=== PATIENT | male | born 1965 | race Caucasian/White ===

== ENCOUNTER 2021-09-10 07:07 | Outpatient (CLI) | payer BC, SELFPAY ==
--- NOTE | 2021-09-10 07:13 | US_ITS ---
STUDY: ABDOMINAL ULTRASOUND - ELASTOGRAPHY REASON FOR VISIT: Male, 55 years old. Fatty infiltration of the liver. TECHNIQUE: Liver stiffness measurements were obtained on a [employer] RS 85 ultrasound machine using a CA 1-7 probe following the SRU guidelines. 3 measurements were obtained using a 2-D-SWE method. The IQR/M was 12% suggesting a quality data set. TECHNICAL QUALITY: Adequate. COMPARISON: Comparison is made with prior sonogram done earlier today. FINDINGS: Liver: Fatty infiltration of the liver. Median liver stiffness measured 8.2 kPa. US/Elastography Parenchyma/Organ IMPRESSION: Liver stiffness measures 8.2 kPa compatible with F2-F3 (Mild to moderate liver fibrosis) Metavir score. Electronically Signed: Edwin Chung MD at 8:47 EDT ,
--- NOTE | 2021-09-10 07:13 | US_ITS ---
EXAM: US ABDOMEN LIMITED, RIGHT UPPER QUADRANT : 1965 CLINICAL INDICATION: fatty liver TECHNIQUE: Real-time ultrasound of the right upper quadrant with image documentation. This report was created using [employer] report generation technology. COMPARISON: None. FINDINGS: LIVER: Liver measures 17.9 cm. There is mild increased echogenicity. No intrahepatic biliary ductal dilation. GALLBLADDER: Gallbladder wall measures 2 mm. No shadowing gallstone. No pericholecystic fluid. Negative sonographic Lakhani's sign. COMMON BILE DUCT: Common bile duct measures 4 mm. The proximal common bile duct is within normal limits for the patient's age. PANCREAS: Unremarkable as visualized. No focal abnormality is demonstrated in the pancreas. No pancreatic ductal dilatation. RIGHT KIDNEY: The right kidney measures 13.4 x 7.3 x 5.4 cm. There is no hydronephrosis. No shadowing calculus. No focal lesion or perinephric collection is demonstrated. US/Abdomen Limited IMPRESSION: Mild increased echogenicity of the liver compatible with fatty infiltration. No other abnormalities identified. at 1116 Reported and signed by: Tolu Miller MD Electronically Signed: Tolu Miller MD at 11:14 EDT ,
== END 2021-09-10 23:59 | disposition home or self-care (01) ==
LOC: US 07:11
PROVIDERS: PCP Nurse Practitioner Family; Referring Provider Internal Medicine Gastroenterology; Visit Provider Internal Medicine Gastroenterology
DX: K76.0 Fatty (change of) liver, not elsewhere classified (principal); R19.7 Diarrhea, unspecified
CPT/HCPCS: 76705; 76981

== ENCOUNTER 2021-09-24 06:06 | Outpatient (CLI) | payer BC, SELFPAY ==
[2021-09-24 07:15] LABS: Absolute Lymphocyte Count 1.47 X10^3/uL (0.83-4.51); Absolute Neutrophil Count 3.3 X10^3/uL (2.0-7.7); Basophil# 0.03 X10^3/uL; Basophil% 0.5 % (0-1); Eosinophil# 0.09 X10^3/uL; Eosinophils% 1.6 % (0-5); Hematocrit 44.2 % (40-54); Hemoglobin 14.1 g/dL (13.0-16.5); Lymphocyte # 1.47 X10^3/ul (0.83-4.51); Lymphocyte % 26.7 % (19-41); Mean Corp Hgb Conc 31.9 g/dL (32-36); Mean Corpuscular Hgb 28.3 pg (27.0-32.0); Mean Corpuscular Volume 88.6 fL (80-94); Monocyte% 10.9 % (0-10); NRBC Flagged by Analyzer 0 % (0-5); Neutrophil # 3.29 X10^3/uL (2.7-7.7); Neutrophil % 59.9 % (47-70); Platelet Count 165 K/mm3 (150-450); RBC Distribution Width CV 14.1 % (11.6-14.6); RBC Distribution Width SD 45.4 fl (35.1-43.9); Red Blood Count 4.99 M/mm3 (4.6-6.2); White Blood Count 5.5 K/mm3 (4.4-11.0)
[2021-09-24 07:31] LABS: Erythrocyte Sedimentation Rate 4 mm/hr (0-20)
[2021-09-24 08:04] LABS: ALB/GLOB Ratio 1.2 RATIO (0.9-2.4); AST(SGOT) 27 U/L (15-37); Alanine Aminotransfer ALT/SGPT 45 U/L (16-61); Albumin, Serum 3.8 g/dL (3.2-5.0); Alkaline Phosphatase 101 U/L (45-117); Anion Gap 5 (5-15); BUN 17 mg/dL (7-18); BUN/Creat Ratio 17.5 RATIO (10-20); CRP < 2.90 mg/L (0.0-3.0); Calcium,Total 8.9 mg/dL (8.5-10.1); Chloride 108 mmol/L (98-107); Creatinine, Serum 0.97 mg/dL (0.70-1.30); EST Glomerular Filtration Rate 84 mL/min (>60); Est Glom Filt Rate - Afr Amer 102 mL/min (>60); Globulin 3.2 g/dL (2.2-4.2); Glucose 94 mg/dL (74-106); LDH 249 U/L (87-241); Sodium Level 141 mmol/L (136-145)
[2021-09-24 08:10] LABS: Hemoglobin A1c 5.7 % (3.8-5.6)
[2021-09-24 09:12] LABS: HIV - WCH Non-Reactive (Nonreactive)
[2021-09-25 14:10] LABS: Anti-Centromere B Ab <0.2 AI (0.0-0.9); Anti-Chromatin <0.2 AI (0.0-0.9); Anti-Jo <0.2 AI (0.0-0.9); Anti-Scleroderma-70 AB <0.2 AI (0.0-0.9); RNP Ab 0.6 AI (0.0-0.9); SJOGREN'S Anti-SS-A test < 0.2 AI (0.0-0.9); SJOGREN'S Anti-SS-B test < 0.2 AI (0.0-0.9); Smith Ab <0.2 AI (0.0-0.9)
[2021-09-25 16:54] LABS: Anti-Mitochondrial AB 42.2 Units (0.0-20.0)
[2021-09-25 16:55] LABS: Anti-dsDNA Ab <1 IU/mL (0-9)
[2021-09-30 17:07] LABS: Angiotensin Convert Enzyme 35 U/L (14-82); Ceruloplasmin 17.5 mg/dL (16.0-31.0); Cytoplasmic Ab (C-ANCA) <1:20 titer (Neg:<1:20); HEPATITIS B SURFACE AG Negative (Negative); Hepatitis A IgM Antibody Negative (Negative); Hepatitis B Core AB IgM Negative (Negative); Immunoglobulin A 129 mg/dL (90-386); Immunoglobulin E 13 IU/mL (6-495); Immunoglobulin G 851 mg/dL (603-1613); Immunoglobulin M 45 mg/dL (20-172)
[2021-09-30 20:16] LABS: AFP, Tumor Marker 1.9 ng/mL (0.0-8.4); Anti-Smooth Muscle ABS 6 Units (0-19); Copper, Serum or Plasma 84 ug/dL (69-132); Haptoglobin 133 mg/dL (29-370); Hep C Antibodies 0.1 s/co ratio (0.0-0.9); Perinuclear Ab (P-ANCA) <1:20 titer (Neg:<1:20)
== END 2021-09-24 23:59 | disposition home or self-care (01) ==
LOC: LAB 06:08
PROVIDERS: PCP Nurse Practitioner Family; Visit Provider Internal Medicine Gastroenterology
DX: K76.0 Fatty (change of) liver, not elsewhere classified (principal); R19.7 Diarrhea, unspecified
CPT/HCPCS: 36415; 80053; 80074; 82105; 82164; 82390; 82525; 82784; 82785; 83010; 83036; 83516; 83615; 85025; 85652; 86140; 86225; 86235; 86256; 86703

== ENCOUNTER → 2022-03-22 | Outpatient (CLI) | payer BC, SELFPAY ==
--- NOTE | 2022-03-22 07:16 | US_ITS ---
STUDY: ABDOMINAL ULTRASOUND - ELASTOGRAPHY REASON FOR VISIT: Male, 56 years old. Fatty infiltration of the liver. TECHNIQUE: Liver stiffness measurements were obtained on a [employer] RS 85 ultrasound machine using a CA 1-7 probe following the SRU guidelines. 3 measurements were obtained using a 2-D-SWE method. The IQR/M was 27% suggesting a quality data set. TECHNICAL QUALITY: Adequate. COMPARISON: Comparison is made with prior study from 09/10/2021. FINDINGS: Liver: Hepatomegaly and fatty infiltration of the liver. Median liver stiffness measured 10.5 kPa. US/Elastography Parenchyma/Organ IMPRESSION: Liver stiffness measures 10.5 kPa compatible with F2-F3 (Mild to moderate liver fibrosis) Metavir score. Electronically Signed: Edwin Chung MD at 14:50 EDT ,
--- NOTE | 2022-03-22 07:16 | US_ITS ---
STUDY: ABDOMINAL ULTRASOUND - RIGHT UPPER QUADRANT REASON FOR VISIT: Male, 56 years old . Fatty infiltration of the liver. TECHNIQUE: Ultrasound evaluation of the right upper quadrant was performed with real-time and static juarez-scale imaging. TECHNICAL QUALITY: Limited. Examination limited due to obesity. COMPARISON: Comparison is made with prior study dated 09/10/2021. FINDINGS: Liver: The liver is enlarged and measures 22.1 cm. There is increased echogenicity consistent with fatty infiltration. The bile ducts are within normal limits. There is hepatic color flow. The direction of portal flow is hepatopetal. There is no demonstrated mass lesion. Gallbladder: Normal distended gallbladder. The gallbladder wall measures 1.3 mm. There is a negative sonographic Lakhani''s sign. There is no pericholecystic fluid. There are no gallstones. Common Bile Duct (C.B.D.): The common bile duct measures 4.0 mm. Pancreas: There is nonvisualization of the pancreas due to overlying bowel gas. Right Kidney: Normal size of the right kidney. The right kidney measures 13.7 cm x 6.8 cm x 7.7 cm. Normal renal cortex. The right cortex measures 2.7 cm. There is no demonstrated renal mass or cyst. There is no right hydronephrosis. US/Abdomen Limited IMPRESSION: Hepatomegaly and diffuse fatty infiltration of the liver. Electronically Signed: Edwin Chung MD at 14:49 EDT ,
== END | disposition home or self-care (01) ==
LOC: US 07:14
PROVIDERS: PCP Nurse Practitioner Family; Referring Provider Internal Medicine Gastroenterology; Visit Provider Internal Medicine Gastroenterology
DX: K76.0 Fatty (change of) liver, not elsewhere classified (principal)
CPT/HCPCS: 76705; 76981

== ENCOUNTER 2022-09-27 07:25 | Outpatient (CLI) | payer BC, SELFPAY ==
[2022-09-27] VITALS (9 sets, daily range): BP systolic 140–164; BP diastolic 81–107; PULSE 56–66; RESP 14–19; TEMP 36.5; O2SAT 91–99; BMI 38.0
--- NOTE | 2022-09-27 | LIV_PTH ---
PATIENT: SEE SHERIFF LOC: CT U#:[id number] AGE/SX: 56/M ROOM: RE09/27/[address]: Dr. Agustin Hunt DO : 1965 BED: DIS: 09/27/2022 SPEC #: [id number] RECD: 09/27/22 10:34 STATUS: CANDIE VINICIUS #: [id number] YUKI: 09/27/22 00:[address]: Agustin Hunt DEPT: SURGICAL PATHOLOGY RECD BY: Santino Prasad ENTERED: 09/27/22 10:35 SP TYPE: LIVER RES OTHR DR: Gaurang Ramos, HISTOLOGIC TECHNICIAN-C Tissues: Liver, NOS Procedures: PAS with Diastase (control) Trichrome (control) Special Stain Group II PAS Stain (control) Surgery Specimen Level V Retic (control) Iron Stain (control) HEADER OPERATION: CT-guided liver biopsy PRE-OP DIAGNOSIS: PBC TISSUE SUBMITTED: Liver x3 18-gauge MICROSCOPIC DIAGNOSIS Liver, CT-guided core biopsy: Minimal chronic inflammation, grade 1. No evidence of cirrhosis. See comment. AM:yrn 09/28/2022 COMMENT The modified Knodell scoring system for chronic hepatitis was used in the evaluation of this case. There is minimal portal inflammation without lobular involvement. Iron stain does not reveal accumulation of intraparenchymal iron. Reticulin stain reveals normal hepatic architecture. PAS and PASD stains do not reveal accumulation of abnormal proteins. Trichrome does not reveal cirrhosis. All matched controls are appropriate. MICROSCOPIC DESCRIPTION Slides are reviewed. GROSS DESCRIPTION Received in fixative is one container labeled with the patient's name and designated CT liver biopsy. The specimen consists of three elongated fragments of suarez soft tissue measuring 1 to 1.5 cm in length and 0.1 cm in diameter. The specimen is totally submitted in one cassette. / SJ:yrn 09/27/2022 TC:3 CPT: 96277, 75355 x5
--- NOTE | 2022-09-27 07:27 | CT_ITS ---
PROCEDURE: CT DIRECTED CORE LIVER BIOPSY INDICATION: Male, [address] [facility] PHYSICIAN: Dr. Sheldon Denson CONSENT: Written informed consent was obtained having explained the risks, benefits and alternatives in detail with the patient who accepted the risks and agreed to proceed. Laboratory review and clinical assessment was performed. CONSCIOUS SEDATION PROTOCOL: The Drugs used were: 2 mg Versed, IV., and 50 mcg Fentanyl, IV. The sedation time was: 17 minutes. Conscious sedation was started at 9:08 AM and terminated at 9:25 AM. The conscious sedation protocol was independently monitored. RADIATION DOSAGE (If Supplied By Facility): CTDIvol = ( 26 ) mGy, DLP = ( 1364.34 ) mGycm Individualized dose optimization techniques were used for this CT. TECHNIQUE: Using CT image guidance with image documentation, a suitable location in the left lobe of the liver was identified. Using an anterior approach, puncture of the liver was uneventful with an 18-gauge core needle system. 3, 18-gauge core samples were obtained, and submitted in formalin to the pathologist for further assessment. Followup CT scan revealed no distinct sequelae. CT/Biopsy/Inj or Needle Placement IMPRESSION: 1. CT directed core needle biopsy of the liver, using CT image guidance with image documentation as described. 2. Conscious Sedation protocol utilized with independent monitoring. Electronically Signed: Edwin Chung MD at 9:56 EDT ,
[2022-09-27 08:10] LABS: Prothrombin Time (Protime)PT. 13.1 SECONDS (11.7-14.9)
[2022-09-27 08:11] LABS: Partial Thromboplast Time 38.6 Seconds (24.1-36.2)
[2022-09-27 08:14] LABS: ALB/GLOB Ratio 1.1 RATIO (0.9-2.4); AST(SGOT) 19 U/L (15-37); Alanine Aminotransfer ALT/SGPT 32 U/L (16-61); Albumin, Serum 3.6 g/dL (3.2-5.0); Alkaline Phosphatase 81 U/L (45-117); Anion Gap 2 (5-15); BUN 22 mg/dL (7-18); BUN/Creat Ratio 22.1 RATIO (10-20); Calcium,Total 9.2 mg/dL (8.5-10.1); Chloride 108 mmol/L (98-107); EST Glomerular Filtration Rate 82 mL/min (>60); Est Glom Filt Rate - Afr Amer 99 mL/min (>60); Globulin 3.2 g/dL (2.2-4.2); Glucose 120 mg/dL (74-106); LDH 215 U/L (87-241); Potassium 4.5 mmol/L (3.5-5.1); Protein, Total 6.8 g/dL (6.4-8.2); Sodium Level 141 mmol/L (136-145)
[2022-09-27 08:34] LABS: Hemoglobin A1c 5.3 % (3.8-5.6)
[2022-09-27] MEDS: Midazolam 2 MG/2 ML Syringe IV (09:08)
[2022-09-27] MEDS: fentaNYL 100 MCG/2 ML Ampul IV (09:10)
[2022-09-27] MEDS: Lidocaine 2% (20 ml mdv) 20 ML Vial INFILT (09:27)
[2022-09-28 16:36] LABS: Anti-Mitochondrial AB 59.7 Units (0.0-20.0)
[2022-09-28 16:37] LABS: Anti-Smooth Muscle ABS 4 Units (0-19)
== END 2022-09-27 23:59 | disposition home or self-care (01) ==
PROVIDERS: PCP Nurse Practitioner Family; Referring Provider Internal Medicine Gastroenterology; Visit Provider Internal Medicine Gastroenterology
DX: K73.9 Chronic hepatitis, unspecified (principal); K74.3 Primary biliary cirrhosis; K76.0 Fatty (change of) liver, not elsewhere classified; Z79.899 Other long term (current) drug therapy
CPT/HCPCS: 47000; 36415; 77012; 80053; 83036; 83516; 83615; 85049; 85610; 85730; 88307; 88313; 99156; J7050

== ENCOUNTER → 2023-03-22 | Outpatient (CLI) | payer BC, SELFPAY ==
--- NOTE | 2023-03-22 07:32 | US_ITS ---
STUDY: ABDOMINAL ULTRASOUND - RIGHT UPPER QUADRANT; ELASTOGRAPHY REASON FOR VISIT: Male, 57 years old. Fatty infiltration of the liver. Cirrhosis. TECHNIQUE: Ultrasound evaluation of the right upper quadrant was performed with real-time and static juarez-scale imaging. Point quantification shear wave elastography was performed ([employer] [place] [employer]). TECHNICAL QUALITY: Limited. Examination limited by bowel gas. COMPARISON: Comparison is made with prior study dated March 22, 2022. FINDINGS: Liver: The liver is enlarged and measures 20.2 cm. There is increased echogenicity consistent with fatty infiltration. The bile ducts are within normal limits. There is hepatic color flow. The direction of portal flow is hepatopetal. There is no demonstrated mass lesion. Median liver stiffness measured 8.2 kPa. Gallbladder: Normal distended gallbladder. The gallbladder wall measures 2.5 mm. There is a negative sonographic Lakhani''s sign. There is no pericholecystic fluid. There are no gallstones. Common Bile Duct (C.B.D.): The common bile duct measures 3.4 mm. Pancreas: There is normal echogenicity of the visualized pancreas. There is no demonstrated pancreatic mass or cyst. Right Kidney: Normal size of the right kidney. The right kidney measures 13.1 cm x 5.4 cm x 6.9 cm. Normal renal cortex. The right cortex measures 2.2 cm. There is no demonstrated renal mass or cyst. There is no right hydronephrosis. US/ABD Limited w/ Elastography IMPRESSION: 1. Liver stiffness measures 8.2 kPa compatible with F2-F3 (Mild to moderate liver fibrosis) Metavir score. Electronically Signed: Edwin Chung MD at 12:36 EDT ,
== END | disposition home or self-care (01) ==
LOC: US 07:32
PROVIDERS: PCP Nurse Practitioner Family; Referring Provider Internal Medicine Gastroenterology; Visit Provider Internal Medicine Gastroenterology
DX: K74.3 Primary biliary cirrhosis (principal)
CPT/HCPCS: 76705; 76981

== ENCOUNTER → 2023-08-20 | Outpatient (CLI) | payer BC, SELFPAY ==
--- OUTSIDE RECORDS SUMMARY | 2023-08-20 07:09 | XMS RPT_ITS | CCD ---
Author Name Unknown Address [address] [place] [address] Organization [facility] Care Team Providers Care Parts Consultant Name Role Phone REFERRINGCAITLYN Unavailable Unavailable GAURANG LOVE Unavailable Unavailable GAURANG LOVE Unavailable Unavailable KATE VIDEO PRESENTATION OPERATOR - DENTAL APPLIANCE FIXER, GAURANG Smith Primary Care Phys [facility] KATE VIDEO PRESENTATION OPERATOR - GAURANG NIEVES Attending U navailable KATE VIDEO PRESENTATION OPERATOR - DENTAL APPLIANCE FIXER, GAURANG Smith Primary Care U navailable KATE VIDEO PRESENTATION OPERATOR - DENTAL APPLIANCE FIXER, GAURANG Smith Attending U navailable KATE VIDEO PRESENTATION OPERATOR - DENTAL APPLIANCE FIXER, GAURANG Smith Primary Care U navailable KATE VIDEO PRESENTATION OPERATOR - DENTAL APPLIANCE FIXER, GAURANG Smith Attending U navailable KATE VIDEO PRESENTATION OPERATOR - DENTAL APPLIANCE FIXER, GAURANG Smith Primary Care U navailable KATE VIDEO PRESENTATION OPERATOR - DENTAL APPLIANCE FIXER, GAURANG Smith Attending U navailable KATE VIDEO PRESENTATION OPERATOR - DENTAL APPLIANCE FIXER, GAURANG Smith Primary Care U navailable [facility] [place] CNP, Gaurang Smith Primary Care Provider MARCELLA GONZALEZ Referring Unavailable GAURANG LOVE Primary Care Unavailable GAURANG LOVE Primary Care Unavailable Medications Current Medications Medication Drug Class(es) Dates Sig (Normalized) Sig (Original) Arnuity Ellipta 200 mcg inhalation powder (3 sources) Start: 11-10-2021 take 1 puff(s) by inhalation once daily Arnuity Ellipta 200 mcg inhalation powder 1 puff(s), Inhalation, qDay, # 30 EA, 0 Refill(s) Start Date: 11/10/21 Status: Ordered Calcium (1 source) Phosphate Binder, Calcium Start: 02-23-2019 calcium (as carbonate) 600 mg oral tablet Dose : 600 mg = 1 tab(s), Oral, BIDM, 0 Refill(s) Start Date: 02/23/19 Status: Ordered calcium carbonate 1500 mg oral tablet (5 sources) Start: 02-23-2019 calcium (as carbonate) 600 mg oral tablet Dose : 600 mg = 1 tab(s), Oral, BIDM, 0 Refill(s) Start Date: 02/23/19 Status: Ordered cephalexin 500 mg oral capsule (1 source) Cephalosporin Antibacterial Start: 07-30-2022 End: 08-06-2022 cephalexin 500 mg oral capsule Dose : 500 mg = 1 cap(s), Oral, TID, X 7 day(s), # 21 cap(s), 0 Refill(s), 08/06/22 11:42:00 EST, Pharmacy: [id number], Cellulitis of left leg, 182.5, cm, 07/30/22 11:11:00 EST, Height, 132.2 Start Date: 07/30/22 Stop Date: 08/06/22 Status: Ordered Clobetasol (6 sources) Corticosteroid Start: 11-12-2022 Clobetasol (Eqv-Temovate) 0.05% topical cream See Instructions, APPLY TO AFFECTED AREA TWICE A DAY, # 30 gram(s), 6 Refill(s), Pharmacy: [id number], 182.5, cm, 11/12/22 15:21:00 EDT, Height, kg, 11/12/22 15:21:00 EDT, Dosing Weight Start Date: 11/12/22 Status: Ordered Completed/Discontinued Medications Medication Drug Class(es) Dates Sig (Normalized) Sig (Original) acetaminophen 325 mg / HYDROcodone bitartrate 5 mg oral tablet (1 source) Opioid Agonist Start: 07-18-2015 take 1 tablet by mouth every six hours as needed HYDROcodone-aceta minophen (NORCO) 5-325 mg per tablet Take 1 tablet by mouth every 6 hours as needed. 60 tablet 0 07/18/2015 Active Problems Active Problems Problem Classification Problem Date Documented Da te Episodic/Chronic Anxiety disorders (6 sources) Generalized anxiety disorder 10-02-2020 Chronic Asthma (6 sources) Asthma 10-02-2020 Chronic Disorders of lipid metabolism (14 sources) Hyperlipidemia, unspecified; Translations: [Hyperlipidemia] Onset: 7 02-23-2019 Chronic Esophageal disorders (6 sources) Gastroesophageal reflux disease 02-22-2019 Chronic Essential hypertension (10 sources) Essential (primary) hypertension; Translations: [Hypertensive disorder] Onset: 7 02-22-2019 Chronic Osteoarthritis (6 sources) Arthritis 02-22-2019 Chronic Other gastrointestinal disorders (5 sources) Irritable bowel syndrome 07-17-2021 Chronic Other lower respiratory disease (1 source) Cough; Translations: [Acute cough] 06-02-2023 Episodic Other male genital disorders (6 sources) 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 Other nutritional; endocrine; and metabolic disorders (1 source) Body mass index 40+ - severely obese 05-05-2023 Chronic Residual codes; unclassified (6 sources) Increased body mass index 09-06-2019 Episodic Screening and history of mental health and substance abuse codes (3 sources) Tobacco use and exposure - finding 05-13-2022 Chronic Thyroid disorders (8 sources) Hypothyroidism, unspecified; Translations: [Hypothyroidism] Onset: 7 02-22-2019 Chronic Unclassified (6 sources) Patient encounter status 10-02-2020 Unclassified (1 source) Pressure injury 02-26-2022 Unclassified (3 sources) Non-smoker 05-13-2022 Unclassified (1 source) Acute cough; Translations: [Acute cough] Onset: 3 Viral infection (1 source) Viral disease; Translations: [Viral infection, unspecified] 06-02-2023 Episodic Past or Other Problems Problem Classification Problem Date Documented Da te Episodic/Chronic Abdominal hernia (1 source) Incisional hernia; Translations: [Incisional hernia without obstruction or gangrene] Onset: 01-13-2015 08-11-2015 Episodic Skin and subcutaneous tissue infections (3 sources) Abscess of lower limb; Translations: [Cellulitis of left lower limb] Onset: 07-30-2022 07-30-2022 Episodic Results Test Name Value Interpretation Reference Range Facil ity Vital Signs Date Time Vital Sign Value Performing Clinician Faci lity 06-02-2023 12:40-0500 Body temperature 99.19 [degF] Marcella Gonzalez APRN.DENTAL APPLIANCE FIXER Work Phone: [facility] 06-02-2023 12:40-0500 Body weight 132.18 kg Marcellaconchita Gonzalez VIDEO PRESENTATION OPERATOR.DENTAL APPLIANCE FIXER Work Phone: [facility] 06-02-2023 12:40-0500 Diastolic blood pressure 90 mm[Hg] Marcella Gonzalez VIDEO PRESENTATION OPERATOR.DENTAL APPLIANCE FIXER Work Phone: [facility] 06-02-2023 12:40-0500 Heart rate 80 /min Marcellaconchita Gonzalez VIDEO PRESENTATION OPERATOR.DENTAL APPLIANCE FIXER Work Phone: [facility] 06-02-2023 12:40-0500 Respiratory rate 21 /min Marcellaconchita Gonzalez VIDEO PRESENTATION OPERATOR.DENTAL APPLIANCE FIXER Work Phone: [facility] 06-02-2023 12:40-0500 SaO2% (BldA) [Mass fraction] 94 % Marcella Gonzalez VIDEO PRESENTATION OPERATOR.DENTAL APPLIANCE FIXER Work Phone: [facility] 06-02-2023 12:40-0500 Systolic blood pressure 122 mm[Hg] Marcella Gonzalez VIDEO PRESENTATION OPERATOR.DENTAL APPLIANCE FIXER Work Phone: [facility] Encounters Encounter Date Encounter Type Care Provider Facility Start: 06-02-2023 End: 06-02-2023 ambulatory GAURANG LOVE Facility:[facility] Start: 06-02-2023 End: 06-02-2023 Office outpatient visit 15 minutes Marcella Gonzalez VIDEO PRESENTATION OPERATOR.DENTAL APPLIANCE FIXER Work Phone: [facility] Plan of Treatment Date Care Activity Detail Author Start: 02-25-2023 Covid-19 Vaccine ( season) Covid-19 Vaccine ( season) [facility] Start: 02-25-2023 Influenza vaccination Influenza Vacc ine (#1) [facility] Start: 06-27-2022 Depression Assessment Depression Ass essment [facility] Start: 11-22-2018 Prostate Cancer Scre ening Discussion Prostate Cancer Screening Discussion [facility] Start: 06-09-2018 Diabetes Screening Diabetes Screenin g [facility] Start: 11-22-2013 Shingrix Vaccine (1 of 2) Shingrix V accine (1 of 2) [facility] Start: 11-22-2008 Cologuard (FIT-DNA) Cologuard (FIT-D NA) [facility] Start: 11-22-2008 Colonoscopy Colonoscopy [facility] Start: 11-22-2008 Colorectal Cancer Screening Colorectal Cancer Screening [facility] Start: 11-22-[address] Colonography [facility] Start: 11-22-2008 Fecal Occult Blood Fecal Occult Bloo d [facility] Start: 11-22-[address] [facility] Start: 11-22-1998 Lipid 1996 panel - S vaishali or Plasma Lipid Screening [facility] Start: 11-22-1982 Urine microalbumin profile DTa P,Tdap,Td Vaccine (1 - Tdap) [facility] Start: 11-22-1981 Hepatitis C Screening Hepatitis C Sc reening [facility] Start: 11-22-1981 HIV Screening HIV Screening [facility] Immunizations Immunization Date Immunization Notes Care Provider Fa barbara 10-22-2020 SARS-CoV-2 (COVID-19 ) mRNA-1273 vaccine GAURANG LOVE VIDEO PRESENTATION OPERATOR - DENTAL APPLIANCE FIXER [facility] Payers Date Payer Category Payer Unknown [id number] 1999 Unknown [employer] PPO [id number] 1999-Present [phone] [address] [place] [address] PPO [id number] 1963 Unknown [id number] 1963 Unknown [id number] 1963 Unknown [id number] 1963 Unknown [id number] Social History Date Type Detail Facility Start: 02-16-2011 End: 02-23-2019 Never smoked tobacco (finding) [facility] Procedure Code Equipment Code Equipment Origin al Text Equipment Identifier Dates Patch Ventralex St Sepra Large [place] Surgical Strap 3.2in Umbilical Hernia - [id number] Start: 07-18-2015 Clinical Notes 08-02-2022 to 06-02-2023 Marcella Gonzalez APRN.CNP - 06/02/2023 12:42 PM ESTLaboratoryLaboratoryLaboratoryLaboratoryLaboratoryLaboratory Note Date & Type Note Facility 06-02-2023 Note HNO ID: [id number] Author: Ingrid Perera RT(R) Service: ? Author Type: Flange Machine Operator Type: Progress Notes Filed: 06/02/2023 1:08 PM Note Text: Radiology Service Progress Note PATIENT NAME: See Vidal DATE OF SERVICE: June 02, 2023 TIME: 1:00 PM PATIENT IDENTITY VERIFICATION COMPLETED USING TWO (2) IDENTIFIERS: Name and Date of confirmed by patient verbally. FALL SCREENING: Has the patient had 2 falls in the last year or 1 fall with injury or currently using an Ambulatory Assistive Device (Walker, Cane, Wheelchair, Crutches, etc.)? No PATIENT GENDER DATA: Male PATIENT RELEVANT IMPLANT DATA REVIEWED: Yes RADIOLOGY DEPARTMENT: General X-ray: Exam(s) Completed: Chest X-Ray PERIPHERAL IV DATA: Not applicable SIGNED BY: RT Krystyna(R) June 02, 2023 1:00 PM [facility] 06-02-2023 Note HNO ID: [id number] Author: Marcella Gonzalez APRN.DENTAL APPLIANCE FIXER Service: ? Author Type: Nurse Practitioner Type: Progress Notes Filed: 06/02/2023 1:39 PM Note Text: Subjective HPI Nontoxic-appearing male presents to urgent care chief plaint fatigue. Duration of symptoms 1 week. Associated symptoms fever body aches chills fatigue headache nasal congestion. Does have some cough. Fever has been absent for the last few days. Has noticed persistent fatigue and body aches. No known sick contacts. No OTC medication use today. Presents today for evaluation. Denies any fever chills productive cough chest pain shortness of breath pleuritic pain hemoptysis nausea vomiting abdominal pain change in bowel or bladder habits. Past medical history prescription medication use and allergies reviewed. .Patient presents with: Fever: Body aches, weakness, CORTES x 1 week PAST MEDICAL HISTORY Diagnosis Date Bleeding Has problems at dentist,get cut etc, not tested for any bleeding disorder Hypertension 1995 Hypothyroidism 1995 History reviewed. No pertinent surgical history. ALLERGIES Patient has no allergy information on record. MEDICATIONS FLOVENT DISKUS 250 mcg/actuation inhaler hydroCHLOROthiazide 12.5 mg capsule valsartan (DIOVAN) 320 mg tablet metoprolol succinate ER (TOPROL XL) 25 mg 24 hr tablet ursodiol (ACTIGALL) 300 mg capsule docusate sodium (COLACE) 100 mg capsule Take 1 capsule by mouth twice daily. Omeprazole 40 mg capsule Take 40 mg by mouth once daily. escitalopram oxalate (LEXAPRO) 10 mg tablet Take 10 mg by mouth once daily. diltiazem CD (CARTIA XT) 240 mg 24 hr capsule Take 240 mg by mouth once daily. lisinopril 40 mg ORAL tablet Take 40 mg by mouth once daily. levothyroxine (SYNTHROID) 25 mcg ORAL tablet Take 25 mcg by mouth. VITAMIN B COMPLEX NO.12-NIACIN ORAL Take by mouth once daily. Multivitamin ORAL capsule Take 1 capsule by mouth. Vitamin E 1,000 unit ORAL Tab Take by mouth once daily. CALCIUM CARBONATE/VITAMIN D3 (CALCIUM 600 + D ORAL) Take by mouth once daily. HYDROcodone-acetaminophen (NORCO) 5-325 mg per tablet Take 1 tablet by mouth every 6 hours as needed. (Patient not taking: Reported on 06/02/2023) FAMILY HISTORY Problem Relation Age of Onset Diabetes Father Heart Father Cancer Father pancreatic Social History Tobacco Use Smoking status: Never BP 122/90 Pulse 80 Temp 37.3 ?C (99.2 ?F) Resp 21 Wt 132.2 kg (291 lb 6.4 oz) SpO2 94% BMI 39.52 kg/m? 96% Review of Systems Constitutional: Positive for chills and malaise/fatigue. Negative for fever. HENT: Positive for congestion. Negative for ear discharge, ear pain, sinus pain and sore throat. Eyes: Negative for blurred vision, pain, discharge and redness. Respiratory: Positive for cough. Negative for hemoptysis, sputum production, shortness of breath, wheezing and stridor. Cardiovascular: Negative for chest pain. Gastrointestinal: Negative for abdominal pain, diarrhea, nausea and vomiting. Musculoskeletal: Positive for myalgias. Skin: Negative for itching and rash. Neurological: Positive for headaches. Negative for dizziness. Objective Physical Exam Constitutional: General: He is not in acute distress. Appearance: He is not diaphoretic. HENT: Head: Normocephalic. Jaw: No trismus, tenderness, swelling or pain on movement. Nose: Congestion present. Mouth/Throat: Mouth: Mucous membranes are moist. Pharynx: Oropharynx is clear. Uvula midline. No pharyngeal swelling, oropharyngeal exudate, posterior oropharyngeal erythema or uvula swelling. Eyes: Conjunctiva/sclera: Conjunctivae normal. Pupils: Pupils are equal, round, and reactive to light. Cardiovascular: Rate and Rhythm: Normal rate and regular rhythm. Heart sounds: Normal heart sounds. Pulmonary: Effort: Pulmonary effort is normal. No tachypnea, accessory muscle usage or respiratory distress. Breath sounds: No stridor. Wheezing present. No rhonchi or rales. Abdominal: General: There is no distension. Palpations: Abdomen is soft. Tenderness: There is no abdominal tenderness. There is no guarding or rebound. Musculoskeletal: Cervical back: Normal range of motion and neck supple. No edema, erythema, rigidity or tenderness. No pain with movement. Normal range of motion. Lymphadenopathy: Cervical: No cervical adenopathy. Skin: General: Skin is warm and dry. Neurological: Mental Status: He is alert and oriented to person, place, and time. ASSESSMENT/PLAN: 1. Acute cough - ICD9: 786.2, ICD10: R05.1 (primary diagnosis) - XR CHEST 2V FRONTAL/LAT 2. Viral illness - ICD9: 079.99, ICD10: B34.9 IMPRESSION: No acute radiographic abnormality in the lungs. Widening of the right upper mediastinum, likely related to vasculature or lymph node enlargement. Diagnosis viral illness acute cough. At this time there is no evidence of bacterial infection. Safety net doxycycline sent to (more content not included)... [facility] 06-02-2023 History of Present illness Narrative Subjective HPI Nontoxic-appearing male presents to urgent care chief plaint fatigue. Duration of symptoms 1 week. Associated symptoms fever body aches chills fatigue headache nasal congestion. Does have some cough. Fever has been absent for the last few days. Has noticed persistent fatigue and body aches. No known sick contacts. No OTC medication use today. Presents today for evaluation. Denies any fever chills productive cough chest pain shortness of breath pleuritic pain hemoptysis nausea vomiting abdominal pain change in bowel or bladder habits. Past medical history prescription medication use and allergies reviewed. .Patient presents with: Fever: Body aches, weakness, CORTES x 1 week PAST MEDICAL HISTORY Diagnosis Date Bleeding Has problems at dentist,get cut etc, not tested for any bleeding disorder Hypertension 1995 Hypothyroidism 1995 History reviewed. No pertinent surgical history. ALLERGIES Patient has no allergy information on record. MEDICATIONS FLOVENT DISKUS 250 mcg/actuation inhaler hydroCHLOROthiazide 12.5 mg capsule valsartan (DIOVAN) 320 mg tablet metoprolol succinate ER (TOPROL XL) 25 mg 24 hr tablet ursodiol (ACTIGALL) 300 mg capsule docusate sodium (COLACE) 100 mg capsule Take 1 capsule by mouth twice daily. Omeprazole 40 mg capsule Take 40 mg by mouth once daily. escitalopram oxalate (LEXAPRO) 10 mg tablet Take 10 mg by mouth once daily. diltiazem CD (CARTIA XT) 240 mg 24 hr capsule Take 240 mg by mouth once daily. lisinopril 40 mg ORAL tablet Take 40 mg by mouth once daily. levothyroxine (SYNTHROID) 25 mcg ORAL tablet Take 25 mcg by mouth. VITAMIN B COMPLEX NO.12-NIACIN ORAL Take by mouth once daily. Multivitamin ORAL capsule Take 1 capsule by mouth. Vitamin E 1,000 unit ORAL Tab Take by mouth once daily. CALCIUM CARBONATE/VITAMIN D3 (CALCIUM 600 + D ORAL) Take by mouth once daily. HYDROcodone-acetaminophen (NORCO) 5-325 mg per tablet Take 1 tablet by mouth every 6 hours as needed. (Patient not taking: Reported on 06/02/2023) FAMILY HISTORY Problem Relation Age of Onset Diabetes Father Heart Father Cancer Father pancreatic Social History Tobacco Use Smoking status: Never BP 122/90 Pulse 80 Temp 37.3 C (99.2 F) Resp 21 Wt 132.2 kg (291 lb 6.4 oz) SpO2 94% BMI 39.52 kg/m 96% Review of Systems Constitutional: Positive for chills and malaise/fatigue. Negative for fever. HENT: Positive for congestion. Negative for ear discharge, ear pain, sinus pain and sore throat. Eyes: Negative for blurred vision, pain, discharge and redness. Respiratory: Positive for cough. Negative for hemoptysis, sputum production, shortness of breath, wheezing and stridor. Cardiovascular: Negative for chest pain. Gastrointestinal: Negative for abdominal pain, diarrhea, nausea and vomiting. Musculoskeletal: Positive for myalgias. Skin: Negative for itching and rash. Neurological: Positive for headaches. Negative for dizziness. Objective Physical Exam Constitutional: General: He is not in acute distress. Appearance: He is not diaphoretic. HENT: Head: Normocephalic. Jaw: No trismus, tenderness, swelling or pain on movement. Nose: Congestion present. Mouth/Throat: Mouth: Mucous membranes are moist. Pharynx: Oropharynx is clear. Uvula midline. No pharyngeal swelling, oropharyngeal exudate, posterior oropharyngeal erythema or uvula swelling. Eyes: Conjunctiva/sclera: Conjunctivae normal. Pupils: Pupils are equal, round, and reactive to light. Cardiovascular: Rate and Rhythm: Normal rate and regular rhythm. Heart sounds: Normal heart sounds. Pulmonary: Effort: Pulmonary effort is normal. No tachypnea, accessory muscle usage or respiratory distress. Breath sounds: No stridor. Wheezing present. No rhonchi or rales. Abdominal: General: There is no distension. Palpations: Abdomen is soft. Tenderness: There is no abdominal tenderness. There is no guarding or rebound. Musculoskeletal: Cervical back: Normal range of motion and neck supple. No edema, erythema, rigidity or tenderness. No pain with movement. Normal range of motion. Lymphadenopathy: Cervical: No cervical adenopathy. Skin: General: Skin is warm and dry. Neurological: Mental Status: He is alert and oriented to person, place, and time. ASSESSMENT/PLAN: 1. Acute cough - ICD9: 786.2, ICD10: R05.1 (primary diagnosis) - XR CHEST 2V FRONTAL/LAT 2. Viral illness - ICD9: 079.99, ICD10: B34.9 IMPRESSION: No acute radiographic abnormality in the lungs. Widening of the right upper mediastinum, likely related to vasculature or lymph node enlargement. Diagnosis viral illness acute cough. At this time there is no evidence of bacterial infection. Safety net doxycycline sent to pharmacy. Follow-up with PCP 2 to 3 days symptoms or not improving and to discuss chest x-ray findings. Patient was educated on supportive therapies. Patient was instructed to immediately proceed to emergency room for any new, worsening, or symptoms lasting longer than anticipated. The patient's clinical presentation is otherwise unremarkable at this time. Based on exam and clinical finding, the patient is stable for discharge. Plan of care was discussed with patient. Patient verbalizes understanding and agrees to plan of care. This note was generated using Qzzr software. It may contain errors in wording, punctuation, or spelling. Marcella Gonzalez APRN.DENTAL APPLIANCE FIXER documented in this encounter [facility] 08-02-2022 Note . MICRO - Microbiology PROCEDURE: Culture Wound Aerobic with Gram Stain [*1] SOURCE: Drainage BODY SITE: Leg L COLLECTED DATE/TIME: 07/30/2022 11:43 EST RECEIVED DATE/TIME: 07/31/2022 16:37 EST START DATE/TIME: 07/31/2022 16:37 EST FREE TEXT SOURCE: FINAL REPORTS Final Report [] Verified Date/Time/Personnel: 08/02/2022 08:35 EST Light Group A Beta Hemolytic Strep (Strep pyogenes) Sensitivity testing is not recommended for one of the following reasons: 1. Established susceptibility patterns are available or 2. Interpretative criteria are not available. Rare normal skin jordin present. Sensitivity testing not indicated. PRELIMINARY REPORTS Preliminary Report [] Verified Date/Time/Personnel: 08/01/2022 11:38 EST Light Group A Beta Hemolytic Strep (Strep pyogenes) Sensitivity testing is not recommended for one of the following reasons: 1. Established susceptibility patterns are available or 2. Interpretative criteria are not available. STAINS GS [] Verified Date/Time/Personnel: 08/01/2022 00:46 EST Rare Red Blood Cells Rare Gram Positive Cocci Performing Locations *1: This test was performed at: [facility], [address] [place] [address], [id number] , [facility] ([place]) Evaluation + Plan note Future Appointments Appointment Date:10/01/2021 04:00:00 PM Scheduled Provider:GAURANG LOVE APRN - DENTAL APPLIANCE FIXER [facility] Appointment Type:PC OV Follow Up Diagnostic Tests PendingStool Culture 07/14/21Shiga Toxins 1 and 2 07/14/21 Future Scheduled TestsGiardia Antigen 05/18/21Clostridium difficile PCR 05/18/21Thyroid Stimulating Hormone 10/02/21Free T4 10/02/21Stool Culture 05/18/21Complete Blood Count 10/02/21Lipid Profile 10/02/21Complete Metabolic Panel 10/02/21 [facility] Evaluation + Plan note Future Appointments Appointment Date:11/10/2021 03:40:00 PM Scheduled Provider:GAURANG LOVE VIDEO PRESENTATION OPERATOR - DENTAL APPLIANCE FIXER [facility] Appointment Type:PC OV Follow Up Future Scheduled TestsGiardia Antigen 05/18/21ool Culture 05/18/21Clostridium difficile PCR 05/18/21 [facility] Evaluation + Plan note Future Appointments Appointment Date:05/13/2022 04:00:00 PM Scheduled Provider:GAURANG LOVE VIDEO PRESENTATION OPERATOR - DENTAL APPLIANCE FIXER [facility] Appointment Type:PC OV Follow Up Future Scheduled TestsGiardia Antigen 05/18/21ool Culture 05/18/21Clostridium difficile PCR 05/18/21Microalbumin Level Urine 05/13/22 [facility] Evaluation + Plan note Future Appointments Appointment Date:11/12/2022 04:00:00 PM Scheduled Provider:GAURANG LOVE VIDEO PRESENTATION OPERATOR - DENTAL APPLIANCE FIXER [facility] Appointment Type:PC OV Follow Up Future Scheduled TestsProstate Specific Antigen 11/10/22Thyroid Stimulating Hormone 11/10/22Free T4 11/10/22Lipid Profile 11/10/22Microalbumin Level Urine 05/13/22Microalbumin Level Urine 11/10/22Complete Metabolic Panel 11/10/22 [facility] Evaluation + Plan note Future Appointments Appointment Date:05/05/2023 07:00:00 AM Scheduled Provider:GAURANG LOVE APRN, CNP Location:[facility] Appointment Type:PC OV Follow Up Future Scheduled TestsAlbumin/Creatinine Ratio, Random Urine 05/15/23Microalbumin Level Urine 05/13/22 [facility] Evaluation + Plan note Future Appointments Appointment Date:05/31/2023 07:20:00 AM Scheduled Provider:GAURANG LOVE APRN, CNP Location:[facility] Appointment Type:PC OV Future Scheduled TestsProstate Specific Antigen 11/03/23Thyroid Stimulating Hormone 11/03/23Free T4 11/03/23Lipid Profile 11/03/23Albumin/Creatinine Ratio, Random Urine 11/03/23Complete Metabolic Panel 11/03/23 [facility] documented in this encounter [facility] course Narrative No data available for this section [facility] Hospital Discharge instructions No data available for this section [facility] Progress note No data available for this section [facility] Summary Purpose Family History No Family History Records Found No data available for this section No data available for this section No Family History Records FoundNo Family History Records Found Advance Directives No Advanced Directives Records FoundNo Advanced Directives Records FoundNo Advanced Directives Records Found Additional Source Comments (unrecognized sect ion and content) No Status Records FoundNo Status Records FoundNo Status Records Found INFORMATION SOURCE (unrecogn ized section and content) DATE CREATED AUTHOR AUTHOR'S ORGANIZ ATION 05/10/2023 [facility] ([place]) DATE CREATED AUTHOR AUTHOR'S ORGANIZ ATION 06/05/2023 [facility] Care Team (unrecognized sect ion and content) Care Team (unrecognized sect ion and content) Care Team Personnel Name: GAURANG LOVE APRN, CNP Position: P4 Advanced Practice Nurse Member Role: Primary Care Physician Address: Address: [address] [place] [address]- [place] Care Team Related Persons Name: NOEMI VIDAL Care Team Personnel Name: GAURANG LOVE VIDEO PRESENTATION OPERATOR - DENTAL APPLIANCE FIXER Position: P4 Advanced Practice Nurse Member Role: Primary Care Physician Address: Address: [address] [facility] [place] [address]- Care Team Related Persons Name: NOEMI VIDAL Source Comments (unrecognize d section and content) In the event this informatio n is protected by the Federal Confidentiality of Alcohol and Drug Abuse Patient Records regulations: The Federal rules restrict any use of the information to criminally investigate or prosecute any alcohol or drug abuse patient.[facility] Reason for Visit (unrecogniz ed section and content) FOR RECORDS PERTAINING TO PATIENTS WHO ARE OR HAVE BEEN ENROLLED IN A CHEMICAL DEPENDENCY/SUBSTANCEABUSE PROGRAM, SOME INFORMATION MAY BE OMITTED. This clinical summary was aggregated from multiple sources. Caution should be exercised in using it in the provision of clinical care. This summary normalizes information from multiple sources, and as a consequence, information in this document may materially change the coding, format and clinical context of patient data. In addition, data may be omitted in some cases. CLINICAL DECISIONS SHOULD BE BASED ON THE PRIMARY CLINICAL RECORDS. [facility] [employer] [facility]. provides no warranty or guarantee of the accuracy or completeness of information in this document.
== END | disposition home or self-care (01) ==
LOC: LABSPEC 07:07
PROVIDERS: PCP Nurse Practitioner Family; Referring Provider Internal Medicine Pulmonary Disease; Visit Provider Internal Medicine Pulmonary Disease
DX: R05.9 Cough, unspecified (principal)
CPT/HCPCS: 87070; 87205

== ENCOUNTER → 2024-02-20 | Outpatient (CLI) | payer BC, SELFPAY ==
[2024-02-20 06:36] LABS: Absolute Lymphocyte Count 1.47 X10^3/uL (0.83-4.51); Absolute Neutrophil Count 4.2 X10^3/uL (2.0-7.7); Basophil# 0.06 X10^3/uL; Basophil% 0.9 % (0-1); Eosinophil# 0.11 X10^3/uL; Eosinophils% 1.7 % (0-5); Hematocrit 45.9 % (40-54); Hemoglobin 14.3 g/dL (13.0-16.5); Lymphocyte # 1.47 X10^3/ul (0.83-4.51); Lymphocyte % 22.3 % (19-41); Mean Corp Hgb Conc 31.2 g/dL (32-36); Mean Corpuscular Hgb 28.2 pg (27.0-32.0); Mean Corpuscular Volume 90.5 fL (80-94); Mean Platelet Vol. 10.2 fl (6.2-12.0); Monocyte% 10.6 % (0-10); NRBC Flagged by Analyzer 0 % (0-5); Neutrophil # 4.23 X10^3/uL (2.7-7.7); Platelet Count 187 K/mm3 (150-450); RBC Distribution Width CV 13.8 % (11.6-14.6); RBC Distribution Width SD 45.9 fl (35.1-43.9); Red Blood Count 5.07 M/mm3 (4.6-6.2); White Blood Count 6.6 K/mm3 (4.4-11.0)
[2024-02-20 06:47] LABS: Prothrombin Time (Protime)PT. 12.6 SECONDS (11.7-14.9)
[2024-02-20 07:29] LABS: ALB/GLOB Ratio 1.1 RATIO (0.9-2.4); AST(SGOT) 19 U/L (15-37); Alanine Aminotransfer ALT/SGPT 36 U/L (16-61); Albumin, Serum 3.7 g/dL (3.2-5.0); Alkaline Phosphatase 89 U/L (45-117); Anion Gap 5 (5-15); BUN 18 mg/dL (7-18); BUN/Creat Ratio 17.5 RATIO (10-20); CRP < 2.90 mg/L (0.0-3.0); Chloride 106 mmol/L (98-107); Cholesterol 166 mg/dL (200); Creatinine, Serum 1.03 mg/dL (0.70-1.30); EST Glomerular Filtration Rate 78 mL/min (>60); Est Glom Filt Rate - Afr Amer 95 mL/min (>60); Globulin 3.3 g/dL (2.2-4.2); Glucose 102 mg/dL (74-106); High Density Lipoprotein 56 mg/dL; Potassium 4.4 mmol/L (3.5-5.1); Sodium Level 137 mmol/L (136-145); Triglycerides 170 mg/dL; Very Low Density Lipoprotein 34 mg/dL (5-40)
[2024-02-20 10:26] LABS: Hemoglobin A1c 5.5 % (3.8-5.6)
[2024-02-21 15:09] LABS: AFP, Tumor Marker < 1.8 ng/mL (0.0-8.4); ANTINUCLEAR ANTIBODIES DIRECT Negative (Negative); Anti-Smooth Muscle ABS 2 Units (0-19)
== END | disposition home or self-care (01) ==
PROVIDERS: PCP Nurse Practitioner Family; Referring Provider Internal Medicine; Visit Provider Internal Medicine
DX: K74.3 Primary biliary cirrhosis (principal); K76.0 Fatty (change of) liver, not elsewhere classified; K59.1 Functional diarrhea
CPT/HCPCS: 36415; 80053; 80061; 82105; 83036; 83516; 85025; 85610; 86038; 86140; 86225; 86235

== ENCOUNTER 2024-03-14 07:04 | Outpatient (CLI) | payer BC, SELFPAY ==
--- NOTE | 2024-03-14 07:06 | US_ITS ---
STUDY: ABDOMINAL ULTRASOUND - RIGHT UPPER QUADRANT; ELASTOGRAPHY REASON FOR VISIT: Male, 58 years old. Liver fibrosis. NAFLD. TECHNIQUE: Ultrasound evaluation of the right upper quadrant was performed with real-time and static juarez-scale imaging. Point quantification shear wave elastography was performed ([place]). TECHNICAL QUALITY: Limited. Examination limited due to obesity. COMPARISON: None. FINDINGS: Liver: The liver is enlarged and measures 18.9 cm. There is increased echogenicity consistent with fatty infiltration. The bile ducts are within normal limits. There is hepatic color flow. The direction of portal flow is hepatopetal. There is no demonstrated mass lesion. Median liver stiffness measured 10.5 kPa. Gallbladder: Normal distended gallbladder. The gallbladder wall measures 2.8 mm. There is a negative sonographic Lakhani''s sign. There is no pericholecystic fluid. There are no gallstones. Common Bile Duct (C.B.D.): The common bile duct measures 3.6 mm. Pancreas: There is normal echogenicity of the visualized pancreas. There is no demonstrated pancreatic mass or cyst. Right Kidney: Normal size of the right kidney. The right kidney measures 13.4 cm x 6.8 cm x 6.3 cm. Normal renal cortex. The right cortex measures 2.4 cm. There is no demonstrated renal mass or cyst. There is no right hydronephrosis. Mild splenomegaly. Spleen measures 13.1 signed by 7.1 cm x 6.1 cm. IMPRESSION: 1. Liver stiffness measures 10.5 kPa compatible with F2-F3 (Mild to moderate liver fibrosis) Metavir score. Electronically Signed: Edwin Chung MD at 9:01 EDT , STUDY: ABDOMINAL ULTRASOUND - LEFT UPPER QUADRANT REASON FOR EXAM: Male, 58 years old. NAFLD, Liver fibrosis -- including spleen TECHNIQUE: Transabdominal ultrasound was performed with real-time and static juarez scale imaging. TECHNICAL QUALITY: Adequate. COMPARISON: None. FINDINGS: Spleen: Borderline spinal megaly. The spleen measures 13.1 cm x 7.1 cm x 6.1 cm. US/ABD Limited w/ Elastography IMPRESSION: Borderline splenomegaly. Electronically Signed: Edwin Chung MD at 9:01 EDT ,
== END 2024-03-14 23:59 | disposition home or self-care (01) ==
LOC: US 07:06
PROVIDERS: PCP Nurse Practitioner Family; Referring Provider Internal Medicine; Visit Provider Internal Medicine
DX: K74.3 Primary biliary cirrhosis (principal); K76.0 Fatty (change of) liver, not elsewhere classified; K59.1 Functional diarrhea
CPT/HCPCS: 76705; 76981

== ENCOUNTER → 2024-04-25 | Outpatient (CLI) | payer BC, SELFPAY ==
--- NOTE | 2024-04-25 16:36 | RAD_ITS ---
EXAM: XR CHEST, 2 VIEWS CLINICAL INDICATION: ASTHMA, SOB TECHNIQUE: Frontal and lateral views of the chest. COMPARISON: No relevant prior studies available. FINDINGS: LUNGS AND PLEURAL SPACES: Unremarkable. No consolidation or edema. No pneumothorax. No effusion. HEART: Unremarkable. Cardiac silhouette not enlarged. MEDIASTINUM: Central airways and mediastinal contour are unremarkable. BONES/JOINTS: Old healed left lateral rib fractures with residual deformity at the left mid to lower hemithorax. Degenerative changes of the spine. Degenerative changes of the right acromioclavicular joint with left not imaged. No acute fracture. SOFT TISSUES: Unremarkable. RAD/Chest PA and Lateral IMPRESSION: No acute disease. Electronically Signed: Zac Arvizu MD at 23:18 EDT ,
== END | disposition home or self-care (01) ==
LOC: MTRAD 16:34
PROVIDERS: PCP Nurse Practitioner Family; Referring Provider Internal Medicine Pulmonary Disease; Visit Provider Internal Medicine Pulmonary Disease
DX: R06.02 Shortness of breath (principal); J45.30 Mild persistent asthma, uncomplicated
CPT/HCPCS: 71046

== ENCOUNTER → 2025-03-25 | Outpatient (CLI) | payer BC, SELFPAY ==
--- OUTSIDE RECORDS SUMMARY | 2025-02-23 07:01 | XMS RPT_ITS ---
Author Name Auto Generated Organization OH[facility] Care Team Providers Care Card Checker Name Role Phone MAK FOSTER APRN, CNP Attending U MAK Hernandez APRN, CNP Primary Care U MAK Hernandez APRN, CNP Primary Care U MAK Hernandez APRN, CNP Attending U MARCELLA Burns Attending Unavailable MAK LOVE Primary Care Unavailable MARCELLA GONZALEZ Referring Unavailable MAK LOVE Primary Care Unavailable PROBLEMS DATE TYPE CONDITION / CODE ATTENDING STATUS [facility] 11/17/2024 Active Finger pain, lef t / M79.645(ICD-10) MARCELLA GONZALEZ Active [facility] PROCEDURES No Procedure Records Found RESULTS CBC Collected: 5 7:04 AM Status: F Source: [facility] TYPE CODE TESTS RESULT OUT OF RANGE REFERENCE UNITS LAB WBC(LOINC) WBC 6.1 4.5-10.8 10 3/mcL LAB RBCCT(LOINC) RBC 5.05 4.50-6.00 10 6/mcL LAB HGB(LOINC) Hgb 14.4 13.0-17.5 G/dL LAB HCT(LOINC) Hct 43.2 40.0-52.0 % LAB MCV(LOINC) MCV 85.5 81.0-100.0 fL LAB MCH(LOINC) MCH 28.4 27.0-33.0 pg LAB MCHC(LOINC) MCHC 33.2 32.0-36.0 G/dL LAB RDW(LOINC) RDW 15.7 High 11.5-15.5 % LAB PLT(LOINC) Platelet 176 150-450 10 3/mcL LAB MPV(LOINC) MPV 8.4 6.4-10.5 fL Performed By: #### ALEXY, CB C, CMP, GFR, ANEU, LIPID, TSH, FT4 #### [address] [address] .AUTO DIFF Collected: 02/23/2025 7:04 AM Status: F [facility]: [facility] TYPE CODE TESTS RESULT OUT OF RANGE REFERENCE UNITS LAB MILVIA(LOINC) Neutrophil % 57.8 50.0-75.0 % LAB LYM(LOINC) Lymphocyte % 26.6 20.0-40.0 % LAB MON(LOINC) Monocyte % 12.8 2.0-13.0 % LAB EO(LOINC) Eosinophil % 2.0 0.0-6.0 % LAB BAS(LOINC) Basophil % 0.8 0.0-2.5 % LAB ABLYM(LOINC) Lymphocyte, Absolute 1.6 0.9-4.3 10 3/mcL LAB JULIA(LOINC) Monocyte, Absolute 0.8 0.1-1.4 10 3/mcL LAB AEOS(LOINC) Eosinophil, Absolute 0.1 0.0-0.7 10 3/mcL LAB ABAS(LOINC) Basophil, Absolute 0.0 0.0-0.3 10 3/mcL Performed By: #### ALEXY, CB C, CMP, GFR, ANEU, LIPID, TSH, FT4 #### [address] [address] .NEUABS Collected: 7:04 AM Status: F [facility] TYPE CODE TESTS RESULT OUT OF RANGE REFERENCE UNITS LAB ANEU(LOINC) Neutrophil, Absolute 3.5 2.3-8.1 10 3/mcL Performed By: #### ALEXY, CB C, CMP, GFR, ANEU, LIPID, TSH, FT4 #### [address] [address] TSH Collected: 7:04 AM Status: F [facility]: [facility] TYPE CODE TESTS RESULT OUT OF RANGE REFERENCE UNITS LAB TSH(LOINC) TSH 1.78 0.36-3.74 mcIU/mL Performed By: #### ADIFF, CB C, CMP, GFR, ANEU, LIPID, TSH, FT4 #### [address] [address] FT4 Collected: 7:04 AM Status: F [facility]: [facility] TYPE CODE TESTS RESULT OUT OF RANGE REFERENCE UNITS LAB FT4(LOINC) Free T4 0.80 0.76-1.46 ng/dL Performed By: #### ADIFF, CB C, CMP, GFR, ANEU, LIPID, TSH, FT4 #### [address] [address] CMP Collected: 02/23/2025 7:04 AM Status: F [facility]: [facility] TYPE CODE TESTS RESULT OUT OF RANGE REFERENCE UNITS LAB GLU(LOINC) Glucose Level 94 80-115 mg/dL LAB NA(LOINC) Sodium Level 139 136-145 mmol/L LAB K(LOINC) Potassium Level 4.3 3.5-5.1 mmol/L LAB CL(LOINC) Chloride 102 98-107 mmol/L LAB CO2(LOINC) CO2 32 High 23-31 mmol/L LAB EBAL(LOINC) Electrolyte Balance 5.0 4.0-15.0 mEq/L LAB BUN(LOINC) BUN 26 High 7-18 mg/dL LAB CRE(LOINC) Creatinine Lvl (s) 1.17 0.67-1.17 mg/dL LAB BC(LOINC) BUN/Creatinine Ratio 22 7-27 ratio LAB CA(LOINC) Calcium Lvl 9.2 8.4-10.2 mg/dL LAB PROT(LOINC) Total Protein 7.1 6.4-8.2 G/dL LAB ALB(LOINC) Albumin Level 3.9 3.4-4.8 G/dL LAB GLB(LOINC) Globulin 3.2 2.7-4.4 G/dL LAB AG(LOINC) A/G Ratio 1.2 1.1-2.5 ratio LAB BILT(LOINC) Bili Total 0.4 0.2-1.0 mg/dL Result Comment: Use of this assay is not recommended for patients undergoing treatment with eltrombopag due to the potential for falsely elevated results. LAB AP(LOINC) Alk Phos 83 40-135 U/L LAB AST(LOINC) AST/SGOT 22 10-40 U/L LAB ALT(LOINC) ALT/SGPT 40 16-63 U/L Performed By: #### ALEXY, CB C, CMP, GFR, ANEU, LIPID, TSH, FT4 #### [address] [place], [place] [address] .GFR Collected: 02/23/2025 7:04 AM Status: F [facility]: [facility] TYPE CODE TESTS RESULT OUT OF RANGE REFERENCE UNITS LAB eGFR(LOINC) Estimated Glomerular Filtration Rate 71 ml/min/1. 73sqm Result Comment: Stages of Chronic Kidney Disease (CKD) Stage Description eGFR(ml/min/1.73 sq.m.) CKD 1 Normal kidney function or >=90 normal kindney function with possible kidney damage (ex. Proteinuria) CKD 2 Kidney damage with mild loss 60-89 of kidney function CKD 3a Mild to moderate loss of kidney 45-59 function CKD 3b Moderate to severe loss of 30-44 of kindey function CKD 4 Severe loss of kidney function 15-29 CKD 5 Kidney failure <15 Note: (go live 2024) the eGFR calculation was updated to the 2020 CKD-EPI creatinine equation without a race factor to calculate the eGFR results. Performed By: #### ALEXY, CB C, CMP, GFR, ANEU, LIPID, TSH, FT4 #### [id number] [place], [place] [address] LIPID Collected: 02/23/2025 7:04 AM Status: F [facility] TYPE CODE TESTS RESULT OUT OF RANGE REFERENCE UNITS LAB CHOL(LOINC) Cholesterol 142 0-200 mg/dL Result Comment: Cholesterol Reference Interval: Less than 200 Desirable 200-239 Borderline high risk 240 and above High risk LAB TRIG(LOINC) Triglycerides 135 0-150 mg/dL Result Comment: Triglyceride Reference Interval: Less than 150 Normal 150-199 Borderline high risk 200-499 High risk 500 or higher Very high risk LAB HD(LOINC) HDL Cholesterol 42 40-60 mg/dL LAB LDL(LOINC) LDL Cholesterol 73 0-130 mg/dL Performed By: #### ADIFF, CB C, CMP, GFR, ANEU, LIPID, TSH, FT4 #### [address] [place], [place] [address] XR DIGIT 3V FRONTAL/LAT/OBL LT Observed: 11/17/2024 11:28 AM Status: F Source: [facility] * * *Final Report* * * DATE OF EXAM: Nov 17 2024 11:28AM WOX [id number] - XR DIGIT 3V FRONTAL/LAT/OBL LT / PROCEDURE REASON: Finger pain, left * * * * Physician Interpretation * * * * EXAMINATION: XR DIGIT 3V FRONTAL/LAT/OBL LT CLINICAL HISTORY: Left finger pain and swelling Technique: XR DIGIT 3V FRONTAL/LAT/OBL LT -- LEFT with 3 views on 3 images Comparison: None RESULT: No acute fracture or dislocation. Mild narrowing of the DIP joint with periarticular lucencies. Soft tissue swelling of the left fifth digit. No radiodense foreign body. IMPRESSION: No acute fracture or dislocation. Narrowing of the DIP joint with periarticular lucencies, possibly due to degenerative disease or an inflammatory arthropathy. Purchasing Manager: PSCB Transcribe Date/Time: Nov 17 2024 1:16P Dictated by : OREN GOMEZ MD This examination was interpreted and the report reviewed and electronically signed by: OREN GOMEZ MD on Nov 17 2024 1:19PM EST [id number] Observed: 11/17/2024 11:20 AM Status: COMPLETED Source: [facility] HNO ID: [id number] Author: ANGELO BRANDT RT(R) Service: ? Author Type: Technologist Type: Progress Notes Filed: 11/17/2024 11:29 Note Text: Radiology Service Progress Note PATIENT NAME: See Sheriff DATE OF SERVICE: November 17, 2024 TIME: 11:21 AM PATIENT IDENTITY VERIFICATION COMPLETED USING TWO (2) IDENTIFIERS: Name and Date of confirmed by patient verbally. FALL SCREENING: Has the patient had 2 falls in the last year or 1 fall with injury or currently using an Ambulatory Assistive Device (Walker, Cane, Wheelchair, Crutches, etc.)? No PATIENT GENDER DATA: Assigned male at PATIENT RELEVANT IMPLANT DATA REVIEWED: Not Applicable PATIENT PRESENTS WITH AN IMPLANTABLE OR ATTACHED SOLIDWORKS MECHANICAL DESIGNER: No RADIOLOGY DEPARTMENT: General X-ray: Exam(s) Completed: Upper Extremity X-Ray(s): Fingers/Thumb, left PERIPHERAL IV DATA: Not applicable SIGNED BY: RT Brock(R) November 17, 2024 11:21 AM PROGRESS Observed: 11/17/2024 11:00 AM Status: COMPLETED Source: [facility] HNO ID: [id number] Author: MARCELLA GONZALEZ APRN.CREW MEMBER Service: ? Author Type: Nurse Practitioner Type: Progress Notes Filed: 11/17/2024 13:36 Note Text: Subjective HPI Nontoxic-appearing 58-year-old male presents urgent care chief complaint left fifth digit pain swelling. Duration of symptoms 4 days. Associated symptoms. Swelling over DIP joint fifth digit left hand. States has had this happen to his right fifth digit before. This is episodic and usually goes away in a few days. 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 OTC medications none. No known traumas. No history of gout or osteoarthritis rheumatoid arthritis. No fevers. Past medical history prescription medications allergies reviewed. .Patient presents with: Finger Pain: L hand fifth finger swollen and red at knuckle x4 days PAST MEDICAL HISTORY Diagnosis Date Bleeding Has problems at dentist,get cut etc, not tested for any bleeding disorder Hypertension 1995 Hypothyroidism 1995 History reviewed. No pertinent surgical history. ALLERGIES Patient has no known allergies. MEDICATIONS triamterene-hydroCHLOROthiazide (DYAZIDE) 37.5-25 mg per capsule BREO ELLIPTA 200-25 mcg/dose inhaler fenofibrate nanocrystallized (TRICOR) 48 mg tablet valsartan (DIOVAN) 320 mg tablet metoprolol succinate ER (TOPROL XL) 25 mg 24 hr tablet Omeprazole 40 mg capsule Take 40 mg by mouth once daily. escitalopram oxalate (LEXAPRO) 10 mg tablet Take 10 mg by mouth once daily. diltiazem CD (CARTIA XT) 240 mg 24 hr capsule Take 240 mg by mouth once daily. levothyroxine (SYNTHROID) 25 mcg ORAL tablet Take 25 mcg by mouth. VITAMIN B COMPLEX NO.12-NIACIN ORAL Take by mouth once daily. Multivitamin ORAL capsule Take 1 capsule by mouth. Vitamin E 1,000 unit ORAL Tab Take by mouth once daily. CALCIUM CARBONATE/VITAMIN D3 (CALCIUM 600 + D ORAL) Take by mouth once daily. FLOVENT DISKUS 250 mcg/actuation inhaler (Patient not taking: Reported on 11/17/2024) hydroCHLOROthiazide 12.5 mg capsule (Patient not taking: Reported on 11/17/2024) ursodiol (ACTIGALL) 300 mg capsule (Patient not taking: Reported on 11/17/2024) HYDROcodone-acetaminophen (NORCO) 5-325 mg per tablet Take 1 tablet by mouth every 6 hours as needed. (Patient not taking: Reported on 06/02/2023) docusate sodium (COLACE) 100 mg capsule Take 1 capsule by mouth twice daily. (Patient not taking: Reported on 11/17/2024) lisinopril 40 mg ORAL tablet Take 40 mg by mouth once daily. (Patient not taking: Reported on 11/17/2024) FAMILY HISTORY Problem Relation Age of Onset Diabetes Father Heart Father Cancer Father pancreatic Social History Tobacco Use Smoking status: Never BP 152/92 Pulse 61 Temp 36.4 ?C (97.5 ?F) Resp 20 Wt (!) 143.7 kg (316 lb 12.8 oz) SpO2 98% BMI 42.97 kg/m? Review of Systems Constitutional: Negative for chills, fever and malaise/fatigue. Musculoskeletal: Positive for joint pain. Negative for back pain, falls, myalgias and neck pain. Neurological: Negative for dizziness, loss of consciousness, weakness and headaches. Objective Physical Exam Constitutional: General: He is not in acute distress. Appearance: He is not toxic-appearing. HENT: Head: Normocephalic. Nose: Nose normal. Eyes: Pupils: Pupils are equal, round, and reactive to light. Cardiovascular: Rate and Rhythm: Normal rate. Pulmonary: Effort: Pulmonary effort is normal. No respiratory distress. Musculoskeletal: Hands: Cervical back: Normal range of motion. Comments: Pain with palpation over DIP joint fifth digit. Mild erythema edema noted. No fluctuance. Neurovascular intact. No breaks in the skin. Skin: General: Skin is warm and dry. Neurological: General: No focal deficit present. Mental Status: He is alert. ASSESSMENT/PLAN: 1. Finger pain, left - ICD9: 729.5, ICD10: M79.645 - XR DIGIT GENERAL 3V FRONTAL/LAT/OBL LEFT IMPRESSION: No acute fracture or dislocation. Narrowing of the DIP joint with periarticular lucencies, possibly due to degenerative disease or an inflammatory arthropathy. No acute findings noted on x-ray. Did indicate patient did have some narrowing of the DIP joint. I did indicate there could be possible degenerative changes due to inflammatory process. This time will cover with antibiotics. I did discuss with patient that I am suspicious for arthritis causing discomfort. Was instructed to follow-up with PCP Patient was educated on supportive therapies. Patient will follow up with primary care provider as needed. Patient was instructed to immediately proceed to emergency room for any new, worsening, or symptoms lasting longer than anticipated. The patient's clinical presentation is otherwise unremarkable at this time. Based on exam and clinical finding, the patient is stable for discharge. Plan of care was discussed with patient. Patient verbalizes understanding and agrees to plan of care. This note was generated using Pfenex software. It may contain errors in wording, punctuation, or spelling. Marcella Gonzalez APRN.CNP CNOV Observed: 11/17/2024 11:00 AM Status: COMPLETED Source: [facility] Office Visit (WSTR) SEE SHERIFF ([id number]) 1965 M Date Time Provider Department 11/17/24 11:00 AM MARCELLA GONZALEZ [facility] During your visit today, we recorded the following information about you: Temperature Pulse Respiration Blood pressure 97.5 degrees 61/minute 20/minute 152/92 Weight 143.7 kg Marcella Gonzalez APRN.CNP 11/17/2024 1:36 PM Signed Subjective HPI Nontoxic-appearing 58-year-old male presents urgent care chief complaint left fifth digit pain swelling. Duration of symptoms 4 days. Associated symptoms. Swelling over DIP joint fifth digit left hand. States has had this happen to his right fifth digit before. This is episodic and usually goes away in a few days. 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 OTC medications none. No known traumas. No history of gout or osteoarthritis rheumatoid arthritis. No fevers. Past medical history prescription medications allergies reviewed. .Patient presents with: Finger Pain: L hand fifth finger swollen and red at knuckle x4 days PAST MEDICAL HISTORY Diagnosis Date Bleeding Has problems at dentist,get cut etc, not tested for any bleeding disorder Hypertension 1995 Hypothyroidism 1995 History reviewed. No pertinent surgical history. ALLERGIES Patient has no known allergies. MEDICATIONS triamterene-hydroCHLOROthiazide (DYAZIDE) 37.5-25 mg per capsule BREO ELLIPTA 200-25 mcg/dose inhaler fenofibrate nanocrystallized (TRICOR) 48 mg tablet valsartan (DIOVAN) 320 mg tablet metoprolol succinate ER (TOPROL XL) 25 mg 24 hr tablet Omeprazole 40 mg capsule Take 40 mg by mouth once daily. escitalopram oxalate (LEXAPRO) 10 mg tablet Take 10 mg by mouth once daily. diltiazem CD (CARTIA XT) 240 mg 24 hr capsule Take 240 mg by mouth once daily. levothyroxine (SYNTHROID) 25 mcg ORAL tablet Take 25 mcg by mouth. VITAMIN B COMPLEX NO.12-NIACIN ORAL Take by mouth once daily. Multivitamin ORAL capsule Take 1 capsule by mouth. Vitamin E 1,000 unit ORAL Tab Take by mouth once daily. CALCIUM CARBONATE/VITAMIN D3 (CALCIUM 600 + D ORAL) Take by mouth once daily. FLOVENT DISKUS 250 mcg/actuation inhaler (Patient not taking: Reported on 11/17/2024) hydroCHLOROthiazide 12.5 mg capsule (Patient not taking: Reported on 11/17/2024) ursodiol (ACTIGALL) 300 mg capsule (Patient not taking: Reported on 11/17/2024) HYDROcodone-acetaminophen (NORCO) 5-325 mg per tablet Take 1 tablet by mouth every 6 hours as needed. (Patient not taking: Reported on 06/02/2023) docusate sodium (COLACE) 100 mg capsule Take 1 capsule by mouth twice daily. (Patient not taking: Reported on 11/17/2024) lisinopril 40 mg ORAL tablet Take 40 mg by mouth once daily. (Patient not taking: Reported on 11/17/2024) FAMILY HISTORY Problem Relation Age of Onset Diabetes Father Heart Father Cancer Father pancreatic Social History Tobacco Use Smoking status: Never BP 152/92 Pulse 61 Temp 36.4 ?C (97.5 ?F) Resp 20 Wt (!) 143.7 kg (316 lb 12.8 oz) SpO2 98% BMI 42.97 kg/m? Review of Systems Constitutional: Negative for chills, fever and malaise/fatigue. Musculoskeletal: Positive for joint pain. Negative for back pain, falls, myalgias and neck pain. Neurological: Negative for dizziness, loss of consciousness, weakness and headaches. Objective Physical Exam Constitutional: General: He is not in acute distress. Appearance: He is not toxic-appearing. HENT: Head: Normocephalic. Nose: Nose normal. Eyes: Pupils: Pupils are equal, round, and reactive to light. Cardiovascular: Rate and Rhythm: Normal rate. Pulmonary: Effort: Pulmonary effort is normal. No respiratory distress. Musculoskeletal: Hands: Cervical back: Normal range of motion. Comments: Pain with palpation over DIP joint fifth digit. Mild erythema edema noted. No fluctuance. Neurovascular intact. No breaks in the skin. Skin: General: Skin is warm and dry. Neurological: General: No focal deficit present. Mental Status: He is alert. ASSESSMENT/PLAN: 1. Finger pain, left - ICD9: 729.5, ICD10: M79.645 - XR DIGIT GENERAL 3V FRONTAL/LAT/OBL LEFT IMPRESSION: No acute fracture or dislocation. Narrowing of the DIP joint with periarticular lucencies, possibly due to degenerative disease or an inflammatory arthropathy. No acute findings noted on x-ray. Did indicate patient did have some narrowing of the DIP joint. I did indicate there could be possible degenerative changes due to inflammatory process. This time will cover with antibiotics. I did discuss with patient that I am suspicious for arthritis causing discomfort. Was instructed to follow-up with PCP Patient was educated on supportive therapies. Patient will follow up with primary care provider as needed. Patient was instructed to immediately proceed to emergency room for any new, worsening, or symptoms lasting longer than anticipated. The patient's clinical presentation is otherwise unremarkable at this time. Based on exam and clinical finding, the patient is stable for discharge. Plan of care was discussed with patient. Patient verbalizes understanding and agrees to plan of care. This note was generated using Pfenex software. It may contain errors in wording, punctuation, or spelling. Marcella Gonzalez APRN.CREW MEMBER Allergies As of Date: 11/17/2024 (No Known Allergies) Date Reviewed: 11/17/2024 Reviewed by: Marcella Gonzalez APRN.LIZBETH - Fully Assessed Reason for Visit: Finger Pain [1583] Cmt: L hand fifth finger swollen and red at knuckle x4 days Primary Visit Diagnosis:Finger pain, left [M79.645] Order(s):XR DIGIT GENERAL 3V FRONTAL/LAT/OBL LEFT [[id number]] Order #: [id number] FUTURE cephALEXin (KEFLEX) 500 mg capsuleTake 1 capsule by mouth three times a day for 5 days.Disp: 15 capsuleRfl: 0 Prescriptions as of 11/17/2024 - triamterene-hydroCHLOROthiazide (DYAZIDE) 37.5-25 mg per capsule - BREO ELLIPTA 200-25 mcg/dose inhaler - fenofibrate nanocrystallized (TRICOR) 48 mg tablet - cephALEXin (KEFLEX) 500 mg capsule Take 1 capsule by mouth three times a day for 5 days. - FLOVENT DISKUS 250 mcg/actuation inhaler - hydroCHLOROthiazide 12.5 mg capsule - valsartan (DIOVAN) 320 mg tablet - metoprolol succinate ER (TOPROL XL) 25 mg 24 hr tablet - ursodiol (ACTIGALL) 300 mg capsule - HYDROcodone-acetaminophen (NORCO) 5-325 mg per tablet Take 1 tablet by mouth every 6 hours as needed. - docusate sodium (COLACE) 100 mg capsule Take 1 capsule by mouth twice daily. - Omeprazole 40 mg capsule Take 40 mg by mouth once daily. - escitalopram oxalate (LEXAPRO) 10 mg tablet Take 10 mg by mouth once daily. - diltiazem CD (CARTIA XT) 240 mg 24 hr capsule Take 240 mg by mouth once daily. - lisinopril 40 mg ORAL tablet Take 40 mg by mouth once daily. - levothyroxine (SYNTHROID) 25 mcg ORAL tablet Take 25 mcg by mouth. - VITAMIN B COMPLEX NO.12-NIACIN ORAL Take by mouth once daily. - Multivitamin ORAL capsule Take 1 capsule by mouth. - Vitamin E 1,000 unit ORAL Tab Take by mouth once daily. - CALCIUM CARBONATE/VITAMIN D3 (CALCIUM 600 + D ORAL) Take by mouth once daily. Problem List As Of Date 11/17/2024 Noted Resolved Incisional hernia [K43.2] 01/13/2015 Prescriptions ordered this encounter Disp Refills Start End CEPHALEXIN 500 MG CAPSULE 15 c* 0 11/17/2024 11/22/2024 Route: PO Sig: Take 1 capsule by mouth three times a day for 5 days. Level of Service: OFFICE/OUTPATIENT ESTABLISHED MOD MDM 30 MIN [58822] Encounter Status:Closed by MARCELLA GONZALEZ on 11/17/24 JAMES Observed: 11/17/2024 12:00 AM Status: COMPLETED Source: [facility] Telephone ([address]) SEE SHERIFF ([id number]) 1965 M Date Time Provider Department 11/17/24 MARCELLA GONZALEZ [facility] During your visit today, we recorded the following information about you: Marcella Gonzalez APRN.LIZBETH 11/17/2024 1:37 PM Signed Please inform patient that x-ray did not indicate any acute processes. Did appear that there was arthritis in the joint. Continue plan of care as discussed Marcella Gonazlez APRN.Melissa Rahman MA 11/17/2024 2:32 PM Signed Patient Noemi notified of results, verbalized understanding of instructions given. Melissa Vera MA Allergies As of Date: 11/17/2024 (No Known Allergies) Date Reviewed: 11/17/2024 Reviewed by: Marcella Gonzalez APRN.LIZBETH - Fully Assessed Prescriptions as of 11/17/2024 - triamterene-hydroCHLOROthiazide (DYAZIDE) 37.5-25 mg per capsule - BREO ELLIPTA 200-25 mcg/dose inhaler - fenofibrate nanocrystallized (TRICOR) 48 mg tablet - cephALEXin (KEFLEX) 500 mg capsule Take 1 capsule by mouth three times a day for 5 days. - FLOVENT DISKUS 250 mcg/actuation inhaler - hydroCHLOROthiazide 12.5 mg capsule - valsartan (DIOVAN) 320 mg tablet - metoprolol succinate ER (TOPROL XL) 25 mg 24 hr tablet - ursodiol (ACTIGALL) 300 mg capsule - HYDROcodone-acetaminophen (NORCO) 5-325 mg per tablet Take 1 tablet by mouth every 6 hours as needed. - docusate sodium (COLACE) 100 mg capsule Take 1 capsule by mouth twice daily. - Omeprazole 40 mg capsule Take 40 mg by mouth once daily. - escitalopram oxalate (LEXAPRO) 10 mg tablet Take 10 mg by mouth once daily. - diltiazem CD (CARTIA XT) 240 mg 24 hr capsule Take 240 mg by mouth once daily. - lisinopril 40 mg ORAL tablet Take 40 mg by mouth once daily. - levothyroxine (SYNTHROID) 25 mcg ORAL tablet Take 25 mcg by mouth. - VITAMIN B COMPLEX NO.12-NIACIN ORAL Take by mouth once daily. - Multivitamin ORAL capsule Take 1 capsule by mouth. - Vitamin E 1,000 unit ORAL Tab Take by mouth once daily. - CALCIUM CARBONATE/VITAMIN D3 (CALCIUM 600 + D ORAL) Take by mouth once daily. Problem List As Of Date 11/17/2024 Noted Resolved Incisional hernia [K43.2] 01/13/2015 Encounter Status:Closed by MELISSA VERA on 11/17/24 TSH Collected: 7:06 AM Status: F Source: [facility] TYPE CODE TESTS RESULT OUT OF RANGE REFERENCE UNITS LAB TSH(LOINC) TSH 1.58 0.36-3.74 mcIU/mL Performed By: #### GFR, CMP, PSA, LIPID, TSH #### [facility] [address] [place], [place] [address] #### FT4 #### [address] [address] CMP Collected: 09/01/2024 7:06 AM Status: F Source: [facility] TYPE CODE TESTS RESULT OUT OF RANGE REFERENCE UNITS LAB GLU(LOINC) Glucose Level 90 80-115 mg/dL LAB NA(LOINC) Sodium Level 139 136-145 mmol/L LAB K(LOINC) Potassium Level 5.0 3.5-5.1 mmol/L LAB CL(LOINC) Chloride 103 98-107 mmol/L LAB CO2(LOINC) CO2 31 23-31 mmol/L LAB EBAL(LOINC) Electrolyte Balance 5.0 4.0-15.0 mEq/L LAB BUN(LOINC) BUN 19 High 7-18 mg/dL LAB CRE(LOINC) Creatinine Lvl (s) 1.21 0.70-1.30 mg/dL Result Comment: Testing perf ormed on Siemens Dimension EXL analyzer using a modified kinetic Robe technique. LAB BC(LOINC) BUN/Creatinine Ratio 16 7-27 ratio LAB CA(LOINC) Calcium Lvl 9.5 8.4-10.2 mg/dL LAB PROT(LOINC) Total Protein 6.8 6.4-8.2 G/dL LAB ALB(LOINC) Albumin Level 3.8 3.4-4.8 G/dL LAB GLB(LOINC) Globulin 3.0 1.5-3.8 G/dL LAB AG(LOINC) A/G Ratio 1.3 1.1-2.5 ratio LAB BILT(LOINC) Bili Total 0.5 0.2-1.0 mg/dL Result Comment: Use of this assay is not recommended for patients undergoing treatment with eltrombopag due to the potential for falsely elevated results. LAB AP(LOINC) Alk Phos 82 40-135 U/L LAB AST(LOINC) AST/SGOT 30 10-40 U/L LAB ALT(LOINC) ALT/SGPT 47 16-63 U/L Performed By: #### GFR, CMP, PSA, LIPID, TSH #### [address] [address] #### FT4 #### [address] [address] .GFR Collected: 09/01/2024 7:06 AM Status: F Source: [facility] TYPE CODE TESTS RESULT OUT OF RANGE REFERENCE UNITS LAB eGFR(LOINC) Estimated Glomerular Filtration Rate 69 ml/min/1. 73sqm Result Comment: Stages of Chronic Kidney Disease (CKD) Stage Description eGFR(ml/min/1.73 sq.m.) CKD 1 Normal kidney function or >=90 normal kindney function with possible kidney damage (ex. Proteinuria) CKD 2 Kidney damage with mild loss 60-89 of kidney function CKD 3a Mild to moderate loss of kidney 45-59 function CKD 3b Moderate to severe loss of 30-44 of kindey function CKD 4 Severe loss of kidney function 15-29 CKD 5 Kidney failure <15 Note: (go live 2024) the eGFR calculation was updated to the 2020 CKD-EPI creatinine equation without a race factor to calculate the eGFR results. Performed By: #### GFR, CMP, PSA, LIPID, TSH #### [address] [address] #### FT4 #### [address] [address] LIPID Collected: 09/01/2024 7:06 AM Status: F Source: [facility] TYPE CODE TESTS RESULT OUT OF RANGE REFERENCE UNITS LAB CHOL(LOINC) Cholesterol 134 0-200 mg/dL Result Comment: Cholesterol Reference Interval: Less than 200 Desirable 200-239 Borderline high risk 240 and above High risk LAB TRIG(LOINC) Triglycerides 90 0-150 mg/dL Result Comment: Triglyceride Reference Interval: Less than 150 Normal 150-199 Borderline high risk 200-499 High risk 500 or higher Very high risk LAB HD(LOINC) HDL Cholesterol 47 40-60 mg/dL LAB LDL(LOINC) LDL Cholesterol 69 0-130 mg/dL Performed By: #### GFR, CMP, PSA, LIPID, TSH #### [address] [address] #### FT4 #### [place] [address] PSA Collected: 09/01/2024 7:06 AM Status: F Source: [facility] TYPE CODE TESTS RESULT OUT OF RANGE REFERENCE UNITS LAB PSA(LOINC) Prostate Specific Antigen 0.52 0.00-4.00 ng/mL Performed By: #### GFR, CMP, PSA, LIPID, TSH #### [address] [address] #### FT4 #### [address] [address] FT4 Collected: 7:06 AM Status: F Source: [facility] TYPE CODE TESTS RESULT OUT OF RANGE REFERENCE UNITS LAB FT4(LOINC) Free T4 1.23 0.89-1.76 ng/dL Result Comment: Note - New Reference Range in effect 20 Performed By: #### GFR, CMP, PSA, LIPID, TSH #### [facility] [address] [place], [place] [address] #### FT4 #### [facility] [address] [place] [address] SURGICAL PATHOLOGY REFERENCE LAB CONSULT Collected: 04/18/2024 3:57 PM Status: F Source: [facility] Order Comment: Specimen Type : FORMALIN-FIXED PARAFFIN-EMBEDDED TISSUE SPECIMEN Ordering Facility: [facility] Address: ATTN: LABORATORY, [place] [address] TYPE CODE TESTS RESULT OUT OF RANGE REFERENCE UNITS PATHOLOGY [id number] CASE REPORT Result Comment: Surgical Pat hology Report Case: [id number] Authorizing Provider: Chalino Jones Collected: 04/18/2024 03:57 PM Ordering Location: [facility] Received: 04/18/2024 03:56 PM [facility] Pathologist: Mac Rosenthal MD Specimen: Slide(s), 8 SLIDES [id number] PATHOLOGY [id number] FINAL DIAGNOSIS Result Comment: Liver, CT-gu ided core biopsy (1, PAS/D, iron, trichrome, reticulin, PAS): - Hepatic parenchyma with mild non-specific portal inflammation. OLOGY [id number] DIAGNOSIS COMMENT Result Comment: Thank you fo r allowing us the opportunity to review this case in consultation representing the liver biopsy from this 56 year-old man with a provided history of primary biliary cholangitis. No other labs, imaging, or clinical history was provided to me for my review. I essentially agree with your diagnostic interpretation. There is only mild, non-specific portal inflammation seen here. I do not appreciate and destructive bile duct inflammation, florid duct lesions, or evidence of duct loss. There is no significant steatosis, stainable hepatocellular iron (provided iron stain), or PAS/D-positive cytoplasmic globules (provided PAS/D stain). The provided trichrome stain shows no significant fibrosis. Thank you for sending this case in consultation. Please do not hesitate to contact the GI consultation service at [phone] with questions or if additional follow up information becomes available. This case was reviewed in conjunction with the GI pathology fellow, Radha Fierro MD. PATHOLOGY CDX2 CLINICAL HISTORY CONSULT REQUESTED PATHOLOGY [facility] FINAL PERFORMING LAB Result Comment: Diagnostic i nterpretation performed at: [facility], [address] [place] [address], [place] [address] CLIA# [id number] Hand Polisher: Jose Luis Pacheco MD Performed By: #### [id number] # ### [facility] CLIA [id number] [address] [place] [address] [place] ALLERGIES DATE TYPE / CODE NAME / CODE REACTION SEVERITY SOURCE Drug Class/[id number](SNO MED CT) NO KNOWN ALLERGIES [facility] ENCOUNTERS ADMIT/DISCHARGE ACCOUNT NUMBER ADMITTING ENCOUNTER CLASS LOCATION SOURCE 02/23/2025/ 5 [id number] [facility] MAINBuilding: [facility]/17[facility]2024 [id number] [facility]/17/2024/ 5 [id number] [facility] 09/01/2024/ 5 [id number] [facility] MAINBuilding: [facility] PAYERS ENCOUNTER GUARANTOR PAYER SUBSCRIBER SOURCE 02/23/2025 SEE DAVIS: [id number] [place] [address]Yqa: () (WP) Primary Insurance:[employer] INSCOPolicy Number: [id number] e Date:4723-28-28Jzbl Name:[facility] [id number], [place] [address]KC: SEE DAVIS: [id number] [place] [address]Itt: (HP) (WP) [facility] 11/17/2024 Primary Insurance:BLUE ACCESS PPOPolicy Number: [id number] e Date:0167-42-44Dusl Name:Nga DAVIS: [id number] [place] [address] [facility] 11/17/2024 Primary Insurance:BLUE ACCESS PPOPolicy Number: [id number] e Date:5040-53-22Pzbl Name:Nga DAVIS: [id number] [place] [address] [facility] 09/01/2024 SEE DAVIS: [id number] [place] [address]Tik: (HP) (WP) Primary Insurance:[employer]UE [employer]OSS INSCOPolicy Number: [id number] e Date:5356-56-37Dvzc Name:JAMES MILLER [id number], [place] [address]CY: SEE DAVIS: [id number] [place] [address]Gax: (HP) (WP) [facility]
--- NOTE | 2025-03-25 07:20 | US_ITS ---
PROCEDURE: ABD LIMITED W/ ELASTOGRAPHY 03/25/2025 REASON FOR EXAM: LIVER ENLARGED AND SPLENOMEGALY, FIBROSIS TECHNIQUE: Procedure Code: USABDLELPARO Modality: US Procedure: ABD LIMITED W/ ELASTOGRAPHY COMPARISON: None FINDINGS: Study is limited due to obesity Liver is enlarged measuring 26.5 cm, hyperechoic consistent with diffuse fatty infiltration, no discrete lesion. Portal venous flow is hepatopetal Gallbladder is distended at 10.2 cm with borderline normal wall thickness at 3 mm. No gallstones or pericholecystic fluid, Lakhani's sign is negative Visualized pancreas is sonographically normal Right kidney measures 14.3 x 6.4 x 7.1 cm. No hydronephrosis, calculi or mass, cortex is normal at 2.4 cm Spleen demonstrates normal echotexture and is enlarged at 13 cm Elasticity: Median velocity value KPA 7.6, KPA% 8.9 M/S1.58, M/S% 4.4 Metavir score of F2-F3 US/ABD Limited w/ Elastography IMPRESSION: Hepatomegaly with diffuse fatty infiltration of the liver, no discrete lesion. Metavir score F2-F3 Splenomegaly Reading Location: [id number]
[2025-03-25 07:50] LABS: Hematocrit 43.3 % (40-54); Hemoglobin 14.2 g/dL (13.0-16.5); Immature Granulocytes Count 0.060 X10^3/uL (0.0-0.0); Mean Corp Hgb Conc 32.8 g/dL (32-36); Mean Corpuscular Volume 88.2 fL (80-94); Mean Platelet Vol. 9.9 fl (6.2-12.0); NRBC Flagged by Analyzer 0 % (0-5); Platelet Count 204 K/mm3 (150-450); RBC Distribution Width CV 14.5 % (11.6-14.6); RBC Distribution Width SD 46.5 fl (35.1-43.9); Red Blood Count 4.91 M/mm3 (4.6-6.2); White Blood Count 6.8 K/mm3 (4.4-11.0)
[2025-03-25 08:10] LABS: Prothrombin Time (Protime)PT. 13.9 SECONDS (11.7-14.9)
[2025-03-25 09:07] LABS: AST(SGOT) 25 U/L (<=37); Alanine Aminotransfer ALT/SGPT 36 U/L (<=46); Albumin, Serum 4.5 g/dL (3.4-4.8); Alkaline Phosphatase 71 U/L (40-129); Anion Gap 12 (5-15); BUN 19 mg/dL (4-19); BUN/Creat Ratio 17.8 RATIO (10-20); Calcium,Total 9.7 mg/dL (7.6-11.0); Carbon Dioxide 24.2 mmol/L (21.0-32.0); Chloride 105 mmol/L (98-108); Cholesterol 135 mg/dL (<=200); Globulin 2.6 g/dL (2.2-4.2); Glucose 101 mg/dL (70-99); Low Density Lipoprotein Calc. 65 mg/dL; Potassium 4.4 mmol/L (3.3-5.1); Triglycerides 114 mg/dL; Very Low Density Lipoprotein 23 mg/dL (5-40); Vitamin D,25 Hydroxy 52.9 ng/mL (30-100); cholesterol:hdl ratio screen 2.84
[2025-03-25 09:11] LABS: CRP < 3.00 mg/L (0.0-3.0)
[2025-03-27 15:08] LABS: Albumin 3.9 g/dL (2.9-4.4); GGTP 24 IU/L (0-65); Gamma Globulin 0.9 g/dL (0.4-1.8); Immunoglobulin A 106 mg/dL (61-437); Immunoglobulin G 908 mg/dL (603-1613); Immunoglobulin M 37 mg/dL (20-172); PROEL- TOTAL PROTEIN 6.8 g/dL (6.0-8.5)
== END | disposition home or self-care (01) ==
PROVIDERS: PCP Nurse Practitioner Family; Referring Provider Internal Medicine; Visit Provider Internal Medicine
DX: K74.3 Primary biliary cirrhosis (principal); R76.8 Other specified abnormal immunological findings in serum; K75.81 Nonalcoholic steatohepatitis (NASH); E78.5 Hyperlipidemia, unspecified
CPT/HCPCS: 36415; 76705; 76981; 80053; 80061; 82306; 82784; 82977; 83036; 84165; 85025; 85610; 86140; 86334

== ENCOUNTER → 2025-03-29 | Outpatient (CLI) | payer BC, SELFPAY ==
--- NOTE | 2025-03-29 16:50 | RAD_ITS ---
PROCEDURE: CHEST PA AND LATERAL 03/29/2025 REASON FOR EXAM: HYPOXEMIA TECHNIQUE: Procedure Code: RADCXR Modality: DX Procedure: CHEST PA AND LATERAL COMPARISON: Reviewed FINDINGS: Heart size normal. Lungs clear. No pneumothorax. RAD/Chest PA and Lateral IMPRESSION: As above. Reading Location: [facility]
--- NOTE | 2025-03-29 16:50 | RAD_ITS ---
PROCEDURE: CHEST PA AND LATERAL 03/29/2025 REASON FOR EXAM: HYPOXEMIA TECHNIQUE: Procedure Code: RADCXR Modality: DX Procedure: CHEST PA AND LATERAL COMPARISON: Reviewed FINDINGS: Heart size normal. Lungs clear. No pneumothorax. RAD/Chest PA and Lateral IMPRESSION: As above. Reading Location: [facility]
[2025-03-29 17:22] LABS: Pro- Brain NATRIURETIC PEPTIDE 87 pg/mL (<=900)
--- OUTSIDE RECORDS SUMMARY | 2025-03-29 17:22 | XMS RPT_ITS | CCD ---
Author Organization [facility] Care Team Providers Care Psychologist Military Personnel Name Role Phone REFERRING, CAITLYN BHAGAT Unavailable Unavailable RICHARD, MAK Unavailable Unavailable RICHARD, MAK Unavailable Unavailable RICHARD TIRE MOLDER - MAK NIEVES Primary Care Phys ician Friend, Dr. Velez Attending Provider Richard ORDNANCE TRUCK INSTALLATION SUPERVISOR, ORDNANCE TRUCK INSTALLATION SUPERVISOR-C Mak Foley Referring Provi kristie Richard ORDNANCE TRUCK INSTALLATION SUPERVISOR, ORDNANCE TRUCK INSTALLATION SUPERVISOR-C Mak Foley Primary Care Pr ovider Richard ORDNANCE TRUCK INSTALLATION SUPERVISOR, ORDNANCE TRUCK INSTALLATION SUPERVISOR-C Mak Foley Referring Provi kristie FriendDr. Velez Attending Provider Richard ORDNANCE TRUCK INSTALLATION SUPERVISOR, ORDNANCE TRUCK INSTALLATION SUPERVISOR-C Mak Foley Primary Care Pr ovider Richard ORDNANCE TRUCK INSTALLATION SUPERVISOR, ORDNANCE TRUCK INSTALLATION SUPERVISOR-C Mak Foley Referring Provi kristie FriendDr. Velez Attending Provider [phone] Mak Ramos CNP Primary Care Provider [phone] RICHARD ARNOLDN - MAK NIEVES Attending U navailable RICHARD TIRE MOLDER - REPRESENTATIVE PHLEBOTOMY SERVICES, MAK Neville Primary Care U navailable RICHARD TIRE MOLDER - REPRESENTATIVE PHLEBOTOMY SERVICES, MAK Nev[place] Attending U navailable RICHARD TIRE MOLDER - REPRESENTATIVE PHLEBOTOMY SERVICES, MAK Neville Primary Care U navailable RICHARD TIRE MOLDER - REPRESENTATIVE PHLEBOTOMY SERVICES, MAK [place] Attending U navailable RICHARD TIRE MOLDER - REPRESENTATIVE PHLEBOTOMY SERVICES, MAK Neville Primary Care U navailable RICHARD TIRE MOLDER - REPRESENTATIVE PHLEBOTOMY SERVICES, MAK Neville Attending U navailable RICHARD TIRE MOLDER - REPRESENTATIVE PHLEBOTOMY SERVICES, MAK Nev[place] Primary Care U navailable RICHARD TIRE MOLDER - REPRESENTATIVE PHLEBOTOMY SERVICES, MAK [place] Attending U navailable RICHARD TIRE MOLDER - REPRESENTATIVE PHLEBOTOMY SERVICES, MAK [place] Primary Care U navailable [place] LIZBETH, Mak Neville Primary Care Provider Richard ORDNANCE TRUCK INSTALLATION SUPERVISOR-C, Mak Foley Primary Care Provi kristie Richard ORDNANCE TRUCK INSTALLATION SUPERVISOR-C, Mak Foley Referring Provider Robert VÁZQUEZ, Dr. Allred Attending Provider JEFFERY GONZALEZ Referring Unavailable MAK RAMOS Primary Care Unavailable JEFFERY GONZALEZ Attending Unavailable MAK RAMOS Primary Care Unavailable Christine Sanchez Attending Provider RICHARD TIRE MOLDER - LIZBETH, MAK Neville Attending U navailable RICHARD TIRE MOLDER - REPRESENTATIVE PHLEBOTOMY SERVICES, MAK [place] Primary Care U navailable RICHARD TIRE MOLDER - REPRESENTATIVE PHLEBOTOMY SERVICES, MAK [place] Attending U navailable RICHARD TIRE MOLDER - REPRESENTATIVE PHLEBOTOMY SERVICES, MAK [place] Primary Care U navailable Richard ORDNANCE TRUCK INSTALLATION SUPERVISOR, Mak Foley Referring Unav ailable Chalino Jones Attending Unavailable Richard ORDNANCE TRUCK INSTALLATION SUPERVISOR, Mak Foley Primary Care Unav ailable SibVinicio steinberg V Attending Unavailable SibVinicio steinberg V Referring Unavailable Richard ORDNANCE TRUCK INSTALLATION SUPERVISOR, Mak Foley Primary Care Unav ailable [place] ORDNANCE TRUCK INSTALLATION SUPERVISOR, Mak Foley Primary Care Unav ailable Chalino Jones Attending Unavailable Chalino Jones Referring Unavailable Chalino Jones Attending Unavailable Richard ORDNANCE TRUCK INSTALLATION SUPERVISOR, Mak Foley Primary Care Unav ailable Richard ORDNANCE TRUCK INSTALLATION SUPERVISOR, Mak Foley Referring Unav ailable Christine Longo Attending Unavailable Richard ORDNANCE TRUCK INSTALLATION SUPERVISOR, Mak Foley Primary Care Unav ailable Richard ORDNANCE TRUCK INSTALLATION SUPERVISOR, Mak Foley Referring Unav ailable Medications Current Medications Medication Drug Class(es) Dates Sig (Normalized) Sig (Original) acetaminophen 325 mg / HYDROcodone bitartrate 5 mg oral tablet (3 sources) Opioid Agonist Start: 07-18-2015 take 1 tablet by mouth every six hours as needed HYDROcodone-aceta minophen (NORCO) 5-325 mg per tablet Take 1 tablet by mouth every 6 hours as needed. 60 tablet 0 07/18/2015 Active Comment on above: Take 1 tablet by josiah every 6 hours as needed. Albuterol (Eqv-ProAir HFA) 90 mcg/inh inhalation aerosol (7 sources) Start: 05-31-2023 End: 11-27-2023 take 1 dose by inhalation every four hours as needed Albuterol (Eqv-ProAir HFA) 90 mcg/inh inhalation aerosol Dose = 1 puff(s), Inhalation, q4h, PRN, # 1 EA, 5 Refill(s), Pharmacy: [facility], 181, cm, 05/31/23 7:03:00 EST, Height, kg, 05/31/23 7:03:00 EST, Dosing Weight Start Date: 05/31/23 Stop Date: 11/27/23 Status: Ordered Start: 05-13-2022 End: 12-09-2022 take 1 dose by inhalation every four hours as needed Albuterol (Eqv-ProAir HFA) 90 mcg/inh inhalation aerosol Dose = 1 puff(s), Inhalation, q4h, PRN, # 1 EA, 6 Refill(s), Pharmacy: [facility], 182.5, cm, 05/13/22 16:03:00 EST, Height, kg, 05/13/22 16:03:00 EST, Dosing Weight Start Date: 05/13/22 Stop Date: 12/09/22 Status: Ordered Start: 04-03-2021 End: 10-30-2021 take 1 dose by inhalation every four hours as needed Albuterol (Eqv-ProAir HFA) 90 mcg/inh inhalation aerosol Dose = 1 puff(s), Inhalation, q4h, PRN, # 1 EA, 6 Refill(s), Pharmacy: [facility], 182.5, cm, 04/03/21 16:07:00 EDT, Height, kg, 04/03/21 16:07:00 EDT, Dosing Weight Start Date: 04/03/21 Stop Date: 10/30/21 Status: Ordered Arnuity Ellipta 200 mcg inhalation powder (3 sources) Start: 11-10-2021 take 1 puff(s) by inhalation once daily Arnuity Ellipta 200 mcg inhalation powder 1 puff(s), Inhalation, qDay, # 30 EA, 0 Refill(s) Start Date: 11/10/21 Status: Ordered Breo Ellipta 200 mcg-25 mcg/inh inhalation powder (2 sources) Start: 09-10-2024 take 1 dose by inhalation once daily Breo Ellipta 200 mcg-25 mcg/inh inhalation powder Dose = 1 puff(s), Inhalation, Daily, 0 Refill(s) Start Date: 09/10/24 Status: Ordered Medication Dispense Status: Completed Total Allowed Fills: 1 Fills Dispensed: 0 Start: 02-08-2024 take 1 dose by inhal ation once daily Breo Ellipta 200 mcg-25 mcg/inh inhalation powder Dose = 1 puff(s), Inhalation, Daily, 0 Refill(s) Start Date: 02/08/24 Status: Ordered Calcium (1 source) Phosphate Binder, Calcium Start: 02-23-2019 calcium (as carbonat e) 600 mg oral tablet Dose : 600 mg = 1 tab(s), Oral, BIDM, 0 Refill(s) Start Date: 02/23/19 Status: Ordered calcium carbonate 1500 mg oral tablet (7 sources) Start: 02-23-2019 calcium (as ca rbonate) 600 mg oral tablet Dose : 600 mg = 1 tab(s), Oral, BIDM, 0 Refill(s) Start Date: 02/23/19 Status: Ordered Calcium Carbonate / vitamin D3 (3 sources) CALCIUM CARBONATE/VITAMIN D3 (CALCIUM 600 + D ORAL) Take by mouth once daily. Active CALCIUM CARBONAT E/VITAMIN D3 (CALCIUM 600 + D ORAL) Take by mouth once daily. 0 Active Comment on above: Take by mouth once d aily. cephalexin 500 mg oral capsule (1 source) Cephalosporin Antibacterial Start: 07-30-2022 End: 08-06-2022 cephalexin 500 mg oral capsule Dose : 500 mg = 1 cap(s), Oral, TID, X 7 day(s), # 21 cap(s), 0 Refill(s), 08/06/22 11:42:00 EST, Pharmacy: [facility], Cellulitis of left leg, 182.5, cm, 07/30/22 11:11:00 EST, Height, 132.2 Start Date: 07/30/22 Stop Date: 08/06/22 Status: Ordered Clobetasol (9 sources) Corticosteroid Start: 03-19-2024 Clobetasol (Eqv-Temovate) 0.05% topical cream See Instructions, APPLY TO AFFECTED AREA TWICE A DAY, # 30 gram(s), 5 Refill(s), Pharmacy: [place] [id number], 180, cm, 03/12/24 7:11:00 EDT, Height, kg, 03/12/24 7:11:00 EDT, Dosing Weight Start Date: 03/19/24 Status: Ordered Medication Dispense Status: Completed Quantity: 30.0 Unit: g Total Allowed Fills: 6 Fills Dispensed: 0 Start: 11-18-2023 Clobetasol (Eq v-Temovate) 0.05% topical cream See Instructions, APPLY TO AFFECTED AREA TWICE A DAY, # 30 gram(s), 1 Refill(s), Pharmacy: [place] [id number], 181, cm, 09/26/23 7:02:00 EDT, Height, kg, 09/26/23 7:02:00 EDT, Dosing Weight Start Date: 11/18/23 Status: Ordered Start: 11-12-2022 Clobetasol (Eq v-Temovate) 0.05% topical cream See Instructions, APPLY TO AFFECTED AREA TWICE A DAY, # 30 gram(s), 6 Refill(s), Pharmacy: [place] [id number], 182.5, cm, 11/12/22 15:21:00 EDT, Height, kg, 11/12/22 15:21:00 EDT, Dosing Weight Start Date: 11/12/22 Status: Ordered Start: 05-13-2022 Clobetasol (Eq v-Temovate) 0.05% topical cream See Instructions, APPLY TO AFFECTED AREA TWICE A DAY, # 30 gram(s), 6 Refill(s), Pharmacy: [facility], 182.5, cm, 05/13/22 16:03:00 EST, Height, kg, 05/13/22 16:03:00 EST, Dosing Weight Start Date: 05/13/22 Status: Ordered Start: 06-01-2021 Clobetasol (Eq v-Temovate) 0.05% topical cream See Instructions, APPLY TO AFFECTED AREA TWICE A DAY, # 30 gram(s), 6 Refill(s), Pharmacy: [place] [id number], 182.5, cm, 05/11/21 15:59:00 EST, Height, kg, 05/11/21 15:59:00 EST, Dosing Weight Start Date: 06/01/21 Status: Ordered 24 hr dilTIAZem hydrochloride 240 mg extended release oral capsule (12 sources) Calcium Channel Bob Start: 08-24-2014 End: 12-29-2021 take 1 capsule by mouth once daily, then take 1 capsule by mouth every twenty-four hours Diltiazem Hcl (Cartia Xt) 240 MG capsule,extended release 24hr Active 240 mg PO DAILY August 24, 2014 1:00am Comment on above: Take 240 mg by mouth once daily. DilTIAZem (Eqv-Cardizem CD) 240 mg/24 hours oral capsule, extended release (8 sources) Start: 11-20-2024 DilTIAZem (Eqv-Cardizem CD) 240 mg/24 hours oral capsule, extended release Dose : 240 mg = 1 cap(s), Oral, qDay, # 30 cap(s), 5 Refill(s), Pharmacy: [facility], 180, cm, 09/10/24 6:55:00 EDT, Height, kg, 09/10/24 6:55:00 EDT, Dosing Weight Start Date: 11/20/24 Status: Ordered Medication Dispense Status: Completed Quantity: 30.0 Unit: cap(s) Total Allowed Fills: 6 Fills Dispensed: 0 Start: 09-26-2023 End: 03-24-2024 DilTIAZem (Eqv-Cardizem CD) 240 mg/24 hours oral capsule, extended release Dose : 240 mg = 1 cap(s), Oral, qDay, X 30 day(s), # 30 cap(s), 5 Refill(s), 03/24/24 7:21:00 AM EDT, Pharmacy: [facility], 181, cm, 09/26/23 7:02:00 EDT, Height, kg, 09/26/23 7:02:00 EDT, Dosing Weight Start Date: 09/26/23 Stop Date: 03/24/24 Status: Ordered Start: 05-31-2023 End: 11-27-2023 DilTIAZem (Eqv-Cardizem CD) 240 mg/24 hours oral capsule, extended release Dose : 240 mg = 1 cap(s), Oral, qDay, X 90 day(s), # 90 cap(s), 1 Refill(s), 11/27/23 7:15:00 AM EDT, Pharmacy: [facility], 181, cm, 05/31/23 7:03:00 EST, Height, kg, 05/31/23 7:03:00 EST, Dosing Weight Start Date: 05/31/23 Stop Date: 11/27/23 Status: Ordered Start: 05-05-2023 End: 11-01-2023 DilTIAZem (Eqv-Cardizem CD) 240 mg/24 hours oral capsule, extended release Dose : 240 mg = 1 cap(s), Oral, qDay, X 90 day(s), # 90 cap(s), 1 Refill(s), 11/01/23 7:38:00 AM EDT, Pharmacy: [facility], 181, cm, 05/05/23 6:55:00 EST, Height, kg, 05/05/23 6:55:00 EST, Dosing Weight Start Date: 05/05/23 Stop Date: 11/01/23 Status: Ordered Start: 11-12-2022 End: 05-11-2023 DilTIAZem (Eqv-Cardizem CD) 240 mg/24 hours oral capsule, extended release Dose : 240 mg = 1 cap(s), Oral, qDay, X 90 day(s), # 90 cap(s), 1 Refill(s), 05/11/23 3:44:00 PM EST, Pharmacy: [facility], 182.5, cm, 11/12/22 15:21:00 EDT, Height, kg, 11/12/22 15:21:00 EDT, Dosing Weight Start Date: 11/12/22 Stop Date: 05/11/23 Status: Ordered Start: 07-30-2022 End: 01-26-2023 DilTIAZem (Eqv-Cardizem CD) 240 mg/24 hours oral capsule, extended release Dose : 240 mg = 1 cap(s), Oral, qDay, X 90 day(s), # 90 cap(s), 1 Refill(s), 01/26/23 11:51:00 EDT, Pharmacy: [facility], 182.5, cm, 07/30/22 11:11:00 EST, Height, kg, 07/30/22 11:11:00 EST, Dosing Weight Start Date: 07/30/22 Stop Date: 01/26/23 Status: Ordered Start: 02-15-2022 End: 08-14-2022 DilTIAZem (Eqv-Cardizem CD) 240 mg/24 hours oral capsule, extended release Dose : 240 mg = 1 cap(s), Oral, qDay, X 90 day(s), # 90 cap(s), 1 Refill(s), 08/14/22 15:15:00 EST, Pharmacy: [facility], 182.5, cm, 01/12/22 14:19:00 EDT, Height, kg, 01/12/22 14:19:00 EDT, Dosing Weight Start Date: 02/15/22 Stop Date: 08/14/22 Status: Ordered Start: 10-05-2021 End: 01-03-2022 DilTIAZem (Eqv-Cardizem CD) 240 mg/24 hours oral capsule, extended release Dose : 240 mg = 1 cap(s), Oral, qDay, X 90 day(s), # 90 cap(s), 0 Refill(s), 01/03/22 13:18:00 EDT, Pharmacy: [facility], 182.5, cm, 07/10/21 14:48:00 EST, Height, kg, 07/10/21 14:48:00 EST, Dosing Weight Start Date: 10/05/21 Stop Date: 01/03/22 Status: Ordered Diltiazem 10mg/Lidocaine 50mg Suppository 30 supp suppository (1 source) Start: 01-25-2025 Diltiazem 10mg/Lidocaine 50mg Suppository 30 supp suppository Active 1 NMA RC DAILY as needed for hemorrhoids January 25, 2025 12:00am diltiazem HCl (bulk) powder 300 mg; lidocaine (bulk) powder 1500 mg; Per 30 supp docusate sodium 100 mg oral capsule (3 sources) Start: 07-18-2015 take 1 capsule by mouth twice daily docusate sodium (COLACE) 100 mg capsule Take 1 capsule by mouth twice daily. 60 capsule 0 07/18/2015 Active Comment on above: Take 1 capsule by mo [facility] twice daily. doxycycline hyclate 100 mg oral tablet (9 sources) Tetracycline-c lass Drug Start: 06-02-2023 End: 06-07-2023 take 1 tablet by mouth twice daily doxycycline (VIBRA-TABS) 100 mg tablet Take 1 tablet by mouth two times a day for 5 days. 10 tablet 0 06/02/2023 06/07/2023 Active Start: 08-31-2021 End: 10-26-2021 take 1 capsule by mouth twice daily Doxycycline Hyclate 100 mg capsule Discontinued 100 mg PO TWICE A DAY 60 August 31, 2021 1:00am October 26, 2021 8:47am Comment on above: [facility]. escitalopram 10 mg oral tablet (13 sources) Serotonin Reuptake Inhibitor Start: take 1 tablet by mouth once daily Escitalopram Oxalate 10 mg tablet Active 10 mg PO daily January 25, 2025 12:00am Start: 11-12-2022 End: 03-24-2024 escitalopram 10 mg oral tabl et Dose : 10 mg = 1 tab(s), Oral, qDay, # 30 tab(s), 5 Refill(s), Pharmacy: [facility], 181, cm, 09/26/23 7:02:00 EDT, Height, kg, 09/26/23 7:02:00 EDT, Dosing Weight Start Date: 09/26/23 Stop Date: 03/24/24 Status: Ordered Start: 05-13-2022 End: 11-09-2022 escitalopram 10 mg oral tabl et Dose : 10 mg = 1 tab(s), Oral, qDay, # 90 tab(s), 1 Refill(s), Pharmacy: [facility], 182.5, cm, 05/13/22 16:03:00 EST, Height, kg, 05/13/22 16:03:00 EST, Dosing Weight Start Date: 05/13/22 Stop Date: 11/09/22 Status: Ordered Start: 04-03-2021 End: 05-09-2022 escitalopram 10 mg oral tabl et Dose : 10 mg = 1 tab(s), Oral, qDay, # 90 tab(s), 1 Refill(s), Pharmacy: [facility], 182.5, cm, 11/10/21 15:49:00 EDT, Height, kg, 11/10/21 15:49:00 EDT, Dosing Weight Start Date: 11/10/21 Stop Date: 05/09/22 Status: Ordered Comment on above: Take 10 mg by mouth once daily. fenofibrate 48 mg oral tablet (8 sources) Peroxisome Proliferator Receptor alpha Agonist Start: 024 End: 025 take 1 tablet by mouth at bedtime Fenofibrate Nanocrystallized (Tricor) 48 mg tablet Active 48 mg PO AT BEDTIME 30 30 5 November 21, 2024 8:23am 60 actuat fluticasone propionate 0.25 mg/actuat dry powder inhaler (6 sources) Corticosteroid Start: 023 FLOVENT DISKUS 250 mcg/actuation inhaler 05/27/2023 Active Start: 05-05-2023 take 1 puff(s) by in halation twice daily Flovent Diskus 250 mcg inhalation powder 1 puff(s), Inhalation, BID, 0 Refill(s) Start Date: 05/05/23 Status: Ordered 30 actuat fluticasone furoate 0.2 mg/actuat / vilanterol 0.025 mg/actuat dry powder inhaler (1 source) Corticosteroid, beta2-Adrenergic Agonist Start: 10-29-2024 BREO ELLIPTA 200-25 mcg/dose inhaler 10/29/2024 Active hydroCHLOROthiazide 12.5 mg oral capsule (7 sources) Thiazide Diuretic Start: 04-25-2023 hydroCHLOROthiazide 12.5 mg capsule 04/25/2023 Active Start: 11-12-2022 End: 12-12-2022 hydroCHLOROthiazide 12.5 mg oral capsule Dose : 12.5 mg = 1 cap(s), Oral, qDay, # 90 cap(s), 1 Refill(s), Pharmacy: [facility], HTN, goal below 140/90, 182.5, cm, 11/12/22 15:21:00 EDT, Height, kg, 11/12/22 15:21:00 EDT, Dosing Weight Start Date: 11/12/22 Stop Date: 12/12/22 Status: Ordered Start: 07-30-2022 End: 10-28-2022 hydroCHLOROthiazide 12.5 mg oral capsule Dose : 12.5 mg = 1 cap(s), Oral, qDay, # 30 cap(s), 2 Refill(s), Pharmacy: [facility], HTN, goal below 140/90, 182.5, cm, 07/30/22 11:11:00 EST, Height Start Date: 07/30/22 Stop Date: 10/28/22 Status: Ordered hydroCHLOROthiazide 25 mg / triamterene 37.5 mg oral capsule (4 sources) Potassium-sparing Diuretic, Thiazide Diuretic Start: 11-01-2024 triamterene-hydroCHLOROthiaz arpita (DYAZIDE) 37.5-25 mg per capsule 11/01/2024 Active Start: 09-10-2024 End: 03-09-2025 Triamterene-Hydrochlorothiaz id 37.5-25 mg capsule Active 1 NMA PO daily January 25, 2025 12:00am Start: 12-12-2023 End: 06-09-2024 take 1 capsule by mouth once daily hydrochlorothiazide-triamterene 25 mg-37 .5 mg oral capsule Dose = 1 cap(s), Oral, qDay, # 30 cap(s), 5 Refill(s), Pharmacy: [facility], HTN, goal below 140/90, 181, cm, 09/26/23 7:02:00 EDT, Height, kg, 09/26/23 7:02:00 EDT, Dosing Weight Start Date: 12/12/23 Stop Date: 06/09/24 Status: Ordered Hydrocortisone / Lidocaine (1 source) Antiarrhythmic, Corticosteroid, Amide Local Anesthetic Start: 07-10-2021 End: 07-17-2021 apply 1 dose rectal route twice daily hydrocortisone-lidocaine 0.5%-3% rectal cream Dose = 1 mook, Rectal, BID, X 7 day(s), # 28.3 gram(s), 0 Refill(s), Pharmacy: [facility], Hemorrhoids, 182.5, cm, 07/10/21 14:48:00 EST, Height, kg, 07/10/21 14:48:00 EST, Dosing Weight Start Date: 07/10/21 Stop Date: 07/17/21 Status: Ordered levothyroxine sodium 0.025 mg oral tablet (20 sources) l-Thyroxine Start: 09-10-2024 End: 03-09-2025 levothyroxine 25 mcg (0.025 mg) oral tablet Dose : 25 mcg = 1 tab(s), Oral, qDay, # 30 tab(s), 5 Refill(s), Pharmacy: [facility], 180, cm, 09/10/24 6:55:00 EDT, Height, kg, 09/10/24 6:55:00 EDT, Dosing Weight Start Date: 09/10/24 Stop Date: 03/09/25 Status: Ordered Medication Dispense Status: Completed Quantity: 30.0 Unit: tab(s) Total Allowed Fills: 6 Fills Dispensed: 0 Start: 09-26-2023 End: 03-24-2024 levothyroxine 25 mcg (0.025 mg) oral tablet Dose : 25 mcg = 1 tab(s), Oral, qDay, # 30 tab(s), 5 Refill(s), Pharmacy: [facility], 181, cm, 09/26/23 7:02:00 EDT, Height, kg, 09/26/23 7:02:00 EDT, Dosing Weight Start Date: 09/26/23 Stop Date: 03/24/24 Status: Ordered Start: 05-05-2023 levothyroxine 25 mcg (0.025 mg) oral tablet Dose : 25 mcg = 1 tab(s), Oral, qDay, # 90 tab(s), 1 Refill(s), Pharmacy: [facility], 181, cm, 05/05/23 6:55:00 EST, Height, kg, 05/05/23 6:55:00 EST, Dosing Weight Start Date: 05/05/23 Status: Ordered Start: 11-12-2022 levothyroxine 25 mcg (0.025 mg) oral tablet Dose : 25 mcg = 1 tab(s), Oral, qDay, # 90 tab(s), 1 Refill(s), Pharmacy: [facility], 182.5, cm, 11/12/22 15:21:00 EDT, Height, kg, 11/12/22 15:21:00 EDT, Dosing Weight Start Date: 11/12/22 Status: Ordered Start: 05-13-2022 levothyroxine 25 mcg (0.025 mg) oral tablet Dose : 25 mcg = 1 tab(s), Oral, qDay, # 90 tab(s), 1 Refill(s), Pharmacy: [facility], 182.5, cm, 05/13/22 16:03:00 EST, Height, kg, 05/13/22 16:03:00 EST, Dosing Weight Start Date: 05/13/22 Status: Ordered Start: 05-22-2021 End: 12-18-2021 levothyroxine 25 mcg (0.025 mg) oral tablet Dose : 25 mcg = 1 tab(s), Oral, qDay, # 90 tab(s), 1 Refill(s), Pharmacy: [facility], 182.5, cm, 11/10/21 15:49:00 EDT, Height, kg, 11/10/21 15:49:00 EDT, Dosing Weight Start Date: 11/10/21 Stop Date: 12/10/21 Status: Ordered Start: 08-24-2014 take 1 tablet by josiah once daily Levothyroxine 25 MCG tablet Active 25 ug PO DAILY August 24, 2014 1:00am Comment on above: Take 25 mcg by mouth . meclizine hydrochloride 25 mg oral tablet (1 source) Antiemetic Start: meclizine 25 mg oral tablet Dose : 25 mg = 1 tab(s), Oral, TID, PRN as needed for dizziness, # 30 tab(s), 0 Refill(s) Start Date: 09/10/24 Status: Ordered Medication Dispense Status: Completed Quantity: 30.0 Unit: tab(s) Total Allowed Fills: 1 Fills Dispensed: 0 24 hr metoprolol succinate 25 mg extended release oral tablet (8 sources) beta-Adrenergic Bob Start: take 1 tablet by mouth once daily Metoprolol Succinate 25 mg tablet extended release 24 hr Active 25 mg PO daily January 25, 2025 12:00am Start: 09-26-2023 metoprolol suc cinate 25 mg oral TABLET extended release Dose : 25 mg = 1 tab(s), Oral, qDay, # 30 tab(s), 5 Refill(s), Pharmacy: [facility], HTN, goal below 140/90, 181, cm, 09/26/23 7:02:00 EDT, Height, kg, 09/26/23 7:02:00 EDT, Dosing Weight Start Date: 09/26/23 Status: Ordered Start: 05-31-2023 metoprolol suc cinate ER (TOPROL XL) 25 mg 24 hr tablet 05/31/2023 Active Start: 05-31-2023 metoprolol suc cinate 25 mg oral TABLET extended release Dose : 25 mg = 1 tab(s), Oral, qDay, # 30 tab(s), 5 Refill(s), Pharmacy: [facility], HTN, goal below 140/90, 181, cm, 05/31/23 7:03:00 EST, Height, kg, 05/31/23 7:03:00 EST, Dosing Weight Start Date: 05/31/23 Status: Ordered Start: 05-05-2023 metoprolol suc cinate 25 mg oral TABLET extended release Dose : 25 mg = 1 tab(s), Oral, qDay, # 30 tab(s), 1 Refill(s), Pharmacy: [place] [id number], HTN, goal below 140/90, 181, cm, 05/05/23 6:55:00 EST, Height, kg, 05/05/23 6:55:00 EST, Dosing Weight Start Date: 05/05/23 Status: Ordered Multivitamin ORAL capsule (3 sources) Multivitamin ORA L capsule Take 1 capsule by mouth. Active Multivitamin ORA L capsule Take 1 capsule by mouth. 0 Active Comment on above: Take 1 capsule by [facility]. Multivitamin preparation (9 sources) Start: 02-23-2019 take 1 tablet by mouth once daily Multivitamin Dose = 1 tab(s), Oral, Daily, 0 Refill(s) Start Date: 02/23/19 Status: Ordered Medication Dispense Status: Completed Total Allowed Fills: 1 Fills Dispensed: 0 Start: 02-23-2019 take 1 tablet by [facility] once daily Multivitamin Dose = 1 tab(s), Oral, Daily, 0 Refill(s) Start Date: 02/23/19 Status: Ordered mupirocin 0.02 mg/mg topical ointment (1 source) RNA Synthetase Inhibitor Antibacterial Start: 07-30-2022 End: 08-13-2022 mupirocin 2% topical ointment Apply 1 mook, Topical, BID, X 7 day(s), # 15 gram(s), 1 Refill(s), Pharmacy: [facility], Ointment, 182.5, cm, 07/30/22 11:11:00 EST, Height, 132.2 Start Date: 07/30/22 Stop Date: 08/13/22 Status: Ordered omeprazole 40 mg delayed release oral capsule (12 sources) Proton Pump Inhibitor Start: 09-10-2024 End: 03-09-2025 omeprazole 40 mg oral delayed release capsule Dose : 40 mg = 1 cap(s), Oral, qDay, # 30 cap(s), 5 Refill(s), Pharmacy: [facility], 180, cm, 09/10/24 6:55:00 EDT, Height, kg, 09/10/24 6:55:00 EDT, Dosing Weight Start Date: 09/10/24 Stop Date: 03/09/25 Status: Ordered Medication Dispense Status: Completed Quantity: 30.0 Unit: cap(s) Total Allowed Fills: 6 Fills Dispensed: 0 Start: 11-12-2022 End: 03-24-2024 omeprazole 40 mg oral delaye d release capsule Dose : 40 mg = 1 cap(s), Oral, qDay, # 30 cap(s), 5 Refill(s), Pharmacy: [facility] [facility], 181, cm, 09/26/23 7:02:00 EDT, Height, kg, 09/26/23 7:02:00 EDT, Dosing Weight Start Date: 09/26/23 Stop Date: 03/24/24 Status: Ordered Start: 05-13-2022 End: 11-09-2022 omeprazole 40 mg oral delaye d release capsule Dose : 40 mg = 1 cap(s), Oral, qDay, # 90 cap(s), 1 Refill(s), Pharmacy: [facility], 182.5, cm, 05/13/22 16:03:00 EST, Height, kg, 05/13/22 16:03:00 EST, Dosing Weight Start Date: 05/13/22 Stop Date: 11/09/22 Status: Ordered Start: 04-03-2021 End: 05-09-2022 omeprazole 40 mg oral delaye d release capsule Dose : 40 mg = 1 cap(s), Oral, qDay, # 90 cap(s), 1 Refill(s), Pharmacy: [facility], 182.5, cm, 11/10/21 15:49:00 EDT, Height, kg, 11/10/21 15:49:00 EDT, Dosing Weight Start Date: 11/10/21 Stop Date: 05/09/22 Status: Ordered Comment on above: Take 40 mg by mouth once daily. Omeprazole 40 mg capsule,delayed release(DR/EC) (1 source) Start: 01-26-20 take 1 capsule by mouth once daily Omeprazole 40 mg capsule,delayed release(DR/EC) Active 40 mg PO daily January 25, 2025 12:00am potassium chloride 20 meq oral tablet (8 sources) Start: 02-24-20 potassium chloride 20 mEq oral tablet, extended release Dose : 20 mEq = 1 tab(s), Oral, qDay, Take with food, # 30 tab(s), 0 Refill(s) Start Date: 02/23/19 Status: Ordered sildenafil 50 mg oral tablet (7 sources) Phosphodiesterase 5 Inhibitor Start: 05-05-20 End: 11-01-19 Viagra 50 mg oral tablet Dose : 50 mg = 1 tab(s), Oral, qDay, 1 hour before sexual activity, # 9 tab(s), 5 Refill(s), Pharmacy: [facility], ED (erectile dysfunction), 181, cm, 05/05/23 6:55:00 EST, Height, kg, 05/05/23 6:55:00 EST, Dosing Weight Start Date: 05/05/23 Stop Date: 11/01/23 Status: Ordered Start: 05-13-2022 End: 11-09-2022 Viagra 50 mg oral tablet Dos e : 50 mg = 1 tab(s), Oral, qDay, 1 hour before sexual activity, # 9 tab(s), 5 Refill(s), Pharmacy: [facility], ED (erectile dysfunction), 182.5, cm, 05/13/22 16:03:00 EST, Height, kg, 05/13/22 16:03:00 EST, Dosing Weight Start Date: 05/13/22 Stop Date: 11/09/22 Status: Ordered Start: 11-10-2021 End: 05-09-2022 Viagra 50 mg oral tablet Dos e : 50 mg = 1 tab(s), Oral, qDay, 1 hour before sexual activity, # 9 tab(s), 5 Refill(s), Pharmacy: [facility], ED (erectile dysfunction), 182.5, cm, 11/10/21 15:49:00 EDT, Height, kg, 11/10/21 15:49:00 EDT, Dosing Weight Start Date: 11/10/21 Stop Date: 05/09/22 Status: Ordered Start: 04-03-2021 End: 09-30-2021 Viagra 50 mg oral tablet Dos e : 50 mg = 1 tab(s), Oral, qDay, 1 hour before sexual activity, # 9 tab(s), 5 Refill(s), Pharmacy: [facility], ED (erectile dysfunction), 182.5, cm, 04/03/21 16:07:00 EDT, Height, kg, 04/03/21 16:07:00 EDT, Dosing Weight Start Date: 04/03/21 Stop Date: 09/30/21 Status: Ordered valsartan 320 mg oral tablet (17 sources) Angiotensin 2 Receptor Bob Start: 09-10-2024 End: 03-09-2025 Diovan 320 mg oral tablet Dose : 320 mg = 1 tab(s), Oral, qDay, Discontinue Ramapril, # 30 tab(s), 5 Refill(s), Pharmacy: [facility], HTN, goal below 140/90, 180, cm, 09/10/24 6:55:00 EDT, Height, kg, 09/10/24 6:55:00 EDT, Dosing Weight Start Date: 09/10/24 Stop Date: 03/09/25 Status: Ordered Medication Dispense Status: Completed Quantity: 30.0 Unit: tab(s) Total Allowed Fills: 6 Fills Dispensed: 0 Indications: Essential (primary) hypertension; Start: 05-13-2022 End: 03-24-2024 take 1 tablet by mouth once daily Valsartan 320 mg tablet Active 320 mg PO DAILY September 27, 2022 12:00am On Hold: Duplicate Order Start: 10-05-2021 End: 05-09-2022 Diovan 320 mg oral tablet Do se : 320 mg = 1 tab(s), Oral, qDay, Discontinue Ramapril, # 90 tab(s), 1 Refill(s), Pharmacy: [facility], HTN, goal below 140/90, 182.5, cm, 11/10/21 15:49:00 EDT, Height, kg, 11/10/21 15:49:00 EDT, Dosing Weight Start Date: 11/10/21 Stop Date: 05/09/22 Status: Ordered Start: 04-03-2021 End: 09-30-2021 Diovan 320 mg oral tablet Do se : 320 mg = 1 tab(s), Oral, qDay, Discontinue Ramapril, # 90 tab(s), 1 Refill(s), Pharmacy: [facility], HTN, goal below 140/90, 182.5, cm, 04/03/21 16:07:00 EDT, Height, kg, 04/03/21 16:07:00 EDT, Dosing Weight Start Date: 04/03/21 Stop Date: 09/30/21 Status: Ordered VITAMIN B COMPLEX NO.12-NIAC IN ORAL (3 sources) VITAMIN B COMPLE X NO.12-NIACIN ORAL Take by mouth once daily. Active VITAMIN B COMPLE X NO.12-NIACIN ORAL Take by mouth once daily. 0 Active Comment on above: Take by mouth once d aily. Vitamin D3 (7 sources) Start: 11-10-2021 Vitamin D3 Dose : 1,000 unit(s) = 1 tab(s), Oral, Daily, 0 Refill(s) Start Date: 11/10/21 Status: Ordered Medication Dispense Status: Completed Total Allowed Fills: 1 Fills Dispensed: 0 Start: 11-10-2021 Vitamin D3 Dos e : 1,000 unit(s) = 1 tab(s), Oral, Daily, 0 Refill(s) Start Date: 11/10/21 Status: Ordered vitamin e 180 mg oral tablet (20 sources) Start: 11-21-2024 take 1 tablet by mouth twice daily Vitamin E Succinate 268 mg (400 unit) tablet Active 268 mg PO TWICE A DAY 60 5 November 21, 2024 12:00am Start: 12-09-2023 End: 07-23-2024 Vitamin E Mixed 400 unit cap kirk Discontinued 400 U PO TWICE A DAY 60 30 March 29, 2024 10:31am July 23, 2024 9:10am Start: 10-26-2021 End: 12-09-2023 Vitamin E Mixed 400 unit cap kirk Discontinued 400 U PO daily 30 October 03, 2023 12:53pm December 09, 2023 8:06am Start: 02-23-2019 vitamin E 200 intl units oral capsule Dose : 200 International_Unit = 1 cap(s), Oral, Daily, 0 Refill(s) Start Date: 02/23/19 Status: Ordered Medication Dispense Status: Completed Total Allowed Fills: 1 Fills Dispensed: 0 Vitamin E 1,000 unit ORAL Tab Take by mouth once daily. Active Comment on above: Take by mouth once d aily. vitamin E 200 intl units oral capsule (6 sources) Start: 02-23-2019 vitamin E 200 intl units oral capsule Dose : 200 International_Unit = 1 cap(s), Oral, Daily, 0 Refill(s) Start Date: 02/23/19 Status: Ordered Completed/Discontinued Medications Medication Drug Class(es) Dates Sig (Normalized) Sig (Original) atropine sulfate 0.025 mg / diphenoxylate hydrochloride 2.5 mg oral tablet (1 source) Anticholinergic, Cholinergic Muscarinic Antagonist, Antidiarrheal Start: 07-10-2021 End: 07-15-2021 take 1 tablet by mouth four times daily colestipol hydrochloride 1000 mg oral tablet (20 sources) Bile Acid Sequestrant Start: 04-19-2024 End: 07-23-2024 Colestipol (Colestid) 1 gram tablet Discontinued 1 g PO TWICE A DAY 60 30 April 19, 2024 12:00am July 23, 2024 9:09am Advised to take 2 hours prior or after other medications as advised with other medications. Start: 11-10-2021 colestipol 1 g oral tablet Dose : 1 gram(s) = 1 tab(s), Oral, BID, # 120 tab(s), 0 Refill(s) Start Date: 11/10/21 Status: Ordered Start: 09-23-2021 End: 03-20-2024 Colestipol 1 gram tablet Dis continued 1 g PO TWICE A DAY 60 5 October 03, 2023 12:53pm March 20, 2024 7:53am take one twice tab twice a day lisinopril 40 mg oral tablet (11 sources) Angiotensin Converting Enzyme Inhibitor Start: 08-24-2014 End: 01-25-2025 take 1 tablet by mouth once daily Lisinopril 40 MG tablet Discontinued 40 mg PO DAILY August 24, 2014 1:00am January 25, 2025 7:36am Comment on above: Take 40 mg by mouth once daily. predniSONE 5 mg oral tablet (9 sources) Start: 11-04-2022 End: 12-09-2023 Prednisone 5 mg tablet Discontinued 5 mg PO DAILY 30 0 November 04, 2022 12:00am December 09, 2023 7:53am for thirty days then stop Start: 09-30-2022 End: 11-04-2022 take 1 tablet by mouth once daily Prednisone 10 mg tablet Discontinued 10 mg PO DAILY 30 0 September 30, 2022 12:00am November 04, 2022 11:34am ursodiol 500 mg oral tablet (20 sources) Bile Acid Start: 12-09-2023 End: 07-23-2024 take 1 tablet by mouth twice daily Ursodiol 500 mg tablet Discontinued 500 mg PO TWICE A DAY 60 30 6 April 19, 2024 11:56am July 23, 2024 9:09am Start: 10-26-2021 End: 12-09-2023 take 1 capsule by mouth twice daily Ursodiol 300 mg capsule Discontinued 300 mg PO TWICE A DAY 60 October 03, 2023 12:53pm December 09, 2023 7:48am Problems Active Problems Problem Classification Problem Date Documented Da te Episodic/Chronic Anxiety disorders (9 sources) Generalized anxiety disorder 10-02-2020 Chronic Asthma (9 sources) Asthma 10-02-2020 Chronic Conditions associated with dizziness or vertigo (2 sources) Benign paroxysmal positional vertigo; Translations: [Dizziness of unknown cause] 08-23-2024 Episodic Disorders of lipid metabolism (20 sources) Hyperlipidemia, unspecified; Translations: [Hyperlipidemia] Onset: 7 02-23-2019 Chronic Esophageal disorders (9 sources) Gastroesophageal reflux disease 02-22-2019 Chronic Essential hypertension (13 sources) Essential (primary) hypertension; Translations: [Hypertensive disorder] Onset: 7 02-22-2019 Chronic Fluid and electrolyte disorders (2 sources) Hyperkalemia 02-13-2024 Episodic Hepatitis (4 sources) Nonalcoholic steatohepatitis; Translations: [Nonalcoholic steatohepatitis (VAZQUEZ)] 07-23-2024 Chronic Immunizations and screening for infectious disease (4 sources) Mitochondrial antibodies positive; Translations: [Other specified abnormal immunological findings in serum] 07-23-2024 Episodic Osteoarthritis (9 sources) Arthritis 02-22-2019 Chronic Other connective tissue disease (2 sources) Pain in finger of left hand; Translations: [Pain in left finger(s)] 11-17-2024 Episodic Other connective tissue disease (1 source) Pain in left finger(s); Translations: [Finger pain, left] Onset: Episodic Other gastrointestinal disorders (8 sources) Irritable bowel syndrome 07-17-2021 Chronic Other gastrointestinal disorders (8 sources) Diarrhea; Translations: [Diarrhea, unspecified] 01-20-2022 Episodic Other gastrointestinal disorders (4 sources) Diarrhea, unspecified; Translations: [Diarrhea] Episodic Other gastrointestinal disorders (2 sources) Rectum finding; Translations: [Other specified symptoms and signs involving the digestive system and abdomen] 01-25-2025 Episodic Other gastrointestinal disorders (1 source) Other specified symptoms and signs involving the digestive system and abdomen; Translations: [Other specified symptoms and signs involving the digestive system and abdomen] Onset: Episodic Other liver diseases (6 sources) Steatosis of liver; Translations: [Fatty (change of) liver, not elsewhere classified] 01-20-2022 Chronic Other liver diseases (6 sources) Fatty (change of) liver, not elsewhere classified; Translations: [Other chronic nonalcoholic liver disease] Chronic Other liver diseases (4 sources) Primary biliary cholangitis; Translations: [Primary biliary cirrhosis] 01-20-2022 Chronic Other liver diseases (2 sources) Primary biliary cirrhosis; Translations: [Biliary cirrhosis] Chronic Other lower respiratory disease (2 sources) Cough; Translations: [Acute cough] 06-02-2023 Episodic Other male genital disorders (9 sources) 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 Other nervous system disorders (1 source) Impairment of balance 08-23-2024 Episodic Other nutritional; endocrine; and metabolic disorders (4 sources) Body mass index 40+ - severely obese 05-05-2023 Chronic Other nutritional; endocrine; and metabolic disorders (1 source) Body mass index 30+ - obesity 05-31-2023 Chronic Residual codes; unclassified (9 sources) Increased body mass index 09-06-2019 Episodic Screening and history of mental health and substance abuse codes (6 sources) Tobacco use and exposure - finding 05-13-2022 Chronic Skin and subcutaneous tissue infections (1 source) Abscess of lower limb 07-30-2022 Episodic Thyroid disorders (11 sources) Hypothyroidism, unspecified; Translations: [Hypothyroidism] Onset: 7 02-22-2019 Chronic Unclassified (10 sources) Patient encounter status 10-02-2020 Unclassified (1 source) Pressure injury 02-26-2022 Unclassified (6 sources) Non-smoker 05-13-2022 Viral infection (1 source) Viral disease; Translations: [Viral infection, unspecified] 06-02-2023 Episodic Past or Other Problems Problem Classification Problem Date Documented Da te Episodic/Chronic Abdominal hernia (3 sources) Incisional hernia; Translations: [Incisional hernia without obstruction or gangrene] Onset: 01-13-2015 08-11-2015 Episodic Other lower respiratory disease (1 source) Shortness of breath; Translations: [Shortness of breath] Onset: 05-16-2024 Episodic Results Test Name Value Interpretation Reference Range Facility [id number] 03-28-2025 [facility] Misc. COMMENT Normal . [facility] Comment on above: Order Comment: [id number] 9ELF TEST SERUM RF Result Comment: Test Ordered: [id number] Enhanced Liver Fibrosis (ELF) ELF(TM) Score 10.49 [H ] BN Reference Range: <9.80 ELF(TM) Score Interpretation: Risk cut-offs to assess the likelihood of progression to cirrhosis and liver-related clinical events within 3.9 years following baseline ELF score (IQR: 14.0-22.4 months)*: Lower risk < 9.80 Mid risk 9.80 - 11.29 Higher risk >11.29 Note: The ELF(TM) Score is a unitless numerical value. *Mayito SA, Parth VW, Gianluca T, et al. Selonsertib for patients with bridging fibrosis or compensated cirrhosis due to VAZQUEZ: Results from randomized phase III STELLAR trials. J Hepatol. 2020 Dec;73(1):26-39. Performed at: - [address] [id number] Puffer Tender: David Murphy MD, Phone: [phone] Performed at: [facility] [address] [id number] Puffer Tender: Roshan Waggoner PhD, Phone: [phone] Performed By: #### L 3410.9992, L300.3900, L3100.3425, L100.0100, L501.6710, L506.1001, L500.4100, L501.9985, L501.5101, L500.4050 ####[facility] [address] [place], [place], [id number] MADDIE + Protein Elect, Serumon 03-27-2025 Albumin [Mass/Vol] 3.9 g/dL Normal 2.9-4.4 [facility] Comment on above: Order Comment: Y Performed By: #### L 3410.9992, L300.3900, L3100.3425, L100.0100, L501.6710, L506.1001, L500.4100, L501.9985, L501.5101, L500.4050 ####[facility] [address] [place], [address] Albumin/Globulin [Mass ratio] 1.4 {ratio} Normal 0.7-1.7 [facility] Comment on above: Order Comment: Y Performed By: #### L 3410.9992, L300.3900, L3100.3425, L100.0100, L501.6710, L506.1001, L500.4100, L501.9985, L501.5101, L500.4050 ####[facility] [address] [place], [address](358) FIJJD-0-JSST 0.2 g/dL Normal 0.0-0.4 [facility] Comment on above: Order Comment: Y Performed By: #### L 3410.9992, L300.3900, L3100.3425, L100.0100, L501.6710, L506.1001, L500.4100, L501.9985, L501.5101, L500.4050 ####[facility] [address] [place], [address](977) LJPDC-0-UMRQ 0.8 g/dL Normal 0.4-1.0 [facility] Comment on above: Order Comment: Y Performed By: #### L 3410.9992, L300.3900, L3100.3425, L100.0100, L501.6710, L506.1001, L500.4100, L501.9985, L501.5101, L500.4050 ####[facility] [address] [place], [address](088) BETA GLOBULIN 1.1 g/dL Normal 0.7-1.3 [facility] Comment on above: Order Comment: Y Performed By: #### L 3410.9992, L300.3900, L3100.3425, L100.0100, L501.6710, L506.1001, L500.4100, L501.9985, L501.5101, L500.4050 ####[facility] [address] [place], [address](516) GAMMA GLOBULIN 0.9 g/dL Normal 0.4-1.8 [facility] Comment on above: Order Comment: Y Performed By: #### L 3410.9992, L300.3900, L3100.3425, L100.0100, L501.6710, L506.1001, L500.4100, L501.9985, L501.5101, L500.4050 ####[facility] [address] [place], [address] Globulin (S) [Mass/Vol] 2.9 g/dL Normal 2.2-3.9 [facility] Comment on above: Order Comment: Y Performed By: #### L 3410.9992, L300.3900, L3100.3425, L100.0100, L501.6710, L506.1001, L500.4100, L501.9985, L501.5101, L500.4050 ####[facility] [address] [place], [address] MADDIE RESULT,S Comment Normal . [facility] Comment on above: Order Comment: Y Result Comment: No m onoclonality detected. Performed By: #### L 3410.9992, L300.3900, L3100.3425, L100.0100, L501.6710, L506.1001, L500.4100, L501.9985, L501.5101, L500.4050 ####[facility] [address] [place], [address] IMMUNOGLOB A QN 106 mg/dL Normal 61-437 [facility] Comment on above: Order Comment: Y Performed By: #### L 3410.9992, L300.3900, L3100.3425, L100.0100, L501.6710, L506.1001, L500.4100, L501.9985, L501.5101, L500.4050 ####[facility] [address] [place], [address] IMMUNOGLOB G QN 908 mg/dL Normal 603-1613 [facility] Comment on above: Order Comment: Y Performed By: #### L 3410.9992, L300.3900, L3100.3425, L100.0100, L501.6710, L506.1001, L500.4100, L501.9985, L501.5101, L500.4050 ####[facility] [address] [place], [place], [id number] IMMUNOGLOB M QN 37 mg/dL Normal 20-172 [facility] Comment on above: Order Comment: Y Performed By: #### L 3410.9992, L300.3900, L3100.3425, L100.0100, L501.6710, L506.1001, L500.4100, L501.9985, L501.5101, L500.4050 ####[facility] [address] [place], [address] M-Fili Not Observed Normal Not Observed [facility] Comment on above: Order Comment: Y Performed By: #### L 3410.9992, L300.3900, L3100.3425, L100.0100, L501.6710, L506.1001, L500.4100, L501.9985, L501.5101, L500.4050 ####[facility] [address] [place], [place], [id number] NOTE: Comment Normal . [facility] Comment on above: Order Comment: Y Result Comment: Prot ein electrophoresis scan will follow via computer, mail, or church musician delivery. Performed By: #### L 3410.9992, L300.3900, L3100.3425, L100.0100, L501.6710, L506.1001, L500.4100, L501.9985, L501.5101, L500.4050 ####[facility] [address] [place], [address] Protein [Mass/Vol] 6.8 g/dL Normal 6.0-8.5 [facility] Comment on above: Order Comment: Y Performed By: #### L 3410.9992, L300.3900, L3100.3425, L100.0100, L501.6710, L506.1001, L500.4100, L501.9985, L501.5101, L500.4050 ####[facility] [address] [place], [address] L501.5101on 03-27-2025 GGTP 24 IU/L Normal 0-65 [facility] Comment on above: Result Comment: Perf ormed at: CB - [facility] [address] [id number] Puffer Tender: Roshan Waggoner PhD, Phone: [phone] Performed By: #### L 3410.9992, L300.3900, L3100.3425, L100.0100, L501.6710, L506.1001, L500.4100, L501.9985, L501.5101, L500.4050 ####[facility] [address] 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 Portal venous flow is hepatopetal Gallbladder is distended at 10.2 cm with borderline normal wall thickness at 3 mm. No gallstones or pericholecystic fluid, Lakhani's sign is negative Visualized pancreas is sonographically normal Right kidney measures 14.3 x 6.4 x 7.1 cm. No hydronephrosis, calculi or mass, cortex is normal at 2.4 cm Spleen demonstrates normal echotexture and is enlarged at 13 cm Elasticity: Median velocity value KPA 7.6, KPA% 8.9 M/S1.58, M/S% 4.4 Metavir score of F2-F3 US/ABD Limited w/ Elastography IMPRESSION: Hepatomegaly with diffuse fatty infiltration of the liver, no discrete lesion. Metavir score F2-F3 Splenomegaly Reading Location: [id number] CC: JANE Ramos; Dr. Chalino Jones MD Radial Drill Press Set Up Operator: Signed Normal [facility] CBC W/Diff, Automatedon 02-26 Absolute Lymph 1.53 X10 3/uL Normal 0.83-4.51 [facility] Comment on above: Performed By: #### L 3410.9992, L300.3900, L3100.3425, L100.0100, L501.6710, L506.1001, L500.4100, L501.9985, L501.5101, L500.4050 #### [facility] [address] [place], [address] Absolute Neut 4.3 X10 3/uL Normal 2.0-7.7 [facility] Comment on above: Performed By: #### L 3410.9992, L300.3900, L3100.3425, L100.0100, L501.6710, L506.1001, L500.4100, L501.9985, L501.5101, L500.4050 #### [facility] [address] [place], [address] Basophils/100 WBC (Bld) 0.6 % Normal 0-1 [facility] Comment on above: Performed By: #### L 3410.9992, L300.3900, L3100.3425, L100.0100, L501.6710, L506.1001, L500.4100, L501.9985, L501.5101, L500.4050 #### [facility] [address] [place], [address] Eosinophils/100 WBC (Bld) 1.8 % Normal 0-5 [facility] Comment on above: Performed By: #### L 3410.9992, L300.3900, L3100.3425, L100.0100, L501.6710, L506.1001, L500.4100, L501.9985, L501.5101, L500.4050 #### [facility] [address] [place], [address] Erythrocyte distribution width (RBC) [Ratio] 14.5 % Normal 11.6-14.6 [facility] Comment on above: Performed By: #### L 3410.9992, L300.3900, L3100.3425, L100.0100, L501.6710, L506.1001, L500.4100, L501.9985, L501.5101, L500.4050 #### [facility] [address] [place], [address] Hematocrit (Bld) [Volume fraction] 43.3 % Normal 40-54 [facility] Comment on above: Performed By: #### L 3410.9992, L300.3900, L3100.3425, L100.0100, L501.6710, L506.1001, L500.4100, L501.9985, L501.5101, L500.4050 #### [facility] [address] [place], [address] Hemoglobin (Bld) [Mass/Vol] 14.2 g/dL Normal 13.0-16.5 [facility] Comment on above: Performed By: #### L 3410.9992, L300.3900, L3100.3425, L100.0100, L501.6710, L506.1001, L500.4100, L501.9985, L501.5101, L500.4050 #### [facility] [address] [place], [address] IG% 0.900 Normal 0.0-0.9 [facility] Comment on above: Result Comment: IG% - Immature Granulocytes (promyelocytes, myelocytes and metamyelocytes) > 1% indicates that a LEFT SHIFT is Present. Performed By: #### L 3410.9992, L300.3900, L3100.3425, L100.0100, L501.6710, L506.1001, L500.4100, L501.9985, L501.5101, L500.4050 #### [facility] [address] [place], [address] Lymphocytes/100 WBC (Bld) 22.6 % Normal 19-41 [facility] Comment on above: Performed By: #### L 3410.9992, L300.3900, L3100.3425, L100.0100, L501.6710, L506.1001, L500.4100, L501.9985, L501.5101, L500.4050 #### [facility] [address] [place], [address] MCH (RBC) [Entitic mass] 28.9 pg Normal 27.0-32.0 [facility] Comment on above: Performed By: #### L 3410.9992, L300.3900, L3100.3425, L100.0100, L501.6710, L506.1001, L500.4100, L501.9985, L501.5101, L500.4050 #### [facility] [address] [place], [address] MCHC (RBC) [Mass/Vol] 32.8 g/dL Normal 32-36 [facility] Comment on above: Performed By: #### L 3410.9992, L300.3900, L3100.3425, L100.0100, L501.6710, L506.1001, L500.4100, L501.9985, L501.5101, L500.4050 #### [facility] [address] [place], [address] MCV (RBC) [Entitic vol] 88.2 fL Normal 80-94 [facility] Comment on above: Performed By: #### L 3410.9992, L300.3900, L3100.3425, L100.0100, L501.6710, L506.1001, L500.4100, L501.9985, L501.5101, L500.4050 #### [facility] [address] [place], [address] Monocytes/100 WBC (Bld) 10.8 % High 0-10 [facility] Comment on above: Performed By: #### L 3410.9992, L300.3900, L3100.3425, L100.0100, L501.6710, L506.1001, L500.4100, L501.9985, L501.5101, L500.4050 #### [facility] [address] [place], [address] Neutrophils/100 WBC (Bld) 63.3 % Normal 47-70 [facility] Comment on above: Performed By: #### L 3410.9992, L300.3900, L3100.3425, L100.0100, L501.6710, L506.1001, L500.4100, L501.9985, L501.5101, L500.4050 #### [facility] [address] [place], [address] Nucleated RBC (Bld) [#/Vol] 0 10*3/uL Normal 0-5 [facility] Comment on above: Performed By: #### L 3410.9992, L300.3900, L3100.3425, L100.0100, L501.6710, L506.1001, L500.4100, L501.9985, L501.5101, L500.4050 #### [facility] [address] [place], [address] (804) Platelet mean volume (Bld) [Entitic vol] 9.9 fL Normal 6.2-12.0 [facility] Comment on above: Performed By: #### L 3410.9992, L300.3900, L3100.3425, L100.0100, L501.6710, L506.1001, L500.4100, L501.9985, L501.5101, L500.4050 #### [facility] [address] [place], [address] (652) Platelets (Bld) [#/Vol] 204 10*3/uL Normal 150-450 [facility] Comment on above: Performed By: #### L 3410.9992, L300.3900, L3100.3425, L100.0100, L501.6710, L506.1001, L500.4100, L501.9985, L501.5101, L500.4050 #### [facility] [address] [place], [address] (277) RBC (Bld) [#/Vol] 4.91 10*6/uL Normal 4.6-6.2 [facility] Comment on above: Performed By: #### L 3410.9992, L300.3900, L3100.3425, L100.0100, L501.6710, L506.1001, L500.4100, L501.9985, L501.5101, L500.4050 #### [facility] [address] [place], [address] (520) RDW SD 46.5 fl High 35.1-43.9 [facility] Comment on above: Performed By: #### L 3410.9992, L300.3900, L3100.3425, L100.0100, L501.6710, L506.1001, L500.4100, L501.9985, L501.5101, L500.4050 #### [facility] [address] [place], [place], [id number] WBC (Bld) [#/Vol] 6.8 10*3/uL Normal 4.4-11.0 [facility] Comment on above: Performed By: #### L 3410.9992, L300.3900, L3100.3425, L100.0100, L501.6710, L506.1001, L500.4100, L501.9985, L501.5101, L500.4050 #### [facility] [address] [place], [place], [id number] CRPon 03-25-2025 C-REACTIVE PROT < 3.00 Normal 0.0-3.0 [facility] Comment on above: Performed By: #### L 3410.9992, L300.3900, L3100.3425, L100.0100, L501.6710, L506.1001, L500.4100, L501.9985, L501.5101, L500.4050 #### [facility] [address] [place], [place], [phone] Comprehensive Metabolic Prof ilon 03-25-2025 Albumin [Mass/Vol] 4.5 g/dL Normal 3.4-4.8 [facility] Comment on above: Performed By: #### L 3410.9992, L300.3900, L3100.3425, L100.0100, L501.6710, L506.1001, L500.4100, L501.9985, L501.5101, L500.4050 #### [facility] [address] [place], [place], [id number] Albumin/Globulin [Mass ratio] 1.7 {ratio} Normal 0.9-2.4 [facility] Comment on above: Performed By: #### L 3410.9992, L300.3900, L3100.3425, L100.0100, L501.6710, L506.1001, L500.4100, L501.9985, L501.5101, L500.4050 #### [facility] [address] [facility] [place], [place], [id number] ALK PHOS 71 U/L Normal 40-129 [facility] Comment on above: Performed By: #### L 3410.9992, L300.3900, L3100.3425, L100.0100, L501.6710, L506.1001, L500.4100, L501.9985, L501.5101, L500.4050 #### [facility] [address] [facility] [place], [place], [phone] (604) ALT [Catalytic activity/Vol] 36 U/L Normal <=46 [facility] Comment on above: Performed By: #### L 3410.9992, L300.3900, L3100.3425, L100.0100, L501.6710, L506.1001, L500.4100, L501.9985, L501.5101, L500.4050 #### [facility] [address] [place], [place], [phone] AST [Catalytic activity/Vol] 25 U/L Normal <=37 [facility] Comment on above: Performed By: #### L 3410.9992, L300.3900, L3100.3425, L100.0100, L501.6710, L506.1001, L500.4100, L501.9985, L501.5101, L500.4050 #### [facility] [address] [place], [address] Bilirubin [Mass/Vol] 0.23 mg/dL Normal 0.00-1.30 [facility] Comment on above: Performed By: #### L 3410.9992, L300.3900, L3100.3425, L100.0100, L501.6710, L506.1001, L500.4100, L501.9985, L501.5101, L500.4050 #### [facility] [address] [place], [address] BUN/CRE 17.8 RATIO Normal 10-20 [facility] Comment on above: Performed By: #### L 3410.9992, L300.3900, L3100.3425, L100.0100, L501.6710, L506.1001, L500.4100, L501.9985, L501.5101, L500.4050 #### [facility] [address] [place], [address] Calcium [Mass/Vol] 9.7 mg/dL Normal 7.6-11.0 [facility] Comment on above: Performed By: #### L 3410.9992, L300.3900, L3100.3425, L100.0100, L501.6710, L506.1001, L500.4100, L501.9985, L501.5101, L500.4050 #### [facility] [address] [place], [address] Chloride [Moles/Vol] 105 mmol/L Normal 98-108 [facility] Comment on above: Performed By: #### L 3410.9992, L300.3900, L3100.3425, L100.0100, L501.6710, L506.1001, L500.4100, L501.9985, L501.5101, L500.4050 #### [facility] [address] [place], [address] CO2 [Moles/Vol] 24.2 mmol/L Normal 21.0-32.0 [facility] Comment on above: Performed By: #### L 3410.9992, L300.3900, L3100.3425, L100.0100, L501.6710, L506.1001, L500.4100, L501.9985, L501.5101, L500.4050 #### [facility] [address] [place], [address] Creatinine [Mass/Vol] 1.05 mg/dL Normal 0.70-1.20 [facility] Comment on above: Performed By: #### L 3410.9992, L300.3900, L3100.3425, L100.0100, L501.6710, L506.1001, L500.4100, L501.9985, L501.5101, L500.4050 #### [facility] [address] [place], [address] GAP 12 Normal 5-15 [facility] Comment on above: Performed By: #### L 3410.9992, L300.3900, L3100.3425, L100.0100, L501.6710, L506.1001, L500.4100, L501.9985, L501.5101, L500.4050 #### [facility] [address] [place], [address] GFR/1.73 sq M.predicted among non-blacks MDRD (S/P/Bld) [Vol rate/Area] 81 mL/min/{1.73_m2} Normal >60 [facility] Comment on above: Result Comment: mL/m in/1.73m2 CKD-EPI Creatinine Equation (2020) Performed By: #### L 3410.9992, L300.3900, L3100.3425, L100.0100, L501.6710, L506.1001, L500.4100, L501.9985, L501.5101, L500.4050 #### [facility] [address] [place], [address] Globulin (S) [Mass/Vol] 2.6 g/dL Normal 2.2-4.2 [facility] Comment on above: Performed By: #### L 3410.9992, L300.3900, L3100.3425, L100.0100, L501.6710, L506.1001, L500.4100, L501.9985, L501.5101, L500.4050 #### [facility] [address] [place], [address] Glucose [Mass/Vol] 101 mg/dL High 70-99 [facility] Comment on above: Performed By: #### L 3410.9992, L300.3900, L3100.3425, L100.0100, L501.6710, L506.1001, L500.4100, L501.9985, L501.5101, L500.4050 #### [facility] [address] [facility] [place], [place], [phone] Potassium [Moles/Vol] 4.4 mmol/L Normal 3.3-5.1 [facility] Comment on above: Performed By: #### L 3410.9992, L300.3900, L3100.3425, L100.0100, L501.6710, L506.1001, L500.4100, L501.9985, L501.5101, L500.4050 #### [facility] [address] [place], [address] Sodium [Moles/Vol] 141 mmol/L Normal 133-145 [facility] Comment on above: Performed By: #### L 3410.9992, L300.3900, L3100.3425, L100.0100, L501.6710, L506.1001, L500.4100, L501.9985, L501.5101, L500.4050 #### [facility] [address] [place], [address] T PROT 7.0 g/dL Normal 5.9-8.4 [facility] Comment on above: Performed By: #### L 3410.9992, L300.3900, L3100.3425, L100.0100, L501.6710, L506.1001, L500.4100, L501.9985, L501.5101, L500.4050 #### [facility] [address] [place], [address] Urea nitrogen [Mass/Vol] 19 mg/dL Normal 4-19 [facility] Comment on above: Performed By: #### L 3410.9992, L300.3900, L3100.3425, L100.0100, L501.6710, L506.1001, L500.4100, L501.9985, L501.5101, L500.4050 #### [facility] [address] [place], [address] Hemoglobin A1con 03-25-2025 HbA1c (Bld) [Mass fraction] 5.9 % High <=5.6 [facility] Comment on above: Result Comment: Norm al < 5.7 % Prediabetic 5.7 - 6.4 % Diabetic >or= 6.5 % Please note range changes. Performed By: #### L 3410.9992, L300.3900, L3100.3425, L100.0100, L501.6710, L506.1001, L500.4100, L501.9985, L501.5101, L500.4050 #### [facility] [address] [place], [address] Lipid Profileon 03-25-2025 CHOL:HDL 2.84 Normal [facility] Comment on above: Performed By: #### L 3410.9992, L300.3900, L3100.3425, L100.0100, L501.6710, L506.1001, L500.4100, L501.9985, L501.5101, L500.4050 ####[facility] [address] [place], [address](259) Cholesterol [Mass/Vol] 135 mg/dL Normal <=200 [facility] Comment on above: Result Comment: Chol esterol level, Desirable <200 mg/dL Borderline high cholesterol 200-239 mg/dL High cholesterol >=240 mg/dL Recommendations of the NCEP Adult Treatment Panel for the following risk-cutoff thresholds for the [place] population. Performed By: #### L 3410.9992, L300.3900, L3100.3425, L100.0100, L501.6710, L506.1001, L500.4100, L501.9985, L501.5101, L500.4050 ####[facility] [address] [place], [address](230) Cholesterol in HDL [Mass/Vol] 48 mg/dL Normal [facility] Comment on above: Result Comment: Lynne onal Cholesterol Education Program (NCEP) guidelines: <40 mg/dL: Low HDL-cholesterol (major risk factor for CHD) >= 60 mg/dL: High HDL-cholesterol (negative risk factor for CHD) HDL-cholesterol is affected by a number of factors, e.g. smoking, exercise, hormones, sex and age. Performed By: #### L 3410.9992, L300.3900, L3100.3425, L100.0100, L501.6710, L506.1001, L500.4100, L501.9985, L501.5101, L500.4050 ####[facility] [address] [place], [address](657) Cholesterol in LDL [Mass/Vol] 65 mg/dL Normal [facility] Comment on above: Result Comment: Bord dputdr=342-127 mg/dL Higher Ivmd=118 mg/dL or greater Friedwald Equation for LDL-C Performed By: #### L 3410.9992, L300.3900, L3100.3425, L100.0100, L501.6710, L506.1001, L500.4100, L501.9985, L501.5101, L500.4050 ####[facility] [address] [place], [place], [id number] Cholesterol in VLDL [Mass/Vol] 23 mg/dL Normal 5-40 [facility] Comment on above: Performed By: #### L 3410.9992, L300.3900, L3100.3425, L100.0100, L501.6710, L506.1001, L500.4100, L501.9985, L501.5101, L500.4050 ####[facility] [address] [place], [place], [id number] Triglyceride [Mass/Vol] 114 mg/dL Normal [facility] Comment on above: Result Comment: The drugs N-Acetylcysteine and Metamizole may falsely depress this assay. Normal range: <150 mg/dL Borderline High: 150-199 mg/dL High: 200-499 mg/dL Very High: >500 mg/dL Performed By: #### L 3410.9992, L300.3900, L3100.3425, L100.0100, L501.6710, L506.1001, L500.4100, L501.9985, L501.5101, L500.4050 ####[facility] [address] [place], [place], [id number] Prothrombin Time w/INRon INR Coag (PPP) [Relative time] 1.1 {INR} Normal [facility] Comment on above: Performed By: #### L 3410.9992, L300.3900, L3100.3425, L100.0100, L501.6710, L506.1001, L500.4100, L501.9985, L501.5101, L500.4050 #### [facility] [address] [place], [place], [phone] PT Coag (PPP) [Time] 13.9 s Normal 11.7-14.9 [facility] Comment on above: Performed By: #### L 3410.9992, L300.3900, L3100.3425, L100.0100, L501.6710, L506.1001, L500.4100, L501.9985, L501.5101, L500.4050 #### [facility] [address] [place], [place], [id number] Vitamin D,25 Hydroxyon 03-25 Vitamin D 25-OH 52.9 ng/mL Normal 30-100 [facility] Comment on above: Result Comment: Kelsea min D Status Deficiency: <20 ng/mL (50nmol/L) Insufficiency: 20-30 ng/mL (50-75 nmol/L) Sufficiency: 30-100 ng/mL (75-250 nmol/L) Toxicity: >100 ng/mL (>250 nmol/L) Performed By: #### L 3410.9992, L300.3900, L3100.3425, L100.0100, L501.6710, L506.1001, L500.4100, L501.9985, L501.5101, L500.4050 ####[facility] [address] [place], [place], [phone] .Auto Diffon 02-23-2025 Basophil, Absolute 0.0 10 3/mcL Normal 0.0-0.3 [facility] Comment on above: Performed By: #### A DIFF, CBC, CMP, GFR, ANEU, LIPID, TSH, FT4 #### [address] [address] Basophils/100 WBC (Bld) 0.8 % Normal 0.0-2.5 [facility] Comment on above: Performed By: #### A DIFF, CBC, CMP, GFR, ANEU, LIPID, TSH, FT4 #### [place] [address] [place], [place] [address] Eosinophil, Absolute 0.1 10 3/mcL Normal 0.0-0.7 [facility] Comment on above: Performed By: #### A DIFF, CBC, CMP, GFR, ANEU, LIPID, TSH, FT4 #### [address] [address] Eosinophils/100 WBC (Bld) 2.0 % Normal 0.0-6.0 [facility] Comment on above: Performed By: #### A DIFF, CBC, CMP, GFR, ANEU, LIPID, TSH, FT4 #### [address] [address] Lymphocyte, Absolute 1.6 10 3/mcL Normal 0.9-4.3 [facility] Comment on above: Performed By: #### A DIFF, CBC, CMP, GFR, ANEU, LIPID, TSH, FT4 #### [address] [address] Lymphocytes/100 WBC (Bld) 26.6 % Normal 20.0-40.0 [facility] Comment on above: Performed By: #### A DIFF, CBC, CMP, GFR, ANEU, LIPID, TSH, FT4 #### [address] [address] Monocyte, Absolute 0.8 10 3/mcL Normal 0.1-1.4 [facility] Comment on above: Performed By: #### A DIFF, CBC, CMP, GFR, ANEU, LIPID, TSH, FT4 #### [address] [address] Monocytes/100 WBC (Bld) 12.8 % Normal 2.0-13.0 [facility] Comment on above: Performed By: #### A DIFF, CBC, CMP, GFR, ANEU, LIPID, TSH, FT4 #### [address] [address] Neutrophils/100 WBC (Bld) 57.8 % Normal 50.0-75.0 [facility] Comment on above: Performed By: #### A DIFF, CBC, CMP, GFR, ANEU, LIPID, TSH, FT4 #### [address] [address] .GFRon 02-23-2025 Estimated Glomerular Filtration Rate 71 ml/min/1.73sqm Normal [facility] Comment on above: Result Comment: Stages of Chronic Kidney Disease [...] calculate the eGFR results. Performed By: #### G FR, CMP, PSA, LIPID, TSH #### [address] [address] #### FT4 #### [place] [address] .NEUABSon 02-23-2025 Neutrophil, Absolute 3.5 10 3/mcL Normal 2.3-8.1 [facility] Comment on above: Performed By: #### A DIFF, CBC, CMP, GFR, ANEU, LIPID, TSH, FT4 #### [address] [address] CBCon 02-23-2025 Erythrocyte distribution width (RBC) [Ratio] 15.7 % High 11.5-15.5 [facility] Comment on above: Performed By: #### A DIFF, CBC, CMP, GFR, ANEU, LIPID, TSH, FT4 #### [address] [address] Hematocrit (Bld) [Volume fraction] 43.2 % Normal 40.0-52.0 [facility] Comment on above: Performed By: #### A DIFF, CBC, CMP, GFR, ANEU, LIPID, TSH, FT4 #### [address] [address] Hgb 14.4 G/dL Normal 13.0-17.5 [facility] Comment on above: Performed By: #### A DIFF, CBC, CMP, GFR, ANEU, LIPID, TSH, FT4 #### [address] [address] MCH (RBC) [Entitic mass] 28.4 pg Normal 27.0-33.0 [facility] Comment on above: Performed By: #### A DIFF, CBC, CMP, GFR, ANEU, LIPID, TSH, FT4 #### [address] [address] MCHC 33.2 G/dL Normal 32.0-36.0 [facility] Comment on above: Performed By: #### A DIFF, CBC, CMP, GFR, ANEU, LIPID, TSH, FT4 #### [place] [id number] MCV (RBC) [Entitic vol] 85.5 fL Normal 81.0-100.0 [facility] Comment on above: Performed By: #### A DIFF, CBC, CMP, GFR, ANEU, LIPID, TSH, FT4 #### [address] [address] Platelet 176 10 3/mcL Normal 150-450 [facility] Comment on above: Performed By: #### A DIFF, CBC, CMP, GFR, ANEU, LIPID, TSH, FT4 #### [place] [id number] Platelet mean volume (Bld) [Entitic vol] 8.4 fL Normal 6.4-10.5 [facility] Comment on above: Performed By: #### A DIFF, CBC, CMP, GFR, ANEU, LIPID, TSH, FT4 #### [place] [id number] RBC 5.05 10 6/mcL Normal 4.50-6.00 [facility] Comment on above: Performed By: #### A DIFF, CBC, CMP, GFR, ANEU, LIPID, TSH, FT4 #### [address] [place] [address] WBC 6.1 10 3/mcL Normal 4.5-10.8 [facility] Comment on above: Performed By: #### A DIFF, CBC, CMP, GFR, ANEU, LIPID, TSH, FT4 #### [address] [address] CMPon 02-23-2025 Albumin Level 3.9 G/dL Normal 3.4-4.8 [facility] Comment on above: Performed By: #### G FR, CMP, PSA, LIPID, TSH #### [place] [address] #### FT4 #### [address] [address] Albumin/Globulin [Mass ratio] 1.2 {ratio} Normal 1.1-2.5 [facility] Comment on above: Performed By: #### G FR, CMP, PSA, LIPID, TSH #### [place] [address] #### FT4 #### [address] [address] ALP [Catalytic activity/Vol] 83 U/L Normal 40-135 [facility] Comment on above: Performed By: #### G FR, CMP, PSA, LIPID, TSH #### [place] [address] #### FT4 #### [address] [address] ALT [Catalytic activity/Vol] 40 U/L Normal 16-63 [facility] Comment on above: Performed By: #### G FR, CMP, PSA, LIPID, TSH #### [place] [address] #### FT4 #### [address] [address] AST [Catalytic activity/Vol] 22 U/L Normal 10-40 [facility] Comment on above: Performed By: #### G FR, CMP, PSA, LIPID, TSH #### [place] [address] #### FT4 #### [address] [address] Bili Total 0.4 mg/dL Normal 0.2-1.0 [facility] Comment on above: Result Comment: Use of this assay is not recommended for patients undergoing treatment with eltrombopag due to the potential for falsely elevated results. Performed By: #### G FR, CMP, PSA, LIPID, TSH #### [place] [address] #### FT4 #### [address] [address] BUN/Creatinine Ratio 22 ratio Normal 7-27 [facility] Comment on above: Performed By: #### G FR, CMP, PSA, LIPID, TSH #### [place] [address] #### FT4 #### [address] [address] Calcium [Mass/Vol] 9.2 mg/dL Normal 8.4-10.2 [facility] Comment on above: Performed By: #### G FR, CMP, PSA, LIPID, TSH #### [place] [address] #### FT4 #### [address] [address] Chloride [Moles/Vol] 102 mmol/L Normal 98-107 [facility] Comment on above: Performed By: #### G FR, CMP, PSA, LIPID, TSH #### [place] [address] #### FT4 #### [address] [address] CO2 [Moles/Vol] 32 mmol/L High 23-31 [facility] Comment on above: Performed By: #### G FR, CMP, PSA, LIPID, TSH #### [place] [address] #### FT4 #### [address] [address] Creatinine [Mass/Vol] 1.17 mg/dL Normal 0.67-1.17 [facility] Comment on above: Performed By: #### G FR, CMP, PSA, LIPID, TSH #### [place] [address] #### FT4 #### [place] [address] Electrolyte Balance 5.0 mEq/L Normal 4.0-15.0 [facility] Comment on above: Performed By: #### G FR, CMP, PSA, LIPID, TSH #### [place] [address] #### FT4 #### [place] [address] Globulin 3.2 G/dL Normal 2.7-4.4 [facility] Comment on above: Performed By: #### G FR, CMP, PSA, LIPID, TSH #### [place] [address] #### FT4 #### [place] [address] Glucose [Mass/Vol] 94 mg/dL Normal 80-115 [facility] Comment on above: Performed By: #### G FR, CMP, PSA, LIPID, TSH #### [place] [address] #### FT4 #### [place] [address] Potassium [Moles/Vol] 4.3 mmol/L Normal 3.5-5.1 [facility] Comment on above: Performed By: #### G FR, CMP, PSA, LIPID, TSH #### [place] [address] #### FT4 #### [place] [address] Sodium [Moles/Vol] 139 mmol/L Normal 136-145 [facility] Comment on above: Performed By: #### G FR, CMP, PSA, LIPID, TSH #### [address] [address] #### FT4 #### [place] [address] Total Protein 7.1 G/dL Normal 6.4-8.2 [facility] Comment on above: Performed By: #### G FR, CMP, PSA, LIPID, TSH #### [place] [address] #### FT4 #### [place] [address] Urea nitrogen [Mass/Vol] 26 mg/dL High 7-18 [facility] Comment on above: Performed By: #### G FR, CMP, PSA, LIPID, TSH #### [place] [address] #### FT4 #### [place] [address] FT4on 02-23-2025 Free T4 [Mass/Vol] 0.80 ng/dL Normal 0.76-1.46 [facility] Comment on above: Performed By: #### G FR, CMP, PSA, LIPID, TSH #### [place] [address] #### FT4 #### [place] [address] LABORATORYOrdered By: SYSTEM SYSTEM on 02-23-2025 Albumin BCP dye [Mass/Vol] 3.9 G/dL Normal 3.4 - 4.8 G/dL AO ADM SS Albumin/Globulin [Mass ratio] 1.2 {ratio} Normal 1.1 - 2.5 ratio AO ADM SS ALP [Catalytic activity/Vol] 83 U/L Normal 40 - 135 U/L AO ADM SS ALT With P-5'-P [Catalytic activity/Vol] 40 U/L Normal 16 - 63 U/L AO ADM SS AST With P-5'-P [Catalytic activity/Vol] 22 U/L Normal 10 - 40 U/L AO ADM SS Basophils (Bld) [#/Vol] 0.0 103/mcL Normal 0.0 - 0.3 10^3/mcL AO Workflow SS Basophils/100 WBC (Bld) 0.8 % Normal 0.0 - 2.5 % AO Workflow SS Bilirubin [Mass/Vol] 0.4 mg/dL Normal 0.2 - 1 .0 mg/dL AO ADM SS Comment on above: Interpretive Data: U se of this assay is not recommended for patients undergoing treatment with eltrombopag due to the potential for falsely elevated results. Calcium [Mass/Vol] 9.2 mg/dL Normal 8.4 - 10. 2 mg/dL AO ADM SS Chloride [Moles/Vol] 102 mmol/L Normal 98 - 10 7 mmol/L AO ADM SS CO2 [Moles/Vol] 32 mmol/L High 23 - 31 mmol/L AO ADM SS Creatinine [Mass/Vol] 1.17 mg/dL Normal 0.67 - 1.17 mg/dL AO ADM SS Electrolyte Balance 5.0 mEq/L Normal 4.0 - 15 .0 mEq/L AO ADM SS Eosinophil, Absolute 0.1 103/mcL Normal 0.0 - 0 .7 10^3/mcL AO Workflow SS Eosinophils/100 WBC (Bld) 2.0 % Normal 0.0 - 6.0 % AO Workflow SS Erythrocyte distribution width (RBC) [Ratio] 15.7 % High 11.5 - 15.5 % AO Workflow SS Estimated Glomerular Filtration Rate 71 ml/min/1.73sqm Invalid Interpretation Code AO Chemistry S Comment on above: Interpretive Data: Stages of Chronic Kidney Disease (CKD) Stage [...] race factor to calculate the eGFR results. Free T4 [Mass/Vol] 0.80 ng/dL Normal 0.76 - 1. 46 ng/dL AO ADM SS Globulin 3.2 G/dL Normal 2.7 - 4.4 G/dL AO ADM SS Glucose [Mass/Vol] 94 mg/dL Normal 80 - 115 mg/dL AO ADM SS Hematocrit (Bld) [Volume fraction] 43.2 % Normal 40.0 - 52.0 % AO Workflow SS Hemoglobin (Bld) [Mass/Vol] 14.4 G/dL Normal 13.0 - 17.5 G/dL AO Workflow SS Lymphocytes (Bld) [#/Vol] 1.6 103/mcL Normal 0.9 - 4.3 10^3/mcL AO Workflow SS Lymphocytes/100 WBC (Bld) 26.6 % Normal 20.0 - 40.0 % AO Workflow SS MCH (RBC) [Entitic mass] 28.4 pg Normal 27.0 - 33.0 pg AO Workflow SS MCHC 33.2 G/dL Normal 32.0 - 36.0 G/dL AO Workflow SS MCV (RBC) [Entitic vol] 85.5 fL Normal 81.0 - 100.0 fL AO Workflow SS Monocytes (Bld) [#/Vol] 0.8 103/mcL Normal 0.1 - 1.4 10^3/mcL AO Workflow SS Monocytes/100 WBC (Bld) 12.8 % Normal 2.0 - 13.0 % AO Workflow SS Neutrophils (Bld) [#/Vol] 3.5 103/mcL Normal 2.3 - 8.1 10^3/mcL AO Workflow SS Neutrophils/100 WBC (Bld) 57.8 % Normal 50.0 - 75.0 % AO Workflow SS Platelet mean volume (Bld) [Entitic vol] 8.4 fL Normal 6.4 - 10.5 fL AO Workflow SS Platelets (Bld) [#/Vol] 176 103/mcL Normal 150 - 450 10^3/mcL AO Workflow SS Potassium [Moles/Vol] 4.3 mmol/L Normal 3.5 - 5.1 mmol/L AO ADM SS Protein [Mass/Vol] 7.1 G/dL Normal 6.4 - 8.2 G/dL AO ADM SS RBC (Bld) [#/Vol] 5.05 106/mcL Normal 4.50 - 6.0 0 10^6/mcL AO Workflow SS Sodium [Moles/Vol] 139 mmol/L Normal 136 - 145 mmol/L AO ADM SS TSH Qn 1.78 m[IU]/L Normal 0.36 - 3.74 mcIU/mL AO ADM SS Urea nitrogen [Mass/Vol] 26 mg/dL High 7 - 18 mg/dL AO ADM SS Urea nitrogen/Creatinine [Mass ratio] 22 ratio Normal 7 - 27 ratio AO ADM SS WBC (Bld) [#/Vol] 6.1 103/mcL Normal 4.5 - 10.8 10^3/mcL AO Workflow SS LABORATORYOrdered By: Viraj Lakhani on 02-23-2025 Cholesterol [Mass/Vol] 142 mg/dL Normal 0 - 200 mg/dL AO ADM SS Comment on above: Interpretive Data: C holesterol Reference Interval: Less than 200 Desirable 200-239 Borderline high risk 240 and above High risk Cholesterol in HDL [Mass/Vol] 42 mg/dL Normal 40 - 60 mg/dL AO ADM SS Cholesterol in LDL [Mass/Vol] 73 mg/dL Normal 0 - 130 mg/dL AO ADM SS Triglyceride [Mass/Vol] 135 mg/dL Normal 0 - 150 mg/dL AO ADM SS Comment on above: Interpretive Data: T riglyceride Reference Interval: Less than 150 Normal 150-199 Borderline high risk 200-499 High risk 500 or higher Very high risk LIPIDon 02-23-2025 Cholesterol [Mass/Vol] 142 mg/dL Normal 0-200 [facility] Comment on above: Result Comment: Chol esterol Reference Interval: Less than 200 Desirable 200-239 Borderline high risk 240 and above High risk Performed By: #### G FR, CMP, PSA, LIPID, TSH #### [address] [address] #### FT4 #### [address] [address] Cholesterol in HDL [Mass/Vol] 42 mg/dL Normal 40-60 [facility] Comment on above: Performed By: #### G FR, CMP, PSA, LIPID, TSH #### [address] [address] #### FT4 #### [address] [address] Cholesterol in LDL [Mass/Vol] 73 mg/dL Normal 0-130 [facility] Comment on above: Performed By: #### G FR, CMP, PSA, LIPID, TSH #### [address] [address] #### FT4 #### [address] [address] Triglyceride [Mass/Vol] 135 mg/dL Normal 0-150 [facility] Comment on above: Result Comment: Trig lyceride Reference Interval: Less than 150 Normal 150-199 Borderline high risk 200-499 High risk 500 or higher Very high risk Performed By: #### G FR, CMP, PSA, LIPID, TSH #### [place] [id number] [place], [place] [address] #### FT4 #### [address] [address] TSHon 02-23-2025 TSH Qn 1.78 m[IU]/L Normal 0.36-3.74 [facility] Comment on above: Performed By: #### A DIFF, CBC, CMP, GFR, ANEU, LIPID, TSH, FT4 #### [address] [address] Gastroenterology Visit Repor ton 01-25-2025 Gastroenterology Visit Report [facility] Gastroenterology [address] [place] [address] OFFICE VISIT Date of Service: 01/25/25 MR#: [id number] Acct: [id number] Name: SEE SHERIFF Rep #: [id number] : 1965 Provider: JETHRO Kay Age/Sex: 59/M Location: [facility] Status: Signed Intake Vital Signs 11/21/24 07:45 Height 6 ft Weight: 314 lb 8 oz BMI 42.6 BP 166/81 H Blood Pressure Location Rt brachial Position Sitting Respiration 17 Pulse 55 L Pulse Source Monitor Pulse Oximetry (%) 90 Oxygen Delivery Method room air Intake Visit Reasons: GI ISSUES PRESSURE RECTUM WHEN BENDING OVER/SITTIN Chief Complaint: rectum pressure Allergies No Known Allergies Allergy (Verified 07/23/24 07:30) Medications ???Medication ???Instructions ???Recorded ???Confirmed ???Type diltiazem HCl 240 mg 240 mg PO DAILY 08/24/14 01/25/25 History capsule,extended release 24 hr (Cartia XT) levothyroxine 25 mcg tablet 25 mcg PO DAILY 08/24/14 01/25/25 History valsartan 320 mg tablet 320 mg PO DAILY 09/27/22 01/25/25 History Held on 11/21/24. Instructions: Duplicate Order fenofibrate nanocrystallized 48 mg 48 mg PO QHS 1 month #30 tabs 01/25/25 Rx tablet (Tricor) vitamin E succinate 268 mg (400 268 mg PO BID #60 tabs 11/21/24 Rx unit) tablet Diltiazem 10mg/Lidocaine 50mg 1 supp RI DAILY PRN hemorrhoids 01/25/25 Rx Suppository 30 supp suppository #30 supp escitalopram oxalate 10 mg tablet 10 mg PO QDAY 01/25/25 01/25/25 H istory metoprolol succinate 25 mg 25 mg PO QDAY 01/25/25 01/25/25 Hi story tablet,extended release 24 hr omeprazole 40 mg capsule,delayed 40 mg PO QDAY 01/25/25 01/25/25 Hi story release triamterene 37.5 1 cap PO QDAY 01/25/25 01/25/25 Hi story mg-hydrochlorothiazide 25 mg capsule Nurse's Note: OV 01/25/25 Pt here to f/u in out office with complaints of pressure in his rectum and incontinence of bm. Reports his bms are loose and occasionally sees blood when he wipes. Prior hx of colonoscopy in 2022. No prior hx of EGD. [facility] Medical History Hypothyroidism Hypertension Diarrhea Social History Smoking Status: Never smoker HPI HPI Chief Complaint: rectum pressure Details: SEE SHERIFF, is a 59 M who presents to the office today for follow-up Pt established with clinic in 2021 for liver disease. Patient has been seeing Dr. Aviles regarding this. OV 8.. Pt presenting to office today for issues with rectal pressure over the past few months. Patient has rectal pressure when sitting and bending over. He endorses a history of hemorrhoids in the past. He has occasional smears of blood when wiping. Patient has urgency and will often have to take a break from working to have a bowel movement. He denies any recent changes in his bowel habits. He has 1 formed bowel movement per day. His last colonoscopy was in [address] Biggs. He has had polyps. Recommendation was to repeat in 5 years. He denies history of colon cancer in his family. He denies abdominal pain, fever, and unintentional weight loss. ROS Const Constitutional: No fatigue, fever(s) or weight change ENT ENT: No difficulty swallowing Gastro GI: No abdominal pain, belching, bloating, change in bowel habits, change in stool character, coffee ground emesis, constipation, cramping, diarrhea, heartburn, difficulty swallowing, feeling full early, excessive flatus, incontinent of stools, Vomiting blood/hematemesis, Blood in stool, loose stools, Black,tarry stools, nausea/dyspepsia, pain with swallowing, vomiting or other Musc Musculoskeletal: No joint pain Skin Skin: No yellowing of the eye or itchy eyes Psych Psychiatric: No anxiety and No depression Endo Endocrine: No fatigue or weight change Aller/Imm Allergy/Immunologic: No itchy eyes Anibal/Lymp Hematologic/Lymphatic: No easy bleeding or easy bruising Exam Const General: cooperative, healthy appearing and comfortable Orientation: alert HENLA Head: normal to inspection Eyes General: appearance normal, both eyes and all related structures Neck Neck: normal visual inspection Chest Chest palpation inspection: normal inspection of the chest Resp Effort Inspection: normal respiratory effort Cardio Rate: regular rate Rhythm: regular rhythm GI Inspection: distended and obesity Auscultation: normal bowel sounds Palpation: firm and nontender Assessment and Plan Assessment and Plan (1) Rectal pressure: Status: Acute Plan: See is a 59-year-old male patient who established with the clinic in 2021 for his liver disease and has been seeing Dr. Jones. Patient endorsin (more content not included)... Normal [facility] Gastroenterology Visit Repor ton 11-21-2024 Gastroenterology Visit Report [facility] Gastroenterology [address] [place] [address] OFFICE VISIT Date of Service: 11/21/24 MR#: [id number] Acct: [id number] Name: SEE SHERIFF Rep #: [id number] : 1965 Provider: Dr. Chalino neville MD Age/Sex: 58/M Location: [facility] Status: Signed Intake Vital Signs 07/23/24 07:25 11/21/24 07:45 Height 6 ft 6 ft Weight: 315 lb 314 lb 8 oz BMI 42.7 42.6 BP 154/95 H 166/81 H Blood Pressure Location Rt brachial Rt brachial Position Sitting Sitting Respiration 17 Pulse 64 55 L Pulse Source Monitor Pulse Oximetry (%) 94 90 Oxygen Delivery Method room air room air Intake Visit Reasons: FU Chief Complaint: PBC Allergies No Known Allergies Allergy (Verified 07/23/24 07:30) Medications ???Medication ???Instructions ???Recorded ???Confirmed ???Type diltiazem HCl 240 mg 240 mg PO DAILY 08/24/14 11/21/24 History capsule,extended release 24 hr (Cartia XT) levothyroxine 25 mcg tablet 25 mcg PO DAILY 08/24/14 11/21/24 History lisinopril 40 mg tablet 40 mg PO DAILY 08/24/14 11/21/24 H istory valsartan 320 mg tablet 320 mg PO DAILY 09/27/22 11/21/24 History Held on 11/21/24. Instructions: Duplicate Order fenofibrate nanocrystallized 48 mg 48 mg PO QHS 1 month #30 tabs 11/21/24 Rx tablet (Tricor) vitamin E succinate 268 mg (400 268 mg PO BID #60 tabs 11/21/24 Rx unit) tablet [facility] Medical History Hypothyroidism Hypertension Diarrhea Social History Smoking Status: Never smoker HPI HPI Chief Complaint: PBC Details: SEE SHERIFF, is a 58 M who presents to the office today for PBC Let Dr. Jones know his INS wont cover Rezdiffra because his liver pathology didnt say he had steatosis ? US gallbladder 08.24.14 liver measurement 20cm and fatty infiltration of the liver. Pancreas not well visualized. Recommend CT scan if indicated. ??? *BGI established 3.01.15 with referral from his PCP for diarrhea with fecal incontinence. Stool testing for infection performed by PCP and he reports WNL. See has been seen in [facility] ED previously r/t severe abdominal pain following overeating episode at a buffet. During visit gallbladder US was performed. Fall 2020 he reports having a stomach virus ???a 24-hr bug with diarrhea???. He continues to have urgent and very soft stool or diarrhea without mucous or blood. ?Biochemical ESR, haptoglobin, CRP, ceruloplasmin, SEDRICK, AFP, copper, ANCA, Mary comp, Anti-smooth muscle ab, HIV and hepatitis without pertinent abnormality. A1C H5.7, LDH H249 ?US liver 09.10.21 with liver measurement 17.9cm with increased echogenicity stiffness 8.3kPa. ??? OV 5.08.18 overall feeling well though experienced recent viral GI illness. Start ursodiol, Vit E, colestipol. OV 01.20.22 no weight loss at this time; loose watery stools continue occurring monthly, stools are firming with time. Since LV he has become a grandfather. ?US RUQ and elastography 03.22.22 hepatomegaly measuring 22.1cm with fatty infiltration, stiffness measures 10.5kPa F2/3. Contact See updated with results and need for weight loss to include exercise and dietary changes. OV 04.08.22 he has begun a weight loss regimen in which he is reducing the amount he is eating. Discussed Mediterranean diet and offered nutrition referral. Continue currently prescribed medications. OV .09.16 Doing well overall with reduced incidence of loose stools. PBC, diarrhea. ?Biochemical CMP, A1c, LDH, ASM without pertinent abnormality. Platelet appears normal, no count r/t clumping. ?Liver biopsy .09.16 minimal chronic inflammation, grade 1; no cirrhosis. No iron or protein accumulation. OV 10.11.22 overall feels he is doing well overall. Continues to work toward weight loss. ?US/elastography 03.22.23 hepatic measurement 20.2cm with fatty infiltration, stiffness 8.2kPa. OV 10.23 Pt doing very well since last visit. Denies any abdominal pain, nausea, changes in appetite. BM are normal. No diarrhea. Asking about follow up on his liver. OV 12.08.24- Pt feeling well since last visit. Continues Ursodiol and Colestipol. Is not having any abdominal pain or nausea. BM are normal once a day. No other concerns. ?US abd/ elastography 03.14.24- Liver measures 18.9cm, ???Stiffness 10.5 kPa OV 03.20.24- Increased abdominal bloating that is nearly constant over the last 4-5 months. Appetite good. Denies abdominal pain, NVD, cramping or pain. Normal BM daily. Continues Ursodiol and (more content not included)... [facility] SEE SHERIFF ([id number]) 1965 M Date Time Provider Department 11/17/24 11:00 AM JEFFERY GONZALEZ [facility] During your visit today, we recorded the following information about you: Temperature Pulse Respiration Blood pressure 97.5 degrees 61/minute 20/minute 152/92 Weight 143.7 kg Jeffery Gonzalez APRN.[employer] 11/17/2024 1:36 PM Signed Subjective HPI Nontoxic-appearing 58-year-old male presents urgent care chief complaint left fifth digit pain swelling. Duration of symptoms 4 days. Associated symptoms. Swelling over DIP joint fifth digit left hand. States has had this happen to his right fifth digit before. This is episodic and usually goes away in a few days. 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 OTC medications none. [...] ALLERGIES Patient has no known allergies. MEDICATIONS triamterene-hydroCHLOR Othiazide (DYAZIDE) 37.5-25 mg per capsule BREO ELLIPTA [...] capsule (Patient not taking: Reported on 11/17/2024) HYDROcodone-acetaminop hen (NORCO) 5-325 mg per tablet Take 1 [...] new, worsening, or symptoms lasting longer than an (more content not included)... Normal [facility] Pj 11-17-2024 JAMES Telephone ([facility]) SEE SHERIFF ([id number]) 1965 M Date Time Provider Department 11/17/24 JEFFERY GONZALEZ [facility] During your visit today, we recorded the following information about you: Jeffery Gonzalez APRN.CNP 11/17/2024 1:37 PM Signed Please inform patient that x-ray did not indicate any acute processes. Did appear that there was arthritis in the joint. Continue plan of care as discussed Jeffery Gonzalez APRN.Melissa Rahman MA 11/17/2024 2:32 PM Signed Patient Noemi notified of results, verbalized understanding of instructions given. Melissa Vera MA Allergies As of Date: 11/17/2024 (No Known Allergies) Date Reviewed: 11/17/2024 Reviewed by: Jeffery Gonzalez APRN.CNP - Fully Assessed Prescriptions as of 11/17/2024 - triamterene-hydroCHLOR Othiazide (DYAZIDE) 37.5-25 mg per capsule - BREO [...] - ursodiol (ACTIGALL) 300 mg capsule - HYDROcodone-acetaminop hen (NORCO) 5-325 mg per tablet Take 1 [...] Encounter Status:Closed by MELISSA VERA on 11/17/24 Normal [facility] XR DIGIT 3V FRONTAL/LAT/OBL LTon 11-17-2024 XR DIGIT 3V FRONTAL/LAT/OBL LT * * *Final Report* * * DATE [...] to degenerative disease or an inflammatory arthropathy. Radial Drill Press Set Up Operator: RACHEL Transcribe Date/Time: Nov 17 2024 1:16P Dictated by : OREN GOMEZ MD This examination was interpreted and the report reviewed and electronically signed by: OREN GOMEZ MD on Nov 17 2024 1:19PM EST [id number] Normal [facility] XR Finger - left AP and Late ral and obliqueon 11-17-2024 IMPRESSION: No acute fracture or dislocation. Narrowing of the DIP joint with periarticular lucencies, possibly due to degenerative disease or an inflammatory arthropathy. Radial Drill Press Set Up Operator: RACHEL Transcribe Date/Time: Nov 17 2024 1:16P Dictated by : OREN GOMEZ MD This examination was interpreted and the report reviewed and electronically signed by: OREN GOMEZ MD on Nov 17 2024 1:19PM EST DIVISION OF RADIOLOGY * * *Final Report* * * DATE [...] left fifth digit. No radiodense foreign body. DIVISION OF RADIOLOGY Provider, [facility] - 11/17/2024 * * *Final Report* * * DATE [...] left fifth digit. No radiodense foreign body. IMPRESSION IMPRESSION: No acute fracture or dislocation. Narrowing of the DIP joint with periarticular lucencies, possibly due to degenerative disease or an inflammatory arthropathy. Radial Drill Press Set Up Operator: RACHEL Transcribe Date/Time: Nov 17 2024 1:16P Dictated by : OREN GOMEZ MD This examination was interpreted and the report reviewed and electronically signed by: OREN GOMEZ MD on Nov 17 2024 1:19PM EST [facility] Radiology Study observation (narrative) [facility] XR Finger - left AP and Late ral and obliqueOrdered By: Ccf Provider on 11-17-2024 [facility] FT4on 09-03-2024 Free T4 [Mass/Vol] 1.23 ng/dL Normal 0.89-1.76 [facility] Comment on above: Result Comment: No te - New Reference Range in effect 20 Performed By: #### G FR, CMP, PSA, LIPID, TSH #### [address] [address] #### FT4 #### [address] [address] .GFRon 09-01-2024 Estimated Glomerular Filtration Rate 69 ml/min/1.73sqm Normal [facility] Comment on above: Result Comment: Stages of Chronic Kidney Disease [...] calculate the eGFR results. Performed By: #### G FR, CMP, PSA, LIPID, TSH #### [place] [address] #### FT4 #### [place] [id number] CMPon 09-01-2024 Albumin Level 3.8 G/dL Normal 3.4-4.8 [facility] Comment on above: Performed By: #### G FR, CMP, PSA, LIPID, TSH #### [place] [address] #### FT4 #### [place] [address] Albumin/Globulin [Mass ratio] 1.3 {ratio} Normal 1.1-2.5 [facility] Comment on above: Performed By: #### G FR, CMP, PSA, LIPID, TSH #### [place] [id number] #### FT4 #### [address] [address] ALP [Catalytic activity/Vol] 82 U/L Normal 40-135 [facility] Comment on above: Performed By: #### G FR, CMP, PSA, LIPID, TSH #### [place] [address] #### FT4 #### [address] [address] ALT [Catalytic activity/Vol] 47 U/L Normal 16-63 [facility] Comment on above: Performed By: #### G FR, CMP, PSA, LIPID, TSH #### [place] [address] #### FT4 #### [address] [address] AST [Catalytic activity/Vol] 30 U/L Normal 10-40 [facility] Comment on above: Performed By: #### G FR, CMP, PSA, LIPID, TSH #### [place] [address] #### FT4 #### [place] [address] Bili Total 0.5 mg/dL Normal 0.2-1.0 [facility] Comment on above: Result Comment: Use of this assay is not recommended for patients undergoing treatment with eltrombopag due to the potential for falsely elevated results. Performed By: #### G FR, CMP, PSA, LIPID, TSH #### [place] [address] #### FT4 #### [place] [id number] BUN/Creatinine Ratio 16 ratio Normal 7-27 [facility] Comment on above: Performed By: #### G FR, CMP, PSA, LIPID, TSH #### [place] [address] #### FT4 #### [place] [id number] Calcium [Mass/Vol] 9.5 mg/dL Normal 8.4-10.2 [facility] Comment on above: Performed By: #### G FR, CMP, PSA, LIPID, TSH #### [place] [address] #### FT4 #### [address] [address] Chloride [Moles/Vol] 103 mmol/L Normal 98-107 [facility] Comment on above: Performed By: #### G FR, CMP, PSA, LIPID, TSH #### [place] [address] #### FT4 #### [address] [address] CO2 [Moles/Vol] 31 mmol/L Normal 23-31 [facility] Comment on above: Performed By: #### G FR, CMP, PSA, LIPID, TSH #### [place] [address] #### FT4 #### [place] [address] Creatinine [Mass/Vol] 1.21 mg/dL Normal 0.70-1.30 [facility] Comment on above: Result Comment: Test ing performed on Siemens Dimension EXL analyzer using a modified kinetic Robe technique. Performed By: #### G FR, CMP, PSA, LIPID, TSH #### [place] [address] #### FT4 #### [place] [address] Electrolyte Balance 5.0 mEq/L Normal 4.0-15.0 [facility] Comment on above: Performed By: #### G FR, CMP, PSA, LIPID, TSH #### [place] [address] #### FT4 #### [place] [address] Globulin 3.0 G/dL Normal 1.5-3.8 [facility] Comment on above: Performed By: #### G FR, CMP, PSA, LIPID, TSH #### [place] [address] #### FT4 #### [address] [address] Glucose [Mass/Vol] 90 mg/dL Normal 80-115 [facility] Comment on above: Performed By: #### G FR, CMP, PSA, LIPID, TSH #### [address] [address] #### FT4 #### [address] [address] Potassium [Moles/Vol] 5.0 mmol/L Normal 3.5-5.1 [facility] Comment on above: Performed By: #### G FR, CMP, PSA, LIPID, TSH #### [address] [address] #### FT4 #### [address] [address] Sodium [Moles/Vol] 139 mmol/L Normal 136-145 [facility] Comment on above: Performed By: #### G FR, CMP, PSA, LIPID, TSH #### [address] [address] #### FT4 #### [address] [address] Total Protein 6.8 G/dL Normal 6.4-8.2 [facility] Comment on above: Performed By: #### G FR, CMP, PSA, LIPID, TSH #### [address] [address] #### FT4 #### [address] [address] Urea nitrogen [Mass/Vol] 19 mg/dL High 7-18 [facility] Comment on above: Performed By: #### G FR, CMP, PSA, LIPID, TSH #### [address] [address] #### FT4 #### [address] [address] LIPIDon 09-01-2024 Cholesterol [Mass/Vol] 134 mg/dL Normal 0-200 [facility] Comment on above: Result Comment: Chol esterol Reference Interval: Less than 200 Desirable 200-239 Borderline high risk 240 and above High risk Performed By: #### G FR, CMP, PSA, LIPID, TSH #### [place] [address] #### FT4 #### [address] [address] Cholesterol in HDL [Mass/Vol] 47 mg/dL Normal 40-60 [facility] Comment on above: Performed By: #### G FR, CMP, PSA, LIPID, TSH #### [place] [address] #### FT4 #### [place] [address] Cholesterol in LDL [Mass/Vol] 69 mg/dL Normal 0-130 [facility] Comment on above: Performed By: #### G FR, CMP, PSA, LIPID, TSH #### [place] [address] #### FT4 #### [place] [address] Triglyceride [Mass/Vol] 90 mg/dL Normal 0-150 [facility] Comment on above: Result Comment: Trig lyceride Reference Interval: Less than 150 Normal 150-199 Borderline high risk 200-499 High risk 500 or higher Very high risk Performed By: #### G FR, CMP, PSA, LIPID, TSH #### [place] [address] #### FT4 #### [place] [address] PSAon 09-01-2024 Prostate Specific Antigen 0.52 ng/mL Normal 0.00-4.00 [facility] Comment on above: Performed By: #### G FR, CMP, PSA, LIPID, TSH #### [place] [address] #### FT4 #### [address] [address] TSHon 09-01-2024 TSH Qn 1.58 m[IU]/L Normal 0.36-3.74 [facility] Comment on above: Performed By: #### G FR, CMP, PSA, LIPID, TSH #### [facility] [address] [place], [place] [address] #### FT4 #### [facility] [address] [place] [address] Gastroenterology Visit Repor ton 07-23-2024 Gastroenterology Visit Report [facility] Gastroenterology [address] [place] [address] OFFICE VISIT Date of Service: 07/23/24 MR#: [id number] Acct: [id number] Name: SEE SHERIFF Rep #: [id number] : 1965 Provider: Dr. Chalino neville MD Age/Sex: 58/M [place] [facility] [place]: Signed Intake Vital Signs 03/20/24 07:38 07/23/24 07:25 Height 6 ft 6 ft Weight: 314 lb 315 lb BMI 42.5 42.7 BP 166/96 H 154/95 H Blood Pressure Location Lt brachial Rt brachial Position Sitting Sitting Respiration 18 Pulse 53 L 64 Pulse Source Monitor Temp 98.0 F Temp Source Temporal Pulse Oximetry (%) 97 94 Oxygen Delivery Method room air room air Intake Visit Reasons: 4 M FU Chief Complaint: PBC Allergies No Known Allergies Allergy (Verified 07/23/24 07:30) Medications ???Medication ???Instructions ???Recorded ???Confirmed ???Type diltiazem HCl 240 mg 240 mg PO DAILY 08/24/14 07/23/24 History capsule,extended release 24 hr (Cartia XT) levothyroxine 25 mcg tablet 25 mcg PO DAILY 08/24/14 07/23/24 History lisinopril 40 mg tablet 40 mg PO DAILY 08/24/14 07/23/24 History valsartan 320 mg tablet 320 mg PO DAILY 09/27/22 07/23/24 History fenofibrate nanocrystallized 48 mg 48 mg PO QHS 1 month #30 tabs 07/09/24 07/23/24 Rx tablet (Tricor) PFSH Medical History Hypothyroidism Hypertension Diarrhea Social History Smoking Status: Never smoker HPI HPI Chief Complaint: PBC Details: SEE SHERIFF, is a 58 M who presents to the office today for follow up. US gallbladder 2..15 liver measurement 20cm and fatty infiltration of the liver. Pancreas not well visualized. Recommend CT scan if indicated. *BGI established 3.01.15 with referral from his PCP for diarrhea with fecal incontinence. Stool testing for infection performed by PCP and he reports WNL. See has been seen in [facility] ED previously r/t severe abdominal pain following overeating episode at a buffet. During visit gallbladder US was performed. Fall 2020 he reports having a stomach virus ???a 24-hr bug with diarrhea???. He continues to have urgent and very soft stool or diarrhea without mucous or blood. Biochemical ESR, haptoglobin, CRP, ceruloplasmin, SEDRICK, AFP, copper, ANCA, Mary comp, Anti-smooth muscle ab, HIV and hepatitis without pertinent abnormality. A1C H5.7, LDH H249 US liver 09.10.21 with liver measurement 17.9cm with increased echogenicity stiffness 8.3kPa. OV 5..22 overall feeling well though experienced recent viral GI illness. Start ursodiol, Vit E, colestipol. OV 7. no weight loss at this time; loose watery stools continue occurring monthly, stools are firming with time. Since he has become a grandfather. US RUQ and elastography 03.22.22 hepatomegaly measuring 22.1cm with fatty infiltration, stiffness measures 10.5kPa F2/3. Contact See updated with results and need for weight loss to include exercise and dietary changes. OV 10. he has begun a weight loss regimen in which he is reducing the amount he is eating. Discussed Mediterranean diet and offered nutrition referral. Continue currently prescribed medications. OV 1..23 Doing well overall with reduced incidence of loose stools. PBC, diarrhea. Biochemical CMP, A1c, LDH, ASM without pertinent abnormality. Platelet appears normal, no count r/t clumping. Liver biopsy .09.16 minimal chronic inflammation, grade 1; no cirrhosis. No iron or protein accumulation. OV 4.. overall feels he is doing well overall. Continues to work toward weight loss. US/elastography 03.22.24 hepatic measurement 20.2cm with fatty infiltration, stiffness 8.2kPa. OV 03.20.- Increased abdominal bloating that is nearly constant over the last 4-5 months. Appetite good. Denies abdominal pain, NVD, cramping or pain. Normal BM daily. Continues Ursodiol and Colestipol. OV 07.23.- Patient is well since last visit. Denies abdominal pain, heartburn, nausea, vomiting. Does have increased gas, passing flatus. BM are normal. Continues Ursodiol, Colestipol and Fenofi brate. ROS Const Constitutional: No fatigue, fever(s), frequent falls, headache(s), weakness or weight change ENT ENT: No headache(s) or difficulty swallowing Resp Respiratory: No shortness of breath or wheezing Cardio Cardiology: No leg pain with exertion Gastro GI: No abdominal pain, belching, bloating, change in bowel habits, change in stool character, coffee ground emesis, constipation, cramping, diarrhea, heartburn, difficulty swallowing, feeling full early, excessive flatus, incontinent of stools, Vomiting blood/hematemesis, Blood in stool, loose stools, Black,tarry stools, nausea/dyspepsia, pain with sw (more content not included)... 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 COMPARISON: No relevant prior studies available. FINDINGS: LUNGS AND PLEURAL SPACES: Unremarkable. No consolidation or edema. No pneumothorax. No effusion. HEART: Unremarkable. Cardiac silhouette not enlarged. MEDIASTINUM: Central airways and mediastinal contour are unremarkable. BONES/JOINTS: Old healed left lateral rib fractures with residual deformity at the left mid to lower hemithorax. Degenerative changes of the spine. Degenerative changes of the right acromioclavicular joint with left not imaged. No acute fracture. SOFT TISSUES: Unremarkable. RAD/Chest PA and Lateral IMPRESSION: No acute disease. Electronically Signed: Zac Arvizu MD at 23:18 EDT , CC: JANE Ramos; Dr. Vinicio Haro MD Radial Drill Press Set Up Operator: Signed Normal [facility] SURGICAL PATHOLOGY REFERENCE LAB CONSULTon 04-18-2024 CASE REPORT Normal [facility] Comment on above: Order Comment: Speci men Type: FORMALIN-FIXED PARAFFIN-EMBEDDED TISSUE SPECIMEN Ordering Facility: [facility] Address: ATTN: LABORATORY, [place] [address] Result Comment: Surg ical Pathology Report Case: [id number] Authorizing Provider: Chalino Jones Collected: 04/18/2024 03:57 PM Ordering Location: [facility] Received: 04/18/2024 03:56 PM [facility] Pathologist: Mac Rosenthal MD Specimen: Slide(s), 8 SLIDES [id number] Performed By: #### L [id number] #### [facility] CLIA [id number] [address] [place] [address] [place] CLINICAL HISTORY CONSULT REQUESTED Normal C [facility] Comment on above: Order Comment: Speci men Type: FORMALIN-FIXED PARAFFIN-EMBEDDED TISSUE SPECIMEN Ordering Facility: [facility] Address: ATTN: [place] [address] Performed By: #### L [id number] #### [facility] CLIA [id number] [address] [place] [address] [place] DIAGNOSIS COMMENT Normal [facility] Comment on above: Order Comment: Speci men Type: FORMALIN-FIXED PARAFFIN-EMBEDDED TISSUE SPECIMEN Ordering Facility: [facility] Address: ATTN: LABORATORY, [place] [address] Result Comment: Luis k you for allowing us the opportunity to review this [...] to contact the GI consultation service at [phone] with questions or if additional follow up information becomes available. This case was reviewed in conjunction with the GI pathology fellow, Radha Fierro MD. Performed By: #### L [id number] #### [facility] CLIA [id number] [address] [place] [address] FINAL DIAGNOSIS Normal [facility] Comment on above: Order Comment: Lenny arreola Type: FORMALIN-FIXED PARAFFIN-EMBEDDED TISSUE SPECIMEN Ordering Facility: [facility] Address: ATTN: [place] [address] Result Comment: Live r, CT-guided core biopsy (1, PAS/D, iron, trichrome, reticulin, PAS): - Hepatic parenchyma with mild non-specific portal inflammation. Performed By: #### L [id number] #### [facility] CLIA [id number] [address] [place] [address] FINAL PERFORMING LAB Normal [facility] Comment on above: Order Comment: Lenny arreola Type: FORMALIN-FIXED PARAFFIN-EMBEDDED TISSUE SPECIMEN Ordering Facility: [facility] Address: ATTN: LABORATORY, [place] [address] Result Comment: Diag nostic interpretation performed at: [facility], [facility] [place] [facility] [place] [place] [address] CLIA# [id number] Basketball Referee: Jose Luis Pacheco MD Performed By: #### L [id number] #### [facility] CLIA [id number] [address] [place], [place] [address], [place] [address] [place] .GFRon 02-25-2024 GFR 86 ml/min/1.73sqm Normal [facility] ([place]) Comment on above: Result Comment: GFR Population mean for , Non- Americans Ages 20-29 = 116 mL/min/1.73 sq.m. Ages 30-39 = 107 mL/min/1.73 sq.m. Ages 40-49 = 99 mL/min/1.73 sq.m. Ages 50-59 = 93 mL/min/1.73 sq.m. Ages 60-69 = 85 mL/min/1.73 sq.m. Ages 70+ = 75 mL/min/1.73 sq.m. Chronic Kidney Disease: Less than 60 mL/min/1.73 square meters End Stage Renal Disease: Less than 15 mL/min/1.73 square meters Performed By: #### T SH, FT4, CMP, GFR, LIPID #### [place] [address] [address] GFR Non- 71 ml/min/1.73sqm Normal [facility] ([place]) Comment on above: Result Comment: GFR Population mean for , Non- Americans Ages 20-29 = 116 mL/min/1.73 sq.m. Ages 30-39 = 107 mL/min/1.73 sq.m. Ages 40-49 = 99 mL/min/1.73 sq.m. Ages 50-59 = 93 mL/min/1.73 sq.m. Ages 60-69 = 85 mL/min/1.73 sq.m. Ages 70+ = 75 mL/min/1.73 sq.m. Chronic Kidney Disease: Less than 60 mL/min/1.73 square meters End Stage Renal Disease: Less than 15 mL/min/1.73 square meters Performed By: #### T SH, FT4, CMP, GFR, LIPID #### [address] [address] CMPon 02-25-2024 Albumin Level 3.9 G/dL Normal 3.4-4.8 [facility] ([place]) Comment on above: Performed By: #### T SH, FT4, CMP, GFR, LIPID #### [address] [address] Albumin/Globulin [Mass ratio] 1.3 {ratio} Normal 1.1-2.5 [facility] ([place]) Comment on above: Performed By: #### T SH, FT4, CMP, GFR, LIPID #### [address] [address] ALP [Catalytic activity/Vol] 92 U/L Normal 40-135 [facility] ([place]) Comment on above: Performed By: #### T SH, FT4, CMP, GFR, LIPID #### [address] [address] ALT [Catalytic activity/Vol] 43 U/L Normal 16-63 [facility] ([place]) Comment on above: Performed By: #### T SH, FT4, CMP, GFR, LIPID #### [address] [address] AST [Catalytic activity/Vol] 30 U/L Normal 10-40 [facility] ([place]) Comment on above: Performed By: #### T SH, FT4, CMP, GFR, LIPID #### [address] [address] Bili Total 0.3 mg/dL Normal 0.2-1.0 [facility] ([place]) Comment on above: Result Comment: Use of this assay is not recommended for patients undergoing treatment with eltrombopag due to the potential for falsely elevated results. Performed By: #### T SH, FT4, CMP, GFR, LIPID #### [address] [address] BUN/Creatinine Ratio 24 ratio Normal 7-27 [facility] ([place]) Comment on above: Performed By: #### T SH, FT4, CMP, GFR, LIPID #### [address] [address] Calcium [Mass/Vol] 9.6 mg/dL Normal 8.4-10.2 [facility] ([place]) Comment on above: Performed By: #### T SH, FT4, CMP, GFR, LIPID #### [place] [address] Chloride [Moles/Vol] 104 mmol/L Normal 98-107 [facility] ([place]) Comment on above: Performed By: #### T SH, FT4, CMP, GFR, LIPID #### [place] [address] CO2 [Moles/Vol] 29 mmol/L Normal 23-31 [facility] ([place]) Comment on above: Performed By: #### T SH, FT4, CMP, GFR, LIPID #### [place] [address] Creatinine [Mass/Vol] 1.06 mg/dL Normal 0.70-1.30 [facility] ([place]) Comment on above: Result Comment: Test ing performed on Siemens Dimension EXL analyzer using a modified kinetic Robe technique. Performed By: #### T SH, FT4, CMP, GFR, LIPID #### [address] [address] Electrolyte Balance 8.0 mEq/L Normal 4.0-15.0 [facility] ([place]) Comment on above: Performed By: #### T SH, FT4, CMP, GFR, LIPID #### [place] [address] Globulin 3.1 G/dL Normal [facility] ([place]) Comment on above: Performed By: #### T SH, FT4, CMP, GFR, LIPID #### [place] [address] Glucose [Mass/Vol] 92 mg/dL Normal 80-115 [facility] ([place]) Comment on above: Performed By: #### T SH, FT4, CMP, GFR, LIPID #### [address] [address] Potassium [Moles/Vol] 4.5 mmol/L Normal 3.5-5.1 [facility] ([place]) Comment on above: Performed By: #### T SH, FT4, CMP, GFR, LIPID #### [place] [id number] [place], [place] [address] Sodium [Moles/Vol] 141 mmol/L Normal 136-145 [facility] ([place]) Comment on above: Performed By: #### T SH, FT4, CMP, GFR, LIPID #### [address] [address] Total Protein 7.0 G/dL Normal 6.4-8.2 [facility] ([place]) Comment on above: Performed By: #### T SH, FT4, CMP, GFR, LIPID #### [address] [address] Urea nitrogen [Mass/Vol] 25 mg/dL High 7-18 [facility] ([place]) Comment on above: Performed By: #### T SH, FT4, CMP, GFR, LIPID #### [address] [address] LABORATORYOrdered By: SYSTEM SYSTEM on 02-25-2024 Albumin BCP dye [Mass/Vol] 3.9 G/dL Normal 3.4 - 4.8 G/dL AO ADM SS Albumin/Globulin [Mass ratio] 1.3 {ratio} Normal 1.1 - 2.5 ratio AO ADM SS ALP [Catalytic activity/Vol] 92 U/L Normal 40 - 135 U/L AO ADM SS ALT With P-5'-P [Catalytic activity/Vol] 43 U/L Normal 16 - 63 U/L AO ADM SS AST With P-5'-P [Catalytic activity/Vol] 30 U/L Normal 10 - 40 U/L AO ADM SS Bilirubin [Mass/Vol] 0.3 mg/dL Normal 0.2 - 1 .0 mg/dL AO ADM SS Comment on above: Interpretive Data: U se of this assay is not recommended for patients undergoing treatment with eltrombopag due to the potential for falsely elevated results. Calcium [Mass/Vol] 9.6 mg/dL Normal 8.4 - 10. 2 mg/dL AO ADM SS Chloride [Moles/Vol] 104 mmol/L Normal 98 - 10 7 mmol/L AO ADM SS CO2 [Moles/Vol] 29 mmol/L Normal 23 - 31 mmol/L AO ADM SS Creatinine [Mass/Vol] 1.06 mg/dL Normal 0.70 - 1.30 mg/dL AO ADM SS Comment on above: Interpretive Data: T esting performed on [employer]med Dimension EXL analyzer using a modified kinetic Robe technique. Electrolyte Balance 8.0 mEq/L Normal 4.0 - 15 .0 mEq/L AO ADM SS GFR/1.73 sq M.predicted among blacks MDRD (S/P/Bld) [Vol rate/Area] 86 ml/min/1.73sqm Invalid Interpretation Code AO Chemistry S Comment on above: Interpretive Data: GFR Population mean for , Non- Americans Ages 20-29 = 116 mL/min/1.73 sq.m. Ages 30-39 = 107 mL/min/1.73 sq.m. Ages 40-49 = 99 mL/min/1.73 sq.m. Ages 50-59 = 93 mL/min/1.73 sq.m. Ages 60-69 = 85 mL/min/1.73 sq.m. Ages 70+ = 75 mL/min/1.73 sq.m. Chronic Kidney Disease: Less than 60 mL/min/1.73 square meters End Stage Renal Disease: Less than 15 mL/min/1.73 square meters GFR/1.73 sq M.predicted among non-blacks MDRD (S/P/Bld) [Vol rate/Area] 71 ml/min/1.73sqm Invalid Interpretation Code AO Chemistry S Comment on above: Interpretive Data: GFR Population mean for , Non- Americans Ages 20-29 = 116 mL/min/1.73 sq.m. Ages 30-39 = 107 mL/min/1.73 sq.m. Ages 40-49 = 99 mL/min/1.73 sq.m. Ages 50-59 = 93 mL/min/1.73 sq.m. Ages 60-69 = 85 mL/min/1.73 sq.m. Ages 70+ = 75 mL/min/1.73 sq.m. Chronic Kidney Disease: Less than 60 mL/min/1.73 square meters End Stage Renal Disease: Less than 15 mL/min/1.73 square meters Globulin 3.1 G/dL Invalid Interpretation Code AO ADM SS Glucose [Mass/Vol] 92 mg/dL Normal 80 - 115 mg/dL AO ADM SS Potassium [Moles/Vol] 4.5 mmol/L Normal 3.5 - 5.1 mmol/L AO ADM SS Protein [Mass/Vol] 7.0 G/dL Normal 6.4 - 8.2 G/dL AO ADM SS Sodium [Moles/Vol] 141 mmol/L Normal 136 - 145 mmol/L AO ADM SS Urea nitrogen [Mass/Vol] 25 mg/dL High 7 - 18 mg/dL AO ADM SS Urea nitrogen/Creatinine [Mass ratio] 24 ratio Normal 7 - 27 ratio AO ADM SS LABORATORYOrdered By: Elsa Hardin on 02-25-2024 Cholesterol [Mass/Vol] 179 mg/dL Normal 0 - 200 mg/dL AO ADM SS Comment on above: Interpretive Data: C holesterol Reference Interval: Less than 200 Desirable 200-239 Borderline high risk 240 and above High risk Cholesterol in HDL [Mass/Vol] 54 mg/dL Normal 40 - 60 mg/dL AO ADM SS Cholesterol in LDL [Mass/Vol] 97 mg/dL Normal 0 - 130 mg/dL AO ADM SS Triglyceride [Mass/Vol] 138 mg/dL Normal 0 - 150 mg/dL AO ADM SS Comment on above: Interpretive Data: T riglyceride Reference Interval: Less than 150 Normal 150-199 Borderline high risk 200-499 High risk 500 or higher Very high risk LIPIDon 02-25-2024 Cholesterol [Mass/Vol] 179 mg/dL Normal 0-200 [facility] ([place]) Comment on above: Result Comment: Chol esterol Reference Interval: Less than 200 Desirable 200-239 Borderline high risk 240 and above High risk Performed By: #### T SH, FT4, CMP, GFR, LIPID #### [place] [address] [address] Cholesterol in HDL [Mass/Vol] 54 mg/dL Normal 40-60 [facility] ([place]) Comment on above: Performed By: #### T SH, FT4, CMP, GFR, LIPID #### [place] [address] [place], [place] [address] Cholesterol in LDL [Mass/Vol] 97 mg/dL Normal 0-130 [facility] ([place]) Comment on above: Performed By: #### T SH, FT4, CMP, GFR, LIPID #### [place] [id number] [place], [place] [address] Triglyceride [Mass/Vol] 138 mg/dL Normal 0-150 [facility] ([place]) Comment on above: Result Comment: Trig lyceride Reference Interval: Less than 150 Normal 150-199 Borderline high risk 200-499 High risk 500 or higher Very high risk Performed By: #### T SH, FT4, CMP, GFR, LIPID #### [place] [id number] [place], [place] [address] .GFRon 02-11-2024 GFR 85 ml/min/1.73sqm Normal [facility] ([place]) Comment on above: Result Comment: GFR Population mean for , Non- Americans Ages 20-29 = 116 mL/min/1.73 sq.m. Ages 30-39 = 107 mL/min/1.73 sq.m. Ages 40-49 = 99 mL/min/1.73 sq.m. Ages 50-59 = 93 mL/min/1.73 sq.m. Ages 60-69 = 85 mL/min/1.73 sq.m. Ages 70+ = 75 mL/min/1.73 sq.m. Chronic Kidney Disease: Less than 60 mL/min/1.73 square meters End Stage Renal Disease: Less than 15 mL/min/1.73 square meters Performed By: #### T SH, FT4, CMP, GFR, LIPID #### [place] [id number] [place], [place] [address] GFR Non- 70 ml/min/1.73sqm Normal [facility] ([place]) Comment on above: Result Comment: GFR Population mean for , Non- Americans Ages 20-29 = 116 mL/min/1.73 sq.m. Ages 30-39 = 107 mL/min/1.73 sq.m. Ages 40-49 = 99 mL/min/1.73 sq.m. Ages 50-59 = 93 mL/min/1.73 sq.m. Ages 60-69 = 85 mL/min/1.73 sq.m. Ages 70+ = 75 mL/min/1.73 sq.m. Chronic Kidney Disease: Less than 60 mL/min/1.73 square meters End Stage Renal Disease: Less than 15 mL/min/1.73 square meters Performed By: #### T SH, FT4, CMP, GFR, LIPID #### [address] [address] CMPon 02-11-2024 Albumin Level 4.0 G/dL Normal 3.4-4.8 [facility] ([place]) Comment on above: Performed By: #### T SH, FT4, CMP, GFR, LIPID #### [address] [address] Albumin/Globulin [Mass ratio] 1.2 {ratio} Normal 1.1-2.5 [facility] ([place]) Comment on above: Performed By: #### T SH, FT4, CMP, GFR, LIPID #### [address] [address] ALP [Catalytic activity/Vol] 92 U/L Normal 40-135 [facility] ([place]) Comment on above: Performed By: #### T SH, FT4, CMP, GFR, LIPID #### [address] [address] ALT [Catalytic activity/Vol] 39 U/L Normal 16-63 [facility] ([place]) Comment on above: Performed By: #### T SH, FT4, CMP, GFR, LIPID #### [address] [address] AST [Catalytic activity/Vol] 22 U/L Normal 10-40 [facility] ([place]) Comment on above: Performed By: #### T SH, FT4, CMP, GFR, LIPID #### [address] [address] Bili Total 0.4 mg/dL Normal 0.2-1.0 [facility] ([place]) Comment on above: Result Comment: Use of this assay is not recommended for patients undergoing treatment with eltrombopag due to the potential for falsely elevated results. Performed By: #### T SH, FT4, CMP, GFR, LIPID #### [address] [address] BUN/Creatinine Ratio 22 ratio Normal 7-27 [facility] ([place]) Comment on above: Performed By: #### T SH, FT4, CMP, GFR, LIPID #### [address] [address] Calcium [Mass/Vol] 9.6 mg/dL Normal 8.4-10.2 [facility] ([place]) Comment on above: Performed By: #### T SH, FT4, CMP, GFR, LIPID #### [address] [address] Chloride [Moles/Vol] 103 mmol/L Normal 98-107 [facility] ([place]) Comment on above: Performed By: #### T SH, FT4, CMP, GFR, LIPID #### [address] [address] CO2 [Moles/Vol] 30 mmol/L Normal 23-31 [facility] ([place]) Comment on above: Performed By: #### T SH, FT4, CMP, GFR, LIPID #### [address] [address] Creatinine [Mass/Vol] 1.07 mg/dL Normal 0.70-1.30 [facility] ([place]) Comment on above: Performed By: #### T SH, FT4, CMP, GFR, LIPID #### [address] [address] Electrolyte Balance 6.0 mEq/L Normal 4.0-15.0 [facility] ([place]) Comment on above: Performed By: #### T SH, FT4, CMP, GFR, LIPID #### [address] [address] Globulin 3.4 G/dL Normal [facility] ([place]) Comment on above: Performed By: #### T SH, FT4, CMP, GFR, LIPID #### [address] [address] Glucose [Mass/Vol] 94 mg/dL Normal 80-115 [facility] ([place]) Comment on above: Performed By: #### T SH, FT4, CMP, GFR, LIPID #### [address] [address] Potassium [Moles/Vol] 5.7 mmol/L High 3.5-5.1 [facility] ([place]) Comment on above: Performed By: #### T SH, FT4, CMP, GFR, LIPID #### [address] [address] Sodium [Moles/Vol] 139 mmol/L Normal 136-145 [facility] ([place]) Comment on above: Performed By: #### T SH, FT4, CMP, GFR, LIPID #### [address] [address] Total Protein 7.4 G/dL Normal 6.4-8.2 [facility] ([place]) Comment on above: Performed By: #### T SH, FT4, CMP, GFR, LIPID #### [address] [address] Urea nitrogen [Mass/Vol] 24 mg/dL High 7-18 [facility] ([place]) Comment on above: Performed By: #### T SH, FT4, CMP, GFR, LIPID #### [address] [address] FT4on 02-11-2024 Free T4 [Mass/Vol] 0.80 ng/dL Normal 0.76-1.46 [facility] ([place]) Comment on above: Performed By: #### T SH, FT4, CMP, GFR, LIPID #### [address] [address] LIPIDon 02-11-2024 Cholesterol [Mass/Vol] 178 mg/dL Normal 0-200 [facility] ([place]) Comment on above: Result Comment: Chol esterol Reference Interval: Less than 200 Desirable 200-239 Borderline high risk 240 and above High risk Performed By: #### T SH, FT4, CMP, GFR, LIPID #### [address] [address] Cholesterol in HDL [Mass/Vol] 49 mg/dL Normal 40-60 [facility] ([place]) Comment on above: Performed By: #### T SH, FT4, CMP, GFR, LIPID #### [address] [address] Cholesterol in LDL [Mass/Vol] 100 mg/dL Normal 0-130 [facility] ([place]) Comment on above: Performed By: #### T SH, FT4, CMP, GFR, LIPID #### [address] [address] Triglyceride [Mass/Vol] 144 mg/dL Normal 0-150 [facility] ([place]) Comment on above: Result Comment: Trig lyceride Reference Interval: Less than 150 Normal 150-199 Borderline high risk 200-499 High risk 500 or higher Very high risk Performed By: #### T SH, FT4, CMP, GFR, LIPID #### [address] [address] TSHon 02-11-2024 TSH Qn 1.51 m[IU]/L Normal 0.36-3.74 [facility] ([place]) Comment on above: Performed By: #### T SH, FT4, CMP, GFR, LIPID #### [address] [address] MALBRon 09-11-2023 U Creatinine 62.1 mg/dL Normal 39.0-259.0 [facility] ([place]) Comment on above: Performed By: #### M ALBR #### [address] [address] U Microalb [address] mcg/dL Normal [facility] ([place]) Comment on above: Performed By: #### M ALBR #### [address] [address] U Ratio Alb/Cre 483 mcg/mg High 0-30 [facility] ([place]) Comment on above: Performed By: #### M ALBR #### [address] [address] .GFRon 09-10-2023 GFR 113 ml/min/1.73sqm Normal [facility] ([place]) Comment on above: Result Comment: GFR Population mean for , Non- Americans Ages 20-29 = 116 mL/min/1.73 sq.m. Ages 30-39 = 107 mL/min/1.73 sq.m. Ages 40-49 = 99 mL/min/1.73 sq.m. Ages 50-59 = 93 mL/min/1.73 sq.m. Ages 60-69 = 85 mL/min/1.73 sq.m. Ages 70+ = 75 mL/min/1.73 sq.m. Chronic Kidney Disease: Less than 60 mL/min/1.73 square meters End Stage Renal Disease: Less than 15 mL/min/1.73 square meters Performed By: #### T SH, FT4, CMP, GFR, LIPID #### [address] [address] GFR Non- 94 ml/min/1.73sqm Normal [facility] ([place]) Comment on above: Result Comment: GFR Population mean for , Non- Americans Ages 20-29 = 116 mL/min/1.73 sq.m. Ages 30-39 = 107 mL/min/1.73 sq.m. Ages 40-49 = 99 mL/min/1.73 sq.m. Ages 50-59 = 93 mL/min/1.73 sq.m. Ages 60-69 = 85 mL/min/1.73 sq.m. Ages 70+ = 75 mL/min/1.73 sq.m. Chronic Kidney Disease: Less than 60 mL/min/1.73 square meters End Stage Renal Disease: Less than 15 mL/min/1.73 square meters Performed By: #### T SH, FT4, CMP, GFR, LIPID #### [address] [address] CMPon 09-10-2023 Albumin Level 3.7 G/dL Normal 3.5-5.0 [facility] ([place]) Comment on above: Performed By: #### T SH, FT4, CMP, GFR, LIPID #### [address] [address] Albumin/Globulin [Mass ratio] 1.3 {ratio} Normal 1.1-2.5 [facility] ([place]) Comment on above: Performed By: #### T SH, FT4, CMP, GFR, LIPID #### [address] [address] ALP [Catalytic activity/Vol] 84 U/L Normal 40-135 [facility] ([place]) Comment on above: Performed By: #### T SH, FT4, CMP, GFR, LIPID #### [address] [address] ALT [Catalytic activity/Vol] 41 U/L Normal 16-63 [facility] ([place]) Comment on above: Performed By: #### T SH, FT4, CMP, GFR, LIPID #### [address] [address] AST [Catalytic activity/Vol] 21 U/L Normal 10-40 [facility] ([place]) Comment on above: Performed By: #### T SH, FT4, CMP, GFR, LIPID #### [address] [address] Bili Total 0.3 mg/dL Normal 0.2-1.0 [facility] ([place]) Comment on above: Result Comment: Use of this assay is not recommended for patients undergoing treatment with eltrombopag due to the potential for falsely elevated results. Performed By: #### T SH, FT4, CMP, GFR, LIPID #### [address] [address] BUN/Creatinine Ratio 24 ratio Normal 7-27 [facility] ([place]) Comment on above: Performed By: #### T SH, FT4, CMP, GFR, LIPID #### [address] [address] Calcium [Mass/Vol] 9.3 mg/dL Normal 8.4-10.2 [facility] ([place]) Comment on above: Performed By: #### T SH, FT4, CMP, GFR, LIPID #### [address] [address] Chloride [Moles/Vol] 104 mmol/L Normal 98-107 [facility] ([place]) Comment on above: Performed By: #### T SH, FT4, CMP, GFR, LIPID #### [address] [address] CO2 [Moles/Vol] 30 mmol/L High 22-29 [facility] ([place]) Comment on above: Performed By: #### T SH, FT4, CMP, GFR, LIPID #### [address] [address] Creatinine [Mass/Vol] 0.84 mg/dL Normal 0.70-1.30 [facility] ([place]) Comment on above: Performed By: #### T SH, FT4, CMP, GFR, LIPID #### [address] [address] Electrolyte Balance 7.0 mEq/L Normal 4.0-15.0 [facility] ([place]) Comment on above: Performed By: #### T SH, FT4, CMP, GFR, LIPID #### [address] [address] Globulin 2.9 G/dL Normal [facility] ([place]) Comment on above: Performed By: #### T SH, FT4, CMP, GFR, LIPID #### [address] [address] Glucose [Mass/Vol] 97 mg/dL Normal 70-105 [facility] ([place]) Comment on above: Performed By: #### T SH, FT4, CMP, GFR, LIPID #### [address] [address] Potassium [Moles/Vol] 4.3 mmol/L Normal 3.5-5.1 [facility] ([place]) Comment on above: Performed By: #### T SH, FT4, CMP, GFR, LIPID #### [address] [address] Sodium [Moles/Vol] 141 mmol/L Normal 136-145 [facility] ([place]) Comment on above: Performed By: #### T SH, FT4, CMP, GFR, LIPID #### [address] [address] Total Protein 6.6 G/dL Normal 6.4-8.2 [facility] ([place]) Comment on above: Performed By: #### T SH, FT4, CMP, GFR, LIPID #### [address] [address] Urea nitrogen [Mass/Vol] 20 mg/dL High 7-18 [facility] ([place]) Comment on above: Performed By: #### T SH, FT4, CMP, GFR, LIPID #### [address] [address] FT4on 09-10-2023 Free T4 [Mass/Vol] 0.83 ng/dL Normal 0.76-1.46 [facility] ([place]) Comment on above: Performed By: #### T SH, FT4, CMP, GFR, LIPID, PSA #### [address] [address] LABORATORYOrdered By: SYSTEM SYSTEM on 09-10-2023 Albumin BCP dye [Mass/Vol] 3.7 G/dL Normal 3.5 - 5.0 G/dL AO ADM SS Albumin/Globulin [Mass ratio] 1.3 {ratio} Normal 1.1 - 2.5 ratio AO ADM SS ALP [Catalytic activity/Vol] 84 U/L Normal 40 - 135 U/L AO ADM SS ALT With P-5'-P [Catalytic activity/Vol] 41 U/L Normal 16 - 63 U/L AO ADM SS AST With P-5'-P [Catalytic activity/Vol] 21 U/L Normal 10 - 40 U/L AO ADM SS Bilirubin [Mass/Vol] 0.3 mg/dL Normal 0.2 - 1 .0 mg/dL AO ADM SS Comment on above: Interpretive Data: U se of this assay is not recommended for patients undergoing treatment with eltrombopag due to the potential for falsely elevated results. Calcium [Mass/Vol] 9.3 mg/dL Normal 8.4 - 10. 2 mg/dL AO ADM SS Chloride [Moles/Vol] 104 mmol/L Normal 98 - 10 7 mmol/L AO ADM SS CO2 [Moles/Vol] 30 mmol/L High 22 - 29 mmol/L AO ADM SS Creatinine [Mass/Vol] 0.84 mg/dL Normal 0.70 - 1.30 mg/dL AO ADM SS Electrolyte Balance 7.0 mEq/L Normal 4.0 - 15 .0 mEq/L AO ADM SS Free T4 [Mass/Vol] 0.83 ng/dL Normal 0.76 - 1. 46 ng/dL AO ADM SS GFR/1.73 sq M.predicted among blacks MDRD (S/P/Bld) [Vol rate/Area] 113 ml/min/1.73sqm Invalid Interpretation Code AO Chemistry S Comment on above: Interpretive Data: GFR Population mean for , Non- Americans Ages 20-29 = 116 mL/min/1.73 sq.m. Ages 30-39 = 107 mL/min/1.73 sq.m. Ages 40-49 = 99 mL/min/1.73 sq.m. Ages 50-59 = 93 mL/min/1.73 sq.m. Ages 60-69 = 85 mL/min/1.73 sq.m. Ages 70+ = 75 mL/min/1.73 sq.m. Chronic Kidney Disease: Less than 60 mL/min/1.73 square meters End Stage Renal Disease: Less than 15 mL/min/1.73 square meters GFR/1.73 sq M.predicted among non-blacks MDRD (S/P/Bld) [Vol rate/Area] 94 ml/min/1.73sqm Invalid Interpretation Code AO Chemistry S Comment on above: Interpretive Data: GFR Population mean for , Non- Americans Ages 20-29 = 116 mL/min/1.73 sq.m. Ages 30-39 = 107 mL/min/1.73 sq.m. Ages 40-49 = 99 mL/min/1.73 sq.m. Ages 50-59 = 93 mL/min/1.73 sq.m. Ages 60-69 = 85 mL/min/1.73 sq.m. Ages 70+ = 75 mL/min/1.73 sq.m. Chronic Kidney Disease: Less than 60 mL/min/1.73 square meters End Stage Renal Disease: Less than 15 mL/min/1.73 square meters Globulin 2.9 G/dL Invalid Interpretation Code AO ADM SS Glucose [Mass/Vol] 97 mg/dL Normal 70 - 105 mg/dL AO ADM SS Potassium [Moles/Vol] 4.3 mmol/L Normal 3.5 - 5.1 mmol/L AO ADM SS Prostate specific Ag [Mass/Vol] 0.44 ng/mL Normal 0.00 - 4.00 ng/mL AO ADM SS Protein [Mass/Vol] 6.6 G/dL Normal 6.4 - 8.2 G/dL AO ADM SS Sodium [Moles/Vol] 141 mmol/L Normal 136 - 145 mmol/L AO ADM SS TSH Qn 1.69 m[IU]/L Normal 0.36 - 3.74 mcIU/mL AO ADM SS Urea nitrogen [Mass/Vol] 20 mg/dL High 7 - 18 mg/dL AO ADM SS Urea nitrogen/Creatinine [Mass ratio] 24 ratio Normal 7 - 27 ratio AO ADM SS LABORATORYOrdered By: Tanya Fu on 09-10-2023 Cholesterol [Mass/Vol] 168 mg/dL Normal 0 - 200 mg/dL AO ADM SS Comment on above: Interpretive Data: C holesterol Reference Interval: Less than 200 Desirable 200-239 Borderline high risk 240 and above High risk Cholesterol in HDL [Mass/Vol] 55 mg/dL Normal 40 - 60 mg/dL AO ADM SS Cholesterol in LDL [Mass/Vol] 98 mg/dL Normal 0 - 130 mg/dL AO ADM SS Triglyceride [Mass/Vol] 75 mg/dL Normal 0 - 150 mg/dL AO ADM SS Comment on above: Interpretive Data: T riglyceride Reference Interval: Less than 150 Normal 150-199 Borderline high risk 200-499 High risk 500 or higher Very high risk LIPIDon 09-10-2023 Cholesterol [Mass/Vol] 168 mg/dL Normal 0-200 [facility] ([place]) Comment on above: Result Comment: Chol esterol Reference Interval: Less than 200 Desirable 200-239 Borderline high risk 240 and above High risk Performed By: #### T SH, FT4, CMP, GFR, LIPID #### [facility] [place] [address] [place], [place] [address] Cholesterol in HDL [Mass/Vol] 55 mg/dL Normal 40-60 [facility] ([place]) Comment on above: Performed By: #### T SH, FT4, CMP, GFR, LIPID #### [address] [address] Cholesterol in LDL [Mass/Vol] 98 mg/dL Normal 0-130 [facility] ([place]) Comment on above: Performed By: #### T SH, FT4, CMP, GFR, LIPID #### [address] [address] Triglyceride [Mass/Vol] 75 mg/dL Normal 0-150 [facility] ([place]) Comment on above: Result Comment: Trig lyceride Reference Interval: Less than 150 Normal 150-199 Borderline high risk 200-499 High risk 500 or higher Very high risk Performed By: #### T SH, FT4, CMP, GFR, LIPID #### [address] [address] PSAon 09-10-2023 Prostate Specific Antigen 0.44 ng/mL Normal 0.00-4.00 [facility] ([place]) Comment on above: Performed By: #### T SH, FT4, CMP, GFR, LIPID, PSA #### [address] [address] TSHon 09-10-2023 TSH Qn 1.69 m[IU]/L Normal 0.36-3.74 [facility] ([place]) Comment on above: Performed By: #### T SH, FT4, CMP, GFR, LIPID, PSA #### [address] [address] Gram stain for investigation of transfusion reactionOrdered By: Vinicio Haro on 08-20-2023 Microscopic observation Gram stain Nom (Unsp spec) [facility] Microbial respiratory cultur eOrdered By: Vinicio Haro on 08-20-2023 Bacteria identified Respiratory culture Nom (Unsp spec) [facility] XR CHEST 2V FRONTAL/LATon [facility] XR Chest PA and Lateralon IMPRESSION: No acute radiographic abnormality in the lungs. Widening of the right upper mediastinum, likely related to vasculature or lymph node enlargement. Radial Drill Press Set Up Operator: PSCShanell Transcribe Date/Time: Jun 02 2023 1:09P Dictated by : RADHA DINH MD This examination was interpreted and the report reviewed and electronically signed by: RADHA DINH MD on Jun 02 2023 1:11PM [facility] DIVISION OF RADIOLOGY * * *Final Report* * * DATE OF EXAM: Jun 02 2023 1:09PM WOX 5291 - XR CHEST 2V FRONTAL/LAT / PROCEDURE REASON: Acute cough * * * * Physician Interpretation * * * * EXAMINATION: CHEST RADIOGRAPH (2 VIEW FRONTAL & LATERAL) CLINICAL HISTORY: Acute cough MQ: XC2_6 EXAM DATE/TIME: 06/02/2023 1:09 PM COMPARISON: No relevant prior studies available. RESULT: Lines, tubes, and devices: None. Lungs and pleura: No consolidation. No lung mass. No pleural effusion. No pneumothorax. Cardiomediastinal silhouette: The cardiac silhouette is within normal limits. Widening of the right upper mediastinum noted, likely related to vasculature or lymph node enlargement. Bones and soft tissues: There are degenerative changes in the spine. DIVISION OF RADIOLOGY Provider, [facility] - 06/02/2023 * * *Final Report* * * DATE OF EXAM: Jun 02 2023 1:09PM WOX 5291 - XR CHEST 2V FRONTAL/LAT / PROCEDURE REASON: Acute cough * * * * Physician Interpretation * * * * EXAMINATION: CHEST RADIOGRAPH (2 VIEW FRONTAL & LATERAL) CLINICAL HISTORY: Acute cough MQ: XC2_6 EXAM DATE/TIME: 06/02/2023 1:09 PM COMPARISON: No relevant prior studies available. RESULT: Lines, tubes, and devices: None. Lungs and pleura: No consolidation. No lung mass. No pleural effusion. No pneumothorax. Cardiomediastinal silhouette: The cardiac silhouette is within normal limits. Widening of the right upper mediastinum noted, likely related to vasculature or lymph node enlargement. Bones and soft tissues: There are degenerative changes in the spine. IMPRESSION IMPRESSION: No acute radiographic abnormality in the lungs. Widening of the right upper mediastinum, likely related to vasculature or lymph node enlargement. Radial Drill Press Set Up Operator: PSCB Transcribe Date/Time: Jun 02 2023 1:09P Dictated by : RADHA DINH MD This examination was interpreted and the report reviewed and electronically signed by: RADHA DINH MD on Jun 02 2023 1:11PM EST [facility] Radiology Study observation (narrative) [facility] XR Chest PA and LateralOrder ed By: [facility] Provider on 06-02-2023 [facility] LABORATORYOrdered By: Harshal Wallace on 05-05-2023 Albumin DL <= 20 mg/L (U) [Mass/Vol] [address] mcg/dL Invalid Interpretation Code AO ADM SS Albumin/Creatinine DL <= 20 mg/L (U) [Mass ratio] 269 mcg/mg Invalid Interpretation Code 0 - 30 mcg/mg AO ADM SS Creatinine (U) [Mass/Vol] 56.2 mg/dL Invalid Interpretation Code 39.0 - 259.0 mg/dL AO ADM SS MALBRon 05-05-2023 U Creatinine 56.2 mg/dL Normal 39.0-259.0 [facility] ([place]) Comment on above: Performed By: #### M ALBR #### [address] [address] U Microalb [address] mcg/dL Normal [facility] ([place]) Comment on above: Performed By: #### M ALBR #### [address] [address] U Ratio Alb/Cre 269 mcg/mg High 0-30 [facility] ([place]) Comment on above: Performed By: #### M ALBR #### [address] [address] .GFRon 04-09-2023 GFR Non- 64 ml/min/1.73sqm Normal [facility] ([place]) Comment on above: Result Comment: GFR Population mean for , Non- Americans Ages 20-29 = 116 mL/min/1.73 sq.m. Ages 30-39 = 107 mL/min/1.73 sq.m. Ages 40-49 = 99 mL/min/1.73 sq.m. Ages 50-59 = 93 mL/min/1.73 sq.m. Ages 60-69 = 85 mL/min/1.73 sq.m. Ages 70+ = 75 mL/min/1.73 sq.m. Chronic Kidney Disease: Less than 60 mL/min/1.73 square meters End Stage Renal Disease: Less than 15 mL/min/1.73 square meters Performed By: #### T SH, FT4, CMP, GFR, LIPID #### [address] [address] GFR 78 ml/min/1.73sqm Normal [facility] ([place]) Comment on above: Result Comment: GFR Population mean for , Non- Americans Ages 20-29 = 116 mL/min/1.73 sq.m. Ages 30-39 = 107 mL/min/1.73 sq.m. Ages 40-49 = 99 mL/min/1.73 sq.m. Ages 50-59 = 93 mL/min/1.73 sq.m. Ages 60-69 = 85 mL/min/1.73 sq.m. Ages 70+ = 75 mL/min/1.73 sq.m. Chronic Kidney Disease: Less than 60 mL/min/1.73 square meters End Stage Renal Disease: Less than 15 mL/min/1.73 square meters Performed By: #### T SH, FT4, CMP, GFR, LIPID #### [address] [address] CMPon 04-09-2023 Albumin Level 4.0 G/dL Normal 3.5-5.0 [facility] ([place]) Comment on above: Performed By: #### T SH, FT4, CMP, GFR, LIPID #### [address] [address] Albumin/Globulin [Mass ratio] 1.3 {ratio} Normal 1.1-2.5 [facility] ([place]) Comment on above: Performed By: #### T SH, FT4, CMP, GFR, LIPID #### [address] [address] ALP [Catalytic activity/Vol] 81 U/L Normal 40-135 [facility] ([place]) Comment on above: Performed By: #### T SH, FT4, CMP, GFR, LIPID #### [address] [address] ALT [Catalytic activity/Vol] 37 U/L Normal 16-63 [facility] ([place]) Comment on above: Performed By: #### T SH, FT4, CMP, GFR, LIPID #### [address] [address] AST [Catalytic activity/Vol] 24 U/L Normal 10-40 [facility] ([place]) Comment on above: Performed By: #### T SH, FT4, CMP, GFR, LIPID #### [address] [address] Bili Total 0.3 mg/dL Normal 0.2-1.0 [facility] ([place]) Comment on above: Result Comment: Use of this assay is not recommended for patients undergoing treatment with eltrombopag due to the potential for falsely elevated results. Performed By: #### T SH, FT4, CMP, GFR, LIPID #### [address] [address] BUN/Creatinine Ratio 21 ratio Normal 7-27 [facility]) Comment on above: Performed By: #### T SH, FT4, CMP, GFR, LIPID #### [address] [address] Calcium [Mass/Vol] 9.1 mg/dL Normal 8.4-10.2 [facility] ([place]) Comment on above: Performed By: #### T SH, FT4, CMP, GFR, LIPID #### [address] [address] Chloride [Moles/Vol] 102 mmol/L Normal 98-107 [facility] ([place]) Comment on above: Performed By: #### T SH, FT4, CMP, GFR, LIPID #### [address] [address] CO2 [Moles/Vol] 33 mmol/L High 22-29 [facility] ([place]) Comment on above: Performed By: #### T SH, FT4, CMP, GFR, LIPID #### [address] [address] Creatinine [Mass/Vol] 1.16 mg/dL Normal 0.70-1.30 [facility] ([place]) Comment on above: Performed By: #### T SH, FT4, CMP, GFR, LIPID #### [address] [address] Electrolyte Balance 3.0 mEq/L Low 4.0-15.0 [facility] ([place]) Comment on above: Performed By: #### T SH, FT4, CMP, GFR, LIPID #### [address] [address] Globulin 3.1 G/dL Normal [facility] ([place]) Comment on above: Performed By: #### T SH, FT4, CMP, GFR, LIPID #### [address] [address] Glucose [Mass/Vol] 95 mg/dL Normal 70-105 [facility] ([place]) Comment on above: Performed By: #### T SH, FT4, CMP, GFR, LIPID #### [address] [address] Potassium [Moles/Vol] 4.5 mmol/L Normal 3.5-5.1 [facility] ([place]) Comment on above: Performed By: #### T SH, FT4, CMP, GFR, LIPID #### [address] [address] Sodium [Moles/Vol] 138 mmol/L Normal 136-145 [facility] ([place]) Comment on above: Performed By: #### T SH, FT4, CMP, GFR, LIPID #### [address] [address] Total Protein 7.1 G/dL Normal 6.4-8.2 [facility] ([place]) Comment on above: Performed By: #### T SH, FT4, CMP, GFR, LIPID #### [address] [address] Urea nitrogen [Mass/Vol] 24 mg/dL High 7-18 [facility] ([place]) Comment on above: Performed By: #### T SH, FT4, CMP, GFR, LIPID #### [address] [place], [place] [address] FT4on 04-09-2023 Free T4 [Mass/Vol] 0.81 ng/dL Normal 0.76-1.46 [facility] ([place]) Comment on above: Performed By: #### T SH, FT4, CMP, GFR, LIPID #### [address] [place], [place] [address] LABORATORYOrdered By: SYSTEM SYSTEM on 04-09-2023 Albumin BCP dye [Mass/Vol] 4.0 G/dL Invalid Interpretation Code 3.5 - 5.0 G/dL AO ADM SS Albumin/Globulin [Mass ratio] 1.3 {ratio} Invalid Interpretation Code 1.1 - 2.5 ratio AO ADM SS ALP [Catalytic activity/Vol] 81 U/L Invalid Interpretation Code 40 - 135 U/L AO ADM SS ALT With P-5'-P [Catalytic activity/Vol] 37 U/L Invalid Interpretation Code 16 - 63 U/L AO ADM SS AST With P-5'-P [Catalytic activity/Vol] 24 U/L Invalid Interpretation Code 10 - 40 U/L AO ADM SS Bilirubin [Mass/Vol] 0.3 mg/dL Invalid Interpretation Code 0.2 - 1.0 mg/dL AO ADM SS Comment on above: Interpretive Data: U se of this assay is not recommended for patients undergoing treatment with eltrombopag due to the potential for falsely elevated results. Calcium [Mass/Vol] 9.1 mg/dL Invalid Interpretation Code 8.4 - 10.2 mg/dL AO ADM SS Chloride [Moles/Vol] 102 mmol/L Invalid Interpretation Code 98 - 107 mmol/L AO ADM SS CO2 [Moles/Vol] 33 mmol/L Invalid Interpretation Code 22 - 29 mmol/L AO ADM SS Creatinine [Mass/Vol] 1.16 mg/dL Invalid Interpretation Code 0.70 - 1.30 mg/dL AO ADM SS Electrolyte Balance 3.0 mEq/L Invalid Interpretation Code 4.0 - 15.0 mEq/L AO ADM SS Free T4 [Mass/Vol] 0.81 ng/dL Invalid Interpretation Code 0.76 - 1.46 ng/dL AO ADM SS GFR/1.73 sq M.predicted among blacks MDRD (S/P/Bld) [Vol rate/Area] 78 ml/min/1.73sqm Invalid Interpretation Code AO Chemistry S Comment on above: Interpretive Data: GFR Population mean for , Non- Americans Ages 20-29 = 116 mL/min/1.73 sq.m. Ages 30-39 = 107 mL/min/1.73 sq.m. Ages 40-49 = 99 mL/min/1.73 sq.m. Ages 50-59 = 93 mL/min/1.73 sq.m. Ages 60-69 = 85 mL/min/1.73 sq.m. Ages 70+ = 75 mL/min/1.73 sq.m. Chronic Kidney Disease: Less than 60 mL/min/1.73 square meters End Stage Renal Disease: Less than 15 mL/min/1.73 square meters GFR/1.73 sq M.predicted among non-blacks MDRD (S/P/Bld) [Vol rate/Area] 64 ml/min/1.73sqm Invalid Interpretation Code AO Chemistry S Comment on above: Interpretive Data: GFR Population mean for , Non- Americans Ages 20-29 = 116 mL/min/1.73 sq.m. Ages 30-39 = 107 mL/min/1.73 sq.m. Ages 40-49 = 99 mL/min/1.73 sq.m. Ages 50-59 = 93 mL/min/1.73 sq.m. Ages 60-69 = 85 mL/min/1.73 sq.m. Ages 70+ = 75 mL/min/1.73 sq.m. Chronic Kidney Disease: Less than 60 mL/min/1.73 square meters End Stage Renal Disease: Less than 15 mL/min/1.73 square meters Globulin 3.1 G/dL Invalid Interpretation Code AO ADM SS Glucose [Mass/Vol] 95 mg/dL Invalid Interpretation Code 70 - 105 mg/dL AO ADM SS Potassium [Moles/Vol] 4.5 mmol/L Invalid Interpretation Code 3.5 - 5.1 mmol/L AO ADM SS Protein [Mass/Vol] 7.1 G/dL Invalid Interpretation Code 6.4 - 8.2 G/dL AO ADM SS Sodium [Moles/Vol] 138 mmol/L Invalid Interpretation Code 136 - 145 mmol/L AO ADM SS TSH Qn 2.70 m[IU]/L Invalid Interpretation Code 0.36 - 3.74 mcIU/mL AO ADM SS Urea nitrogen [Mass/Vol] 24 mg/dL Invalid Interpretation Code 7 - 18 mg/dL AO ADM SS Urea nitrogen/Creatinine [Mass ratio] 21 ratio Invalid Interpretation Code 7 - 27 ratio AO ADM SS LABORATORYOrdered By: Elsa Hardin on 04-09-2023 Cholesterol [Mass/Vol] 192 mg/dL Invalid Interpretation Code 0 - 200 mg/dL AO ADM SS Comment on above: Interpretive Data: C holesterol Reference Interval: Less than 200 Desirable 200-239 Borderline high risk 240 and above High risk Cholesterol in HDL [Mass/Vol] 65 mg/dL Invalid Interpretation Code 40 - 60 mg/dL AO ADM SS Cholesterol in LDL [Mass/Vol] 115 mg/dL Invalid Interpretation Code 0 - 130 mg/dL AO ADM SS Triglyceride [Mass/Vol] 58 mg/dL Invalid Interpretation Code 0 - 150 mg/dL AO ADM SS Comment on above: Interpretive Data: T riglyceride Reference Interval: Less than 150 Normal 150-199 Borderline high risk 200-499 High risk 500 or higher Very high risk LIPIDon 04-09-2023 Cholesterol [Mass/Vol] 192 mg/dL Normal 0-200 [facility] ([place]) Comment on above: Result Comment: Chol esterol Reference Interval: Less than 200 Desirable 200-239 Borderline high risk 240 and above High risk Performed By: #### T SH, FT4, CMP, GFR, LIPID #### [address] [address] Cholesterol in HDL [Mass/Vol] 65 mg/dL High 40-60 [facility] ([place]) Comment on above: Performed By: #### T SH, FT4, CMP, GFR, LIPID #### [address] [address] Cholesterol in LDL [Mass/Vol] 115 mg/dL Normal 0-130 [facility] ([place]) Comment on above: Performed By: #### T SH, FT4, CMP, GFR, LIPID #### [address] [place], [place] [address] Triglyceride [Mass/Vol] 58 mg/dL Normal 0-150 [facility] ([place]) Comment on above: Result Comment: Trig lyceride Reference Interval: Less than 150 Normal 150-199 Borderline high risk 200-499 High risk 500 or higher Very high risk Performed By: #### T SH, FT4, CMP, GFR, LIPID #### [address] [place], [place] [address] TSHon 04-09-2023 TSH Qn 2.70 m[IU]/L Normal 0.36-3.74 [facility] ([place]) Comment on above: Performed By: #### T SH, FT4, CMP, GFR, LIPID #### [address] [place], [place] [address] Basophil percentageOrdered B y: Agustin Hunt on 09-27-2022 Bilirubin [Mass/Vol] 0.20 mg/dL 0.20-1.00 [facility] Comment on above: For patients on eltr ombopag therapy, use of Dimension [place] TBIL is not recommended. Chloride [Moles/Vol] 108 mmol/L 98-107 [facility] Glucose [Mass/Vol] 120 mg/dL 74-106 [facility] Comment on above: Fasting Glucose resu lt from 100 to 125 mg/dL suggests IMPAIRED HOMEOSTASIS per A.D.A. criteria. LDH [Catalytic activity/Vol] 215 U/L 87-241 [facility] Potassium [Moles/Vol] 4.5 mmol/L 3.5-5.1 [facility] Protein [Mass/Vol] 6.8 g/dL 6.4-8.2 [facility] Sodium [Moles/Vol] 141 mmol/L 136-145 [facility] INR in Blood by Coagulation assayOrdered By: Agustin Hunt on 09-27-2022 INR Coag (Bld) [Relative time] 1.0 {INR} [facility] Laboratory - Chemistry and C hemistry - challengeOrdered By: Agustin Hunt on 09-27-2022 ALP [Catalytic activity/Vol] 81 U/L 45-117 [facility] ALT [Catalytic activity/Vol] 32 U/L 16-61 [facility] CO2 [Moles/Vol] 31.0 mmol/L 21.0-32.0 [facility] Globulin (S) [Mass/Vol] 3.2 g/dL 2.2-4.2 [facility] Urea nitrogen/Creatinine [Mass ratio] 22.1 mg/mg 10-20 [facility] Laboratory - CoagulationOrde red By: Agustin Hunt on 09-27-2022 aPTT Coag (Bld) [Time] 38.6 s 24.1-36.2 [facility] PT Coag (PPP) [Time] 13.1 s 11.7-14.9 [facility] No Panel InformationOrdered By: Agustin Hunt on 09-27-2022 Estimated GFR (MDRD) Amer 99 mL/min >60 [facility] Comment on above: GFR Calc Estimated GFR (MDRD) Non-Af Amer 82 mL/min >60 [facility] Comment on above: Non- GFR Calc Platelets bldOrdered By: Mekhi Hunt on 09-27-2022 Platelets (Bld) [#/Vol] See comment 150-450 [facility] Comment on above: PLATLETS APPEAR ADEQ UATEPrevious reported result: [id number] by: TPHILLIPS on 09/27/22:0824Please note: For this sample, a platelet estimate is provided rather than a platelet count due to platelet clumping. Other parameters associated with this sample are not affected by platelet clumping. If a more accurate platelet count is required, a redraw of the patient will be necessary. Serum mitochondria antibody detectionOrdered By: Agustin Hunt on 09-27-2022 Mitochondria Ab Ql (S) 59.7 Units 0.0-20.0 [facility] Comment on above: Negative 0.0 - 20.0 Equivocal 20.1 - 24.9 Positive >24.9Mitochondrial (M2) Antibodies are found in 90-96% ofpatients with primary biliary cirrhosis.Performed at: [address] [id number] Director: Roshan Waggoner PhD, Phone: [phone] Serum or plasma actin IgG an tibody assay (units/volume)Ordered By: Agustin Hunt on 09-27-2022 Actin IgG Qn 4 Units 0-19 [facility] Comment on above: Negative 0 - 19 Weak positive 20 - 30 Moderate to strong positive >30 Actin Antibodies are found in 52-85% of patients with autoimmune hepatitis or chronic active hepatitis and in 22% of patients with primary biliary cirrhosis.Performed at: [facility] [id number] Director: Roshan Waggoner PhD, Phone: [phone] Serum or plasma albumin best urement (mass/volume)Ordered By: Agustin Hunt on 09-27-2022 Albumin [Mass/Vol] 3.6 g/dL 3.2-5.0 [facility] Serum or plasma albumin/glob ulin mass ratioOrdered By: Agustin Hunt on 09-27-2022 Albumin/Globulin [Mass ratio] 1.1 {ratio} 0.9-2.4 [facility] Serum or plasma calcium best urement (mass/volume)Ordered By: Agustin Hunt on 09-27-2022 Calcium [Mass/Vol] 9.2 mg/dL 8.5-10.1 [facility] Serum or plasma creatinine m easurement (mass/volume)Ordered By: Agustin Hunt on 09-27-2022 Creatinine [Mass/Vol] 1.00 mg/dL 0.70-1.30 [facility] Comment on above: The validity of the calculated GFR & GFRAA in patients over 70 years has not been determined. Clinical correlation is essential. Serum or plasma urea nitroge n measurement (mass/volume)Ordered By: Agustin Hunt on 09-27-2022 Urea nitrogen [Mass/Vol] 22 mg/dL 7-18 [facility] Thin prep Papanicolaou smear with manual screeningOrdered By: Agustin Hunt on 09-27-2022 Thin prep Papanicolaou smear with manual screening 19 U/L 15-37 [facility] Thin prep Papanicolaou smear with manual screening 2 5-15 [facility] Whole blood hemoglobin A1c/t otal hemoglobin ratio (mass fraction)Ordered By: Agustin Hunt on 09-27-2022 HbA1c (Bld) [Mass fraction] 5.3 % 3.8-5.6 [facility] Comment on above: Normal < 5.7 % Predi abetic 5.7 - 6.4 % Diabetic >or= 6.5 % Please note range changes. No Panel Informationon 07-30 Culture Wound [employer] A Beta Hemolytic Strep (Strep pyogenes) Sensitivity testing is not recommended for one of the following reasons: 1. Established susceptibility patterns are available or 2. Interpretative criteria are not available. Rare normal skin jordin present. Sensitivity testing not indicated. [facility] Work Phone: GS Rare Red Blood Cells Rare Gram Positive Cocci [facility] Work Phone: LABORATORYOrdered By: Sofia Zuniga on 04-27-2022 Albumin BCP dye [Mass/Vol] 4.1 G/dL Invalid Interpretation Code 3.5 - 5.0 G/dL AO ADM SS Albumin/Globulin [Mass ratio] 1.4 {ratio} Invalid Interpretation Code 1.1 - 2.5 ratio AO ADM SS ALP [Catalytic activity/Vol] 87 U/L Invalid Interpretation Code 40 - 135 U/L AO ADM SS ALT With P-5'-P [Catalytic activity/Vol] 39 U/L Invalid Interpretation Code 16 - 63 U/L AO ADM SS AST With P-5'-P [Catalytic activity/Vol] 24 U/L Invalid Interpretation Code 10 - 40 U/L AO ADM SS Bilirubin [Mass/Vol] 0.3 mg/dL Invalid Interpretation Code 0.2 - 1.0 mg/dL AO ADM SS Calcium [Mass/Vol] 10.1 mg/dL Invalid Interpretation Code 8.4 - 10.2 mg/dL AO ADM SS Chloride [Moles/Vol] 102 mmol/L Invalid Interpretation Code 98 - 107 mmol/L AO ADM SS Cholesterol [Mass/Vol] 165 mg/dL Invalid Interpretation Code 0 - 200 mg/dL AO ADM SS Cholesterol in HDL [Mass/Vol] 51 mg/dL Invalid Interpretation Code 40 - 60 mg/dL AO ADM SS Cholesterol in LDL [Mass/Vol] 78 mg/dL Invalid Interpretation Code 0 - 130 mg/dL AO ADM SS CO2 [Moles/Vol] 28 mmol/L Invalid Interpretation Code 22 - 29 mmol/L AO ADM SS Creatinine [Mass/Vol] 0.93 mg/dL Invalid Interpretation Code 0.70 - 1.30 mg/dL AO ADM SS Electrolyte Balance 8.0 mEq/L Invalid Interpretation Code 4.0 - 15.0 mEq/L AO ADM SS Free T4 [Mass/Vol] 0.84 ng/dL Invalid Interpretation Code 0.76 - 1.46 ng/dL AO ADM SS Globulin 2.9 G/dL Invalid Interpretation Code AO ADM SS Glucose [Mass/Vol] 91 mg/dL Invalid Interpretation Code 70 - 105 mg/dL AO ADM SS Potassium [Moles/Vol] 4.9 mmol/L Invalid Interpretation Code 3.5 - 5.1 mmol/L AO ADM SS Protein [Mass/Vol] 7.0 G/dL Invalid Interpretation Code 6.4 - 8.2 G/dL AO ADM SS Sodium [Moles/Vol] 138 mmol/L Invalid Interpretation Code 136 - 145 mmol/L AO ADM SS Triglyceride [Mass/Vol] 180 mg/dL Invalid Interpretation Code 0 - 150 mg/dL AO ADM SS TSH Qn 1.60 m[IU]/L Invalid Interpretation Code 0.36 - 3.74 mcIU/mL AO ADM SS Urea nitrogen [Mass/Vol] 16 mg/dL Invalid Interpretation Code 7 - 18 mg/dL AO ADM SS Urea nitrogen/Creatinine [Mass ratio] 17 ratio Invalid Interpretation Code 7 - 27 ratio AO ADM SS LABORATORYOrdered By: SYSTEM SYSTEM on 04-27-2022 GFR 101 ml/min/1.73sqm Invalid Interpretation Code AO Chemistry S GFR Non- 83 ml/min/1.73sqm Invalid Interpretation Code AO Chemistry S LABORATORYOrdered By: Tanya Fu on 11-02-2021 Albumin BCP dye [Mass/Vol] 3.8 G/dL Invalid Interpretation Code 3.5 - 5.0 G/dL AO ADM SS Albumin/Globulin [Mass ratio] 1.2 {ratio} Invalid Interpretation Code 1.1 - 2.5 ratio AO ADM SS ALP [Catalytic activity/Vol] 98 U/L Invalid Interpretation Code 40 - 135 U/L AO ADM SS ALT With P-5'-P [Catalytic activity/Vol] 42 U/L Invalid Interpretation Code 16 - 63 U/L AO ADM SS AST With P-5'-P [Catalytic activity/Vol] 20 U/L Invalid Interpretation Code 10 - 40 U/L AO ADM SS Bilirubin [Mass/Vol] 0.3 mg/dL Invalid Interpretation Code 0.2 - 1.0 mg/dL AO ADM SS Calcium [Mass/Vol] 9.3 mg/dL Invalid Interpretation Code 8.4 - 10.2 mg/dL AO ADM SS Chloride [Moles/Vol] 103 mmol/L Invalid Interpretation Code 98 - 107 mmol/L AO ADM SS Cholesterol [Mass/Vol] 178 mg/dL Invalid Interpretation Code 0 - 200 mg/dL AO ADM SS Cholesterol in HDL [Mass/Vol] 49 mg/dL Invalid Interpretation Code 40 - 60 mg/dL AO ADM SS Cholesterol in LDL [Mass/Vol] 87 mg/dL Invalid Interpretation Code 0 - 130 mg/dL AO ADM SS CO2 [Moles/Vol] 29 mmol/L Invalid Interpretation Code 22 - 29 mmol/L AO ADM SS Creatinine [Mass/Vol] 0.89 mg/dL Invalid Interpretation Code 0.70 - 1.30 mg/dL AO ADM SS Electrolyte Balance 9.0 mEq/L Invalid Interpretation Code 4.0 - 15.0 mEq/L AO ADM SS Free T4 [Mass/Vol] 0.78 ng/dL Invalid Interpretation Code 0.76 - 1.46 ng/dL AO ADM SS Globulin 3.3 G/dL Invalid Interpretation Code AO ADM SS Glucose [Mass/Vol] 84 mg/dL Invalid Interpretation Code 70 - 105 mg/dL AO ADM SS Potassium [Moles/Vol] 4.7 mmol/L Invalid Interpretation Code 3.5 - 5.1 mmol/L AO ADM SS Protein [Mass/Vol] 7.1 G/dL Invalid Interpretation Code 6.4 - 8.2 G/dL AO ADM SS Sodium [Moles/Vol] 141 mmol/L Invalid Interpretation Code 136 - 145 mmol/L AO ADM SS Triglyceride [Mass/Vol] 212 mg/dL Invalid Interpretation Code 0 - 150 mg/dL AO ADM SS TSH Qn 2.20 m[IU]/L Invalid Interpretation Code 0.36 - 3.74 mcIU/mL AO ADM SS Urea nitrogen [Mass/Vol] 21 mg/dL Invalid Interpretation Code 7 - 18 mg/dL AO ADM SS Urea nitrogen/Creatinine [Mass ratio] 24 ratio Invalid Interpretation Code 7 - 27 ratio AO ADM SS LABORATORYOrdered By: Farrukh Shaffer on 11-02-2021 Basophil, Absolute 0.00 103/mcL Invalid Interpretation Code 0.00 - 0.19 10^3/mcL AO Auto Heme SS Basophils/100 WBC (Bld) 0.6 % Invalid Interpretation Code 0.0 - 2.5 % AO Auto Heme SS Eosinophil, Absolute 0.10 103/mcL Invalid Interpretation Code 0.00 - 0.40 10^3/mcL AO Auto Heme SS Eosinophils/100 WBC (Bld) 1.2 % Invalid Interpretation Code 0.0 - 7.0 % AO Auto Heme SS Erythrocyte distribution width (RBC) [Ratio] 15.2 % Invalid Interpretation Code 11.5 - 14.5 % AO Auto Heme SS Hematocrit (Bld) [Volume fraction] 43.7 % Invalid Interpretation Code 42.0 - 52.0 % AO Auto Heme SS Hemoglobin (Bld) [Mass/Vol] 14.6 G/dL Invalid Interpretation Code 14.0 - 18.0 G/dL AO Auto Heme SS Lymphocyte, Absolute 1.60 103/mcL Invalid Interpretation Code 0.77 - 3.85 10^3/mcL AO Auto Heme SS Lymphocytes/100 WBC (Bld) 23.0 % Invalid Interpretation Code 10.0 - 50.0 % AO Auto Heme SS MCH (RBC) [Entitic mass] 28.4 pg Invalid Interpretation Code 27.0 - 31.2 pg AO Auto Heme SS MCHC (RBC) [Mass/Vol] 33.4 G/dL Invalid Interpretation Code 31.8 - 35.4 G/dL AO Auto Heme SS MCV (RBC) [Entitic vol] 84.9 fL Invalid Interpretation Code 80.0 - 94.0 fL AO Auto Heme SS Monocyte, Absolute 0.70 103/mcL Invalid Interpretation Code 0.15 - 1.00 10^3/mcL AO Auto Heme SS Monocytes/100 WBC (Bld) 10.2 % Invalid Interpretation Code 1.7 - 13.0 % AO Auto Heme SS Neutrophil, Absolute 4.60 103/mcL Invalid Interpretation Code 2.85 - 6.16 10^3/mcL AO Auto Heme SS Neutrophils/100 WBC (Bld) 65.0 % Invalid Interpretation Code 37.0 - 80.0 % AO Auto Heme SS Platelet mean volume (Bld) [Entitic vol] 8.9 fL Invalid Interpretation Code 7.4 - 10.4 fL AO Auto Heme SS Platelets (Bld) [#/Vol] 194 103/mcL Invalid Interpretation Code 130 - 400 10^3/mcL AO Auto Heme SS RBC (Bld) [#/Vol] 5.15 106/mcL Invalid Interpretation Code 4.04 - 6.13 10^6/mcL AO Auto Heme SS WBC (Bld) [#/Vol] 7.00 103/mcL Invalid Interpretation Code 4.60 - 10.80 10^3/mcL AO Auto Heme SS LABORATORYOrdered By: SYSTEM SYSTEM on 11-02-2021 GFR 107 ml/min/1.73sqm Invalid Interpretation Code AO Chemistry S GFR Non- 88 ml/min/1.73sqm Invalid Interpretation Code AO Chemistry S Absolute lymphocyte counton 09-24-2021 Lymphocytes Auto (Unsp spec) [#/Vol] 1.47 10*3/uL 0.83-4.51 [facility] Work Phone: Basophil percentageon 2021 Basophil percentage < 0.2 [facility] Work Phone: Basophils/100 WBC (Bld) 0.5 % 0-1 [facility] Work Phone: Bilirubin [Mass/Vol] 0.40 mg/dL 0.20-1.00 [facility] Work Phone: Comment on above: For patients on eltr ombopag therapy, use of Dimension [place] TBIL is not recommended. Chloride [Moles/Vol] 108 mmol/L 98-107 [facility] Work Phone: Eosinophils/100 WBC (Bld) 1.6 % 0-5 [facility] Work Phone: Glucose [Mass/Vol] 94 mg/dL 74-106 [facility] Work Phone: Neutrophils (Bld) [#/Vol] 3.3 10*3/uL 2.0-7.7 [facility] Work Phone: Neutrophils/100 WBC (Bld) 59.9 % 47-70 [facility] Work Phone: Potassium [Moles/Vol] 4.0 mmol/L 3.5-5.1 [facility] Work Phone: Protein [Mass/Vol] 7.0 g/dL 6.4-8.2 [facility] Work Phone: [phone] Sodium [Moles/Vol] 141 mmol/L 136-145 [facility] Work Phone: [phone] WBC (Bld) [#/Vol] 5.5 10*3/uL 4.4-11.0 [facility] Work Phone: [phone] Blood erythrocytes count (nu mber/volume)on 09-24-2021 RBC (Bld) [#/Vol] 4.99 10*6/uL 4.6-6.2 [facility] Work Phone: [phone] Blood hemoglobin measurement (mass/volume)on 09-24-2021 Hemoglobin (Bld) [Mass/Vol] 14.1 g/dL 13.0-16.5 [facility] Work Phone: [phone] Blood lymphocytes/100 leukoc yteson 09-24-2021 Lymphocytes/100 WBC (Bld) 26.7 % 19-41 [facility] Work Phone: [phone] Blood monocytes/100 leukocyt eson 09-24-2021 Monocytes/100 WBC (Bld) 10.9 % 0-10 [facility] Work Phone: [phone] Blood platelet mean volumeon 09-24-2021 Platelet mean volume (Bld) [Entitic vol] 11.0 fL 6.2-12.0 [facility] Work Phone: [phone] Determination of erythrocyte mean corpuscular volume (MCV)on 09-24-2021 MCV (RBC) [Entitic vol] 88.6 fL 80-94 [facility] Work Phone: Erythrocyte sedimentation ra jose 09-24-2021 ESR (Bld) [Velocity] 4 mm/h 0-20 [facility] Work Phone: [phone] HIV 1 and HIV-2 antibody ass ay with HIV-1 p24 antigen detectionon 09-24-2021 HIV 1+2 Ab+HIV1 p24 Ag IA Ql Non-Reactive Nonreactive [facility] Work Phone: Hematocrit Auto (Bld) [Volum e fraction]on 09-24-2021 Hematocrit (Bld) [Volume fraction] 44.2 % 40-54 [facility] Work Phone: [phone] Laboratory - Chemistry and C hemistry - challengeon 09-24-2021 ALP [Catalytic activity/Vol] 101 U/L 45-117 [facility] Work Phone: [phone] ALT [Catalytic activity/Vol] 45 U/L 16-61 [facility] Work Phone: [phone] CO2 [Moles/Vol] 28.0 mmol/L 21.0-32.0 [facility] Work Phone: [phone] Globulin (S) [Mass/Vol] 3.2 g/dL 2.2-4.2 [facility] Work Phone: [phone] Urea nitrogen/Creatinine [Mass ratio] 17.5 mg/mg 10-20 [facility] Work Phone: [phone] Laboratory - Hematology and Cell countson 09-24-2021 Erythrocyte distribution width (RBC) [Entitic vol] 45.4 fL 35.1-43.9 [facility] Work Phone: [phone] Erythrocyte distribution width (RBC) [Ratio] 14.1 % 11.6-14.6 [facility] Work Phone: [phone] Immature granulocytes/100 WBC (Bld) 0.400 % 0.0-0.9 [facility] Work Phone: [phone] Comment on above: IG% - Immature Granu locytes (promyelocytes, myelocytes and metamyelocytes) > 1% indicates that a LEFT SHIFT is Present. MCH (RBC) [Entitic mass] 28.3 pg 27.0-32.0 [facility] Work Phone: [phone] Nucleated RBC/100 WBC (Bld) [Ratio] 0 % 0-5 [facility] Work Phone: [phone] MCHC Auto (RBC) [Mass/Vol]on 09-24-2021 MCHC (RBC) [Mass/Vol] 31.9 g/dL 32-36 [facility]: [phone] Panel Informationon 09-24 Centromere B Antibody <0.2 [facility] Work Phone: Estimated GFR (MDRD) Amer 102 mL/min >60 [facility] Work Phone: Comment on above: GFR Calc Estimated GFR (MDRD) Non-Af Amer 84 mL/min >60 [facility] Work Phone: [phone] Comment on above: Non- GFR Calc [employer]ERSON[employer]OR Antibody 0.6 [facility] Work Phone: Platelets bldon 09-24-2021 Platelets (Bld) [#/Vol] 165 10*3/uL 150-450 [facility] Work Phone: [phone] Serum DNA double strand anti body assay (units/volume)on 09-24-2021 DNA double strand Ab Qn (S) [IU]/mL [facility] Work Phone: Comment on above: Negative <5 Equivoca l 5 - 9 Positive >9 Serum Paola-1 antibody assay (u nits/volume)on 09-24-2021 Paola-1 extractable nuclear Ab Qn (S) <0.2 [facility] Work Phone: [phone] Serum Scl-70 extractable nuc lear antibody assay (units/volume)on 09-24-2021 SCL-70 extractable nuclear Ab Qn (S) <0.2 [facility] Work Phone: [phone] Serum Heard extractable nucl ear antibody detectionon 09-24-2021 Heard extractable nuclear Ab Ql (S) <0.2 [facility] Work Phone: Serum mitochondria antibody detectionon 09-24-2021 Mitochondria Ab Ql (S) 42.2 Units [facility] Work Phone: Comment on above: Negative 0.0 - 20.0 Equivocal 20.1 - 24.9 Positive >24.9Mitochondrial (M2) Antibodies are found in 90-96% ofpatients with primary biliary cirrhosis.Performed at: [address] [id number] Director: Roshan Waggoner PhD, Phone: [phone] Serum or plasma C reactive p rotein measurement (mass/volume)on 09-24-2021 CRP [Mass/Vol] mg/L 0.0-3.0 [facility] Work Phone: Comment on above: C-Reactive Protein ( CRP) provides useful information for thediagnosis, therapy and monitoring of inflammatory processesand associated diseases. For the evaluation of Relative Riskfor Cardiovascular Disease, a High Sensitivity CRP (HSCRP)should be ordered. Serum or plasma albumin best urement (mass/volume)on 09-24-2021 Albumin [Mass/Vol] 3.8 g/dL 3.2-5.0 [facility] Work Phone: Serum or plasma albumin/glob ulin mass ratioon 09-24-2021 Albumin/Globulin [Mass ratio] 1.2 {ratio} 0.9-2.4 [facility] Work Phone: Serum or plasma calcium best urement (mass/volume)on 09-24-2021 Calcium [Mass/Vol] 8.9 mg/dL 8.5-10.1 [facility] Work Phone: Serum or plasma creatinine m easurement (mass/volume)on 09-24-2021 Creatinine [Mass/Vol] 0.97 mg/dL 0.70-1.30 [facility] Work Phone: Comment on above: The validity of the calculated GFR & GFRAA in patients over 70 years has not been determined. Clinical correlation is essential. Serum or plasma urea nitroge n measurement (mass/volume)on 09-24-2021 Urea nitrogen [Mass/Vol] 17 mg/dL 7-18 [facility] Work Phone: Thin prep Papanicolaou smear with manual screeningon 09-24-2021 Thin prep Papanicolaou smear with manual screening 27 U/L 15-37 [facility] Work Phone: Thin prep Papanicolaou smear with manual screening 5 5-15 [facility] Work Phone: [phone] Thin prep Papanicolaou smear with manual screening 249 U/L 87-241 [facility] Work Phone: Whole blood hemoglobin A1c/t otal hemoglobin ratio (mass fraction)on 09-24-2021 HbA1c (Bld) [Mass fraction] 5.7 % 3.8-5.6 [facility] Work Phone: Comment on above: Normal < 5.7 % Predi abetic 5.7 - 6.4 % Diabetic >or= 6.5 % Please note range changes. LABORATORYOrdered By: Elsa Hardin on 07-14-2021 Albumin BCP dye [Mass/Vol] 4.1 G/dL Invalid Interpretation Code 3.5 - 5.0 G/dL AO ADM SS Albumin/Globulin [Mass ratio] 1.5 {ratio} Invalid Interpretation Code 1.1 - 2.5 ratio AO ADM SS ALP [Catalytic activity/Vol] 74 U/L Invalid Interpretation Code 40 - 135 U/L AO ADM SS ALT With P-5'-P [Catalytic activity/Vol] 45 U/L Invalid Interpretation Code 16 - 63 U/L AO ADM SS AST With P-5'-P [Catalytic activity/Vol] 31 U/L Invalid Interpretation Code 10 - 40 U/L AO ADM SS Basophil, Absolute 0.00 103/mcL Invalid Interpretation Code 0.00 - 0.19 10^3/mcL AO Auto Heme SS Basophils/100 WBC (Bld) 0.3 % Invalid Interpretation Code 0.0 - 2.5 % AO Auto Heme SS Bilirubin [Mass/Vol] 0.5 mg/dL Invalid Interpretation Code 0.2 - 1.0 mg/dL AO ADM SS Calcium [Mass/Vol] 9.4 mg/dL Invalid Interpretation Code 8.4 - 10.2 mg/dL AO ADM SS Chloride [Moles/Vol] 101 mmol/L Invalid Interpretation Code 98 - 107 mmol/L AO ADM SS CO2 [Moles/Vol] 28 mmol/L Invalid Interpretation Code 22 - 29 mmol/L AO ADM SS Creatinine [Mass/Vol] 1.00 mg/dL Invalid Interpretation Code 0.70 - 1.30 mg/dL AO ADM SS Electrolyte Balance 10.0 mEq/L Invalid Interpretation Code 4.0 - 15.0 mEq/L AO ADM SS Eosinophil, Absolute 0.10 103/mcL Invalid Interpretation Code 0.00 - 0.40 10^3/mcL AO Auto Heme SS Eosinophils/100 WBC (Bld) 1.0 % Invalid Interpretation Code 0.0 - 7.0 % AO Auto Heme SS Erythrocyte distribution width (RBC) [Ratio] 14.7 % Invalid Interpretation Code 11.5 - 14.5 % AO Auto Heme SS Globulin 2.8 G/dL Invalid Interpretation Code AO ADM SS Glucose [Mass/Vol] 95 mg/dL Invalid Interpretation Code 70 - 105 mg/dL AO ADM SS Hematocrit (Bld) [Volume fraction] 41.1 % Invalid Interpretation Code 42.0 - 52.0 % AO Auto Heme SS Hemoglobin (Bld) [Mass/Vol] 14.0 G/dL Invalid Interpretation Code 14.0 - 18.0 G/dL AO Auto Heme SS Lymphocyte, Absolute 1.70 103/mcL Invalid Interpretation Code 0.77 - 3.85 10^3/mcL AO Auto Heme SS Lymphocytes/100 WBC (Bld) 28.4 % Invalid Interpretation Code 10.0 - 50.0 % AO Auto Heme SS MCH (RBC) [Entitic mass] 28.6 pg Invalid Interpretation Code 27.0 - 31.2 pg AO Auto Heme SS MCHC (RBC) [Mass/Vol] 33.9 G/dL Invalid Interpretation Code 31.8 - 35.4 G/dL AO Auto Heme SS MCV (RBC) [Entitic vol] 84.2 fL Invalid Interpretation Code 80.0 - 94.0 fL AO Auto Heme SS Monocyte, Absolute 0.70 103/mcL Invalid Interpretation Code 0.15 - 1.00 10^3/mcL AO Auto Heme SS Monocytes/100 WBC (Bld) 12.0 % Invalid Interpretation Code 1.7 - 13.0 % AO Auto Heme SS Neutrophil, Absolute 3.40 103/mcL Invalid Interpretation Code 2.85 - 6.16 10^3/mcL AO Auto Heme SS Neutrophils/100 WBC (Bld) 58.3 % Invalid Interpretation Code 37.0 - 80.0 % AO Auto Heme SS Platelet mean volume (Bld) [Entitic vol] 8.9 fL Invalid Interpretation Code 7.4 - 10.4 fL AO Auto Heme SS Platelets (Bld) [#/Vol] 179 103/mcL Invalid Interpretation Code 130 - 400 10^3/mcL AO Auto Heme SS Potassium [Moles/Vol] 4.1 mmol/L Invalid Interpretation Code 3.5 - 5.1 mmol/L AO ADM SS Protein [Mass/Vol] 6.9 G/dL Invalid Interpretation Code 6.4 - 8.2 G/dL AO ADM SS RBC (Bld) [#/Vol] 4.89 106/mcL Invalid Interpretation Code 4.04 - 6.13 10^6/mcL AO Auto Heme SS Sodium [Moles/Vol] 139 mmol/L Invalid Interpretation Code 136 - 145 mmol/L AO ADM SS TSH Qn 2.45 m[IU]/L Invalid Interpretation Code 0.36 - 3.74 mcIU/mL AO ADM SS Urea nitrogen [Mass/Vol] 17 mg/dL Invalid Interpretation Code 7 - 18 mg/dL AO ADM SS Urea nitrogen/Creatinine [Mass ratio] 17 ratio Invalid Interpretation Code 7 - 27 ratio AO ADM SS WBC (Bld) [#/Vol] 5.90 103/mcL Invalid Interpretation Code 4.60 - 10.80 10^3/mcL AO Auto Heme SS LABORATORYOrdered By: SYSTEM SYSTEM on 07-14-2021 GFR 93 ml/min/1.73sqm Invalid Interpretation Code AO Chemistry S GFR Non- 77 ml/min/1.73sqm Invalid Interpretation Code AO Chemistry S LABORATORYOrdered By: CLEV_C SONA CONTRIBUTOR_SYSTEM on 07-14-2021 Giardia Interp Unable to assay. Specimen improperly collected/handled. Invalid Interpretation Code AO Sendouts Comment on above: Result Comment: Spec imen collected in wrong container type. STOOL SPECIMEN SENT FOR BLOOD TEST Account Credited 07.15.21 CK Giardia lamblia IgA Unable to assay. Specimen improperly collected/handled. Invalid Interpretation Code AO [facility]outs Comment on above: Result Comment: Spec imen collected in wrong container type. STOOL SPECIMEN SENT FOR BLOOD TEST Account Credited 07.15.21 CK Giardia lamblia IgG Unable to assay. Specimen improperly collected/handled. Invalid Interpretation Code AO Sendouts Comment on above: Result Comment: Spec imen collected in wrong container type. STOOL SPECIMEN SENT FOR BLOOD TEST Account Credited 07.15.21 CK Giardia lamblia IgM Unable to assay. Specimen improperly collected/handled. Invalid Interpretation Code AO [facility]outs Comment on above: Result Comment: Spec imen collected in wrong container type. STOOL SPECIMEN SENT FOR BLOOD TEST Account Credited 07.15.21 CK No Panel Informationon 07-14 Fecal Leukocytes Microscopy: Fecal Leukocytes Absent From our data, approximately 50% of enteroinvasive bacterial pathogens will not be associated with stool WBC's. [facility] Work Phone: CBC (AO)on 12-27-2016 Basophils Auto #/vol (Bld) 0.00 10 3/mcL Normal 0.00-0.19 [facility] Comment on above: Performed By: #### C BCO ####[address] [address] Basophils/100 WBC Auto (Bld) 0.7 % Normal 0.0-2.5 [facility] Comment on above: Performed By: #### C BCO ####[address] [address] Eosinophils 0.10 10 3/mcL Normal 0.00-0.40 [facility] Comment on above: Performed By: #### C BCO ####[address] [address] Eosinophils/100 leukocytes 1.9 % Normal 0.0-7.0 [facility] Comment on above: Performed By: #### C BCO ####[address] [address] Erythrocyte distribution width Auto Ratio (RBC) 14.3 % Normal 11.5-14.5 [facility] Comment on above: Performed By: #### C BCO ####[address] [address] Erythrocytes (RBC) 4.95 10 6/mcL Normal 4.04-6.13 [facility] Comment on above: Performed By: #### C BCO ####[address] [address] Hematocrit (HCT) 43.2 % Normal 42.0-52.0 [facility] Comment on above: Performed By: #### C BCO ####[address] [address] Hemoglobin mass conc (Bld) 14.2 G/dL Normal 14.0-18.0 [facility] Comment on above: Performed By: #### C BCO ####[address] [address] Lymphocytes 2.00 10 3/mcL Normal 0.77-3.85 [facility] Comment on above: Performed By: #### C BCO ####[address] [address] Lymphocytes/100 leukocytes 30.8 % Normal 10.0-50.0 [facility] Comment on above: Performed By: #### C BCO ####[address] [address] MCH 28.6 pg Normal 27.0-31.2 [facility] Comment on above: Performed By: #### C BCO ####[address] [address] MCHC mass conc (RBC) 32.8 G/dL Normal 31.8-35.4 [facility] Comment on above: Performed By: #### C BCO ####[address] [address] MCV 87.3 fL Normal 80.0-94.0 [facility] Comment on above: Performed By: #### C BCO ####[address] [address] Monocytes 0.70 10 3/mcL Normal 0.15-1.00 [facility] Comment on above: Performed By: #### C BCO ####[address] [address] Monocytes/100 leukocytes 11.4 % Normal 1.7-13.0 [facility] Comment on above: Performed By: #### C BCO ####[address] [address] Neutrophils 3.60 10 3/mcL Normal 2.85-6.16 [facility] Comment on above: Performed By: #### C BCO ####[address] [address] Neutrophils/100 WBC Auto (Bld) 55.2 % Normal 37.0-80.0 [facility] Comment on above: Performed By: #### C BCO ####[place] [address] [address] Platelet mean volume (PMV) 9.2 fL Normal 7.4-10.4 [facility] Comment on above: Performed By: #### C BCO ####[place] [address] [address] Platelets 155 10 3/mcL Normal 130-400 [facility] Comment on above: Performed By: #### C BCO ####[place] [address] [address] WBC (Leukocytes) 6.60 10 3/mcL Normal 4.60-10.80 [facility] [facility] Comment on above: Performed By: #### C BCO ####[place] [address] [address] Comp. Metabolic Panelon 07-0 Albumin/Globulin Ratio 2.0 {ratio} Normal 1.1-2.5 [facility] Comment on above: Performed By: #### C MP ####[place] [address] [address] Aspartate aminotransferase (AST) 26 U/L Normal 10-40 [facility] Comment on above: Performed By: #### C MP ####[place] [address] [address] Globulin 2.2 G/dL Normal [facility] Comment on above: Performed By: #### C MP ####[place] [address] [address] T. Protein 6.6 G/dL Normal 6.0-8.3 [facility] Comment on above: Performed By: #### C MP ####[address] [address] Alanine aminotransferase (ALT) 38 U/L High 10-35 [facility] Comment on above: Performed By: #### C MP ####[address] [address] Alk. Phosphatase 81 IU/L Normal 40-135 [facility] Comment on above: Performed By: #### C MP ####[address] [address] Glucose mass conc 98 mg/dL Normal 70-105 [facility] Comment on above: Performed By: #### C MP ####[place] [address] [address] Bilirubin (direct) 0.2 mg/dL Normal 0.2-1.0 [facility] Comment on above: Performed By: #### C MP ####[address] [address] BUN/Creatinine Ratio 19 mg/mg Normal 7-27 [facility] Comment on above: Performed By: #### C MP ####[place] [id number] Calcium 9.3 mg/dL Normal 8.4-10.2 [facility] Comment on above: Performed By: #### C MP ####[place] [id number] Creatinine 0.9 mg/dL Normal 0.6-1.2 [facility] Comment on above: Performed By: #### C MP ####[address] [address] Albumin 4.4 G/dL Normal 3.5-5.0 [facility] Comment on above: Performed By: #### C MP ####[place] [id number] CO2 27 mmol/L Normal 22-29 [facility] Comment on above: Performed By: #### C MP ####[address] [address] Electrolyte Balance 9.0 mEq/L Normal [facility] Comment on above: Performed By: #### C MP ####[address] [address] Urea nitrogen 17 mg/dL Normal 7-18 [facility] Comment on above: Performed By: #### C MP ####[address] [address] Chloride 102 mmol/L Normal 98-107 [facility] Comment on above: Performed By: #### C MP ####[address] [address] Potassium molar conc 4.7 mmol/L Normal 3.5-5.1 [facility] Comment on above: Performed By: #### C MP ####[address] [address] Sodium 138 mmol/L Normal 136-146 [facility] Comment on above: Performed By: #### C MP ####[address] [address] Free T4on 12-27-2016 Thyroxine (T4) free 0.8 ng/mL Normal 0.6-1.7 [facility] Comment on above: Performed By: #### F T4 ####[address] [address] Glomerular Filtration Rate E stimateon 12-27-2016 eGFR (non-black) mL/min/{1.73_m2} Normal [facility] Comment on above: Performed By: #### G FR ####[address] [address] Result Comment: Mikymauricio kittymed mean GFR = 93 mL/min/1.73 sq.m. for ages 50-59 years. Chronic Kidney Disease: Less than 60 mL/min/1.73 square metersEnd Stage Renal Disease: Less than 15 mL/min/1.73 square meters HDL Cholesterol Profileon Cholesterol 166 mg/dL Normal 131-200 [facility] Comment on above: Result Comment: Chol esterol Reference Interval: Less than 200 Desirable 200-239 Borderline high risk 240 and above High risk ---- Performed By: #### L IPID ####[place] [address] [address] HDL Cholesterol 50 mg/dL Normal 35-90 [facility] Comment on above: Result Comment: HDL Reference Interval: Less than 40 Low - high risk 60 or above Optimal/lowers risk ---- Performed By: #### L IPID ####[place] [address] [address] LDL Cholesterol 88 mg/dL Normal 0-130 [facility] Comment on above: Result Comment: LDL is a calculated result and requires a 12- hr fast. LDL Reference Interval: Less than 100 Optimal 100-129 Near or above optimal 130-159 Borderline high risk 160-189 High risk 190 and above Very high risk ----- Performed By: #### L IPID ####[place] [address] [address] Triglyceride 138 mg/dL Normal 40-150 [facility] Comment on above: Result Comment: Trig lyceride Reference Interval: Less than 150 Normal 150-199 Borderline high risk 200-499 High risk 500 or higher Very high risk ---- Performed By: #### L IPID ####[place] [address] [address] TSHon 12-27-2016 Thyroid stimulating hormone (TSH) 1.89 mcIU/mL Normal 0.27-4.20 [facility] Comment on above: Performed By: #### T SH ####[place] [address] [address] Vital Signs Date Time Vital Sign Value Performing Clinician Facility 11-21-2024 07:45-0400 Body height 182.88 cm Mak Chesapeake [employer]DNANCE TRUCK INSTALLATION SUPERVISOR-C Work Phone: [facility] 11-21-2024 07:45-0400 Body mass index (BMI) [Ratio] 42.6 kg/m2 Mak Richard [employer]NCE TR[employer] INSTALLATION SUPERVISOR-C Work Phone: [facility] 11-21-2024 07:45-0400 Body weight 142.65 kg Mak Chesapeake [employer]DNANCE TRUCK INSTALLATION SUPERVISOR-C Work Phone: [facility] 11-21-2024 07:45-0400 Diastolic blood pressure 81 mm[Hg] Mak Richard ORDNANCE TRUCK INSTALLATION SUPERVISOR-C Work Phone: [facility] 11-21-2024 07:45-0400 Heart rate 55 /min Mak Crosspkins ORDNANCE TRUCK INSTALLATION SUPERVISOR-C Work Phone: [facility] 11-21-2024 07:45-0400 Respiratory rate 17 /min Mak Chesapeake [employer]DNANCE TRUCK INSTALLATION SUPERVISOR-C Work Phone: [facility] 11-21-2024 07:45-0400 SaO2% (BldA) [Mass fraction] 90 % Mak Richard [employer]DNANCE TRUCK INSTALLATION SUPERVISOR-C Work Phone: [facility] 11-21-2024 07:45-0400 Systolic blood pressure 166 mm[Hg] Mak Chesapeake ORDNANCE TRUCK INSTALLATION SUPERVISOR-C Work Phone: [facility] 06-02-2023 12:40-0500 Body temperature 99.19 [degF] Jeffery Gonzalez APRN.REPRESENTATIVE PHLEBOTOMY SERVICES Work Phone: [facility] 06-02-2023 12:40-0500 Body weight 132.18 kg Jeffery [facility] TIRE MOLDER.REPRESENTATIVE PHLEBOTOMY SERVICES Work Phone: [facility] 06-02-2023 12:40-0500 Diastolic blood pressure 90 mm[Hg] [facility] TIRE MOLDER.REPRESENTATIVE PHLEBOTOMY SERVICES Work Phone: [facility] 06-02-2023 12:40-0500 Heart rate 80 /min Jeffery [place] TIRE MOLDER.REPRESENTATIVE PHLEBOTOMY SERVICES Work Phone: [facility] 06-02-2023 12:40-0500 Respiratory rate 21 /min Jeffery [facility] TIRE MOLDER.REPRESENTATIVE PHLEBOTOMY SERVICES Work Phone: [facility] 06-02-2023 12:40-0500 SaO2% (BldA) [Mass fraction] 94 % [facility] TIRE MOLDER.REPRESENTATIVE PHLEBOTOMY SERVICES Work Phone: [facility] 06-02-2023 12:40-0500 Systolic blood pressure 122 mm[Hg] Jeffery [facility] TIRE MOLDER.REPRESENTATIVE PHLEBOTOMY SERVICES Work Phone: [facility] 09-27-2022 10:34-0400 Diastolic blood pressure 107 mm[Hg] [employer]CE TRUCK INSTALLATION SUPERVISOR-C Mak Ramos ORDNANCE TRUCK INSTALLATION SUPERVISOR Work Phone: [facility] 09-27-2022 10:34-0400 Heart rate 59 /min [employer] INSTALLATION SUPERVISOR-C Mak Ramos ORDNANCE TRUCK INSTALLATION SUPERVISOR Work Phone: [facility] 09-27-2022 10:34-0400 Respiratory rate 16 /min [employer] INSTALLATION SUPERVISOR-C Mak Ramos ORDNANCE TRUCK INSTALLATION SUPERVISOR Work Phone: [facility] 09-27-2022 10:34-0400 SaO2% (BldA) [Mass fraction] 96 % [employer] INSTALLATION SUPERVISOR-C Mak Ramos ORDNANCE TRUCK INSTALLATION SUPERVISOR Work Phone: [facility] 09-27-2022 10:34-0400 Systolic blood pressure 160 mm[Hg] [employer]CE TRUCK INSTALLATION SUPERVISOR-C Mak Ramos ORDNANCE TRUCK INSTALLATION SUPERVISOR Work Phone: [facility] 09-27-2022 09:05-0400 Inhaled oxygen flow rate 2 L/min [employer] INSTALLATION SUPERVISOR-C Mak Ramos ORDNANCE TRUCK INSTALLATION SUPERVISOR Work Phone: [facility] 09-27-2022 08:14-0400 Body height 182.88 cm OR[employer]NCE TRUCK INSTALLATION SUPERVISOR-C Mak Crosspkins ORDNANCE TRUCK INSTALLATION SUPERVISOR Work Phone: [facility] 09-27-2022 08:14-0400 Body mass index (BMI) [Ratio] 38 kg/m2 [employer] INSTALLATION SUPERVISOR-C Mak Richard ORDNANCE TRUCK INSTALLATION SUPERVISOR Work Phone: [facility] 09-27-2022 08:14-0400 Body temperature 97.7 [degF] OR[employer]NCE TRUCK INSTALLATION SUPERVISOR-C Mak Crosspkins ORDNANCE TRUCK INSTALLATION SUPERVISOR Work Phone: [facility] 09-27-2022 08:14-0400 Body weight 127 kg ORDNANCE TRUCK INSTALLATION SUPERVISOR-C Mak Crosspkins ORDNANCE TRUCK INSTALLATION SUPERVISOR Work Phone: [facility] Encounters Encounter Date Encounter Type Care Provider Facility Start: 03-25-2025 ambulatory Mak Ramos ORDNANCE TRUCK INSTALLATION SUPERVISOR Facility:[facility] Start: 02-23-2025 End: 02-23-2025 ambulatory MAK RAMOS TIRE MOLDER - REPRESENTATIVE PHLEBOTOMY SERVICES Facility:[facility] Start: 02-23-2025 End: 02-23-2025 Patient encounter procedure MAK RAMOS TIRE MOLDER - REPRESENTATIVE PHLEBOTOMY SERVICES [facility] Start: 01-25-2025 End: 01-25-2025 Patient encounter procedure Christine MORELOS -[facility] Work Phone: Start: 01-25-2025 End: 01-25-2025 ambulatory Mak Ramos [employer]NCE [employer] INSTALLATION SUPERVISOR-C Work Phone: -[facility] Start: 11-21-2024 End: 11-21-[address] Chalino Jones MD -[facility] Work Phone: Start: 11-21-2024 End: 11-21-2024 ambulatory Mak Ramos [employer]NCE [employer] INSTALLATION SUPERVISOR-C Work Phone: [facility] Work Phone: Start: 11-17-2024 End: 11-17-2024 Subsequent hospital visit by physician [facility] Work Phone: Radiology Comment on above: Finger pain, left [M 79.645] Start: 11-17-2024 End: 11-17-2024 ambulatory JEFFERY GONZALEZ Facility:[facility] Start: 09-01-2024 End: 09-01-2024 ambulatory MAK RAMOS TIRE MOLDER - REPRESENTATIVE PHLEBOTOMY SERVICES Facility:[facility] Start: 07-23-2024 End: 07-23-2024 ambulatory Mak Ramos [employer] TR[employer] INSTALLATION SUPERVISOR Facility:[facility] Start: 04-25-2024 End: 04-25-2024 ambulatory Vinicio Haro Facility:[facility] Start: 02-25-2024 End: 02-25-2024 ambulatory MAK RAMOS TIRE MOLDER - REPRESENTATIVE PHLEBOTOMY SERVICES Facility:[facility] Start: 02-25-2024 End: 02-25-2024 Patient encounter procedure MAK RAMOS TIRE MOLDER - REPRESENTATIVE PHLEBOTOMY SERVICES [facility] Start: 02-11-2024 End: 02-11-2024 ambulatory MAK RAMOS TIRE MOLDER - REPRESENTATIVE PHLEBOTOMY SERVICES Facility:[facility] Start: 09-10-2023 End: 09-10-2023 ambulatory MAK RAMOS TIRE MOLDER - REPRESENTATIVE PHLEBOTOMY SERVICES Facility:[facility] Start: 09-10-2023 End: 09-10-2023 Patient encounter procedure MAK RAMOS TIRE MOLDER - REPRESENTATIVE PHLEBOTOMY SERVICES [facility] Start: 08-20-2023 End: 08-20-2023 ambulatory [facility] Work Phone: Start: 08-20-2023 End: 08-20-2023 Patient encounter procedure [facility] Spec[facility] Work Phone: Start: 06-02-2023 End: 06-02-2023 Subsequent hospital visit by physician [facility] Work Phone: Radiology Comment on above: Acute cough [R05.1] Start: 06-02-2023 End: 06-02-2023 Office outpatient visit 15 minutes Jeffery Gonzalez TIRE MOLDER.REPRESENTATIVE PHLEBOTOMY SERVICES Work Phone: [facility] Comment on above: Acute cough (Primary Dx); Viral illness Start: 05-05-2023 End: 05-09-2023 ambulatory MAK RAMOS TIRE MOLDER - REPRESENTATIVE PHLEBOTOMY SERVICES Facility:[facility] Start: 05-05-2023 End: 05-09-2023 Outreach Lab MAK RAMOS TIRE MOLDER - REPRESENTATIVE PHLEBOTOMY SERVICES [facility] Start: 04-09-2023 End: 04-09-2023 ambulatory MAK RAMOS TIRE MOLDER - REPRESENTATIVE PHLEBOTOMY SERVICES Facility:[facility] Start: 04-09-2023 End: 04-09-2023 Patient encounter procedure MAK RAMOS TIRE MOLDER - REPRESENTATIVE PHLEBOTOMY SERVICES [facility] Start: 03-22-2023 End: 03-22-2023 ambulatory [facility] Work Phone: Start: 03-22-2023 End: 03-22-2023 Patient encounter procedure [facility] Work Phone: Start: 09-27-2022 End: 09-27-2022 ambulatory [employer] INSTALLATION SUPERVISOR-C Mak Ramos ORDNANCE TRUCK INSTALLATION SUPERVISOR Work Phone: [facility] Work Phone: Start: 09-27-2022 End: 09-27-2022 Patient encounter procedure [employer] INSTALLATION SUPERVISOR-C Mak Ramos ORDNANCE TRUCK INSTALLATION SUPERVISOR Work Phone: [facility], [facility] Start: 07-30-2022 End: 08-03-2022 Outreach Lab MAK RAMOS TIRE MOLDER - REPRESENTATIVE PHLEBOTOMY SERVICES [facility] Start: 06-29-2022 End: 06-29-2022 Patient encounter procedure [employer] INSTALLATION SUPERVISOR-C Mak Ramos ORDNANCE TRUCK INSTALLATION SUPERVISOR Work Phone: [facility] Start: 04-27-2022 End: 04-27-2022 Patient encounter procedure MAK RAMOS TIRE MOLDER - REPRESENTATIVE PHLEBOTOMY SERVICES [facility] Start: 03-22-2022 End: 03-22-2022 ambulatory [employer] TR[employer] INSTALLATION SUPERVISOR-C Mak Ramos ORDNANCE TRUCK INSTALLATION SUPERVISOR Work Phone: [facility] Work Phone: Start: 03-22-2022 End: 03-22-2022 Patient encounter procedure [employer]CE [employer] INSTALLATION SUPERVISOR-C Mak Ramos ORDNANCE TRUCK INSTALLATION SUPERVISOR Work Phone: [facility] Start: 01-20-2022 End: 01-20-2022 Patient encounter procedure [employer]NCE TRUCK INSTALLATION SUPERVISOR-C Mak Ramos ORDNANCE TRUCK 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 Agustin Hunt Work Phone: [facility] Start: 09-10-2021 End: 09-10-[address] Agustin Hunt Work Phone: [facility] Start: 08-31-2021 End: 08-31-[address] Agustin Hunt Work Phone: [facility] Start: 07-14-2021 End: 07-14-2021 Patient encounter procedure MAK RAMOS TIRE MOLDER - REPRESENTATIVE PHLEBOTOMY SERVICES [facility] Start: 12-27-2016 End: 12-28-2016 Ambulatory PHY WO ID REFERRING Facility:[facility] Procedures Date Procedure Procedure Detail Performing Clinician Start: 11-17-2024 Radkirk fingr minimum 2 views Jeffery Gonzalez TIRE MOLDER.REPRESENTATIVE PHLEBOTOMY SERVICES Work Phone: Start: 08-20-2023 Investigation of tra nsfusion reaction Start: 08-20-2023 Respiratory microbia l culture Start: 06-02-2023 Radiologic exam ches t 2 views Jeffery Gonzalez APRN.REPRESENTATIVE PHLEBOTOMY SERVICES Work Phone: Start: 03-22-2023 Ultrasound elastogra phy of liver Start: 09-27-2022 Biopsy/Inj or Needle Placement OR[employer]NCE TRUCK INSTALLATION SUPERVISOR-C Mak Crosspkins ORDNANCE TRUCK INSTALLATION SUPERVISOR Work Phone: Start: 03-22-2022 Ultrasonography of abdomen [employer]CE [employer] INSTALLATION SUPERVISOR-C Mak Crosspkins ORDNANCE TRUCK INSTALLATION SUPERVISOR Work Phone: Start: 03-22-2022 Ultrasound elastography [employer] INSTALLATION SUPERVISOR-C Mak Crosspkins ORDNANCE TRUCK INSTALLATION SUPERVISOR Work Phone: Start: 09-10-[address] Agustin Hunt Work Phone: Start: 09-10-[address] Agustin Hunt Work Phone: Plan of Treatment Date Care Activity Detail Author Start: 02-25-2025 Influenza vaccination Influenza Vaccine (Season Ended) [facility] Start: 02-26-2024 Covid-19 Vaccine ( season) Covid-19 Vaccine ( season) [facility] Start: 02-26-2024 Covid-19 Vaccine ( season) Covid-19 Vaccine ( season) [facility] Start: 02-26-2024 Influenza vaccination Influenza Vaccine (#1) [facility] Start: 2023 RSV Vaccine (1 - 1-dose 60+ series) RSV Vaccine (1 - 1-dose 60+ series) [facility] Start: 2023 RSV Vaccine (1 - Risk 60-74 years 1-dose series) RSV Vaccine (1 - Risk 60-74 years 1-dose series) [facility] Start: 02-25-2023 Covid-19 Vaccine ( season) Covid-19 Vaccine ( season) [facility] Start: 02-25-2023 Influenza vaccination Influenza Vaccine (#1) [facility] Start: 09-27-2022 Biopsy liver needle percutaneous NEEDLE BIOPSY OF LIVER [facility] Start: 09-27-2022 Catheterization of vein [facility] Start: 09-27-2022 Oxygen therapy [facility] Start: 09-27-2022 Patient discharge [facility] Start: 09-27-2022 Vital signs measurements [facility] Start: 06-27-2022 Depression Assessment Depression Assessment [facility] Start: 11-22-2018 Prostate Cancer Screening Discussion Prostate Cancer Screening Discussion [facility] Start: 11-22-2018 Prostate specific antigen measurement Prostate Cancer Screening Discussion [facility] Start: 06-09-2018 Diabetes Screening Diabetes Screening [facility] Start: 11-22-2013 Pneumococcal Vaccine: 50+ (1 of 1 - PCV) Pneumococcal Vaccine: 50+ (1 of 1 - PCV) [facility] Start: 11-22-2013 Shingrix Vaccine (1 of 2) Shingrix Vaccine (1 of 2) [facility] Start: 11-22-2008 Cologuard (FIT-DNA) Cologuard (FIT-DNA) [facility] Start: 11-22-2008 Colonoscopy Colonoscopy [facility] Start: 11-22-2008 Colorectal Cancer Screening Colorectal Cancer Screening [facility] Start: 11-22-[address] Colonography [facility] Start: 11-22-2008 Fecal Occult Blood Fecal Occult Blood [facility] Start: 11-22-2008 Prostate specific antigen measurement Prostate Cancer Screening Discussion [facility] Start: 11-22-2008 Screening for malignant neoplasm of colon [facility] Start: 11-22-2008 Sigmoidoscopy Sigmoidoscopy [facility] Start: 11-22-1998 Lipid 1996 panel - Serum or Plasma Lipid Screening [facility] Start: 11-22-1998 Lipid panel Lipid Screening [facility] Start: 11-22-1982 Urine microalbumin profile DTaP,Tdap,Td Vaccine (1 - Tdap) [facility] Start: 11-22-1981 Anxiety Screening Anxiety Screening [facility] Start: 11-22-1981 Depression Screening Depression Screening [facility] Start: 11-22-1981 Hepatitis C Screening Hepatitis C Screening [facility] Start: 11-22-1981 Hepatitis C screening Hepatitis C Screening [facility] Start: 11-22-1981 HIV Screening HIV Screening [facility] Start: 11-22-1981 HIV screening HIV Screening [facility] CBC W Auto Different ial panel - Blood [facility] Comprehensive metabo lic 2000 panel - Serum or Plasma [facility] Gamma glutamyl trans ferase measurement [facility] Hemoglobin A1c/Hemoglobin.total in Blood [facility] Liver stiffness by US.transient elastography [facility] Patient Education RAD RN Biopsy Liver Dc RAD RN Procedural Sedation [facility] Work Phone: Patient referral [facility] Work Phone: Prothrombin time [facility] Serum immunofixation [facility] Immunizations Immunization Date Immunization Notes Care Provider Fa cility 10-22-2020 SARS-CoV-2 (COVID-19 ) mRNA-1273 vaccine MKA CROSSPKINS TIRE MOLDER - REPRESENTATIVE PHLEBOTOMY SERVICES [facility] Comment on above: Result Comment: 2020: [id number] 09-24-2020 SARS-CoV-2 (COVID-19 ) mRNA-1273 vaccine MAK CROSSPKINS TIRE MOLDER - REPRESENTATIVE PHLEBOTOMY SERVICES [facility] Payers Date Payer Category Payer Private Health Insurance [id number] 2024 Self-pay [id number] 1999 [facility] [id number] 1999 Unknown [facility]LY [facility] [id number] 1999-Present [phone] [address] [place] [address] PPO [id number] 1999 Unknown [id number] 1963 Unknown [id number] [id number] 1963 Unknown [id number]. [id number] 1963 Unknown [id number]. 2.62 1963 Unknown [id number]. 2.62 1963 Unknown [id number] [id number]. [id number] 1963 Unknown [id number] [id number]. [id number] 1963 Unknown [id number] [id number]. 2.627 Unknown [id number]. [id number] Unknown [id number]. 2.462 Unknown [id number]. 2.462 Unknown [id number]. [id number] Unknown [id number]. [id number] Social History Date Type Detail Facility Start: 02-23-2019 End: 09-10-2024 Never smoked tobacco (finding) [facility] Comment on above: No smoke exposure Start: 1965 Sex Assigned At Male A [facility] Start: 08-31-2021 End: 04-12-2023 Tobacco smoking status MSIS Unknown if ever smoked [facility] Start: 06-02-2023 End: 11-17-2024 Alcohol intake Not Asked [facility] Start: 06-02-2023 End: 11-17-2024 History of Social function [facility] Start: 06-02-2023 End: 11-17-2024 Tobacco use panel [facility] Start: 1965 Sex Assigned At Not on file [facility] Sexual Orientation [facility] Start: 12-20-2018 Sex Male (finding) [facility] Medical Equipment Procedure Code Equipment Code Equipment Origin al Text Equipment Identifier Dates Patch Ventralex St Sepra Large [employer] Strap 3.2in Umbilical Hernia - [id number] Start: 07-18-2015 Functional Status Date Assessment Result Facility 01-13-2015 Are you deaf, or do you have serious difficulty hearing No 01/13/2015 4:18 PM Jannette Bills LPN No [facility] 01-13-2015 Are you blind, or do you have serious difficulty seeing, even when wearing glasses No 01/13/2015 4:18 PM Jannette Bills LPN No [facility] 01-13-2015 Do you have serious difficulty walking or climbing stairs No 01/13/2015 4:18 PM Jannette Bills LPN No [facility] 01-13-2015 Do you have difficul ty dressing or bathing No 01/13/2015 4:18 PM Jannette Bills LPN No [facility] 01-13-2015 Because of a physica l, mental, or emotional condition, do you have difficulty doing errands alone such as visiting a physician's office or shopping No 01/13/2015 4:18 PM EDJannette Alves LPN No [facility] Mental Status Date Assessment Result Facility 09-27-2022 Cognitive function Awake;Alert;A ppropriat e [facility] Work Phone: 01-13-2015 Because of a physica l, mental, or emotional condition, do you have serious difficulty concentrating, remembering, or making decisions No 01/13/2015 4:18 PM EDT Jannette Dunbar LPN No [facility] Clinical Notes 06-02-2023 to 01-25-2025 Note Date & Type Note Facility 01-25-2025 Progress note [facility] [facility] Evaluation note Diagnosis Onset Date Resolution 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 FALL SCREENING: Has the patient had 2 falls in the last year or 1 fall with injury or currently using an Ambulatory Assistive Device (Walker, Cane, Wheelchair, Crutches, etc.)? No PATIENT GENDER DATA: Assigned male at PATIENT RELEVANT IMPLANT DATA REVIEWED: Not Applicable PATIENT PRESENTS WITH AN IMPLANTABLE OR ATTACHED GROCERY STORE BAGGER: No RADIOLOGY DEPARTMENT: General X-ray: Exam(s) Completed: Upper Extremity X- Ray(s): Fingers/Thumb, left PERIPHERAL IV DATA: Not applicable SIGNED BY: RT Brock(Lynda) November 17, 2024 11:21 AM [facility] NoteHNO ID: [id number] Author: ANGELO ROMERO RT(R) Service: ? Author Type: Technologist Type: [...] PATIENT PRESENTS WITH AN IMPLANTABLE OR ATTACHED GROCERY STORE BAGGER: No RADIOLOGY DEPARTMENT: General X-ray: Exam(s) Completed: Upper Extremity X-Ray(s): Fingers/Thumb, left PERIPHERAL IV DATA: Not applicable SIGNED BY: RT Brock(R) November 17, 2024 11:21 [facility]05-24-2025 NoteHNO ID: [id number] Author: JEFFERY GONZALEZ APRN.REPRESENTATIVE PHLEBOTOMY SERVICES Service: ? Author Type: Nurse Practitioner Type: [...] in a few days. 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 OTC medications none. [...] of care. This note was generated using D (more content not included)...[facility]12-07-2023 History of Present illness Narrative* Jeffery Gonzalez APRN.[facility] - 06/02/2023 12:42 PM EST Subjective HPI Nontoxic-appearing male presents to urgent care chief plaint fatigue. Duration of symptoms 1 week. Associated symptoms fever body aches chills fatigue headache nasal congestion. Does have some cough.Fever has been absent for the last few days. Has noticed persistent fatigue and body aches. No known sick contacts. No OTC medication use today. Presents today for evaluation. Denies any fever chills productive cough chest pain shortness of breath pleuritic pain hemoptysis nausea vomiting abdominalpain change in bowel or bladder habits. Past [...] 3 days symptoms or not improving and todiscuss chest x-ray findings. Patient was educated on supportive therapies. Patient was instructed to immediately proceed to emergency room for any new, worsening, or symptoms lasting longer than anticipated. The patient's clinical presentation is otherwise unremarkable at this time. Based on exam and clinical finding, the patient is stable for discharge. Plan of care was discussed with patient. P atient verbalizes understanding and agrees to plan of care. This note was generated using edjing software. It may contain errors in wording, punctuation, or spelling. Jeffery Gonzalez APRN.REPRESENTATIVE PHLEBOTOMY SERVICES documented in this encounterTr[facility] + Plan note Future Appointments Appointment Date:10/01/2021 04:00:00 PM Scheduled Provider:MAK RAMOS APRN, CNP Location:[facility] Appointment Type:PC OV Follow Up Diagnostic Tests Pending * Stool Culture 07/14/21 * Shiga Toxins 1 and 2 07/14/21 Future Scheduled Tests Laboratory* Giardia Antigen 05/18/21 * Clostridium difficile PCR 05/18/21 * Thyroid Stimulating Hormone 10/02/21 * Free T4 10/02/21 * Stool Culture 05/18/21 * Complete Blood Count 10/02/21 * Lipid Profile 10/02/21 * Complete Metabolic Panel 10/02/21 [facility] Evaluation + Plan note Future Appointments Appointment Date:11/10/2021 03:40:00 PM Scheduled Provider:MAK RAMOS APRN, CNP Location:[facility] Appointment Type:PC OV Follow Up Future Scheduled Tests Laboratory* Giardia Antigen 05/18/21 * Stool Culture 05/18/21 * Clostridium difficile PCR 05/18/21 [facility] Evaluation + Plan note Future Appointments Appointment Date:05/13/2022 04:00:00 PM Scheduled Provider:MAK RAMOS APRN, CNP Location:[facility] Appointment Type:PC OV Follow Up Future Scheduled Tests Laboratory* Giardia Antigen 05/18/21 * Stool Culture 05/18/21 * Clostridium difficile PCR 05/18/21 * Microalbumin Level Urine 05/13/22 [facility] Evaluation + Plan note Future Appointments Appointment Date:11/12/2022 04:00:00 PM Scheduled Provider:MAK RAMOS APRN, CNP Location:[facility] Appointment Type:PC OV Follow Up Future Scheduled Tests Laboratory* Prostate Specific Antigen 11/10/22 * Thyroid Stimulating Hormone 11/10/22 * Free T4 11/10/22 * Lipid Profile 11/10/22 * Microalbumin Level Urine 05/13/22 * Microalbumin Level Urine 11/10/22 * Complete Metabolic Panel 11/10/22 [facility] Evaluation + Plan note Future Appointments Appointment Date:05/05/2023 07:00:00 AM Scheduled Provider:MAK RAMOS APRN, CNP Location:[facility] Appointment Type:PC OV Follow Up Future Scheduled Tests Laboratory* Albumin/Creatinine Ratio, Random Urine 05/15/23 * Microalbumin Level Urine 05/13/22 [facility] Evaluation + Plan note Future Appointments Appointment Date:05/31/2023 07:20:00 AM Scheduled Provider:MAK RAMOS APRN, CNP Location:[facility] Appointment Type:PC OV Future Scheduled Tests Laboratory* Prostate Specific Antigen 11/03/23 * Thyroid Stimulating Hormone 11/03/23 * Free T4 11/03/23 * Lipid Profile 11/03/23 * Albumin/Creatinine Ratio, Random Urine 11/03/23 * Complete Metabolic Panel 11/03/23 [facility] Evaluation + Plan note Future Appointments Appointment Date:09/26/2023 07:00:00 AM Scheduled Provider:MAK RAMOS APRN, CNP Location:[facility] Appointment Type:PC OV Follow Up Diagnostic Tests Pending * Albumin/Creatinine Ratio, Random Urine 09/10/23 Future Scheduled Tests Laboratory* Lipid Profile 11/30/23 * Albumin/Creatinine Ratio, Random Urine 11/30/23 * Complete Metabolic Panel 11/30/23 [facility] Evaluation + Plan note Future Appointments Appointment Date:03/12/2024 07:20:00 AM Scheduled Provider:MAK RAMOS APRN, CNP Location:[facility] Appointment Type:PC OV Future Scheduled Tests Laboratory* Albumin/Creatinine Ratio, Random Urine 11/30/23 * Albumin/Creatinine Ratio, Random Urine 03/27/24 * Complete Metabolic Panel 11/30/23 [facility] Evaluation + Plan note Future Appointments Appointment Date:03/11/2025 07:00:00 AM Scheduled Provider:MAK RAMOS APRN, CNP Location:[facility] Appointment Type:PC OV Future Scheduled Tests Laboratory* Albumin/Creatinine Ratio, Random Urine 09/09/24 * Albumin/Creatinine Ratio, Random Urine 03/27/24 * Albumin/Creatinine Ratio, Random Urine 03/13/25 [facility] Evaluation note* Diagnosis Onset Date Resolution Status Diarrhea acute Fatty liver acute [facility] Work Phone: Evaluation note* Diagnosis Onset Date Resolution Status Diarrhea chronic Fatty liver chronic Primary biliary cholangitis chronic [facility] Work Phone: Evaluation noteNo assessment information available [facility] Work Phone: evaluation note* Diagnosis Acute cough- Primary Viral illness Unspecified viral infection, in conditions classified elsewhere and of unspecified site documented [facility]* Diagnosis Acute cough documented in this encounter [facility]* Diagnosis Finger pain, left Pain in limb documented in this encounter [facility]* Diagnosis Onset Date Resolution Status Admit Date Metabolic dysfunction-associ ated steatohepatitis (MASH) acute November 21, 2024 7:43am 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, 2024 7 :43am NAFLD (nonalcoholic fatty li mike disease) chronic November 21, 2024 7 :43am [facility] Work Phone: Hospital course Narrative No data available for this section [facility] Discharge instructions No data available for this section [facility] Progress note No data available for this section [facility] Progress note Author Christine Longo [facility] Note Date/Time January 25, 2025 8:0 2am [facility] [place] [facility] [address] [place] [address] OFFICE VISIT Date of Service: 01/25/25 MR#: [id number] Acct: [id number] Name: SEE SHERIFF Rep #: [id number] : 1965 Provider: JETHRO Kay Age/Sex: 59/M Location: [facility] Status: Signed Intake Vital Signs 11/21/24 07:45 Height 6 ft Weight: 314 lb 8 oz BMI 42.6 BP 166/81 H Blood Pressure Location Rt brachial Position Sitting Respiration 17 Pulse 55 L Pulse Source Monitor Pulse Oximetry (%) 90 Oxygen Delivery Method room air Intake Visit Reasons: GI ISSUES PRESSURE RECTUM WHEN BENDING OVER/SITTIN Chief Complaint: rectum pressure Allergies No Known Allergies Allergy (Verified 07/23/24 07:30) Medications ?Medication ?Instructions ?Recorded ?Confirmed ?Type diltiazem HCl 240 mg 240 mg PO DAILY 08/24/1407/21 History capsule,extended release 24 hr (Cartia XT) levothyroxine 25 mcg tablet 25 mcg PO DAILY 08/24/14 0 01/25/25 History valsartan 320 mg tablet 320 mg PO DAILY 09/27/2207/21 History Held on 11/21/24. Instructions: Duplicate Order fenofibrate nanocrystallized 48 mg 48 mg PO QHS 1 lia h #30 tabs 11/21/24 01/25/25 Rx tablet (Tricor) vitamin E succinate 268 mg (400 268 mg PO BID #60 tabs 11/21/24 01/25/25 Rx unit) tablet Diltiazem 10mg/Lidocaine 50mg 1 supp RI DAILY PRN hemo rrhoids 01/25/25 01/25/25 Rx Suppository 30 supp suppository #30 supp escitalopram oxalate 10 mg tablet 10 mg PO QDAY 01/25/25 History metoprolol succinate 25 mg 25 mg PO QDAY 01/25/2507/21 History tablet,extended release 24 hr omeprazole 40 mg capsule,delayed 40 mg PO QDAY 5 01/25/25 History release triamterene 37.5 1 cap PO QDAY 01/25/2501/25 History mg-hydrochlorothiazide 25 mg capsule Nurse's Note: OV 01/25/25 Pt here to f/u in out office with complaints of pressure in his rectum and incontinence of bm. Reports his bms are loose and occasionally sees blood when he wipes. Prior hx of colonoscopy in 2022. No prior hx of EGD. [facility] Medical History Hypothyroidism Hypertension Diarrhea Social History Smoking Status: Never smoker HPI HPI Chief Complaint: rectum pressure Details: SEE SHERIFF, is a 59 M who presents to the office today for follow-up Pt established with clinic in 2021 for liver disease. Patient has been seeing Dr. Aviles regarding this. OV 8.1.25 Pt presenting to office today for issues with rectal pressure over thepast few months. Patient has rectal pressure when sitting and bending over. Heendorses a history of hemorrhoids in the past. He has occasional smears of blood when wiping. Patient has urgency and will often have to take a break fromworking to have a bowel movement. He denies any recent changes in his bowel habits. He has 1 formed bowel movement per day. His last colonoscopy was in [address] Biggs. He has had polyps. Recommendation was to repeat in 5 years. He denies history of colon cancer in his family. He denies abdominal pain, fever, and unintentional weight loss. ROS Const Constitutional: No fatigue, fever(s) or weight change ENT ENT: No difficulty swallowing Gastro GI: No abdominal pain, belching, bloating, change in bowel habits, change in stool character, coffee ground emesis, constipation, cramping, diarrhea, heartburn, difficulty swallowing, feeling full early, excessive flatus, incontinent of stools, Vomiting blood/hematemesis, Blood in stool, loose stools,Black,tarry stools, nausea/dyspepsia, pain with swallowing, vomiting or other Musc Musculoskeletal: No joint pain Skin Skin: No yellowing of the eye or itchy eyes Psych Psychiatric: No anxiety and No depression Endo Endocrine: No fatigue or weight change Aller/Imm Allergy/Immunologic: No itchy eyes Anibal/Lymp Hematologic/Lymphatic: No easy bleeding or easy bruising Exam Const General: cooperative, healthy appearing and comfortable Orientation: alert HENMT Head: normal to inspection Eyes General: appearance normal, both eyes and all related structures Neck Neck: normal visual inspection Chest Chest palpation & inspection: normal inspection of the chest Resp Effort & Inspection: normal respiratory effort Cardio Rate: regular rate Rhythm: regular rhythm GI Inspection: distended and obesity Auscultation: normal bowel sounds Palpation: firm and nontender Assessment and Plan Assessment and Plan (1) Rectal pressure: Status: Acute Plan: See is a 59-year-old male patient who established with the clinic in 2021 forhis liver disease and has been seeing Dr. Jones. Patient endorsing rectal fullness and pressure over the past few months while sitting and bending over.. This is not associated with any changes in his bowel habits. He has a history of hemorrhoids. His last colonoscopy was in [address] Biggs and he does have a history of polyps. Differential diagnosis does include hemorrhoids, rectal prolapse, enlarged prostate, and malignancy. I have low suspicion for malignant process as his last colonoscopy was just 2 years ago and there are no alarm features such as unintentional weight loss, fever, or significant blood inhis stool. I did recommend colonoscopy if symptoms continue. More likely, patient has internal hemorrhoids or prolapse. I have prescribed diltiazem and lidocaine suppositories. He will trial these for a few weeks and if symptoms persist or new ones arise he will be scheduled for colonoscopy. -Diltiazem/lidocaine suppository daily - Consider colonoscopy if symptoms persist Medications: New Diltiazem 10mg/Lidocaine 50mg Suppository diltiazem HCl (bulk) powder 300 mg; lidocaine (bulk) powder 1500 mg; Per 30 supp 1 supp RI DAILY PRN 30 supp 2RF hemorrhoids Coding Level of Care Code Off vis,est,level 3 Diagnoses Rectal pressure R19.8 01/25/25 08 <Electronically signed by Christine MORELOS> Date _ Christine MORELOS Cosigner Signature: Date (if applicable) CC: ~ [place] [employer] [facility] Work Phone: Reason for referral (narrative)No reason for referral information availableBloomington Medical Services Work Phone: Reason for visit Narrative* Diagnostic Procedure Only (Urgent) - Closed Specialty Diagnoses / Procedures Referred By Contac t Referred To Contact XR IMAGING Diagnoses Finger pain, left Procedures XR DIGIT GENERAL 3V FRONTAL/LAT/OBL LEFT RADEX FINGR MINIMUM 2 VIEWS Jeffery Gonzalez APRN.REPRESENTATIVE PHLEBOTOMY SERVICES [address] [place] [address] Phone: tel: fax: [place] [phone] Referral ID Status Reason Start Date Expiration Date V isits Requested Visits Authorized [id number] Closed Auto-Generate d Referral 11/17/2024 12/17/2025 1 1 [facility] Summary Purpose Family History No Family History Records Found No data available for this section No data available for this section No data available for this section No data available for this section No Family History Records FoundNo Family History Records Found No data available for this section No Family History Records FoundNo Family History Records Found Advance Directives No Advanced Directives Records Found Advance Directive Response Recorded Date/ Time Living Will No August 24, 015 8:15pm Power of Vp Rheumatology No August 24, 2014 8:15pm Advance Directive Response Recorded Date/ Time Living Will No August 24 015 7:15pm Power of Vp Rheumatology No August 24, 2014 7:15pm Chief Complaint and Reason for Visit Chief Complaint CHRONIC DIARRHEA/IBS FATTY LIVER Reason for Visit Diarrhea Fatty liver Chief Complaint CHRONIC DIARRHEA/IBS FATTY LIVER EORDERS Reason for Visit Diarrhea Fatty liver Chief Complaint 3 MO FU FATTY LIVER Reason for Visit Diarrhea Fatty liver Primary biliary cholangitis Chief Complaint 3 MO FU PBC Reason for Visit Diarrhea Fatty liver Primary biliary cholangitis Chief Complaint CIRRHOSIS Chief Complaint Admit Date November 21, 2024 7:43a m Reason for Visit Admit Date Metabolic dysfunction-associated steatoh epatitis (MASH) November 21, 2024 7:43am Antimitochondrial antibody positive November 21, 2024 7:43am NAFLD (nonalcoholic fatty liver disease) November 21, 2024 7:43am Chief Complaint Admit Date November 21, 2024 7:43a m GI ISSUES PRESSURE RECTUM WHEN BENDING O MIKE/SITTIN [place] 1st, 2025 7:22am Reason for Visit Admit Date Antimitochondrial antibody positive November 21, 2024 7:43am Dyslipidemia November 21, 2024 7:43a m Metabolic dysfunction-associated steatoh epatitis (MASH) November 21, 2024 7:43am Rectal pressure January 25, 2025 7:2 2am Additional Source Comments (unrecognized sect ion and content) No Status Records FoundNo Status Records FoundNo Status Records FoundNo Status Records FoundNo Status Records Found INFORMATION SOURCE (unrecogn ized section and content) DATE CREATED AUTHOR 12/21/2017 [facility] DATE CREATED AUTHOR AUTHOR'S ORGANIZ ATION 02/26/2024 [facility] ([place]) DATE CREATED AUTHOR AUTHOR'S ORGANIZ ATION 2024 [facility] DATE CREATED AUTHOR AUTHOR'S ORGANIZ ATION 02/24/2025 [facility] DATE CREATED AUTHOR AUTHOR'S ORGANIZ ATION 03/28/2025 [facility] Goals (unrecognized section and content) Goals may be documented in a n alternate section Care Team (unrecognized sect ion and content) Team Status: Active Member Role Status Dates Mak Ramos Family Provider Active Mak Ramos ORDNANCE TRUCK INSTALLATION SUPERVISOR, ORDNANCE TRUCK INSTALLATION SUPERVISOR-C Primary Care Provider Active Team Status: Inactive Member Role Status Dates Mak Ramos ORDNANCE TRUCK INSTALLATION SUPERVISOR, ORDNANCE TRUCK INSTALLATION SUPERVISOR-C Primary Care Provider, Referring Provider Active Dr. Agustin Hunt DO Attending Provider Active Team Status: Inactive Member Role Status Dates Mak Ramos ORDNANCE TRUCK INSTALLATION SUPERVISOR, ORDNANCE TRUCK INSTALLATION SUPERVISOR-C Primary Care Provider Active Dr. Agustin Hunt DO Attending Provider, Referring Provider Active Psychologist Military Personnel Relationship Specialty Start Date End Date Mak Ramos CNP [address] [place] [address] [id number] PCP - General Family Medicine 12/11/14 Team Status: Inactive Member Role Status Dates Mak Ramos ORDNANCE TRUCK INSTALLATION SUPERVISOR, ORDNANCE TRUCK INSTALLATION SUPERVISOR-C Primary Care Provider Active Dr. Vinicio Haro MD Attending Provider, Refertrinity health g Provider Active Psychologist Military Personnel Relationship Specialty Start Date End Date Mak Ramos CNP [address] [place] [address] [id number] PCP - General Family Medicine 12/11/14 Psychologist Military Personnel Relationship Specialty Start Date End Date Mak Ramos CNP [address] [place] [id number] PCP - General Family Medicine 12/11/14 Team Status: Inactive Member Role Status Dates Mak Ramos ORDNANCE TRUCK INSTALLATION SUPERVISOR, ORDNANCE TRUCK INSTALLATION SUPERVISOR-C Primary Care Provider Active Start: November 21, 2024 End: November 21, 2024 Mak Ramos ORDNANCE TRUCK INSTALLATION SUPERVISOR, ORDNANCE TRUCK INSTALLATION SUPERVISOR-C Referring Provider Ac tive Start: November 21, 2024 End: November 21, 2024 Dr. Chalino Jones MD Attending Provider Active Start: November 21, 2024 End: November 21, 2024 Team Status: Active Member Role/Relationship Status Dates Mak Ramos Family Provider Active Mak Ramos ORDNANCE TRUCK INSTALLATION SUPERVISOR, ORDNANCE TRUCK INSTALLATION SUPERVISOR-C Primary Care Provider Active Team Status: Inactive Member Role/Relationship Status Dates Mak Ramos ORDNANCE TRUCK INSTALLATION SUPERVISOR, ORDNANCE TRUCK INSTALLATION SUPERVISOR-C Primary Care Provider Active Start: November 21, 2024 End: November 21, 2024 Mak Ramos ORDNANCE TRUCK INSTALLATION SUPERVISOR, ORDNANCE TRUCK INSTALLATION SUPERVISOR-C Referring Provider Ac tive Start: November 21, 2024 End: November 21, 2024 Dr. Chalino Jones MD Attending Provider Active Start: November 21, 2024 End: November 21, 2024 Team Status: Inactive Member Role/Relationship Status Dates Mak Ramos ORDNANCE TRUCK INSTALLATION SUPERVISOR, ORDNANCE TRUCK INSTALLATION SUPERVISOR-C Primary Care Provider Active Start: January 25, 2025 End: January 25, 2025 Mak Ramos ORDNANCE TRUCK INSTALLATION SUPERVISOR, ORDNANCE TRUCK INSTALLATION SUPERVISOR-C Referring Provider Ac tive Start: January 25, 2025 End: January 25, 2025 JETHRO Kay Attending Provider Active Start: January 25, 2025 End: January 25, 2025 Care Team (unrecognized sect ion and content) Care Team Personnel Name: MAK RAMOS APRN, CNP Position: P4 Advanced Practice Nurse Member Role: Primary Care Physician Address: Address: [address] [place] [id number]- Care Team Related Persons Name: NOEMI SHERIFF Care Team Personnel Name: MAK RAMOS APRN REPRESENTATIVE PHLEBOTOMY SERVICES Position: P4 Advanced Practice Nurse Member Role: Primary Care Physician Address: Address: [address] [facility] [place] [address]- [place] Care Team Related Persons Name: NOEMI SHERIFF Source Comments (unrecognize d section and content) In the event this informatio n is protected by the Federal Confidentiality of Alcohol and Drug Abuse Patient Records regulations: The Federal rules restrict any use of the information to criminally investigate or prosecute any alcohol or drug abuse patient.[facility] the event this information is protected by the Federal Confidentiality of Alcohol and Drug Abuse Patient Records regulations: The Federal rules restrict any use of the information to criminally investigate or prosecute any alcohol or drug abuse patient.[facility] the event this information is protected by the Federal Confidentiality of Alcohol and Drug Abuse Patient Records regulations: The Federal rules restrict any use of the information to criminally investigate or prosecute any alcohol or drug abuse patient.[facility] Reason for Visit (unrecogniz ed section and content) Reason Comments Fever Body aches, weakness , CORTES x 1 week FOR RECORDS PERTAINING TO PATIENTS WHO ARE [...] BE BASED ON THE PRIMARY CLINICAL RECORDS. [facility]. provides no warranty or guarantee of the accuracy or completeness of information in this document.
--- OUTSIDE RECORDS SUMMARY | 2025-03-29 17:22 | XMS RPT_ITS | CCD ---
Author Organization [facility] Care Team Providers Care Steel Layer Name Role Phone REFERRING, CAITLYN BHAGAT Unavailable Unavailable RICHARD, MAK Unavailable Unavailable RICHARD, MAK Unavailable Unavailable RICHARD VIRTUAL RECRUITER - MAK NIEVES Primary Care Phys ician Friend, Dr. Velez Attending Provider Richard BYPRODUCTS EXTRACTOR, BYPRODUCTS EXTRACTOR-C Mak Foley Referring Provi kristie Richard BYPRODUCTS EXTRACTOR, BYPRODUCTS EXTRACTOR-C Mak Foley Primary Care Pr ovider Richard BYPRODUCTS EXTRACTOR, BYPRODUCTS EXTRACTOR-C Mak Foley Referring Provi kristie FriendDr. Velez Attending Provider Richard BYPRODUCTS EXTRACTOR, BYPRODUCTS EXTRACTOR-C Mak Foley Primary Care Pr ovider Richard BYPRODUCTS EXTRACTOR, BYPRODUCTS EXTRACTOR-C Mak Foley Referring Provi kristie FriendDr. Velez Attending Provider Mak Ramos CNP Primary Care Provider [phone] RICHARD ARNOLDN - MAK NIEVES Attending U navailable RICHARD VIRTUAL RECRUITER - RAILWAY HEAD TENDER, MAK Neville Primary Care U navailable RICHARD VIRTUAL RECRUITER - RAILWAY HEAD TENDER, MAK Neville Attending U navailable RICHARD VIRTUAL RECRUITER - RAILWAY HEAD TENDER, MAK Neville Primary Care U navailable RICHARD VIRTUAL RECRUITER - RAILWAY HEAD TENDER, AMK Neville Attending U navailable RICHARD VIRTUAL RECRUITER - RAILWAY HEAD TENDER, MAK Neville Primary Care U navailable RICHARD VIRTUAL RECRUITER - RAILWAY HEAD TENDER, MAK Nev[place] Attending U navailable RICHARD VIRTUAL RECRUITER - RAILWAY HEAD TENDER, MAK Neville Primary Care U navailable RICHARD VIRTUAL RECRUITER - RAILWAY HEAD TENDER, MAK Neville Attending U navailable RICHARD VIRTUAL RECRUITER - RAILWAY HEAD TENDER, MAK Neville Primary Care U navailable [place] LIZBETH, Mak Neville Primary Care Provider Richard BYPRODUCTS EXTRACTOR-C, Mak Foley Primary Care Provi kristie Richard BYPRODUCTS EXTRACTOR-C, Mak Foley Referring Provider Robert VÁZQUEZ, Dr. Allred Attending Provider JEFFERY GONZALEZ Referring Unavailable MAK RAMOS Primary Care Unavailable JEFFERY GONZALEZ Attending Unavailable MAK RAMOS Primary Care Unavailable Christine Sanchez Attending Provider RICHARD VIRTUAL RECRUITER - LIZBETH, MAK Neville Attending U navailable RICHARD VIRTUAL RECRUITER - RAILWAY HEAD TENDER, MAK Nev[place] Primary Care U navailable RICHARD VIRTUAL RECRUITER - RAILWAY HEAD TENDER, MAK [place] Attending U navailable RICHARD VIRTUAL RECRUITER - RAILWAY HEAD TENDER, MAK Neville Primary Care U navailable Richard BYPRODUCTS EXTRACTOR, Mak Foley Referring Unav ailable Chalino Jones Attending Unavailable Richard BYPRODUCTS EXTRACTOR, Mak Foley Primary Care Unav ailable SibVinicio steinberg V Attending Unavailable SibVinicio steinberg V Referring Unavailable Richard BYPRODUCTS EXTRACTOR, Mak Foley Primary Care Unav ailable [place] BYPRODUCTS EXTRACTOR, Mak Foley Primary Care Unav ailable Chalino Jones Attending Unavailable Chalino Jones Referring Unavailable Chalino Jones Attending Unavailable Richard BYPRODUCTS EXTRACTOR, Mak Foley Primary Care Unav ailable Richard BYPRODUCTS EXTRACTOR, Mak Foley Referring Unav ailable Christine Longo Attending Unavailable Richard BYPRODUCTS EXTRACTOR, Mak Foley Primary Care Unav ailable Richard BYPRODUCTS EXTRACTOR, Mak Foley Referring Unav ailable Medications Current [...] PRN, # 1 EA, 5 Refill(s), Pharmacy: [facility], 181, cm, 05/31/23 7:03:00 EST, Height, kg, 05/31/23 7:03:00 EST, Dosing Weight Start Date: 05/31/23 Stop Date: 11/27/23 Status: Ordered Start: 05-13-2022 End: 12-09-2022 take 1 dose by inhalation every four hours as needed Albuterol (Eqv-ProAir HFA) 90 mcg/inh inhalation aerosol Dose = 1 puff(s), Inhalation, q4h, PRN, # 1 EA, 6 Refill(s), Pharmacy: [facility], 182.5, cm, 05/13/22 16:03:00 EST, Height, kg, 05/13/22 16:03:00 EST, Dosing Weight Start Date: 05/13/22 Stop Date: 12/09/22 Status: Ordered Start: 04-03-2021 End: 10-30-2021 take 1 dose by inhalation every four hours as needed Albuterol (Eqv-ProAir HFA) 90 mcg/inh inhalation aerosol Dose = 1 puff(s), Inhalation, q4h, PRN, # 1 EA, 6 Refill(s), Pharmacy: [facility], 182.5, cm, 04/03/21 16:07:00 EDT, [...] cap(s), 0 Refill(s), 08/06/22 11:42:00 EST, Pharmacy: [facility], Cellulitis of left leg, 182.5, cm, 07/30/22 11:11:00 EST, Height, 132.2 Start Date: 07/30/22 Stop Date: 08/06/22 Status: Ordered Clobetasol (9 sources) Corticosteroid Start: 03-19-2024 Clobetasol (Eqv-Temovate) 0.05% topical cream See Instructions, APPLY TO AFFECTED AREA TWICE A DAY, # 30 gram(s), 5 Refill(s), Pharmacy: [id number], 180, cm, 03/12/24 7:11:00 EDT, Height, kg, 03/12/24 7:11:00 EDT, Dosing Weight Start Date: 03/19/24 Status: Ordered Medication Dispense Status: Completed Quantity: 30.0 Unit: g Total Allowed Fills: 6 Fills Dispensed: 0 Start: 11-18-2023 Clobetasol (Eq v-Temovate) 0.05% topical cream See Instructions, APPLY TO AFFECTED AREA TWICE A DAY, # 30 gram(s), 1 Refill(s), Pharmacy: [id number], 181, cm, 09/26/23 7:02:00 EDT, Height, kg, 09/26/23 7:02:00 EDT, Dosing Weight Start Date: 11/18/23 Status: Ordered Start: 11-12-2022 Clobetasol (Eq v-Temovate) 0.05% topical cream See Instructions, APPLY TO AFFECTED AREA TWICE A DAY, # 30 gram(s), 6 Refill(s), Pharmacy: [id number], 182.5, cm, 11/12/22 15:21:00 EDT, Height, kg, 11/12/22 15:21:00 EDT, Dosing Weight Start Date: 11/12/22 Status: Ordered Start: 05-13-2022 Clobetasol (Eq v-Temovate) 0.05% topical cream See Instructions, APPLY TO AFFECTED AREA TWICE A DAY, # 30 gram(s), 6 Refill(s), Pharmacy: [facility], 182.5, cm, 05/13/22 16:03:00 EST, Height, kg, 05/13/22 16:03:00 EST, Dosing Weight Start Date: 05/13/22 Status: Ordered Start: 06-01-2021 Clobetasol (Eq v-Temovate) 0.05% topical cream See Instructions, APPLY TO AFFECTED AREA TWICE A DAY, # 30 gram(s), 6 Refill(s), Pharmacy: [facility] [facility] [id number], 182.5, cm, 05/11/21 15:59:00 EST, Height, kg, [...] qDay, # 30 cap(s), 5 Refill(s), Pharmacy: [facility], 180, cm, 09/10/24 6:55:00 EDT, [...] 5 Refill(s), 03/24/24 7:21:00 AM EDT, Pharmacy: [facility], 181, cm, 09/26/23 7:02:00 EDT, Height, kg, 09/26/23 7:02:00 EDT, Dosing Weight Start Date: 09/26/23 Stop Date: 03/24/24 Status: Ordered Start: 05-31-2023 End: 11-27-2023 DilTIAZem (Eqv-Cardizem CD) 240 mg/24 hours oral capsule, extended release Dose : 240 mg = 1 cap(s), Oral, qDay, X 90 day(s), # 90 cap(s), 1 Refill(s), 11/27/23 7:15:00 AM EDT, Pharmacy: [facility], 181, cm, 05/31/23 7:03:00 EST, Height, kg, 05/31/23 7:03:00 EST, Dosing Weight Start Date: 05/31/23 Stop Date: 11/27/23 Status: Ordered Start: 05-05-2023 End: 11-01-2023 DilTIAZem (Eqv-Cardizem CD) 240 mg/24 hours oral capsule, extended release Dose : 240 mg = 1 cap(s), Oral, qDay, X 90 day(s), # 90 cap(s), 1 Refill(s), 11/01/23 7:38:00 AM EDT, Pharmacy: [facility], 181, cm, 05/05/23 6:55:00 EST, Height, kg, 05/05/23 6:55:00 EST, Dosing Weight Start Date: 05/05/23 Stop Date: 11/01/23 Status: Ordered Start: 11-12-2022 End: 05-11-2023 DilTIAZem (Eqv-Cardizem CD) 240 mg/24 hours oral capsule, extended release Dose : 240 mg = 1 cap(s), Oral, qDay, X 90 day(s), # 90 cap(s), 1 Refill(s), 05/11/23 3:44:00 PM EST, Pharmacy: [facility], 182.5, cm, 11/12/22 15:21:00 EDT, Height, kg, 11/12/22 15:21:00 EDT, Dosing Weight Start Date: 11/12/22 Stop Date: 05/11/23 Status: Ordered Start: 07-30-2022 End: 01-26-2023 DilTIAZem (Eqv-Cardizem CD) 240 mg/24 hours oral capsule, extended release Dose : 240 mg = 1 cap(s), Oral, qDay, X 90 day(s), # 90 cap(s), 1 Refill(s), 01/26/23 11:51:00 EDT, Pharmacy: [facility], 182.5, cm, 07/30/22 11:11:00 EST, Height, kg, 07/30/22 11:11:00 EST, Dosing Weight Start Date: 07/30/22 Stop Date: 01/26/23 Status: Ordered Start: 02-15-2022 End: 08-14-2022 DilTIAZem (Eqv-Cardizem CD) 240 mg/24 hours oral capsule, extended release Dose : 240 mg = 1 cap(s), Oral, qDay, X 90 day(s), # 90 cap(s), 1 Refill(s), 08/14/22 15:15:00 EST, Pharmacy: [facility], 182.5, cm, 01/12/22 14:19:00 EDT, Height, kg, 01/12/22 14:19:00 EDT, Dosing Weight Start Date: 02/15/22 Stop Date: 08/14/22 Status: Ordered Start: 10-05-2021 End: 01-03-2022 DilTIAZem (Eqv-Cardizem CD) 240 mg/24 hours oral capsule, extended release Dose : 240 mg = 1 cap(s), Oral, qDay, X 90 day(s), # 90 cap(s), 0 Refill(s), 01/03/22 13:18:00 EDT, Pharmacy: [facility], 182.5, cm, 07/10/21 14:48:00 EST, [...] Comment on above: Take 1 tablet by [facility] two times a day for 5 [...] qDay, # 30 tab(s), 5 Refill(s), Pharmacy: [facility], 181, cm, 09/26/23 7:02:00 EDT, Height, kg, 09/26/23 7:02:00 EDT, Dosing Weight Start Date: 09/26/23 Stop Date: 03/24/24 Status: Ordered Start: 05-13-2022 End: 11-09-2022 escitalopram 10 mg oral tabl et Dose : 10 mg = 1 tab(s), Oral, qDay, # 90 tab(s), 1 Refill(s), Pharmacy: [facility], 182.5, cm, 05/13/22 16:03:00 EST, Height, kg, 05/13/22 16:03:00 EST, Dosing Weight Start Date: 05/13/22 Stop Date: 11/09/22 Status: Ordered Start: 04-03-2021 End: 05-09-2022 escitalopram 10 mg oral tabl et Dose : 10 mg = 1 tab(s), Oral, qDay, # 90 tab(s), 1 Refill(s), Pharmacy: [facility], 182.5, cm, 11/10/21 15:49:00 EDT, [...] qDay, # 90 cap(s), 1 Refill(s), Pharmacy: [facility], HTN, goal below 140/90, 182.5, cm, 11/12/22 15:21:00 EDT, Height, kg, 11/12/22 15:21:00 EDT, Dosing Weight Start Date: 11/12/22 Stop Date: 12/12/22 Status: Ordered Start: 07-30-2022 End: 10-28-2022 hydroCHLOROthiazide 12.5 mg oral capsule Dose : 12.5 mg = 1 cap(s), Oral, qDay, # 30 cap(s), 2 Refill(s), Pharmacy: [facility], HTN, goal below 140/90, 182.5, [...] qDay, # 30 cap(s), 5 Refill(s), Pharmacy: [facility], HTN, goal below 140/90, 181, [...] day(s), # 28.3 gram(s), 0 Refill(s), Pharmacy: [facility], Hemorrhoids, 182.5, cm, 07/10/21 14:48:00 EST, Height, kg, 07/10/21 14:48:00 EST, Dosing Weight Start Date: 07/10/21 Stop Date: 07/17/21 Status: Ordered levothyroxine sodium 0.025 mg oral tablet (20 sources) l-Thyroxine Start: 09-10-2024 End: 03-09-2025 levothyroxine 25 mcg (0.025 mg) oral tablet Dose : 25 mcg = 1 tab(s), Oral, qDay, # 30 tab(s), 5 Refill(s), Pharmacy: [facility], 180, cm, 09/10/24 6:55:00 EDT, Height, kg, 09/10/24 6:55:00 EDT, Dosing Weight Start Date: 09/10/24 Stop Date: 03/09/25 Status: Ordered Medication Dispense Status: Completed Quantity: 30.0 Unit: tab(s) Total Allowed Fills: 6 Fills Dispensed: 0 Start: 09-26-2023 End: 03-24-2024 levothyroxine 25 mcg (0.025 mg) oral tablet Dose : 25 mcg = 1 tab(s), Oral, qDay, # 30 tab(s), 5 Refill(s), Pharmacy: [facility], 181, cm, 09/26/23 7:02:00 EDT, Height, kg, 09/26/23 7:02:00 EDT, Dosing Weight Start Date: 09/26/23 Stop Date: 03/24/24 Status: Ordered Start: 05-05-2023 levothyroxine 25 mcg (0.025 mg) oral tablet Dose : 25 mcg = 1 tab(s), Oral, qDay, # 90 tab(s), 1 Refill(s), Pharmacy: [facility], 181, cm, 05/05/23 6:55:00 EST, Height, kg, 05/05/23 6:55:00 EST, Dosing Weight Start Date: 05/05/23 Status: Ordered Start: 11-12-2022 levothyroxine 25 mcg (0.025 mg) oral tablet Dose : 25 mcg = 1 tab(s), Oral, qDay, # 90 tab(s), 1 Refill(s), Pharmacy: [facility], 182.5, cm, 11/12/22 15:21:00 EDT, Height, kg, 11/12/22 15:21:00 EDT, Dosing Weight Start Date: 11/12/22 Status: Ordered Start: 05-13-2022 levothyroxine 25 mcg (0.025 mg) oral tablet Dose : 25 mcg = 1 tab(s), Oral, qDay, # 90 tab(s), 1 Refill(s), Pharmacy: [facility], 182.5, cm, 05/13/22 16:03:00 EST, Height, kg, 05/13/22 16:03:00 EST, Dosing Weight Start Date: 05/13/22 Status: Ordered Start: 05-22-2021 End: 12-18-2021 levothyroxine 25 mcg (0.025 mg) oral tablet Dose : 25 mcg = 1 tab(s), Oral, qDay, # 90 tab(s), 1 Refill(s), Pharmacy: [facility], 182.5, cm, 11/10/21 15:49:00 EDT, [...] qDay, # 30 tab(s), 5 Refill(s), Pharmacy: [facility], HTN, goal below 140/90, 181, [...] qDay, # 30 tab(s), 5 Refill(s), Pharmacy: [facility], HTN, goal below 140/90, 181, cm, 05/31/23 7:03:00 EST, Height, kg, 05/31/23 7:03:00 EST, Dosing Weight Start Date: 05/31/23 Status: Ordered Start: 05-05-2023 metoprolol suc cinate 25 mg oral TABLET extended release Dose : 25 mg = 1 tab(s), Oral, qDay, # 30 tab(s), 1 Refill(s), Pharmacy: [facility] [address], HTN, goal below 140/90, 181, cm, 05/05/23 6:55:00 EST, Height, kg, 05/05/23 6:55:00 EST, Dosing Weight Start Date: 05/05/23 Status: Ordered Multivitamin ORAL capsule (3 sources) Multivitamin ORA L capsule Take 1 capsule by mouth. Active Multivitamin ORA L capsule Take 1 capsule by mouth. 0 Active Comment on above: Take 1 capsule by [facility]. Multivitamin preparation (9 sources) Start: 02-23-2019 take 1 tablet by mouth once daily Multivitamin Dose = 1 tab(s), Oral, Daily, 0 Refill(s) Start Date: 02/23/19 Status: Ordered Medication Dispense Status: Completed Total Allowed Fills: 1 Fills Dispensed: 0 Start: 02-23-2019 take 1 tablet by [facility] once daily Multivitamin Dose = 1 tab(s), Oral, Daily, 0 Refill(s) Start Date: 02/23/19 Status: Ordered mupirocin 0.02 mg/mg topical ointment (1 source) RNA Synthetase Inhibitor Antibacterial Start: 07-30-2022 End: 08-13-2022 mupirocin 2% topical ointment Apply 1 mook, Topical, BID, X 7 day(s), # 15 gram(s), 1 Refill(s), Pharmacy: [facility], Ointment, 182.5, cm, 07/30/22 11:11:00 EST, Height, 132.2 Start Date: 07/30/22 Stop Date: 08/13/22 Status: Ordered omeprazole 40 mg delayed release oral capsule (12 sources) Proton Pump Inhibitor Start: 09-10-2024 End: 03-09-2025 omeprazole 40 mg oral delayed release capsule Dose : 40 mg = 1 cap(s), Oral, qDay, # 30 cap(s), 5 Refill(s), Pharmacy: [facility], 180, cm, 09/10/24 6:55:00 EDT, [...] qDay, # 30 cap(s), 5 Refill(s), Pharmacy: [facility], 181, cm, 09/26/23 7:02:00 EDT, Height, kg, 09/26/23 7:02:00 EDT, Dosing Weight Start Date: 09/26/23 Stop Date: 03/24/24 Status: Ordered Start: 05-13-2022 End: 11-09-2022 omeprazole 40 mg oral delaye d release capsule Dose : 40 mg = 1 cap(s), Oral, qDay, # 90 cap(s), 1 Refill(s), Pharmacy: [facility], 182.5, cm, 05/13/22 16:03:00 EST, Height, kg, 05/13/22 16:03:00 EST, Dosing Weight Start Date: 05/13/22 Stop Date: 11/09/22 Status: Ordered Start: 04-03-2021 End: 05-09-2022 omeprazole 40 mg oral delaye d release capsule Dose : 40 mg = 1 cap(s), Oral, qDay, # 90 cap(s), 1 Refill(s), Pharmacy: [facility], 182.5, cm, 11/10/21 15:49:00 EDT, [...] activity, # 9 tab(s), 5 Refill(s), Pharmacy: [facility], ED (erectile dysfunction), 181, cm, 05/05/23 6:55:00 EST, Height, kg, 05/05/23 6:55:00 EST, Dosing Weight Start Date: 05/05/23 Stop Date: 11/01/23 Status: Ordered Start: 05-13-2022 End: 11-09-2022 Viagra 50 mg oral tablet Dos e : 50 mg = 1 tab(s), Oral, qDay, 1 hour before sexual activity, # 9 tab(s), 5 Refill(s), Pharmacy: [facility], ED (erectile dysfunction), 182.5, cm, 05/13/22 16:03:00 EST, Height, kg, 05/13/22 16:03:00 EST, Dosing Weight Start Date: 05/13/22 Stop Date: 11/09/22 Status: Ordered Start: 11-10-2021 End: 05-09-2022 Viagra 50 mg oral tablet Dos e : 50 mg = 1 tab(s), Oral, qDay, 1 hour before sexual activity, # 9 tab(s), 5 Refill(s), Pharmacy: [facility], ED (erectile dysfunction), 182.5, cm, 11/10/21 15:49:00 EDT, Height, kg, 11/10/21 15:49:00 EDT, Dosing Weight Start Date: 11/10/21 Stop Date: 05/09/22 Status: Ordered Start: 04-03-2021 End: 09-30-2021 Viagra 50 mg oral tablet Dos e : 50 mg = 1 tab(s), Oral, qDay, 1 hour before sexual activity, # 9 tab(s), 5 Refill(s), Pharmacy: [facility], ED (erectile dysfunction), 182.5, cm, 04/03/21 16:07:00 EDT, Height, kg, 04/03/21 16:07:00 EDT, Dosing Weight Start Date: 04/03/21 Stop Date: 09/30/21 Status: Ordered valsartan 320 mg oral tablet (17 sources) Angiotensin 2 Receptor Bob Start: 09-10-2024 End: 03-09-2025 Diovan 320 mg oral tablet Dose : 320 mg = 1 tab(s), Oral, qDay, Discontinue Ramapril, # 30 tab(s), 5 Refill(s), Pharmacy: [facility], HTN, goal below 140/90, 180, [...] Ramapril, # 90 tab(s), 1 Refill(s), Pharmacy: [facility], HTN, goal below 140/90, 182.5, cm, 11/10/21 15:49:00 EDT, Height, kg, 11/10/21 15:49:00 EDT, Dosing Weight Start Date: 11/10/21 Stop Date: 05/09/22 Status: Ordered Start: 04-03-2021 End: 09-30-2021 Diovan 320 mg oral tablet Do se : 320 mg = 1 tab(s), Oral, qDay, Discontinue Ramapril, # 90 tab(s), 1 Refill(s), Pharmacy: [facility], HTN, goal below 140/90, 182.5, [...] [id number] 03-28-2025 [facility] Misc. COMMENT Normal . [facility] Comment on above: Order Comment: [id number] 9ELF TEST SERUM RF Result Comment: Test Ordered: [id number] Enhanced Liver Fibrosis (ELF) ELF(TM) Score 10.49 [...] J Hepatol. 2020 Dec;73(1):26-39. Performed at: - [address] [id number] Patient Service Technician Pst: David Murphy MD, Phone: [phone] Performed at: [facility] [address] [id number] Patient Service Technician Pst: Roshan Waggoner PhD, Phone: [phone] Performed By: #### L 3410.9992, L300.3900, L3100.3425, L100.0100, L501.6710, L506.1001, L500.4100, L501.9985, L501.5101, L500.4050 ####[facility] [id number] [place], [place], [id number] MADDIE + Protein Elect, Serumon 03-27-2025 Albumin [Mass/Vol] 3.9 g/dL Normal 2.9-4.4 [facility] Comment on above: Order Comment: Y Performed By: #### L 3410.9992, L300.3900, L3100.3425, L100.0100, L501.6710, L506.1001, L500.4100, L501.9985, L501.5101, L500.4050 ####[facility] [address] [place], [address] Albumin/Globulin [Mass ratio] 1.4 {ratio} Normal 0.7-1.7 [facility] Comment on above: Order Comment: Y Performed By: #### L 3410.9992, L300.3900, L3100.3425, L100.0100, L501.6710, L506.1001, L500.4100, L501.9985, L501.5101, L500.4050 ####[facility] [address] [place], [address](631) ULFVE-2-IHAX 0.2 g/dL Normal 0.0-0.4 [facility] Comment on above: Order Comment: Y Performed By: #### L 3410.9992, L300.3900, L3100.3425, L100.0100, L501.6710, L506.1001, L500.4100, L501.9985, L501.5101, L500.4050 ####[facility] [id number] [place], [address](005) MCDRY-9-NBMM 0.8 g/dL Normal 0.4-1.0 [facility] Comment on above: Order Comment: Y Performed By: #### L 3410.9992, L300.3900, L3100.3425, L100.0100, L501.6710, L506.1001, L500.4100, L501.9985, L501.5101, L500.4050 ####[facility] [address] [place], [address](010) BETA GLOBULIN 1.1 g/dL Normal 0.7-1.3 [facility] Comment on above: Order Comment: Y Performed By: #### L 3410.9992, L300.3900, L3100.3425, L100.0100, L501.6710, L506.1001, L500.4100, L501.9985, L501.5101, L500.4050 ####[facility] [address] [place], [address](083) GAMMA GLOBULIN 0.9 g/dL Normal 0.4-1.8 [facility] Comment on above: Order Comment: Y Performed By: #### L 3410.9992, L300.3900, L3100.3425, L100.0100, L501.6710, L506.1001, L500.4100, L501.9985, L501.5101, L500.4050 ####[facility] [address] [place], [address] Globulin (S) [Mass/Vol] 2.9 g/dL Normal 2.2-3.9 [facility] Comment on above: Order Comment: Y Performed By: #### L 3410.9992, L300.3900, L3100.3425, L100.0100, L501.6710, L506.1001, L500.4100, L501.9985, L501.5101, L500.4050 ####[facility] [address] [place], [address] MADDIE RESULT,S Comment Normal . [facility] Comment on above: Order Comment: Y Result Comment: No m onoclonality detected. Performed By: #### L 3410.9992, L300.3900, L3100.3425, L100.0100, L501.6710, L506.1001, L500.4100, L501.9985, L501.5101, L500.4050 ####[facility] [address] [place], [address] IMMUNOGLOB A QN 106 mg/dL Normal 61-437 [facility] Comment on above: Order Comment: Y Performed By: #### L 3410.9992, L300.3900, L3100.3425, L100.0100, L501.6710, L506.1001, L500.4100, L501.9985, L501.5101, L500.4050 ####[facility] [address] [place], [address] IMMUNOGLOB G QN 908 mg/dL Normal 603-1613 [facility] Comment on above: Order Comment: Y Performed By: #### L 3410.9992, L300.3900, L3100.3425, L100.0100, L501.6710, L506.1001, L500.4100, L501.9985, L501.5101, L500.4050 ####[facility] [address] [place], [place], [id number] IMMUNOGLOB M QN 37 mg/dL Normal 20-172 [facility] Comment on above: Order Comment: Y Performed By: #### L 3410.9992, L300.3900, L3100.3425, L100.0100, L501.6710, L506.1001, L500.4100, L501.9985, L501.5101, L500.4050 ####[facility] [id number] [place], [address] M-Fili Not Observed Normal Not Observed [facility] Comment on above: Order Comment: Y Performed By: #### L 3410.9992, L300.3900, L3100.3425, L100.0100, L501.6710, L506.1001, L500.4100, L501.9985, L501.5101, L500.4050 ####[facility] [address] [place], [place], [id number] NOTE: Comment Normal . [facility] Comment on above: Order Comment: Y Result Comment: Prot ein electrophoresis scan will follow via computer, mail, or clinical lab technologist delivery. Performed By: #### L 3410.9992, L300.3900, L3100.3425, L100.0100, L501.6710, L506.1001, L500.4100, L501.9985, L501.5101, L500.4050 ####[facility] [address] [place], [address] Protein [Mass/Vol] 6.8 g/dL Normal 6.0-8.5 [facility] Comment on above: Order Comment: Y Performed By: #### L 3410.9992, L300.3900, L3100.3425, L100.0100, L501.6710, L506.1001, L500.4100, L501.9985, L501.5101, L500.4050 ####[facility] [id number] [place], [address] L501.5101on 03-27-2025 GGTP 24 IU/L Normal 0-65 [facility] Comment on above: Result Comment: Perf ormed at: CB - [facility] [address] [id number] Patient Service Technician Pst: Roshan Waggoner PhD, Phone: [phone] Performed By: #### L 3410.9992, L300.3900, L3100.3425, L100.0100, L501.6710, L506.1001, L500.4100, L501.9985, L501.5101, L500.4050 ####[facility] [id number] [place], [place], [id number] ABD Limited w/ Elastographyo n 03-25-2025 ABD Limited w/ Elastography [facility] Imaging Services [address] [place], [place] [address] ABD Limited w/ Elastography MR#: [id number] Acct: [id number] Name: SEE SHERIFF Rep #: [id number] : 1965 M 59 From: Gustavo Leung MD PCP: Mak Ramos, [employer] EXTRACTOR-C Status: REG CLI Study: ABD Limited w/ Elastography Date of Exam: 02/26 03/21 Exam# [id number] Ordering Dr: Chalino Jones MD PROCEDURE: ABD [...] lesion. Metavir score F2-F3 Splenomegaly Reading Location: [id number] CC: JANE Ramos; Dr. Chalino Jones MD Assistant Golf Professional: Signed Normal [facility] CBC W/Diff, Automatedon 02-26 Absolute Lymph 1.53 X10 3/uL Normal 0.83-4.51 [facility] Comment on above: Performed By: #### L 3410.9992, L300.3900, L3100.3425, L100.0100, L501.6710, L506.1001, L500.4100, L501.9985, L501.5101, L500.4050 #### [facility] [address] [place], [address] Absolute Neut 4.3 X10 3/uL Normal 2.0-7.7 [facility] Comment on above: Performed By: #### L 3410.9992, L300.3900, L3100.3425, L100.0100, L501.6710, L506.1001, L500.4100, L501.9985, L501.5101, L500.4050 #### [facility] [address] [place], [address] Basophils/100 WBC (Bld) 0.6 % Normal 0-1 [facility] Comment on above: Performed By: #### L 3410.9992, L300.3900, L3100.3425, L100.0100, L501.6710, L506.1001, L500.4100, L501.9985, L501.5101, L500.4050 #### [facility] [address] [place], [address] Eosinophils/100 WBC (Bld) 1.8 % Normal 0-5 [facility] Comment on above: Performed By: #### L 3410.9992, L300.3900, L3100.3425, L100.0100, L501.6710, L506.1001, L500.4100, L501.9985, L501.5101, L500.4050 #### [facility] [address] [place], [address] Erythrocyte distribution width (RBC) [Ratio] 14.5 % Normal 11.6-14.6 [facility] Comment on above: Performed By: #### L 3410.9992, L300.3900, L3100.3425, L100.0100, L501.6710, L506.1001, L500.4100, L501.9985, L501.5101, L500.4050 #### [facility] [address] [place], [address] Hematocrit (Bld) [Volume fraction] 43.3 % Normal 40-54 [facility] Comment on above: Performed By: #### L 3410.9992, L300.3900, L3100.3425, L100.0100, L501.6710, L506.1001, L500.4100, L501.9985, L501.5101, L500.4050 #### [facility] [address] [place], [address] Hemoglobin (Bld) [Mass/Vol] 14.2 g/dL Normal 13.0-16.5 [facility] Comment on above: Performed By: #### L 3410.9992, L300.3900, L3100.3425, L100.0100, L501.6710, L506.1001, L500.4100, L501.9985, L501.5101, L500.4050 #### [facility] [address] [place], [address] IG% 0.900 Normal 0.0-0.9 [facility] Comment on above: Result Comment: IG% - Immature Granulocytes (promyelocytes, myelocytes and metamyelocytes) > 1% indicates that a LEFT SHIFT is Present. Performed By: #### L 3410.9992, L300.3900, L3100.3425, L100.0100, L501.6710, L506.1001, L500.4100, L501.9985, L501.5101, L500.4050 #### [facility] [address] [place], [address] Lymphocytes/100 WBC (Bld) 22.6 % Normal 19-41 [facility] Comment on above: Performed By: #### L 3410.9992, L300.3900, L3100.3425, L100.0100, L501.6710, L506.1001, L500.4100, L501.9985, L501.5101, L500.4050 #### [facility] [address] [place], [address] MCH (RBC) [Entitic mass] 28.9 pg Normal 27.0-32.0 [facility] Comment on above: Performed By: #### L 3410.9992, L300.3900, L3100.3425, L100.0100, L501.6710, L506.1001, L500.4100, L501.9985, L501.5101, L500.4050 #### [facility] [address] [place], [address] MCHC (RBC) [Mass/Vol] 32.8 g/dL Normal 32-36 [facility] Comment on above: Performed By: #### L 3410.9992, L300.3900, L3100.3425, L100.0100, L501.6710, L506.1001, L500.4100, L501.9985, L501.5101, L500.4050 #### [facility] [address] [place], [address] MCV (RBC) [Entitic vol] 88.2 fL Normal 80-94 [facility] Comment on above: Performed By: #### L 3410.9992, L300.3900, L3100.3425, L100.0100, L501.6710, L506.1001, L500.4100, L501.9985, L501.5101, L500.4050 #### [facility] [address] [place], [address] Monocytes/100 WBC (Bld) 10.8 % High 0-10 [facility] Comment on above: Performed By: #### L 3410.9992, L300.3900, L3100.3425, L100.0100, L501.6710, L506.1001, L500.4100, L501.9985, L501.5101, L500.4050 #### [facility] [address] [place], [address] Neutrophils/100 WBC (Bld) 63.3 % Normal 47-70 [facility] Comment on above: Performed By: #### L 3410.9992, L300.3900, L3100.3425, L100.0100, L501.6710, L506.1001, L500.4100, L501.9985, L501.5101, L500.4050 #### [facility] [address] [place], [address] Nucleated RBC (Bld) [#/Vol] 0 10*3/uL Normal 0-5 [facility] Comment on above: Performed By: #### L 3410.9992, L300.3900, L3100.3425, L100.0100, L501.6710, L506.1001, L500.4100, L501.9985, L501.5101, L500.4050 #### [facility] [address] [place], [address] (869) Platelet mean volume (Bld) [Entitic vol] 9.9 fL Normal 6.2-12.0 [facility] Comment on above: Performed By: #### L 3410.9992, L300.3900, L3100.3425, L100.0100, L501.6710, L506.1001, L500.4100, L501.9985, L501.5101, L500.4050 #### [facility] [address] [place], [address] (708) Platelets (Bld) [#/Vol] 204 10*3/uL Normal 150-450 [facility] Comment on above: Performed By: #### L 3410.9992, L300.3900, L3100.3425, L100.0100, L501.6710, L506.1001, L500.4100, L501.9985, L501.5101, L500.4050 #### [facility] [address] [place], [address] (368) RBC (Bld) [#/Vol] 4.91 10*6/uL Normal 4.6-6.2 [facility] Comment on above: Performed By: #### L 3410.9992, L300.3900, L3100.3425, L100.0100, L501.6710, L506.1001, L500.4100, L501.9985, L501.5101, L500.4050 #### [facility] [address] [place], [address] (765) RDW SD 46.5 fl High 35.1-43.9 [facility] Comment on above: Performed By: #### L 3410.9992, L300.3900, L3100.3425, L100.0100, L501.6710, L506.1001, L500.4100, L501.9985, L501.5101, L500.4050 #### [facility] [address] [place], [place], [id number] WBC (Bld) [#/Vol] 6.8 10*3/uL Normal 4.4-11.0 [facility] Comment on above: Performed By: #### L 3410.9992, L300.3900, L3100.3425, L100.0100, L501.6710, L506.1001, L500.4100, L501.9985, L501.5101, L500.4050 #### [facility] [address] [place], [place], [id number] CRPon 03-25-2025 C-REACTIVE PROT < 3.00 Normal 0.0-3.0 [facility] Comment on above: Performed By: #### L 3410.9992, L300.3900, L3100.3425, L100.0100, L501.6710, L506.1001, L500.4100, L501.9985, L501.5101, L500.4050 #### [facility] [address] [place], [place], [phone] Comprehensive Metabolic Prof ilon 03-25-2025 Albumin [Mass/Vol] 4.5 g/dL Normal 3.4-4.8 [facility] Comment on above: Performed By: #### L 3410.9992, L300.3900, L3100.3425, L100.0100, L501.6710, L506.1001, L500.4100, L501.9985, L501.5101, L500.4050 #### [facility] [address] [place], [place], [id number] Albumin/Globulin [Mass ratio] 1.7 {ratio} Normal 0.9-2.4 [facility] Comment on above: Performed By: #### L 3410.9992, L300.3900, L3100.3425, L100.0100, L501.6710, L506.1001, L500.4100, L501.9985, L501.5101, L500.4050 #### [facility] [address] [facility] [place], [place], [id number] ALK PHOS 71 U/L Normal 40-129 [facility] Comment on above: Performed By: #### L 3410.9992, L300.3900, L3100.3425, L100.0100, L501.6710, L506.1001, L500.4100, L501.9985, L501.5101, L500.4050 #### [facility] [address] [facility] [place], [place], [phone] ALT [Catalytic activity/Vol] 36 U/L Normal <=46 [facility] Comment on above: Performed By: #### L 3410.9992, L300.3900, L3100.3425, L100.0100, L501.6710, L506.1001, L500.4100, L501.9985, L501.5101, L500.4050 #### [facility] [address] [place], [place], [phone] AST [Catalytic activity/Vol] 25 U/L Normal <=37 [facility] Comment on above: Performed By: #### L 3410.9992, L300.3900, L3100.3425, L100.0100, L501.6710, L506.1001, L500.4100, L501.9985, L501.5101, L500.4050 #### [facility] [address] [place], [address] Bilirubin [Mass/Vol] 0.23 mg/dL Normal 0.00-1.[address] [facility] Comment on above: Performed By: #### L 3410.9992, L300.3900, L3100.3425, L100.0100, L501.6710, L506.1001, L500.4100, L501.9985, L501.5101, L500.4050 #### [facility] [address] [place], [address] BUN/CRE 17.8 RATIO Normal 10-20 [facility] Comment on above: Performed By: #### L 3410.9992, L300.3900, L3100.3425, L100.0100, L501.6710, L506.1001, L500.4100, L501.9985, L501.5101, L500.4050 #### [facility] [address] [place], [address] Calcium [Mass/Vol] 9.7 mg/dL Normal 7.6-11.0 [facility] Comment on above: Performed By: #### L 3410.9992, L300.3900, L3100.3425, L100.0100, L501.6710, L506.1001, L500.4100, L501.9985, L501.5101, L500.4050 #### [facility] [address] [place], [address] Chloride [Moles/Vol] 105 mmol/L Normal 98-[address] [facility] Comment on above: Performed By: #### L 3410.9992, L300.3900, L3100.3425, L100.0100, L501.6710, L506.1001, L500.4100, L501.9985, L501.5101, L500.4050 #### [facility] [address] [place], [address] CO2 [Moles/Vol] 24.2 mmol/L Normal 21.0-32.0 [facility] Comment on above: Performed By: #### L 3410.9992, L300.3900, L3100.3425, L100.0100, L501.6710, L506.1001, L500.4100, L501.9985, L501.5101, L500.4050 #### [facility] [address] [place], [address] Creatinine [Mass/Vol] 1.05 mg/dL Normal 0.70-1.20 [facility] Comment on above: Performed By: #### L 3410.9992, L300.3900, L3100.3425, L100.0100, L501.6710, L506.1001, L500.4100, L501.9985, L501.5101, L500.4050 #### [facility] [address] [place], [address] GAP 12 Normal 5-15 [facility] Comment on above: Performed By: #### L 3410.9992, L300.3900, L3100.3425, L100.0100, L501.6710, L506.1001, L500.4100, L501.9985, L501.5101, L500.4050 #### [facility] [address] [place], [address] GFR/1.73 sq M.predicted among non-blacks MDRD (S/P/Bld) [Vol rate/Area] 81 mL/min/{1.73_m2} Normal >60 [facility] Comment on above: Result Comment: mL/m in/1.73m2 CKD-EPI Creatinine Equation (2020) Performed By: #### L 3410.9992, L300.3900, L3100.3425, L100.0100, L501.6710, L506.1001, L500.4100, L501.9985, L501.5101, L500.4050 #### [facility] [address] [place], [address] Globulin (S) [Mass/Vol] 2.6 g/dL Normal 2.2-4.2 [facility] Comment on above: Performed By: #### L 3410.9992, L300.3900, L3100.3425, L100.0100, L501.6710, L506.1001, L500.4100, L501.9985, L501.5101, L500.4050 #### [facility] [address] [place], [address] Glucose [Mass/Vol] 101 mg/dL High 70-99 [facility] Comment on above: Performed By: #### L 3410.9992, L300.3900, L3100.3425, L100.0100, L501.6710, L506.1001, L500.4100, L501.9985, L501.5101, L500.4050 #### [facility] [address] [facility] [place], [place], [phone] Potassium [Moles/Vol] 4.4 mmol/L Normal 3.3-5.1 [facility] Comment on above: Performed By: #### L 3410.9992, L300.3900, L3100.3425, L100.0100, L501.6710, L506.1001, L500.4100, L501.9985, L501.5101, L500.4050 #### [facility] [address] [place], [address] Sodium [Moles/Vol] 141 mmol/L Normal 133-145 [facility] Comment on above: Performed By: #### L 3410.9992, L300.3900, L3100.3425, L100.0100, L501.6710, L506.1001, L500.4100, L501.9985, L501.5101, L500.4050 #### [facility] [address] [place], [address] T PROT 7.0 g/dL Normal 5.9-8.4 [facility] Comment on above: Performed By: #### L 3410.9992, L300.3900, L3100.3425, L100.0100, L501.6710, L506.1001, L500.4100, L501.9985, L501.5101, L500.4050 #### [facility] [address] [place], [address] Urea nitrogen [Mass/Vol] 19 mg/dL Normal 4-19 [facility] Comment on above: Performed By: #### L 3410.9992, L300.3900, L3100.3425, L100.0100, L501.6710, L506.1001, L500.4100, L501.9985, L501.5101, L500.4050 #### [facility] [address] [place], [address] Hemoglobin A1con 03-25-2025 HbA1c (Bld) [Mass fraction] 5.9 % High <=5.6 [facility] Comment on above: Result Comment: Norm al < 5.7 % Prediabetic 5.7 - 6.4 % Diabetic >or= 6.5 % Please note range changes. Performed By: #### L 3410.9992, L300.3900, L3100.3425, L100.0100, L501.6710, L506.1001, L500.4100, L501.9985, L501.5101, L500.4050 #### [facility] [address] [place], [address] Lipid Profileon 03-25-2025 CHOL:HDL 2.84 Normal [facility] Comment on above: Performed By: #### L 3410.9992, L300.3900, L3100.3425, L100.0100, L501.6710, L506.1001, L500.4100, L501.9985, L501.5101, L500.4050 ####[facility] [address] [place], [address](438) Cholesterol [Mass/Vol] 135 mg/dL Normal <=200 [facility] Comment on above: Result Comment: Chol esterol level, Desirable <200 mg/dL Borderline high cholesterol 200-239 mg/dL High cholesterol >=240 mg/dL Recommendations of the NCEP Adult Treatment Panel for the following risk-cutoff thresholds for the [place] population. Performed By: #### L 3410.9992, L300.3900, L3100.3425, L100.0100, L501.6710, L506.1001, L500.4100, L501.9985, L501.5101, L500.4050 ####[facility] [address] [place], [address](054) Cholesterol in HDL [Mass/Vol] 48 mg/dL Normal [facility] Comment on above: Result Comment: Lynne onal Cholesterol Education Program (NCEP) guidelines: <40 mg/dL: Low HDL-cholesterol (major risk factor for CHD) >= 60 mg/dL: High HDL-cholesterol (negative risk factor for CHD) HDL-cholesterol is affected by a number of factors, e.g. smoking, exercise, hormones, sex and age. Performed By: #### L 3410.9992, L300.3900, L3100.3425, L100.0100, L501.6710, L506.1001, L500.4100, L501.9985, L501.5101, L500.4050 ####[facility] [address] [place], [address](140) Cholesterol in LDL [Mass/Vol] 65 mg/dL Normal [facility] Comment on above: Result Comment: Bord wynazf=983-572 mg/dL Higher Txxl=172 mg/dL or greater Friedwald Equation for LDL-C Performed By: #### L 3410.9992, L300.3900, L3100.3425, L100.0100, L501.6710, L506.1001, L500.4100, L501.9985, L501.5101, L500.4050 ####[facility] [address] [place], [place], [id number] Cholesterol in VLDL [Mass/Vol] 23 mg/dL Normal 5-40 [facility] Comment on above: Performed By: #### L 3410.9992, L300.3900, L3100.3425, L100.0100, L501.6710, L506.1001, L500.4100, L501.9985, L501.5101, L500.4050 ####[facility] [address] [employer] [facility] [place], [place], [id number] Triglyceride [Mass/Vol] 114 mg/dL Normal [facility] Comment on above: Result Comment: The drugs N-Acetylcysteine and Metamizole may falsely depress this assay. Normal range: <150 mg/dL Borderline High: 150-199 mg/dL High: 200-499 mg/dL Very High: >500 mg/dL Performed By: #### L 3410.9992, L300.3900, L3100.3425, L100.0100, L501.6710, L506.1001, L500.4100, L501.9985, L501.5101, L500.4050 ####[facility] [address] [place], [place], [phone] Prothrombin Time w/INRon INR Coag (PPP) [Relative time] 1.1 {INR} Normal [facility] Comment on above: Performed By: #### L 3410.9992, L300.3900, L3100.3425, L100.0100, L501.6710, L506.1001, L500.4100, L501.9985, L501.5101, L500.4050 #### [facility] [address] [place], [place], [phone] PT Coag (PPP) [Time] 13.9 s Normal 11.7-14.[address] [facility] Comment on above: Performed By: #### L 3410.9992, L300.3900, L3100.3425, L100.0100, L501.6710, L506.1001, L500.4100, L501.9985, L501.5101, L500.4050 #### [facility] [address] [place], [place], [id number] Vitamin D,25 Hydroxyon 03-25 Vitamin D 25-OH 52.9 ng/mL Normal 30-100 [facility] Comment on above: Result Comment: Kelsea min D Status Deficiency: <20 ng/mL (50nmol/L) Insufficiency: 20-30 ng/mL (50-75 nmol/L) Sufficiency: 30-100 ng/mL (75-250 nmol/L) Toxicity: >100 ng/mL (>250 nmol/L) Performed By: #### L 3410.9992, L300.3900, L3100.3425, L100.0100, L501.6710, L506.1001, L500.4100, L501.9985, L501.5101, L500.4050 ####[facility] [address] [place], [place], [phone] .Auto Diffon 02-23-2025 Basophil, Absolute 0.0 10 3/mcL Normal 0.0-0.3 [facility] Comment on above: Performed By: #### A DIFF, CBC, CMP, GFR, ANEU, LIPID, TSH, FT4 #### [address] [address] Basophils/100 WBC (Bld) 0.8 % Normal 0.0-2.5 [facility] Comment on above: Performed By: #### A DIFF, CBC, CMP, GFR, ANEU, LIPID, TSH, FT4 #### [place] [address] [place], [place] [address] Eosinophil, Absolute 0.1 10 3/mcL Normal 0.0-0.7 [facility] Comment on above: Performed By: #### A DIFF, CBC, CMP, GFR, ANEU, LIPID, TSH, FT4 #### [address] [address] Eosinophils/100 WBC (Bld) 2.0 % Normal 0.0-6.0 [facility] Comment on above: Performed By: #### A DIFF, CBC, CMP, GFR, ANEU, LIPID, TSH, FT4 #### [address] [address] Lymphocyte, Absolute 1.6 10 3/mcL Normal 0.9-4.3 [facility] Comment on above: Performed By: #### A DIFF, CBC, CMP, GFR, ANEU, LIPID, TSH, FT4 #### [address] [address] Lymphocytes/100 WBC (Bld) 26.6 % Normal 20.0-40.0 [facility] Comment on above: Performed By: #### A DIFF, CBC, CMP, GFR, ANEU, LIPID, TSH, FT4 #### [address] [address] Monocyte, Absolute 0.8 10 3/mcL Normal 0.1-1.4 [facility] Comment on above: Performed By: #### A DIFF, CBC, CMP, GFR, ANEU, LIPID, TSH, FT4 #### [address] [address] Monocytes/100 WBC (Bld) 12.8 % Normal 2.0-13.0 [facility] Comment on above: Performed By: #### A DIFF, CBC, CMP, GFR, ANEU, LIPID, TSH, FT4 #### [address] [address] Neutrophils/100 WBC (Bld) 57.8 % Normal 50.0-75.0 [facility] Comment on above: Performed By: #### A DIFF, CBC, CMP, GFR, ANEU, LIPID, TSH, FT4 #### [address] [address] .GFRon 02-23-2025 Estimated Glomerular Filtration Rate 71 ml/min/1.73sqm Normal [facility] Comment on above: Result Comment: Stages of [...] G FR, CMP, PSA, LIPID, TSH #### [address] [address] #### FT4 #### [place] [address] .NEUABSon 02-23-2025 Neutrophil, Absolute 3.5 10 3/mcL Normal 2.3-8.1 [facility] Comment on above: Performed By: #### A DIFF, CBC, CMP, GFR, ANEU, LIPID, TSH, FT4 #### [address] [address] CBCon 02-23-2025 Erythrocyte distribution width (RBC) [Ratio] 15.7 % High 11.5-15.5 [facility] Comment on above: Performed By: #### A DIFF, CBC, CMP, GFR, ANEU, LIPID, TSH, FT4 #### [address] [address] Hematocrit (Bld) [Volume fraction] 43.2 % Normal 40.0-52.0 [facility] Comment on above: Performed By: #### A DIFF, CBC, CMP, GFR, ANEU, LIPID, TSH, FT4 #### [address] [address] Hgb 14.4 G/dL Normal 13.0-17.5 [facility] Comment on above: Performed By: #### A DIFF, CBC, CMP, GFR, ANEU, LIPID, TSH, FT4 #### [address] [address] MCH (RBC) [Entitic mass] 28.4 pg Normal 27.0-33.0 [facility] Comment on above: Performed By: #### A DIFF, CBC, CMP, GFR, ANEU, LIPID, TSH, FT4 #### [address] [address] MCHC 33.2 G/dL Normal 32.0-36.0 [facility] Comment on above: Performed By: #### A DIFF, CBC, CMP, GFR, ANEU, LIPID, TSH, FT4 #### [place] [id number] MCV (RBC) [Entitic vol] 85.5 fL Normal 81.0-100.0 [facility] Comment on above: Performed By: #### A DIFF, CBC, CMP, GFR, ANEU, LIPID, TSH, FT4 #### [address] [address] Platelet 176 10 3/mcL Normal 150-450 [facility] Comment on above: Performed By: #### A DIFF, CBC, CMP, GFR, ANEU, LIPID, TSH, FT4 #### [place] [id number] Platelet mean volume (Bld) [Entitic vol] 8.4 fL Normal 6.4-10.5 [facility] Comment on above: Performed By: #### A DIFF, CBC, CMP, GFR, ANEU, LIPID, TSH, FT4 #### [place] [id number] RBC 5.05 10 6/mcL Normal 4.50-6.00 [facility] Comment on above: Performed By: #### A DIFF, CBC, CMP, GFR, ANEU, LIPID, TSH, FT4 #### [address] [place] [address] WBC 6.1 10 3/mcL Normal 4.5-10.8 [facility] Comment on above: Performed By: #### A DIFF, CBC, CMP, GFR, ANEU, LIPID, TSH, FT4 #### [address] [address] CMPon 02-23-2025 Albumin Level 3.9 G/dL Normal 3.4-4.8 [facility] Comment on above: Performed By: #### G FR, CMP, PSA, LIPID, TSH #### [place] [address] #### FT4 #### [address] [address] Albumin/Globulin [Mass ratio] 1.2 {ratio} Normal 1.1-2.5 [facility] Comment on above: Performed By: #### G FR, CMP, PSA, LIPID, TSH #### [place] [address] #### FT4 #### [address] [address] ALP [Catalytic activity/Vol] 83 U/L Normal 40-135 [facility] Comment on above: Performed By: #### G FR, CMP, PSA, LIPID, TSH #### [place] [address] #### FT4 #### [address] [address] ALT [Catalytic activity/Vol] 40 U/L Normal 16-63 [facility] Comment on above: Performed By: #### G FR, CMP, PSA, LIPID, TSH #### [place] [address] #### FT4 #### [address] [address] AST [Catalytic activity/Vol] 22 U/L Normal 10-40 [facility] Comment on above: Performed By: #### G FR, CMP, PSA, LIPID, TSH #### [place] [address] #### FT4 #### [address] [address] Bili Total 0.4 mg/dL Normal 0.2-1.0 [facility] Comment on above: Result Comment: Use of this assay is not recommended for patients undergoing treatment with eltrombopag due to the potential for falsely elevated results. Performed By: #### G FR, CMP, PSA, LIPID, TSH #### [place] [address] #### FT4 #### [address] [address] BUN/Creatinine Ratio 22 ratio Normal 7-27 [facility] Comment on above: Performed By: #### G FR, CMP, PSA, LIPID, TSH #### [place] [address] #### FT4 #### [address] [address] Calcium [Mass/Vol] 9.2 mg/dL Normal 8.4-10.2 [facility] Comment on above: Performed By: #### G FR, CMP, PSA, LIPID, TSH #### [place] [address] #### FT4 #### [address] [address] Chloride [Moles/Vol] 102 mmol/L Normal 98-107 [facility] Comment on above: Performed By: #### G FR, CMP, PSA, LIPID, TSH #### [place] [address] #### FT4 #### [address] [address] CO2 [Moles/Vol] 32 mmol/L High 23-31 [facility] Comment on above: Performed By: #### G FR, CMP, PSA, LIPID, TSH #### [place] [address] #### FT4 #### [place] [address] Creatinine [Mass/Vol] 1.17 mg/dL Normal 0.67-1.17 [facility] Comment on above: Performed By: #### G FR, CMP, PSA, LIPID, TSH #### [place] [address] #### FT4 #### [place] [address] Electrolyte Balance 5.0 mEq/L Normal 4.0-15.0 [facility] Comment on above: Performed By: #### G FR, CMP, PSA, LIPID, TSH #### [place] [address] #### FT4 #### [place] [address] Globulin 3.2 G/dL Normal 2.7-4.4 [facility] Comment on above: Performed By: #### G FR, CMP, PSA, LIPID, TSH #### [place] [address] #### FT4 #### [place] [address] Glucose [Mass/Vol] 94 mg/dL Normal 80-115 [facility] Comment on above: Performed By: #### G FR, CMP, PSA, LIPID, TSH #### [place] [address] #### FT4 #### [place] [address] Potassium [Moles/Vol] 4.3 mmol/L Normal 3.5-5.1 [facility] Comment on above: Performed By: #### G FR, CMP, PSA, LIPID, TSH #### [place] [address] #### FT4 #### [place] [address] Sodium [Moles/Vol] 139 mmol/L Normal 136-145 [facility] Comment on above: Performed By: #### G FR, CMP, PSA, LIPID, TSH #### [address] [address] #### FT4 #### [place] [address] Total Protein 7.1 G/dL Normal 6.4-8.2 [facility] Comment on above: Performed By: #### G FR, CMP, PSA, LIPID, TSH #### [place] [address] #### FT4 #### [place] [address] Urea nitrogen [Mass/Vol] 26 mg/dL High 7-18 [facility] Comment on above: Performed By: #### G FR, CMP, PSA, LIPID, TSH #### [place] [address] #### FT4 #### [place] [address] FT4on 02-23-2025 Free T4 [Mass/Vol] 0.80 ng/dL Normal 0.76-1.46 [facility] Comment on above: Performed By: #### G FR, CMP, PSA, LIPID, TSH #### [place] [address] #### FT4 #### [place] [address] LABORATORYOrdered By: SYSTEM SYSTEM on 02-23-2025 Albumin [...] 02-23-2025 Cholesterol [Mass/Vol] 142 mg/dL Normal 0-200 [facility] Comment on above: Result Comment: Chol esterol Reference Interval: Less than 200 Desirable 200-239 Borderline high risk 240 and above High risk Performed By: #### G FR, CMP, PSA, LIPID, TSH #### [address] [address] #### FT4 #### [address] [address] Cholesterol in HDL [Mass/Vol] 42 mg/dL Normal 40-60 [facility] Comment on above: Performed By: #### G FR, CMP, PSA, LIPID, TSH #### [address] [address] #### FT4 #### [address] [address] Cholesterol in LDL [Mass/Vol] 73 mg/dL Normal 0-130 [facility] Comment on above: Performed By: #### G FR, CMP, PSA, LIPID, TSH #### [address] [address] #### FT4 #### [address] [address] Triglyceride [Mass/Vol] 135 mg/dL Normal 0-150 [facility] Comment on above: Result Comment: Trig lyceride Reference Interval: Less than 150 Normal 150-199 Borderline high risk 200-499 High risk 500 or higher Very high risk Performed By: #### G FR, CMP, PSA, LIPID, TSH #### [place] [address] [place], [place] [address] #### FT4 #### [address] [address] TSHon 02-23-2025 TSH Qn 1.78 m[IU]/L Normal 0.36-3.74 [facility] Comment on above: Performed By: #### A DIFF, CBC, CMP, GFR, ANEU, LIPID, TSH, FT4 #### [address] [address] Gastroenterology Visit Repor ton 01-25-2025 Gastroenterology Visit Report [facility] [address] [place] [address] OFFICE VISIT Date of Service: 01/25/25 MR#: [id number] Acct: [id number] Name: SEE SHERIFF Rep #: [id number] : 1965 Provider: JETHRO Kay Age/Sex: 59/M [place] [facility] Status: Signed Intake Vital Signs 11/21/24 07:45 [...] unit) tablet Diltiazem 10mg/Lidocaine 50mg 1 supp [place] DAILY PRN hemorrhoids 01/25/25 Rx Suppository 30 [...] in 2022. No prior hx of EGD. [facility] Medical History Hypothyroidism Hypertension Diarrhea Social History [...] cooperative, healthy appearing and comfortable Orientation: alert HENGA Head: normal to inspection Eyes General: appearance [...] Patient endorsin (more content not included)... Normal [facility] Gastroenterology Visit Repor ton 11-21-2024 Gastroenterology Visit Report [facility] [address] [place] [address] OFFICE VISIT Date of Service: 11/21/24 MR#: [id number] Acct: [id number] Name: SEE SHERIFF Rep #: [id number] : 1965 Provider: Dr. Chalino neville MD Age/Sex: 58/M Location[place] [facility] Status: Signed Intake Vital Signs 07/23/24 07:25 [...] BID #60 tabs 11/21/24 Rx unit) tablet [facility] Medical History Hypothyroidism Hypertension Diarrhea Social History [...] reports WNL. See has been seen in [facility] ED previously r/t severe abdominal pain [...] Ursodiol and (more content not included)... [facility] SEE SHERIFF ([id number]) 1965 M Date Time Provider Department 11/17/24 11:00 AM JEFFERY GONZALEZ [facility] During your visit today, we recorded the following information about you: Temperature Pulse Respiration Blood pressure 97.5 degrees 61/minute 20/minute 152/92 Weight 143.7 kg Jeffery Gonzalez APRN.RAILWAY HEAD TENDER 11/17/2024 1:36 PM Signed Subjective HPI Nontoxic-appearing 58-year-old male presents urgent care chief complaint left fifth digit pain swelling. Duration of symptoms 4 days. Associated symptoms. Swelling over DIP joint fifth digit left hand. States has had this happen to his right fifth digit before. This is episodic and usually goes away in a few days. 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 OTC medications [...] than an (more content not included)... Normal [facility] Pj 11-17-2024 JAMES Telephone ([facility]) SEE SHERIFF ([id number]) 1965 M Date Time Provider Department 11/17/24 JEFFERY GONZALEZ [facility] During your visit today, we recorded the [...] Status:Closed by MELISSA VERA on 11/17/24 Normal [facility] XR DIGIT 3V FRONTAL/LAT/OBL LTon 11-17-2024 XR [...] to degenerative disease or an inflammatory arthropathy. Assistant Golf Professional: RACHEL Transcribe Date/Time: Nov 17 2024 1:16P Dictated by : OREN GOMEZ MD This examination was interpreted and the report reviewed and electronically signed by: OERN GOMEZ MD on Nov 17 2024 1:19PM EST [id number] Normal [facility] XR Finger - left AP and Late ral and obliqueon 11-17-2024 IMPRESSION: No acute fracture or dislocation. Narrowing of the DIP joint with periarticular lucencies, possibly due to degenerative disease or an inflammatory arthropathy. Assistant Golf Professional: RACHEL Transcribe Date/Time: Nov 17 2024 1:16P [...] radiodense foreign body. DIVISION OF RADIOLOGY Provider, [facility] - 11/17/2024 * * *Final Report* * [...] to degenerative disease or an inflammatory arthropathy. Assistant Golf Professional: RACHEL Transcribe Date/Time: Nov 17 2024 1:16P Dictated by : OREN GOMEZ MD This examination was interpreted and the report reviewed and electronically signed by: OREN GOMEZ MD on Nov 17 2024 1:19PM EST [facility] Radiology Study observation (narrative) [facility] XR Finger - left AP and Late ral and obliqueOrdered By: Ccf Provider on 11-17-2024 [facility] FT4on 09-03-2024 Free T4 [Mass/Vol] 1.23 ng/dL Normal 0.89-1.76 [facility] Comment on above: Result Comment: No te - New Reference Range in effect 20 Performed By: #### G FR, CMP, PSA, LIPID, TSH #### [address] [address] #### FT4 #### [address] [address] .GFRon 09-01-2024 Estimated Glomerular Filtration Rate 69 ml/min/1.73sqm Normal [facility] Comment on above: Result Comment: Stages of [...] G FR, CMP, PSA, LIPID, TSH #### [place] [address] #### FT4 #### [place] [id number] CMPon 09-01-2024 Albumin Level 3.8 G/dL Normal 3.4-4.8 [facility] Comment on above: Performed By: #### G FR, CMP, PSA, LIPID, TSH #### [place] [address] #### FT4 #### [place] [address] Albumin/Globulin [Mass ratio] 1.3 {ratio} Normal 1.1-2.5 [facility] Comment on above: Performed By: #### G FR, CMP, PSA, LIPID, TSH #### [place] [id number] #### FT4 #### [address] [address] ALP [Catalytic activity/Vol] 82 U/L Normal 40-135 [facility] Comment on above: Performed By: #### G FR, CMP, PSA, LIPID, TSH #### [place] [address] #### FT4 #### [address] [address] ALT [Catalytic activity/Vol] 47 U/L Normal 16-63 [facility] Comment on above: Performed By: #### G FR, CMP, PSA, LIPID, TSH #### [place] [address] #### FT4 #### [address] [address] AST [Catalytic activity/Vol] 30 U/L Normal 10-40 [facility] Comment on above: Performed By: #### G FR, CMP, PSA, LIPID, TSH #### [place] [address] #### FT4 #### [place] [address] Bili Total 0.5 mg/dL Normal 0.2-1.0 [facility] Comment on above: Result Comment: Use of this assay is not recommended for patients undergoing treatment with eltrombopag due to the potential for falsely elevated results. Performed By: #### G FR, CMP, PSA, LIPID, TSH #### [place] [address] #### FT4 #### [place] [id number] BUN/Creatinine Ratio 16 ratio Normal 7-27 [facility] Comment on above: Performed By: #### G FR, CMP, PSA, LIPID, TSH #### [place] [address] #### FT4 #### [place] [id number] Calcium [Mass/Vol] 9.5 mg/dL Normal 8.4-10.2 [facility] Comment on above: Performed By: #### G FR, CMP, PSA, LIPID, TSH #### [place] [address] #### FT4 #### [address] [address] Chloride [Moles/Vol] 103 mmol/L Normal 98-107 [facility] Comment on above: Performed By: #### G FR, CMP, PSA, LIPID, TSH #### [place] [address] #### FT4 #### [address] [address] CO2 [Moles/Vol] 31 mmol/L Normal 23-31 [facility] Comment on above: Performed By: #### G FR, CMP, PSA, LIPID, TSH #### [place] [address] #### FT4 #### [place] [address] Creatinine [Mass/Vol] 1.21 mg/dL Normal 0.70-1.30 [facility] Comment on above: Result Comment: Test ing performed on Siemens Dimension EXL analyzer using a modified kinetic Robe technique. Performed By: #### G FR, CMP, PSA, LIPID, TSH #### [place] [address] #### FT4 #### [place] [address] Electrolyte Balance 5.0 mEq/L Normal 4.0-15.0 [facility] Comment on above: Performed By: #### G FR, CMP, PSA, LIPID, TSH #### [place] [address] #### FT4 #### [place] [address] Globulin 3.0 G/dL Normal 1.5-3.8 [facility] Comment on above: Performed By: #### G FR, CMP, PSA, LIPID, TSH #### [place] [address] #### FT4 #### [address] [address] Glucose [Mass/Vol] 90 mg/dL Normal 80-115 [facility] Comment on above: Performed By: #### G FR, CMP, PSA, LIPID, TSH #### [address] [address] #### FT4 #### [address] [address] Potassium [Moles/Vol] 5.0 mmol/L Normal 3.5-5.1 [facility] Comment on above: Performed By: #### G FR, CMP, PSA, LIPID, TSH #### [address] [address] #### FT4 #### [address] [address] Sodium [Moles/Vol] 139 mmol/L Normal 136-145 [facility] Comment on above: Performed By: #### G FR, CMP, PSA, LIPID, TSH #### [address] [address] #### FT4 #### [address] [address] Total Protein 6.8 G/dL Normal 6.4-8.2 [facility] Comment on above: Performed By: #### G FR, CMP, PSA, LIPID, TSH #### [address] [address] #### FT4 #### [address] [address] Urea nitrogen [Mass/Vol] 19 mg/dL High 7-18 [facility] Comment on above: Performed By: #### G FR, CMP, PSA, LIPID, TSH #### [address] [address] #### FT4 #### [address] [address] LIPIDon 09-01-2024 Cholesterol [Mass/Vol] 134 mg/dL Normal 0-200 [facility] Comment on above: Result Comment: Chol esterol Reference Interval: Less than 200 Desirable 200-239 Borderline high risk 240 and above High risk Performed By: #### G FR, CMP, PSA, LIPID, TSH #### [place] [address] #### FT4 #### [address] [address] Cholesterol in HDL [Mass/Vol] 47 mg/dL Normal 40-60 [facility] Comment on above: Performed By: #### G FR, CMP, PSA, LIPID, TSH #### [place] [address] #### FT4 #### [place] [address] Cholesterol in LDL [Mass/Vol] 69 mg/dL Normal 0-130 [facility] Comment on above: Performed By: #### G FR, CMP, PSA, LIPID, TSH #### [place] [address] #### FT4 #### [place] [address] Triglyceride [Mass/Vol] 90 mg/dL Normal 0-150 [facility] Comment on above: Result Comment: Trig lyceride Reference Interval: Less than 150 Normal 150-199 Borderline high risk 200-499 High risk 500 or higher Very high risk Performed By: #### G FR, CMP, PSA, LIPID, TSH #### [place] [address] #### FT4 #### [place] [address] PSAon 09-01-2024 Prostate Specific Antigen 0.52 ng/mL Normal 0.00-4.00 [facility] Comment on above: Performed By: #### G FR, CMP, PSA, LIPID, TSH #### [place] [address] #### FT4 #### [address] [address] TSHon 09-01-2024 TSH Qn 1.58 m[IU]/L Normal 0.36-3.74 [facility] Comment on above: Performed By: #### G FR, CMP, PSA, LIPID, TSH #### [facility] [address] [place], [place] [address] #### FT4 #### [facility] [address] [place] [address] Gastroenterology Visit Repor ton 07-23-2024 Gastroenterology Visit Report [facility] [address] [place] [address] OFFICE VISIT Date of Service: 07/23/24 MR#: [id number] Acct: [id number] Name: SEE SHERIFF Rep #: [id number] : 1965 Provider: Dr. Chalino neville MD Age/Sex: 58/M Location: [facility] [place] Status: Signed Intake Vital Signs 03/20/24 07:38 [...] reports WNL. See has been seen in [facility] ED previously r/t severe abdominal pain [...] with sw (more content not included)... 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 Address: ATTN: LABORATORY, [place] [address] Result Comment: Surg ical Pathology Report Case: [id number] Authorizing Provider: Chalino Jones Collected: 04/18/2024 03:57 PM Ordering Location: [facility] Received: 04/18/2024 03:56 PM [facility] Pathologist: Mac Rosenthal MD Specimen: Slide(s), 8 SLIDES [id number] Performed By: #### L [id number] #### [facility] CLIA [id number] [address] [place] [address] [place] CLINICAL HISTORY CONSULT REQUESTED Normal C [facility] Comment on above: Order Comment: Speci men Type: FORMALIN-FIXED PARAFFIN-EMBEDDED TISSUE SPECIMEN Ordering Facility: [facility] Address: ATTN: [place] [address] Performed By: #### L [id number] #### [facility] CLIA [id number] [address] [place] [address] [place] DIAGNOSIS COMMENT Normal [facility] Comment on above: Order Comment: Speci men Type: FORMALIN-FIXED PARAFFIN-EMBEDDED TISSUE SPECIMEN Ordering Facility: [facility] Address: ATTN: LABORATORY, [place] [address] Result Comment: Luis k you for allowing [...] to contact the GI consultation service at [phone] with questions or if additional follow up information becomes available. This case was reviewed in conjunction with the GI pathology fellow, Radha Fierro MD. Performed By: #### L [id number] #### [facility] CLIA [id number] [address] [place] [address] FINAL DIAGNOSIS Normal [facility] Comment on above: Order Comment: Lenny arreola Type: FORMALIN-FIXED PARAFFIN-EMBEDDED TISSUE SPECIMEN Ordering Facility: [facility] Address: ATTN: [place] [address] Result Comment: Live r, CT-guided core biopsy (1, PAS/D, iron, trichrome, reticulin, PAS): - Hepatic parenchyma with mild non-specific portal inflammation. Performed By: #### L [id number] #### [facility] CLIA [id number] [address] [place] [address] FINAL PERFORMING LAB Normal [facility] Comment on above: Order Comment: Lenny arreola Type: FORMALIN-FIXED PARAFFIN-EMBEDDED TISSUE SPECIMEN Ordering Facility: [facility] Address: ATTN: LABORATORY, [place] [address] Result Comment: Diag nostic interpretation performed at: [facility], [facility], [facility] [place] [address] CLIA# [id number] Cable Operator: Jose Luis Pacheco MD Performed By: #### L [id number] #### [facility] CLIA [id number] [address] [place], [place] [address] [address] [place] .GFRon 02-25-2024 GFR 86 ml/min/1.73sqm Normal [facility] ([place]) Comment on above: Result Comment: GFR Population [...] SH, FT4, CMP, GFR, LIPID #### [place] [address] [address] GFR Non- 71 ml/min/1.73sqm Normal [facility] ([place]) Comment on above: Result Comment: GFR Population [...] T SH, FT4, CMP, GFR, LIPID #### [address] [address] CMPon 02-25-2024 Albumin Level 3.9 G/dL Normal 3.4-4.8 [facility] ([place]) Comment on above: Performed By: #### T SH, FT4, CMP, GFR, LIPID #### [address] [address] Albumin/Globulin [Mass ratio] 1.3 {ratio} Normal 1.1-2.5 [facility] ([place]) Comment on above: Performed By: #### T SH, FT4, CMP, GFR, LIPID #### [address] [address] ALP [Catalytic activity/Vol] 92 U/L Normal 40-135 [facility] ([place]) Comment on above: Performed By: #### T SH, FT4, CMP, GFR, LIPID #### [address] [address] ALT [Catalytic activity/Vol] 43 U/L Normal 16-63 [facility] ([place]) Comment on above: Performed By: #### T SH, FT4, CMP, GFR, LIPID #### [address] [address] AST [Catalytic activity/Vol] 30 U/L Normal 10-40 [facility] ([place]) Comment on above: Performed By: #### T SH, FT4, CMP, GFR, LIPID #### [address] [address] Bili Total 0.3 mg/dL Normal 0.2-1.0 [facility] ([place]) Comment on above: Result Comment: Use of this assay is not recommended for patients undergoing treatment with eltrombopag due to the potential for falsely elevated results. Performed By: #### T SH, FT4, CMP, GFR, LIPID #### [address] [address] BUN/Creatinine Ratio 24 ratio Normal 7-27 [facility] ([place]) Comment on above: Performed By: #### T SH, FT4, CMP, GFR, LIPID #### [address] [address] Calcium [Mass/Vol] 9.6 mg/dL Normal 8.4-10.2 [facility] ([place]) Comment on above: Performed By: #### T SH, FT4, CMP, GFR, LIPID #### [place] [address] Chloride [Moles/Vol] 104 mmol/L Normal 98-107 [facility] ([place]) Comment on above: Performed By: #### T SH, FT4, CMP, GFR, LIPID #### [place] [address] CO2 [Moles/Vol] 29 mmol/L Normal 23-31 [facility] ([place]) Comment on above: Performed By: #### T SH, FT4, CMP, GFR, LIPID #### [place] [address] Creatinine [Mass/Vol] 1.06 mg/dL Normal 0.70-1.30 [facility] ([place]) Comment on above: Result Comment: Test ing performed on Siemens Dimension EXL analyzer using a modified kinetic Robe technique. Performed By: #### T SH, FT4, CMP, GFR, LIPID #### [address] [address] Electrolyte Balance 8.0 mEq/L Normal 4.0-15.0 [facility] ([place]) Comment on above: Performed By: #### T SH, FT4, CMP, GFR, LIPID #### [place] [address] Globulin 3.1 G/dL Normal [facility] ([place]) Comment on above: Performed By: #### T SH, FT4, CMP, GFR, LIPID #### [place] [address] Glucose [Mass/Vol] 92 mg/dL Normal 80-115 [facility] ([place]) Comment on above: Performed By: #### T SH, FT4, CMP, GFR, LIPID #### [address] [address] Potassium [Moles/Vol] 4.5 mmol/L Normal 3.5-5.1 [facility] ([place]) Comment on above: Performed By: #### T SH, FT4, CMP, GFR, LIPID #### [place] [address] [place], [place] [address] Sodium [Moles/Vol] 141 mmol/L Normal 136-145 [facility] ([place]) Comment on above: Performed By: #### T SH, FT4, CMP, GFR, LIPID #### [address] [address] Total Protein 7.0 G/dL Normal 6.4-8.2 [facility] ([place]) Comment on above: Performed By: #### T SH, FT4, CMP, GFR, LIPID #### [address] [address] Urea nitrogen [Mass/Vol] 25 mg/dL High 7-18 [facility] ([place]) Comment on above: Performed By: #### T SH, FT4, CMP, GFR, LIPID #### [address] [address] LABORATORYOrdered By: SYSTEM SYSTEM on 02-25-2024 Albumin [...] above: Interpretive Data: T esting performed on [employer] Dimension EXL analyzer using a modified kinetic [...] 02-25-2024 Cholesterol [Mass/Vol] 179 mg/dL Normal 0-200 [facility] ([place]) Comment on above: Result Comment: Chol esterol Reference Interval: Less than 200 Desirable 200-239 Borderline high risk 240 and above High risk Performed By: #### T SH, FT4, CMP, GFR, LIPID #### [place] [address] [address] Cholesterol in HDL [Mass/Vol] 54 mg/dL Normal 40-60 [facility] ([place]) Comment on above: Performed By: #### T SH, FT4, CMP, GFR, LIPID #### [place] [address] [place], [place] [address] Cholesterol in LDL [Mass/Vol] 97 mg/dL Normal 0-130 [facility] ([place]) Comment on above: Performed By: #### T SH, FT4, CMP, GFR, LIPID #### [place] [address] [place], [place] [address] Triglyceride [Mass/Vol] 138 mg/dL Normal 0-150 [facility] ([place]) Comment on above: Result Comment: Trig lyceride Reference Interval: Less than 150 Normal 150-199 Borderline high risk 200-499 High risk 500 or higher Very high risk Performed By: #### T SH, FT4, CMP, GFR, LIPID #### [place] [address] [place], [place] [address] .GFRon 02-11-2024 GFR 85 ml/min/1.73sqm Normal [facility] ([place]) Comment on above: Result Comment: GFR Population [...] T SH, FT4, CMP, GFR, LIPID #### [place] [address] [place], [place] [address] GFR Non- 70 ml/min/1.73sqm Normal [facility] ([place]) Comment on above: Result Comment: GFR Population [...] T SH, FT4, CMP, GFR, LIPID #### [address] [address] CMPon 02-11-2024 Albumin Level 4.0 G/dL Normal 3.4-4.8 [facility] ([place]) Comment on above: Performed By: #### T SH, FT4, CMP, GFR, LIPID #### [address] [address] Albumin/Globulin [Mass ratio] 1.2 {ratio} Normal 1.1-2.5 [facility] ([place]) Comment on above: Performed By: #### T SH, FT4, CMP, GFR, LIPID #### [address] [address] ALP [Catalytic activity/Vol] 92 U/L Normal 40-135 [facility] ([place]) Comment on above: Performed By: #### T SH, FT4, CMP, GFR, LIPID #### [address] [address] ALT [Catalytic activity/Vol] 39 U/L Normal 16-63 [facility] ([place]) Comment on above: Performed By: #### T SH, FT4, CMP, GFR, LIPID #### [address] [address] AST [Catalytic activity/Vol] 22 U/L Normal 10-40 [facility] ([place]) Comment on above: Performed By: #### T SH, FT4, CMP, GFR, LIPID #### [address] [address] Bili Total 0.4 mg/dL Normal 0.2-1.0 [facility] ([place]) Comment on above: Result Comment: Use of this assay is not recommended for patients undergoing treatment with eltrombopag due to the potential for falsely elevated results. Performed By: #### T SH, FT4, CMP, GFR, LIPID #### [address] [address] BUN/Creatinine Ratio 22 ratio Normal 7-27 [facility] ([place]) Comment on above: Performed By: #### T SH, FT4, CMP, GFR, LIPID #### [address] [address] Calcium [Mass/Vol] 9.6 mg/dL Normal 8.4-10.2 [facility] ([place]) Comment on above: Performed By: #### T SH, FT4, CMP, GFR, LIPID #### [address] [address] Chloride [Moles/Vol] 103 mmol/L Normal 98-107 [facility] ([place]) Comment on above: Performed By: #### T SH, FT4, CMP, GFR, LIPID #### [address] [address] CO2 [Moles/Vol] 30 mmol/L Normal 23-31 [facility] ([place]) Comment on above: Performed By: #### T SH, FT4, CMP, GFR, LIPID #### [address] [address] Creatinine [Mass/Vol] 1.07 mg/dL Normal 0.70-1.30 [facility] ([place]) Comment on above: Performed By: #### T SH, FT4, CMP, GFR, LIPID #### [address] [address] Electrolyte Balance 6.0 mEq/L Normal 4.0-15.0 [facility] ([place]) Comment on above: Performed By: #### T SH, FT4, CMP, GFR, LIPID #### [address] [address] Globulin 3.4 G/dL Normal [facility] ([place]) Comment on above: Performed By: #### T SH, FT4, CMP, GFR, LIPID #### [address] [address] Glucose [Mass/Vol] 94 mg/dL Normal 80-115 [facility] ([place]) Comment on above: Performed By: #### T SH, FT4, CMP, GFR, LIPID #### [address] [address] Potassium [Moles/Vol] 5.7 mmol/L High 3.5-5.1 [facility] ([place]) Comment on above: Performed By: #### T SH, FT4, CMP, GFR, LIPID #### [address] [address] Sodium [Moles/Vol] 139 mmol/L Normal 136-145 [facility] ([place]) Comment on above: Performed By: #### T SH, FT4, CMP, GFR, LIPID #### [address] [address] Total Protein 7.4 G/dL Normal 6.4-8.2 [facility] ([place]) Comment on above: Performed By: #### T SH, FT4, CMP, GFR, LIPID #### [address] [address] Urea nitrogen [Mass/Vol] 24 mg/dL High 7-18 [facility] ([place]) Comment on above: Performed By: #### T SH, FT4, CMP, GFR, LIPID #### [address] [address] FT4on 02-11-2024 Free T4 [Mass/Vol] 0.80 ng/dL Normal 0.76-1.46 [facility] [place] ([place]) Comment on above: Performed By: #### T SH, FT4, CMP, GFR, LIPID #### [address] [address] LIPIDon 02-11-2024 Cholesterol [Mass/Vol] 178 mg/dL Normal 0-200 [facility] ([place]) Comment on above: Result Comment: Chol esterol Reference Interval: Less than 200 Desirable 200-239 Borderline high risk 240 and above High risk Performed By: #### T SH, FT4, CMP, GFR, LIPID #### [address] [address] Cholesterol in HDL [Mass/Vol] 49 mg/dL Normal 40-60 [facility] ([place]) Comment on above: Performed By: #### T SH, FT4, CMP, GFR, LIPID #### [address] [address] Cholesterol in LDL [Mass/Vol] 100 mg/dL Normal 0-130 [facility] ([place]) Comment on above: Performed By: #### T SH, FT4, CMP, GFR, LIPID #### [address] [address] Triglyceride [Mass/Vol] 144 mg/dL Normal 0-150 [facility] ([place]) Comment on above: Result Comment: Trig lyceride Reference Interval: Less than 150 Normal 150-199 Borderline high risk 200-499 High risk 500 or higher Very high risk Performed By: #### T SH, FT4, CMP, GFR, LIPID #### [address] [address] TSHon 02-11-2024 TSH Qn 1.51 m[IU]/L Normal 0.36-3.74 [facility] ([place]) Comment on above: Performed By: #### T SH, FT4, CMP, GFR, LIPID #### [address] [address] MALBRon 09-11-2023 U Creatinine 62.1 mg/dL Normal 39.0-259.0 [facility] ([place]) Comment on above: Performed By: #### M ALBR #### [address] [address] U Microalb [address] mcg/dL Normal [facility] ([place]) Comment on above: Performed By: #### M ALBR #### [address] [address] U Ratio Alb/Cre 483 mcg/mg High 0-30 [facility] ([place]) Comment on above: Performed By: #### M ALBR #### [address] [address] .GFRon 09-10-2023 GFR 113 ml/min/1.73sqm Normal [facility] ([place]) Comment on above: Result Comment: GFR Population [...] T SH, FT4, CMP, GFR, LIPID #### [address] [address] GFR Non- 94 ml/min/1.73sqm Normal [facility] ([place]) Comment on above: Result Comment: GFR Population [...] T SH, FT4, CMP, GFR, LIPID #### [address] [address] CMPon 09-10-2023 Albumin Level 3.7 G/dL Normal 3.5-5.0 [facility] ([place]) Comment on above: Performed By: #### T SH, FT4, CMP, GFR, LIPID #### [address] [address] Albumin/Globulin [Mass ratio] 1.3 {ratio} Normal 1.1-2.5 [facility] ([place]) Comment on above: Performed By: #### T SH, FT4, CMP, GFR, LIPID #### [address] [address] ALP [Catalytic activity/Vol] 84 U/L Normal 40-135 [facility] ([place]) Comment on above: Performed By: #### T SH, FT4, CMP, GFR, LIPID #### [address] [address] ALT [Catalytic activity/Vol] 41 U/L Normal 16-63 [facility] ([place]) Comment on above: Performed By: #### T SH, FT4, CMP, GFR, LIPID #### [address] [address] AST [Catalytic activity/Vol] 21 U/L Normal 10-40 [facility] ([place]) Comment on above: Performed By: #### T SH, FT4, CMP, GFR, LIPID #### [address] [address] Bili Total 0.3 mg/dL Normal 0.2-1.0 [facility] ([place]) Comment on above: Result Comment: Use of this assay is not recommended for patients undergoing treatment with eltrombopag due to the potential for falsely elevated results. Performed By: #### T SH, FT4, CMP, GFR, LIPID #### [address] [address] BUN/Creatinine Ratio 24 ratio Normal 7-27 [facility] ([place]) Comment on above: Performed By: #### T SH, FT4, CMP, GFR, LIPID #### [address] [address] Calcium [Mass/Vol] 9.3 mg/dL Normal 8.4-10.2 [facility] [place] ([place]) Comment on above: Performed By: #### T SH, FT4, CMP, GFR, LIPID #### [address] [address] Chloride [Moles/Vol] 104 mmol/L Normal 98-107 [facility] ([place]) Comment on above: Performed By: #### T SH, FT4, CMP, GFR, LIPID #### [address] [address] CO2 [Moles/Vol] 30 mmol/L High 22-29 [facility] ([place]) Comment on above: Performed By: #### T SH, FT4, CMP, GFR, LIPID #### [address] [address] Creatinine [Mass/Vol] 0.84 mg/dL Normal 0.70-1.30 [facility] ([place]) Comment on above: Performed By: #### T SH, FT4, CMP, GFR, LIPID #### [address] [address] Electrolyte Balance 7.0 mEq/L Normal 4.0-15.0 [facility] ([place]) Comment on above: Performed By: #### T SH, FT4, CMP, GFR, LIPID #### [address] [address] Globulin 2.9 G/dL Normal [facility] ([place]) Comment on above: Performed By: #### T SH, FT4, CMP, GFR, LIPID #### [address] [address] Glucose [Mass/Vol] 97 mg/dL Normal 70-105 [facility] [place] ([place]) Comment on above: Performed By: #### T SH, FT4, CMP, GFR, LIPID #### [address] [address] Potassium [Moles/Vol] 4.3 mmol/L Normal 3.5-5.1 [facility] ([place]) Comment on above: Performed By: #### T SH, FT4, CMP, GFR, LIPID #### [address] [address] Sodium [Moles/Vol] 141 mmol/L Normal 136-145 [facility] [place] ([place]) Comment on above: Performed By: #### T SH, FT4, CMP, GFR, LIPID #### [address] [address] Total Protein 6.6 G/dL Normal 6.4-8.2 [facility] ([place]) Comment on above: Performed By: #### T SH, FT4, CMP, GFR, LIPID #### [address] [address] Urea nitrogen [Mass/Vol] 20 mg/dL High 7-18 [facility] ([place]) Comment on above: Performed By: #### T SH, FT4, CMP, GFR, LIPID #### [address] [address] FT4on 09-10-2023 Free T4 [Mass/Vol] 0.83 ng/dL Normal 0.76-1.46 [facility] [place] ([place]) Comment on above: Performed By: #### T SH, FT4, CMP, GFR, LIPID, PSA #### [address] [address] LABORATORYOrdered By: SYSTEM SYSTEM on 09-10-2023 Albumin [...] 09-10-2023 Cholesterol [Mass/Vol] 168 mg/dL Normal 0-200 [facility] ([place]) Comment on above: Result Comment: Chol esterol Reference Interval: Less than 200 Desirable 200-239 Borderline high risk 240 and above High risk Performed By: #### T SH, FT4, CMP, GFR, LIPID #### [place] [address] [place], [place] [address] Cholesterol in HDL [Mass/Vol] 55 mg/dL Normal 40-60 [facility] ([place]) Comment on above: Performed By: #### T SH, FT4, CMP, GFR, LIPID #### [address] [address] Cholesterol in LDL [Mass/Vol] 98 mg/dL Normal 0-130 [facility] ([place]) Comment on above: Performed By: #### T SH, FT4, CMP, GFR, LIPID #### [address] [address] Triglyceride [Mass/Vol] 75 mg/dL Normal 0-150 [facility] ([place]) Comment on above: Result Comment: Trig lyceride Reference Interval: Less than 150 Normal 150-199 Borderline high risk 200-499 High risk 500 or higher Very high risk Performed By: #### T SH, FT4, CMP, GFR, LIPID #### [address] [address] PSAon 09-10-2023 Prostate Specific Antigen 0.44 ng/mL Normal 0.00-4.00 [facility] ([place]) Comment on above: Performed By: #### T SH, FT4, CMP, GFR, LIPID, PSA #### [address] [address] TSHon 09-10-2023 TSH Qn 1.69 m[IU]/L Normal 0.36-3.74 [facility] ([place]) Comment on above: Performed By: #### T SH, FT4, CMP, GFR, LIPID, PSA #### [address] [address] Gram stain for investigation of transfusion reactionOrdered By: Vinicio Haro on 08-20-2023 Microscopic observation Gram stain Nom (Unsp spec) [facility] Microbial respiratory cultur eOrdered By: Vinicio Haro on 08-20-2023 Bacteria identified Respiratory culture Nom (Unsp spec) [facility] XR CHEST 2V FRONTAL/LATon [facility] XR Chest PA and Lateralon IMPRESSION: No acute radiographic abnormality in the lungs. Widening of the right upper mediastinum, likely related to vasculature or lymph node enlargement. Assistant Golf Professional: PSCShanell Transcribe Date/Time: Jun 02 2023 1:09P Dictated by : RADHA DINH MD This examination was interpreted and the report reviewed and electronically signed by: RADHA DINH MD on Jun 02 2023 1:11PM [facility] DIVISION OF RADIOLOGY * [...] in the spine. DIVISION OF RADIOLOGY Provider, [facility] - 06/02/2023 * * *Final Report* * [...] related to vasculature or lymph node enlargement. Assistant Golf Professional: PSCB Transcribe Date/Time: Jun 02 2023 1:09P Dictated by : RADHA DINH MD This examination was interpreted and the report reviewed and electronically signed by: RADHA IDNH MD on Jun 02 2023 1:11PM EST [facility] Radiology Study observation (narrative) [facility] XR Chest PA and LateralOrder ed By: Ccf Provider on 06-02-2023 [facility] LABORATORYOrdered By: Harshal Wallace on 05-05-2023 Albumin DL <= 20 mg/L (U) [Mass/Vol] [address] mcg/dL Invalid Interpretation Code AO ADM SS Albumin/Creatinine DL <= 20 mg/L (U) [Mass ratio] 269 mcg/mg Invalid Interpretation Code 0 - 30 mcg/mg AO ADM SS Creatinine (U) [Mass/Vol] 56.2 mg/dL Invalid Interpretation Code 39.0 - 259.0 mg/dL AO ADM SS MALBRon 05-05-2023 U Creatinine 56.2 mg/dL Normal 39.0-259.0 [facility] ([place]) Comment on above: Performed By: #### M ALBR #### [address] [address] U Microalb [address] mcg/dL Normal [facility] ([place]) Comment on above: Performed By: #### M ALBR #### [address] [address] U Ratio Alb/Cre 269 mcg/mg High 0-30 [facility] ([place]) Comment on above: Performed By: #### M ALBR #### [address] [address] .GFRon 04-09-2023 GFR Non- 64 ml/min/1.73sqm Normal [facility] ([place]) Comment on above: Result Comment: GFR Population [...] T SH, FT4, CMP, GFR, LIPID #### [address] [address] GFR 78 ml/min/1.73sqm Normal [facility] ([place]) Comment on above: Result Comment: GFR Population [...] T SH, FT4, CMP, GFR, LIPID #### [address] [address] CMPon 04-09-2023 Albumin Level 4.0 G/dL Normal 3.5-5.0 [facility] ([place]) Comment on above: Performed By: #### T SH, FT4, CMP, GFR, LIPID #### [address] [address] Albumin/Globulin [Mass ratio] 1.3 {ratio} Normal 1.1-2.5 [facility] ([place]) Comment on above: Performed By: #### T SH, FT4, CMP, GFR, LIPID #### [address] [address] ALP [Catalytic activity/Vol] 81 U/L Normal 40-135 [facility] ([place]) Comment on above: Performed By: #### T SH, FT4, CMP, GFR, LIPID #### [address] [address] ALT [Catalytic activity/Vol] 37 U/L Normal 16-63 [facility] ([place]) Comment on above: Performed By: #### T SH, FT4, CMP, GFR, LIPID #### [address] [address] AST [Catalytic activity/Vol] 24 U/L Normal 10-40 [facility] ([place]) Comment on above: Performed By: #### T SH, FT4, CMP, GFR, LIPID #### [address] [address] Bili Total 0.3 mg/dL Normal 0.2-1.0 [facility] ([place]) Comment on above: Result Comment: Use of this assay is not recommended for patients undergoing treatment with eltrombopag due to the potential for falsely elevated results. Performed By: #### T SH, FT4, CMP, GFR, LIPID #### [address] [address] BUN/Creatinine Ratio 21 ratio Normal 7-27 [facility]) Comment on above: Performed By: #### T SH, FT4, CMP, GFR, LIPID #### [address] [address] Calcium [Mass/Vol] 9.1 mg/dL Normal 8.4-10.2 [facility] [place] ([place]) Comment on above: Performed By: #### T SH, FT4, CMP, GFR, LIPID #### [address] [address] Chloride [Moles/Vol] 102 mmol/L Normal 98-107 [facility] ([place]) Comment on above: Performed By: #### T SH, FT4, CMP, GFR, LIPID #### [address] [address] CO2 [Moles/Vol] 33 mmol/L High 22-29 [facility] ([place]) Comment on above: Performed By: #### T SH, FT4, CMP, GFR, LIPID #### [address] [address] Creatinine [Mass/Vol] 1.16 mg/dL Normal 0.70-1.30 [facility] ([place]) Comment on above: Performed By: #### T SH, FT4, CMP, GFR, LIPID #### [address] [address] Electrolyte Balance 3.0 mEq/L Low 4.0-15.0 [facility] ([place]) Comment on above: Performed By: #### T SH, FT4, CMP, GFR, LIPID #### [address] [address] Globulin 3.1 G/dL Normal [facility] ([place]) Comment on above: Performed By: #### T SH, FT4, CMP, GFR, LIPID #### [address] [address] Glucose [Mass/Vol] 95 mg/dL Normal 70-105 [facility] [place] ([place]) Comment on above: Performed By: #### T SH, FT4, CMP, GFR, LIPID #### [address] [address] Potassium [Moles/Vol] 4.5 mmol/L Normal 3.5-5.1 [facility] ([place]) Comment on above: Performed By: #### T SH, FT4, CMP, GFR, LIPID #### [address] [address] Sodium [Moles/Vol] 138 mmol/L Normal 136-145 [facility] [place] ([place]) Comment on above: Performed By: #### T SH, FT4, CMP, GFR, LIPID #### [address] [address] Total Protein 7.1 G/dL Normal 6.4-8.2 [facility] ([place]) Comment on above: Performed By: #### T SH, FT4, CMP, GFR, LIPID #### [address] [address] Urea nitrogen [Mass/Vol] 24 mg/dL High 7-18 [facility] ([place]) Comment on above: Performed By: #### T SH, FT4, CMP, GFR, LIPID #### [address] [place], [place] [address] FT4on 04-09-2023 Free T4 [Mass/Vol] 0.81 ng/dL Normal 0.76-1.46 [facility] [place] ([place]) Comment on above: Performed By: #### T SH, FT4, CMP, GFR, LIPID #### [address] [place], [place] [address] LABORATORYOrdered By: SYSTEM SYSTEM on 04-09-2023 Albumin [...] 04-09-2023 Cholesterol [Mass/Vol] 192 mg/dL Normal 0-200 [facility] ([place]) Comment on above: Result Comment: Chol esterol Reference Interval: Less than 200 Desirable 200-239 Borderline high risk 240 and above High risk Performed By: #### T SH, FT4, CMP, GFR, LIPID #### [address] [address] Cholesterol in HDL [Mass/Vol] 65 mg/dL High 40-60 [facility] ([place]) Comment on above: Performed By: #### T SH, FT4, CMP, GFR, LIPID #### [address] [address] Cholesterol in LDL [Mass/Vol] 115 mg/dL Normal 0-130 [facility] ([place]) Comment on above: Performed By: #### T SH, FT4, CMP, GFR, LIPID #### [address] [place], [place] [address] Triglyceride [Mass/Vol] 58 mg/dL Normal 0-150 [facility] ([place]) Comment on above: Result Comment: Trig lyceride Reference Interval: Less than 150 Normal 150-199 Borderline high risk 200-499 High risk 500 or higher Very high risk Performed By: #### T SH, FT4, CMP, GFR, LIPID #### [address] [place], [place] [address] TSHon 04-09-2023 TSH Qn 2.70 m[IU]/L Normal 0.36-3.74 [facility] ([place]) Comment on above: Performed By: #### T SH, FT4, CMP, GFR, LIPID #### [address] [place], [place] [address] Basophil percentageOrdered B y: Agustin Hunt on 09-27-2022 Bilirubin [Mass/Vol] 0.20 mg/dL 0.20-1.[address] [facility] Comment on above: For patients on eltr ombopag therapy, use of Dimension [place] TBIL is not recommended. Chloride [Moles/Vol] 108 mmol/L 98-[address] [facility] Glucose [Mass/Vol] 120 mg/dL 74-106 [facility] Comment on above: Fasting Glucose resu lt from 100 to 125 mg/dL suggests IMPAIRED HOMEOSTASIS per A.D.A. criteria. LDH [Catalytic activity/Vol] 215 U/L 87-241 [facility] Potassium [Moles/Vol] 4.5 mmol/L 3.5-5.1 [facility] Protein [Mass/Vol] 6.8 g/dL 6.4-8.2 [facility] Sodium [Moles/Vol] 141 mmol/L 136-145 [facility] INR in Blood by Coagulation assayOrdered By: Agustin Hunt on 09-27-2022 INR Coag (Bld) [Relative time] 1.0 {INR} [facility] Laboratory - Chemistry and C hemistry - challengeOrdered By: Agustin Hunt on 09-27-2022 ALP [Catalytic activity/Vol] 81 U/L 45-117 [facility] ALT [Catalytic activity/Vol] 32 U/L 16-61 [facility] CO2 [Moles/Vol] 31.0 mmol/L 21.0-32.0 [facility] Globulin (S) [Mass/Vol] 3.2 g/dL 2.2-4.2 [facility] Urea nitrogen/Creatinine [Mass ratio] 22.1 mg/mg 10-20 [facility] Laboratory - CoagulationOrde red By: Agustin Hunt on 09-27-2022 aPTT Coag (Bld) [Time] 38.6 s 24.1-36.2 [facility] PT Coag (PPP) [Time] 13.1 s 11.7-14.[address] [facility] No Panel InformationOrdered By: Agustin Hunt on 09-27-2022 Estimated GFR (MDRD) Amer 99 mL/min >60 [facility] Comment on above: GFR Calc Estimated GFR (MDRD) Non-Af Amer 82 mL/min >60 [facility] Comment on above: Non- GFR Calc Platelets bldOrdered By: Mekhi Hunt on 09-27-2022 Platelets (Bld) [#/Vol] See comment 150-450 [facility] Comment on above: PLATLETS APPEAR ADEQ UATEPrevious reported result: 154 [id number] by: TPHILLIPS on 09/27/22:0824Please note: For this [...] Mitochondria Ab Ql (S) 59.7 Units 0.0-20.0 [facility] Comment on above: Negative 0.0 - 20.0 Equivocal 20.1 - 24.9 Positive >24.9Mitochondrial (M2) Antibodies are found in 90-96% ofpatients with primary biliary cirrhosis.Performed at: [address] [id number] Director: Roshan Waggoner PhD, Phone: [phone] Serum or plasma actin IgG an tibody assay (units/volume)Ordered By: Agustin Hunt on 09-27-2022 Actin IgG Qn 4 Units 0-19 [facility] Comment on above: Negative 0 - 19 Weak positive 20 - 30 Moderate to strong positive >30 Actin Antibodies are found in 52-85% of patients with autoimmune hepatitis or chronic active hepatitis and in 22% of patients with primary biliary cirrhosis.Performed at: [employer] [id number] Director: Roshan Waggoner PhD, Phone: [phone] Serum or plasma albumin best urement (mass/volume)Ordered By: Agustin Hunt on 09-27-2022 Albumin [Mass/Vol] 3.6 g/dL 3.2-5.0 [facility] Serum or plasma albumin/glob ulin mass ratioOrdered By: Agustin Hunt on 09-27-2022 Albumin/Globulin [Mass ratio] 1.1 {ratio} 0.9-2.4 [facility] Serum or plasma calcium best urement (mass/volume)Ordered By: Agustin Hunt on 09-27-2022 Calcium [Mass/Vol] 9.2 mg/dL 8.5-10.1 [facility] Serum or plasma creatinine m easurement (mass/volume)Ordered By: Agustin Hunt on 09-27-2022 Creatinine [Mass/Vol] 1.00 mg/dL 0.70-1.30 [facility] Comment on above: The validity of the calculated GFR & GFRAA in patients over 70 years has not been determined. Clinical correlation is essential. Serum or plasma urea nitroge n measurement (mass/volume)Ordered By: Agustin Hunt on 09-27-2022 Urea nitrogen [Mass/Vol] 22 mg/dL 7-18 [facility] Thin prep Papanicolaou smear with manual screeningOrdered By: Agustin Hunt on 09-27-2022 Thin prep Papanicolaou smear with manual screening 19 U/L 15-37 [facility] Thin prep Papanicolaou smear with manual screening 2 5-15 [facility] Whole blood hemoglobin A1c/t otal hemoglobin ratio (mass fraction)Ordered By: Agustin Hunt on 09-27-2022 HbA1c (Bld) [Mass fraction] 5.3 % 3.8-5.6 [facility] Comment on above: Normal < 5.7 % [...] skin jordin present. Sensitivity testing not indicated. [facility] [place] Work Phone: GS Rare Red Blood Cells Rare Gram Positive Cocci [facility] [place] Work Phone: LABORATORYOrdered By: Sofia Zuniga on [...] Interpretation Code AO Chemistry S LABORATORYOrdered By: Tanay Fu on 11-02-2021 Albumin BCP dye [Mass/Vol] [...] Auto (Unsp spec) [#/Vol] 1.47 10*3/uL 0.83-4.51 [facility] Work Phone: Basophil percentageon 2021 Basophil percentage < 0.2 [facility] Work Phone: Basophils/100 WBC (Bld) 0.5 % 0-1 [facility] Work Phone: Bilirubin [Mass/Vol] 0.40 mg/dL 0.20-1.[address] [facility] Work Phone: Comment on above: For patients on eltr ombopag therapy, use of Dimension [place] TBIL is not recommended. Chloride [Moles/Vol] 108 mmol/L 98-[address] [facility] Work Phone: Eosinophils/100 WBC (Bld) 1.6 % 0-5 [facility] Work Phone: Glucose [Mass/Vol] 94 mg/dL 74-106 [facility] Work Phone: Neutrophils (Bld) [#/Vol] 3.3 10*3/uL 2.0-7.7 [facility] Work Phone: Neutrophils/100 WBC (Bld) 59.9 % 47-70 [facility] Work Phone: Potassium [Moles/Vol] 4.0 mmol/L 3.5-5.1 [facility] Work Phone: Protein [Mass/Vol] 7.0 g/dL 6.4-8.2 [facility] Work Phone: [phone] Sodium [Moles/Vol] 141 mmol/L 136-145 [facility] Work Phone: [phone] WBC (Bld) [#/Vol] 5.5 10*3/uL 4.4-11.0 [facility] Work Phone: [phone] Blood erythrocytes count (nu mber/volume)on 09-24-2021 RBC (Bld) [#/Vol] 4.99 10*6/uL 4.6-6.2 [facility] Work Phone: [phone] Blood hemoglobin measurement (mass/volume)on 09-24-2021 Hemoglobin (Bld) [Mass/Vol] 14.1 g/dL 13.0-16.5 [facility] Work Phone: [phone] Blood lymphocytes/100 leukoc yteson 09-24-2021 Lymphocytes/100 WBC (Bld) 26.7 % 19-41 [facility] Work Phone: [phone] Blood monocytes/100 leukocyt eson 09-24-2021 Monocytes/100 WBC (Bld) 10.9 % 0-10 [facility] Work Phone: [phone] Blood platelet mean volumeon 09-24-2021 Platelet mean volume (Bld) [Entitic vol] 11.0 fL 6.2-12.0 [facility] Work Phone: [phone] Determination of erythrocyte mean corpuscular volume (MCV)on 09-24-2021 MCV (RBC) [Entitic vol] 88.6 fL 80-94 [facility] Work Phone: Erythrocyte sedimentation ra jose 09-24-2021 ESR (Bld) [Velocity] 4 mm/h 0-[address] [facility] Work Phone: [phone] HIV 1 and HIV-2 antibody ass ay with HIV-1 p24 antigen detectionon 09-24-2021 HIV 1+2 Ab+HIV1 p24 Ag IA Ql Non-Reactive Nonreactive [facility] Work Phone: Hematocrit Auto (Bld) [Volum e fraction]on 09-24-2021 Hematocrit (Bld) [Volume fraction] 44.2 % 40-54 [facility] Work Phone: [phone] Laboratory - Chemistry and C hemistry - challengeon 09-24-2021 ALP [Catalytic activity/Vol] 101 U/L 45-117 [facility] Work Phone: [phone] ALT [Catalytic activity/Vol] 45 U/L 16-61 [facility] Work Phone: [phone] CO2 [Moles/Vol] 28.0 mmol/L 21.0-32.0 [facility] Work Phone: [phone] Globulin (S) [Mass/Vol] 3.2 g/dL 2.2-4.2 [facility] Work Phone: [phone] Urea nitrogen/Creatinine [Mass ratio] 17.5 mg/mg 10-20 [facility] Work Phone: [phone] Laboratory - Hematology and Cell countson 09-24-2021 Erythrocyte distribution width (RBC) [Entitic vol] 45.4 fL 35.1-43.9 [facility] Work Phone: [phone] Erythrocyte distribution width (RBC) [Ratio] 14.1 % 11.6-14.6 [facility] Work Phone: [phone] Immature granulocytes/100 WBC (Bld) 0.400 % 0.0-0.9 [facility] Work Phone: [phone] Comment on above: IG% - Immature Granu locytes (promyelocytes, myelocytes and metamyelocytes) > 1% indicates that a LEFT SHIFT is Present. MCH (RBC) [Entitic mass] 28.3 pg 27.0-32.0 [facility] Work Phone: [phone] Nucleated RBC/100 WBC (Bld) [Ratio] 0 % 0-5 [facility] Work Phone: [phone] MCHC Auto (RBC) [Mass/Vol]on 09-24-2021 MCHC (RBC) [Mass/Vol] 31.9 g/dL 32-36 [facility] Work Phone: [phone] Panel Informationon 09-24 Centrome[facility] B Antibody <0.2 [facility] Work Phone: Estimated GFR (MDRD) Amer 102 mL/min >60 [facility] Work Phone: Comment on above: GFR Calc Estimated GFR (MDRD) Non-Af Amer 84 mL/min >60 [facility] Work Phone: [phone] Comment on above: Non- GFR Calc INVENTORY CLERK Antibody 0.6 [facility] Work Phone: Platelets bldon 09-24-2021 Platelets (Bld) [#/Vol] 165 10*3/uL 150-450 [facility] Work Phone: [phone] Serum DNA double strand anti body assay (units/volume)on 09-24-2021 DNA double strand Ab Qn (S) [IU]/mL [facility] Work Phone: Comment on above: Negative <5 Equivoca l 5 - 9 Positive >9 Serum Paola-1 antibody assay (u nits/volume)on 09-24-2021 Paola-1 extractable nuclear Ab Qn (S) <0.2 [facility] Work Phone: [phone] Serum Scl-70 extractable nuc lear antibody assay (units/volume)on 09-24-2021 SCL-70 extractable nuclear Ab Qn (S) <0.2 [facility] Work Phone: [phone] Serum Heard extractable nucl ear antibody detectionon 09-24-2021 Heard extractable nuclear Ab Ql (S) <0.2 [facility] Work Phone: Serum mitochondria antibody detectionon 09-24-2021 Mitochondria Ab Ql (S) 42.2 Units [facility] Work Phone: Comment on above: Negative 0.0 - 20.0 Equivocal 20.1 - 24.9 Positive >24.9Mitochondrial (M2) Antibodies are found in 90-96% ofpatients with primary biliary cirrhosis.Performed at: [address] [id number] Director: Roshan Waggoner PhD, Phone: [phone] Serum or plasma C reactive p rotein measurement (mass/volume)on 09-24-2021 CRP [Mass/Vol] mg/L 0.0-3.0 [facility] Work Phone: Comment on above: C-Reactive Protein ( CRP) provides useful information for thediagnosis, therapy and monitoring of inflammatory processesand associated diseases. For the evaluation of Relative Riskfor Cardiovascular Disease, a High Sensitivity CRP (HSCRP)should be ordered. Serum or plasma albumin best urement (mass/volume)on 09-24-2021 Albumin [Mass/Vol] 3.8 g/dL 3.2-5.0 [facility] Work Phone: Serum or plasma albumin/glob ulin mass ratioon 09-24-2021 Albumin/Globulin [Mass ratio] 1.2 {ratio} 0.9-2.4 [facility] Work Phone: Serum or plasma calcium best urement (mass/volume)on 09-24-2021 Calcium [Mass/Vol] 8.9 mg/dL 8.5-10.1 [facility] Work Phone: Serum or plasma creatinine m easurement (mass/volume)on 09-24-2021 Creatinine [Mass/Vol] 0.97 mg/dL 0.70-1.30 [facility] Work Phone: Comment on above: The validity of the calculated GFR & GFRAA in patients over 70 years has not been determined. Clinical correlation is essential. Serum or plasma urea nitroge n measurement (mass/volume)on 09-24-2021 Urea nitrogen [Mass/Vol] 17 mg/dL 7-18 [facility] Work Phone: Thin prep Papanicolaou smear with manual screeningon 09-24-2021 Thin prep Papanicolaou smear with manual screening 27 U/L 15-37 [facility] Work Phone: Thin prep Papanicolaou smear with manual screening 5 5-15 [facility] Work Phone: [phone] Thin prep Papanicolaou smear with manual screening 249 U/L 87-241 [facility] Work Phone: Whole blood hemoglobin A1c/t otal hemoglobin ratio (mass fraction)on 09-24-2021 HbA1c (Bld) [Mass fraction] 5.7 % 3.8-5.6 [facility] Work Phone: Comment on above: Normal < [...] will not be associated with stool WBC's. [facility] Work Phone: CBC (AO)on 12-27-2016 Basophils Auto #/vol (Bld) 0.00 10 3/mcL Normal 0.00-0.19 [facility] Comment on above: Performed By: #### C BCO ####[address] [address] Basophils/100 WBC Auto (Bld) 0.7 % Normal 0.0-2.5 [facility] Comment on above: Performed By: #### C BCO ####[address] [address] Eosinophils 0.10 10 3/mcL Normal 0.00-0.40 [facility] Comment on above: Performed By: #### C BCO ####[address] [address] Eosinophils/100 leukocytes 1.9 % Normal 0.0-7.0 [facility] Comment on above: Performed By: #### C BCO ####[address] [address] Erythrocyte distribution width Auto Ratio (RBC) 14.3 % Normal 11.5-14.5 [facility] Comment on above: Performed By: #### C BCO ####[address] [address] Erythrocytes (RBC) 4.95 10 6/mcL Normal 4.04-6.13 [facility] Comment on above: Performed By: #### C BCO ####[address] [address] Hematocrit (HCT) 43.2 % Normal 42.0-52.0 [facility] Comment on above: Performed By: #### C BCO ####[address] [address] Hemoglobin mass conc (Bld) 14.2 G/dL Normal 14.0-18.0 [facility] Comment on above: Performed By: #### C BCO ####[address] [address] Lymphocytes 2.00 10 3/mcL Normal 0.77-3.85 [facility] Comment on above: Performed By: #### C BCO ####[address] [address] Lymphocytes/100 leukocytes 30.8 % Normal 10.0-50.0 [facility] Comment on above: Performed By: #### C BCO ####[address] [address] MCH 28.6 pg Normal 27.0-31.2 [facility] Comment on above: Performed By: #### C BCO ####[address] [address] MCHC mass conc (RBC) 32.8 G/dL Normal 31.8-35.4 [facility] Comment on above: Performed By: #### C BCO ####[address] [address] MCV 87.3 fL Normal 80.0-94.0 [facility] Comment on above: Performed By: #### C BCO ####[address] [address] Monocytes 0.70 10 3/mcL Normal 0.15-1.00 [facility] Comment on above: Performed By: #### C BCO ####[address] [address] Monocytes/100 leukocytes 11.4 % Normal 1.7-13.0 [facility] Comment on above: Performed By: #### C BCO ####[address] [address] Neutrophils 3.60 10 3/mcL Normal 2.85-6.16 [facility] Comment on above: Performed By: #### C BCO ####[address] [address] Neutrophils/100 WBC Auto (Bld) 55.2 % Normal 37.0-80.0 [facility] Comment on above: Performed By: #### C BCO ####[place] [address] [address] Platelet mean volume (PMV) 9.2 fL Normal 7.4-10.4 [facility] Comment on above: Performed By: #### C BCO ####[place] [address] [address] Platelets 155 10 3/mcL Normal 130-400 [facility] Comment on above: Performed By: #### C BCO ####[place] [address] [address] WBC (Leukocytes) 6.60 10 3/mcL Normal 4.60-10.80 [facility] Comment on above: Performed By: #### C BCO ####[place] [address] [address] Comp. Metabolic Panelon 07-0 Albumin/Globulin Ratio 2.0 {ratio} Normal 1.1-2.5 [facility] Comment on above: Performed By: #### C MP ####[place] [address] [address] Aspartate aminotransferase (AST) 26 U/L Normal 10-40 [facility] Comment on above: Performed By: #### C MP ####[place] [address] [address] Globulin 2.2 G/dL Normal [facility] Comment on above: Performed By: #### C MP ####[place] [address] [address] T. Protein 6.6 G/dL Normal 6.0-8.3 [facility] Comment on above: Performed By: #### C MP ####[address] [address] Alanine aminotransferase (ALT) 38 U/L High 10-35 [facility] Comment on above: Performed By: #### C MP ####[address] [address] Alk. Phosphatase 81 IU/L Normal 40-135 [facility] Comment on above: Performed By: #### C MP ####[address] [address] Glucose mass conc 98 mg/dL Normal 70-105 [facility] Comment on above: Performed By: #### C MP ####[place] [address] [address] Bilirubin (direct) 0.2 mg/dL Normal 0.2-1.0 [facility] Comment on above: Performed By: #### C MP ####[address] [address] BUN/Creatinine Ratio 19 mg/mg Normal 7-27 [facility] Comment on above: Performed By: #### C MP ####[place] [id number] Calcium 9.3 mg/dL Normal 8.4-10.2 [facility] Comment on above: Performed By: #### C MP ####[place] [id number] Creatinine 0.9 mg/dL Normal 0.6-1.2 [facility] Comment on above: Performed By: #### C MP ####[address] [address] Albumin 4.4 G/dL Normal 3.5-5.0 [facility] Comment on above: Performed By: #### C MP ####[place] [id number] CO2 27 mmol/L Normal 22-29 [facility] Comment on above: Performed By: #### C MP ####[address] [address] Electrolyte Balance 9.0 mEq/L Normal [facility] Comment on above: Performed By: #### C MP ####[address] [address] Urea nitrogen 17 mg/dL Normal 7-18 [facility] Comment on above: Performed By: #### C MP ####[address] [address] Chloride 102 mmol/L Normal 98-107 [facility] Comment on above: Performed By: #### C MP ####[address] [address] Potassium molar conc 4.7 mmol/L Normal 3.5-5.1 [facility] Comment on above: Performed By: #### C MP ####[address] [address] Sodium 138 mmol/L Normal 136-146 [facility] Comment on above: Performed By: #### C MP ####[address] [address] Free T4on 12-27-2016 Thyroxine (T4) free 0.8 ng/mL Normal 0.6-1.7 [facility] Comment on above: Performed By: #### F T4 ####[address] [address] Glomerular Filtration Rate E stimateon 12-27-2016 eGFR (non-black) mL/min/{1.73_m2} Normal [facility] Comment on above: Performed By: #### G FR ####[address] [address] Result Comment: Mikymauricio kittymed mean GFR = 93 mL/min/1.73 sq.m. for ages 50-59 years. Chronic Kidney Disease: Less than 60 mL/min/1.73 square metersEnd Stage Renal Disease: Less than 15 mL/min/1.73 square meters HDL Cholesterol Profileon Cholesterol 166 mg/dL Normal 131-200 [facility] Comment on above: Result Comment: Chol esterol Reference Interval: Less than 200 Desirable 200-239 Borderline high risk 240 and above High risk ---- Performed By: #### L IPID ####[place] [address] [address] HDL Cholesterol 50 mg/dL Normal 35-90 [facility] Comment on above: Result Comment: HDL Reference Interval: Less than 40 Low - high risk 60 or above Optimal/lowers risk ---- Performed By: #### L IPID ####[place] [address] [address] LDL Cholesterol 88 mg/dL Normal 0-130 [facility] Comment on above: Result Comment: LDL is a calculated result and requires a 12- hr fast. LDL Reference Interval: Less than 100 Optimal 100-129 Near or above optimal 130-159 Borderline high risk 160-189 High risk 190 and above Very high risk ----- Performed By: #### L IPID ####[place] [address] [address] Triglyceride 138 mg/dL Normal 40-150 [facility] Comment on above: Result Comment: Trig lyceride Reference Interval: Less than 150 Normal 150-199 Borderline high risk 200-499 High risk 500 or higher Very high risk ---- Performed By: #### L IPID ####[place] [address] [address] TSHon 12-27-2016 Thyroid stimulating hormone (TSH) 1.89 mcIU/mL Normal 0.27-4.20 [facility] Comment on above: Performed By: #### T SH ####[place] [address] [address] Vital Signs Date Time Vital Sign Value Performing Clinician Facility 11-21-2024 07:45-0400 Body height 182.88 cm Mak Walworth [employer] EXTR[employer]OR[employer] Work Phone: [facility] 11-21-2024 07:45-0400 Body mass index (BMI) [Ratio] 42.6 kg/m2 Mak Richard [employer] Work Phone: [facility] 11-21-2024 07:45-0400 Body weight 142.65 kg Mak Walworth [employer] EXTR[employer]OR[employer]C Work Phone: [facility] 11-21-2024 07:45-0400 Diastolic blood pressure 81 mm[Hg] Mak Richard [employer] EXTR[employer] Work Phone: [facility] 11-21-2024 07:45-0400 Heart rate 55 /min Mak Crosspkins [employer] EXTRACTOR[employer]C Work Phone: [facility] 11-21-2024 07:45-0400 Respiratory rate 17 /min Mak Walworth [employer] EXTRACTOR[employer]C Work Phone: [facility] 11-21-2024 07:45-0400 SaO2% (BldA) [Mass fraction] 90 % Mak Richard [employer] EX[employer] Work Phone: [facility] 11-21-2024 07:45-0400 Systolic blood pressure 166 mm[Hg] Mak Walworth [employer] EXTRACTOR[employer]C Work Phone: [facility] 06-02-2023 12:40-0500 Body temperature 99.19 [degF] Jeffery Gonzalez APRN.RAILWAY HEAD TENDER Work Phone: [facility] 06-02-2023 12:40-0500 Body weight 132.18 kg [facility] VIRTUAL RECRUITER.[employer]ILWAY HEAD TENDER Work Phone: [facility] 06-02-2023 12:40-0500 Diastolic blood pressure 90 mm[Hg] [facility] VIRTUAL RECRUITER.RAILWAY HEAD TENDER Work Phone: [facility] 06-02-2023 12:40-0500 Heart rate 80 /min Jeffery Pendlebury VIRTUAL RECRUITER.RAILWAY HEAD TENDER Work Phone: [facility] 06-02-2023 12:40-0500 Respiratory rate 21 /min [facility] VIRTUAL RECRUITER.RAILWAY HEAD TENDER Work Phone: [facility] 06-02-2023 12:40-0500 SaO2% (BldA) [Mass fraction] 94 % [facility] VIRTUAL RECRUITER.RAILWAY HEAD TENDER Work Phone: [facility] 06-02-2023 12:40-0500 Systolic blood pressure 122 mm[Hg] [facility] VIRTUAL RECRUITER.RAILWAY HEAD TENDER Work Phone: [facility] 09-27-2022 10:34-0400 Diastolic blood pressure 107 mm[Hg] [employer] Mak Ramos [employer] EXTRACTOR Work Phone: [facility] 09-27-2022 10:34-0400 Heart rate 59 /min [employer] Mak Ramos [employer] EXTRACTOR Work Phone: [facility] 09-27-2022 10:34-0400 Respiratory rate 16 /min [employer] Mak Ramos [employer] EXTRACTOR Work Phone: [facility] 09-27-2022 10:34-0400 SaO2% (BldA) [Mass fraction] 96 % [employer] Mak Ramos [employer] EXTRACTOR Work Phone: [facility] 09-27-2022 10:34-0400 Systolic blood pressure 160 mm[Hg] [employer] EXTR[employer]C Mak Ramos [employer] EXTRACTOR Work Phone: [facility] 09-27-2022 09:05-0400 Inhaled oxygen flow rate 2 L/min [employer] Mak Ramos [employer] EXTRACTOR Work Phone: [facility] 09-27-2022 08:14-0400 Body height 182.88 cm [employer] Mak Crosspkins [employer] EXTRACTOR Work Phone: [facility] 09-27-2022 08:14-0400 Body mass index (BMI) [Ratio] 38 kg/m2 [employer] Mak Richard [employer] EXTRACTOR Work Phone: [facility] 09-27-2022 08:14-0400 Body temperature 97.7 [degF] [employer] EXTR[employer]OR[employer]C Mak Crosspkins [employer] EXTRACTOR Work Phone: [facility] 09-27-2022 08:14-0400 Body weight 127 kg [employer] EXTRACTOR[employer]C Mak Crosspkins [employer] EXTRACTOR Work Phone: [facility] Encounters Encounter Date Encounter Type Care Provider Facility Start: 03-25-2025 ambulatory Mak Ramos [employer] EXTRACTOR Facility:[facility] Start: 02-23-2025 End: 02-23-2025 ambulatory MAK RAMOS VIRTUAL RECRUITER - [employer] HEAD TENDER Facility:[facility] Start: 02-23-2025 End: 02-23-2025 Patient encounter procedure MAK RAMOS VIRTUAL RECRUITER - RAILWAY HEAD TENDER [facility] Start: 01-25-2025 End: 01-25-2025 Patient encounter procedure Christine MORELOS -[facility] Work Phone: Start: 01-25-2025 End: 01-25-2025 ambulatory Mak Ramos [employer] Work Phone: -[facility] Start: 11-21-2024 End: 11-21-[address] Chalino Jones MD -[facility] Work Phone: Start: 11-21-2024 End: 11-21-2024 ambulatory Mak Ramos [employer] EX[employer]C Work Phone: [facility] Work Phone: Start: 11-17-2024 End: 11-17-2024 Subsequent hospital visit by physician Xr [facility] [place] [facility] Work Phone: Radiology Comment on above: Finger pain, left [M 79.645] Start: 11-17-2024 End: 11-17-2024 ambulatory JEFFERY GONZALEZ Facility:[facility] Start: 09-01-2024 End: 09-01-2024 ambulatory MAK RAMOS VIRTUAL RECRUITER - [employer] HEAD TENDER Facility:[facility] Start: 07-23-2024 End: 07-23-2024 ambulatory Mak Ramos [employer] EXTRACTOR Facility:[facility] Start: 04-25-2024 End: 04-25-2024 ambulatory Vinicio Haro Facility:[facility] Start: 02-25-2024 End: 02-25-2024 ambulatory MAK RAMOS VIRTUAL RECRUITER - [employer] HEAD TENDER Facility:[facility] Start: 02-25-2024 End: 02-25-2024 Patient encounter procedure MAK RAMOS VIRTUAL RECRUITER - RA[employer]WAY HEAD TENDER [facility] Start: 02-11-2024 End: 02-11-2024 ambulatory MAK RAMOS VIRTUAL RECRUITER - [employer] HEAD TENDER Facility:[facility] Start: 09-10-2023 End: 09-10-2023 ambulatory MAK RAMOS VIRTUAL RECRUITER - [employer] HEAD TENDER Facility:[facility] Start: 09-10-2023 End: 09-10-2023 Patient encounter procedure MAK RAMOS VIRTUAL RECRUITER - RAILWAY HEAD TENDER [facility] Start: 08-20-2023 End: 08-20-2023 ambulatory [facility] Work Phone: Start: 08-20-2023 End: 08-20-2023 Patient encounter procedure [facility] Work Phone: Start: 06-02-2023 End: 06-02-2023 Subsequent hospital visit by physician Xr [facility] Work Phone: Radiology Comment on above: Acute cough [R05.1] Start: 06-02-2023 End: 06-02-2023 Office outpatient visit 15 minutes Jeffery Gonzalez VIRTUAL RECRUITER.RA[employer]WAY HEAD TENDER Work Phone: [facility] Comment on above: Acute cough (Primary Dx); Viral illness Start: 05-05-2023 End: 05-09-2023 ambulatory MAK RAMOS VIRTUAL RECRUITER - RA[employer] HEAD TENDER Facility:[facility] Start: 05-05-2023 End: 05-09-2023 Outreach Lab MAK RAMOS VIRTUAL RECRUITER - RAILWAY HEAD TENDER [facility] Start: 04-09-2023 End: 04-09-2023 ambulatory MAK RAMOS VIRTUAL RECRUITER - RA[employer] HEAD TENDER Facility:[facility] Start: 04-09-2023 End: 04-09-2023 Patient encounter procedure MAK RAMOS VIRTUAL RECRUITER - RAILWAY HEAD TENDER [facility] Start: 03-22-2023 End: 03-22-2023 ambulatory [facility] Work Phone: Start: 03-22-2023 End: 03-22-2023 Patient encounter procedure [facility] Work Phone: Start: 09-27-2022 End: 09-27-2022 ambulatory [employer] EXTR[employer]OR-C Mak Ramos [employer] EXTRACTOR Work Phone: [facility] Work Phone: Start: 09-27-2022 End: 09-27-2022 Patient encounter procedure [employer] EXTR[employer]OR-C Mak Ramos [employer] EXTRACTOR Work Phone: [facility], [facility] Start: 07-30-2022 End: 08-03-2022 Outreach Lab MAK RAMOS VIRTUAL RECRUITER - RAILWAY HEAD TENDER [facility] Start: 06-29-2022 End: 06-29-2022 Patient encounter procedure [employer] EXTRACTOR-C Mak Ramos [employer] EXTRACTOR Work Phone: [facility] Start: 04-27-2022 End: 04-27-2022 Patient encounter procedure MAK RAMOS VIRTUAL RECRUITER - RAILWAY HEAD TENDER [facility] Start: 03-22-2022 End: 03-22-2022 ambulatory [employer] EXTR[employer]OR-C Mak Ramos [employer] EXTRACTOR Work Phone: [facility] Work Phone: Start: 03-22-2022 End: 03-22-2022 Patient encounter procedure [employer] EXTRACTOR-C Mak Ramos [employer] EXTRACTOR Work Phone: [facility] Start: 01-20-2022 End: 01-20-2022 Patient encounter procedure [employer] EXTRACTOR-C Mak Ramos [employer] EXTRACTOR Work Phone: [facility] Start: 11-02-2021 End: 11-02-2021 Patient encounter procedure MAK RAMOS VIRTUAL RECRUITER - RAILWAY HEAD TENDER [facility] Start: 09-24-2021 End: 09-24-[address] Agustin Hunt Work Phone: [facility] Start: 09-10-2021 End: 09-10-[address] Agustin Hunt Work Phone: [facility] Start: 08-31-2021 End: 08-31-[address] Agustin Hunt Work Phone: [facility] Start: 07-14-2021 End: 07-14-2021 Patient encounter procedure MAK RAMOS VIRTUAL RECRUITER - RAILWAY HEAD TENDER [facility] Start: 12-27-2016 End: 12-28-2016 Ambulatory PHY WO ID REFERRING Facility:[facility] Procedures Date Procedure Procedure Detail Performing Clinician Start: 11-17-2024 Radkirk fingr minimum 2 views Jeffery Gonzalez VIRTUAL RECRUITER.[employer]WAY HEAD TENDER Work Phone: Start: 08-20-2023 Investigation of tra nsfusion reaction Start: 08-20-2023 Respiratory microbia l culture Start: 06-02-2023 Radiologic exam ches t 2 views Jeffery Gonzalez APRN.RAILWAY HEAD TENDER Work Phone: Start: 03-22-2023 Ultrasound elastogra phy of liver Start: 09-27-2022 Biopsy/Inj or Needle Placement [employer] EX[employer]OR-C Mak Crosspkins [employer] EXTRACTOR Work Phone: Start: 03-22-2022 Ultrasonography of abdomen [employer] EXTR[employer]OR[employer]C Mak Crosspkins [employer] EXTRACTOR Work Phone: Start: 03-22-2022 Ultrasound elastography [employer] EXTRACTOR-C Mak Crosspkins [employer] EXTRACTOR Work Phone: Start: 09-10-[address] Agustin Hunt Work Phone: Start: 09-10-[address] Agustin Hunt Work Phone: Plan of Treatment Date Care Activity Detail Author Start: 02-25-2025 Influenza vaccination Influenza Vaccine (Season Ended) [facility] Start: 02-26-2024 Covid-19 Vaccine ( season) Covid-19 Vaccine ( season) [facility] Start: 02-26-2024 Covid-19 Vaccine ( season) Covid-19 Vaccine ( season) [facility] Start: 02-26-2024 Influenza vaccination Influenza Vaccine (#1) [facility] Start: 2023 RSV Vaccine (1 - 1-dose 60+ series) RSV Vaccine (1 - 1-dose 60+ series) [facility] Start: 2023 RSV Vaccine (1 - Risk 60-74 years 1-dose series) RSV Vaccine (1 - Risk 60-74 years 1-dose series) [facility] Start: 02-25-2023 Covid-19 Vaccine ( season) Covid-19 Vaccine ( season) [facility] Start: 02-25-2023 Influenza vaccination Influenza Vaccine (#1) [facility] Start: 09-27-2022 Biopsy liver needle percutaneous NEEDLE BIOPSY OF LIVER [facility] Start: 09-27-2022 Catheterization of vein [facility] Start: 09-27-2022 Oxygen therapy [facility] Start: 09-27-2022 Patient discharge [facility] Start: 09-27-2022 Vital signs measurements [facility] Start: 06-27-2022 Depression Assessment Depression Assessment [facility] Start: 11-22-2018 Prostate Cancer Screening Discussion Prostate Cancer Screening Discussion [facility] Start: 11-22-2018 Prostate specific antigen measurement Prostate Cancer Screening Discussion [facility] Start: 06-09-2018 Diabetes Screening Diabetes Screening [facility] Start: 11-22-2013 Pneumococcal Vaccine: 50+ (1 of 1 - PCV) Pneumococcal Vaccine: 50+ (1 of 1 - PCV) [facility] Start: 11-22-2013 Shingrix Vaccine (1 of 2) Shingrix Vaccine (1 of 2) [facility] Start: 11-22-2008 Cologuard (FIT-DNA) Cologuard (FIT-DNA) [facility] Start: 11-22-2008 Colonoscopy Colonoscopy [facility] Start: 11-22-2008 Colorectal Cancer Screening Colorectal Cancer Screening [facility] Start: 11-22-[address] Colonography [facility] Start: 11-22-2008 Fecal Occult Blood Fecal Occult Blood [facility] Start: 11-22-2008 Prostate specific antigen measurement Prostate Cancer Screening Discussion [facility] Start: 11-22-2008 Screening for malignant neoplasm of colon [facility] Start: 11-22-2008 Sigmoidoscopy Sigmoidoscopy [facility] Start: 11-22-1998 Lipid 1996 panel - Serum or Plasma Lipid Screening [facility] Start: 11-22-1998 Lipid panel Lipid Screening [facility] Start: 11-22-1982 Urine microalbumin profile DTaP,Tdap,Td Vaccine (1 - Tdap) [facility] Start: 11-22-1981 Anxiety Screening Anxiety Screening [facility] Start: 11-22-1981 Depression Screening Depression Screening [facility] Start: 11-22-1981 Hepatitis C Screening Hepatitis C Screening [facility] Start: 11-22-1981 Hepatitis C screening Hepatitis C Screening [facility] Start: 11-22-1981 HIV Screening HIV Screening [facility] Start: 11-22-1981 HIV screening HIV Screening [facility] CBC W Auto Different ial panel - Blood [facility] Comprehensive metabo lic 2000 panel - Serum or Plasma [facility] Gamma glutamyl trans ferase measurement [facility] Hemoglobin A1c/Hemoglobin.total in Blood [facility] Liver stiffness by US.transient elastography [facility] Patient Education RAD RN Biopsy Liver Dc RAD RN Procedural Sedation [facility] Work Phone: Patient referral [facility] Work Phone: Prothrombin time [facility] Serum immunofixation [facility] Immunizations Immunization Date Immunization Notes Care Provider Fa cility 10-22-2020 SARS-CoV-2 (COVID-19 ) mRNA-1273 vaccine MAK CROSSPKINS VIRTUAL RECRUITER - [employer] HEAD TENDER [facility] Comment on above: Result Comment: 2020: [id number] 09-24-2020 SARS-CoV-2 (COVID-19 ) mRNA-1273 vaccine MAK CROSSPKINS VIRTUAL RECRUITER - RAILWAY HEAD TENDER [facility] Payers Date Payer Category Payer Private Health Insurance [id number] 2024 Self-pay [id number] [address] [facility] [id number] 1999 Unknown [facility] [facility] [id number] 1999-Present [phone] [address] [place] [address] PPO [id number] 1999 Unknown [id number] 1965 Unknown [id number] 2.16.840.1.848704.3.579. 2.627 1965 Unknown [id number] 2.16.840.1.317768.3.579. 2.627 1965 Unknown [id number] 2.16.840.1.205470.3.579. 2.62 1965 Unknown [id number] 2.16.840.1.384056.3.579. 2.62 1963 Unknown [id number] 2.16.840.1.122118.3.579. 2.627 1963 Unknown [id number] 2.16.840.1.288751.3.579. 2.627 1965 Unknown [id number] 2.16.840.1.786617.3.579. 2.627 Unknown [id number] 2.16.840.1.879248.3.579. 2.462 Unknown [id number] 2.16.840.1.426309.3.579. 2.462 Unknown [id number] 2.16.840.1.766297.3.579. 2.462 Unknown [id number] 2.16.840.1.170729.3.579. 2.462 Unknown [id number] 2.16.840.1.347766.3.579. 2.462 Social History Date Type Detail Facility Start: 02-23-2019 End: 09-10-2024 Never smoked tobacco (finding) [facility] Comment on above: No smoke exposure Start: 1965 Sex Assigned At Male A [facility] Start: 08-31-2021 End: 04-12-2023 Tobacco smoking status ILIS Unknown if ever smoked [facility] Start: 06-02-2023 End: 11-17-2024 Alcohol intake Not Asked [facility] Start: 06-02-2023 End: 11-17-2024 History of Social function [facility] Start: 06-02-2023 End: 11-17-2024 Tobacco use panel [facility] Start: 1965 Sex Assigned At Not on file [facility] Sexual Orientation [facility] Start: 12-20-2018 Sex Male (finding) [facility] Medical Equipment Procedure Code Equipment Code Equipment Origin al Text Equipment Identifier Dates Patch Ventralex St Sepra Large Advance Surgical Strap 3.2in Umbilical Hernia - [id number] Start: 07-18-2015 Functional Status Date Assessment Result Facility 01-13-2015 Are you deaf, or do you have serious difficulty hearing No 01/13/2015 4:18 PM Jannette Bills LPN No [facility] 01-13-2015 Are you blind, or do you have serious difficulty seeing, even when wearing glasses No 01/13/2015 4:18 PM Jannette Bills LPN No [facility] 01-13-2015 Do you have serious difficulty walking or climbing stairs No 01/13/2015 4:18 PM Jannette Bills LPN No [facility] 01-13-2015 Do you have difficul ty dressing or bathing No 01/13/2015 4:18 PM Jannette Bills LPN No [facility] 01-13-2015 Because of a physica l, mental, or emotional condition, do you have difficulty doing errands alone such as visiting a physician's office or shopping No 01/13/2015 4:18 PM EDJannette Alves LPN No [facility] Mental Status Date Assessment Result Facility 09-27-2022 Cognitive function Awake;Alert;A ppropriat e [facility] Work Phone: 01-13-2015 Because of a physica l, mental, or emotional condition, do you have serious difficulty concentrating, remembering, or making decisions No 01/13/2015 4:18 PM EDT Jannette Dunbar LPN No [facility] Clinical Notes 06-02-2023 to 01-25-2025 Note Date & Type Note Facility 01-25-2025 Progress note 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 Work Phone: [phone] History of Present illness Narrative* Angelo Romero [...] PATIENT PRESENTS WITH AN IMPLANTABLE OR ATTACHED APERTURE MASK ETCHER: No RADIOLOGY DEPARTMENT: General X-ray: Exam(s) Completed: Upper Extremity X- Ray(s): Fingers/Thumb, left PERIPHERAL IV DATA: Not applicable SIGNED BY: RT Brock(Lynda) November 17, 2024 11:21 AM [facility]25 NoteHNO ID: [id number] Author: ANGELO ROMERO RT(R) Service: ? Author [...] PATIENT PRESENTS WITH AN IMPLANTABLE OR ATTACHED APERTURE MASK ETCHER: No RADIOLOGY DEPARTMENT: General X-ray: Exam(s) Completed: Upper Extremity X-Ray(s): Fingers/Thumb, left PERIPHERAL IV DATA: Not applicable SIGNED BY: RT Brock(R) November 17, 2024 11:21 [facility]05-24-2025 NoteHNO ID: [id number] Author: JEFFERY GONZALEZ APRN.[employer]WAY HEAD TENDER Service: ? Author Type: Nurse Practitioner Type: [...] in a few days. 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 OTC medications [...] was generated using D (more content not included)...[facility]12-07-2023 History of Present illness Narrative* Jeffery Gonzalez APRN.[facility] - 06/02/2023 12:42 PM EST Subjective [...] of care. This note was generated using [employer] software. It may contain errors in wording, punctuation, or spelling. Jeffery Gonzalez APRN.[employer]ILWAY HEAD TENDER documented in this encounterFairfield [facility] CenterEvaluation + Plan note Future Appointments Appointment Date:10/01/2021 04:00:00 PM Scheduled Provider:MAK RAMOS APRN, CNP Location:[facility] Appointment Type:PC OV Follow Up Diagnostic Tests Pending * Stool Culture 07/14/21 * Shiga Toxins 1 and 2 07/14/21 Future Scheduled Tests Laboratory* Giardia Antigen 05/18/21 * Clostridium difficile PCR 05/18/21 * Thyroid Stimulating Hormone 10/02/21 * Free T4 10/02/21 * Stool Culture 05/18/21 * Complete Blood Count 10/02/21 * Lipid Profile 10/02/21 * Complete Metabolic Panel 10/02/21 [facility] Evaluation + Plan note Future Appointments Appointment Date:11/10/2021 03:40:00 PM Scheduled Provider:MAK RAMOS APRN, CNP Location:[facility] Appointment Type:PC OV Follow Up Future Scheduled Tests Laboratory* Giardia Antigen 05/18/21 * Stool Culture 05/18/21 * Clostridium difficile PCR 05/18/21 [facility] Evaluation + Plan note Future Appointments Appointment Date:05/13/2022 04:00:00 PM Scheduled Provider:MAK RAMOS APRN, CNP Location:[facility] Appointment Type:PC OV Follow Up Future Scheduled Tests Laboratory* Giardia Antigen 05/18/21 * Stool Culture 05/18/21 * Clostridium difficile PCR 05/18/21 * Microalbumin Level Urine 05/13/22 [facility] Evaluation + Plan note Future Appointments Appointment Date:11/12/2022 04:00:00 PM Scheduled Provider:MAK RAMOS APRN, CNP Location:[facility] Appointment Type:PC OV Follow Up Future Scheduled Tests Laboratory* Prostate Specific Antigen 11/10/22 * Thyroid Stimulating Hormone 11/10/22 * Free T4 11/10/22 * Lipid Profile 11/10/22 * Microalbumin Level Urine 05/13/22 * Microalbumin Level Urine 11/10/22 * Complete Metabolic Panel 11/10/22 [facility] Evaluation + Plan note Future Appointments Appointment Date:05/05/2023 07:00:00 AM Scheduled Provider:MAK RAMOS APRN, CNP Location:[place] Appointment Type:PC OV Follow Up Future Scheduled Tests Laboratory* Albumin/Creatinine Ratio, Random Urine 05/15/23 * Microalbumin Level Urine 05/13/22 [facility] Evaluation + Plan note Future Appointments Appointment Date:05/31/2023 07:20:00 AM Scheduled Provider:MAK RAMOS APRN, CNP Location:[facility] Appointment Type:PC OV Future Scheduled Tests Laboratory* Prostate Specific Antigen 11/03/23 * Thyroid Stimulating Hormone 11/03/23 * Free T4 11/03/23 * Lipid Profile 11/03/23 * Albumin/Creatinine Ratio, Random Urine 11/03/23 * Complete Metabolic Panel 11/03/23 [facility] Evaluation + Plan note Future Appointments Appointment Date:09/26/2023 07:00:00 AM Scheduled Provider:MAK RAMOS APRN, CNP Location:[place] Appointment Type:PC OV Follow Up Diagnostic Tests Pending * Albumin/Creatinine Ratio, Random Urine 09/10/23 Future Scheduled Tests Laboratory* Lipid Profile 11/30/23 * Albumin/Creatinine Ratio, Random Urine 11/30/23 * Complete Metabolic Panel 11/30/23 [facility] Evaluation + Plan note Future Appointments Appointment Date:03/12/2024 07:20:00 AM Scheduled Provider:MAK RAMOS APRN, CNP Location:[facility] Appointment Type:PC OV Future Scheduled Tests Laboratory* Albumin/Creatinine Ratio, Random Urine 11/30/23 * Albumin/Creatinine Ratio, Random Urine 03/27/24 * Complete Metabolic Panel 11/30/23 [facility] Evaluation + Plan note Future Appointments Appointment Date:03/11/2025 07:00:00 AM Scheduled Provider:MAK RAMOS APRN, CNP Location:[facility] Appointment Type:PC OV Future Scheduled Tests Laboratory* Albumin/Creatinine Ratio, Random Urine 09/09/24 * Albumin/Creatinine Ratio, Random Urine 03/27/24 * Albumin/Creatinine Ratio, Random Urine 03/13/25 [facility] Evaluation note* Diagnosis Onset Date Resolution Status Diarrhea acute Fatty liver acute [facility] Work Phone: Evaluation note* Diagnosis Onset Date Resolution Status Diarrhea chronic Fatty liver chronic Primary biliary cholangitis chronic [facility] Work Phone: Evaluation noteNo assessment information available [facility] Work Phone: evaluation note* Diagnosis Acute cough- Primary Viral illness Unspecified viral infection, in conditions classified elsewhere and of unspecified site [facility] Diagnosis Acute cough [facility]* Diagnosis Finger pain, left Pain in limb documented [facility] encounter [facility]* Diagnosis Onset Date Resolution Status Admit Date Metabolic dysfunction-associ ated steatohepatitis (MASH) acute November 21, 2024 7:43am 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 Work Phone: Hospital course Narrative No data available for this section [facility] Hospital Discharge instructions No data available for this section [facility] Progress note No data available for this section [facility] Progress note Author Christine Longo [facility] Note Date/Time January 25, 2025 8:0 2am [facility] [address] [place] [address] OFFICE VISIT Date of Service: 01/25/25 MR#: [id number] Acct: [id number] Name: SEE SHERIFF Rep #: [id number] : 1965 Provider: JETHRO Kay Age/Sex: 59/M [...] unit) tablet Diltiazem 10mg/Lidocaine 50mg 1 supp NJ DAILY PRN hemo rrhoids 01/25/25 01/25/25 Rx [...] in 2022. No prior hx of EGD. [facility] Medical History Hypothyroidism Hypertension Diarrhea Social History [...] 1500 mg; Per 30 supp 1 supp NJ DAILY PRN 30 supp 2RF hemorrhoids Coding Level of Care Code Off vis,est,level 3 Diagnoses Rectal pressure R19.8 01/25/25 08 <Electronically signed by Christine MORELOS> Date _ Christine MORELOS Cosigner Signature: Date (if applicable) CC: ~ [facility] Work Phone: Reason for referral (narrative)No reason for referral information availableBloomington Medical Services Work Phone: Reason for visit Narrative* Diagnostic Procedure Only (Urgent) - Closed Specialty Diagnoses / Procedures Referred By Contac t Referred To Contact XR IMAGING Diagnoses Finger pain, left Procedures XR DIGIT GENERAL 3V FRONTAL/LAT/OBL LEFT RADEX FINGR MINIMUM 2 VIEWS Jeffery Gonzalez APRN.[employer]AY HEAD TENDER [address] [place] [address] Phone: tel: fax: [place] [phone] Referral ID Status Reason Start Date Expiration Date V isits Requested Visits Authorized [id number] Closed Auto-Generate d Referral 11/17/2024 12/17/2025 1 1 [facility] Summary Purpose Family History No Family History [...] No August 24, 015 8:15pm Power of Babysitter No August 24, 2014 8:15pm Advance Directive Response Recorded Date/ Time Living Will No August 24 015 7:15pm Power of Babysitter No August 24, 2014 7:15pm Chief Complaint [...] ISSUES PRESSURE RECTUM WHEN BENDING O MIKE/SITTIN [place] 1st, 2025 7:22am Reason for Visit Admit [...] section and content) DATE CREATED AUTHOR 12/21/2017 [facility] [employer] DATE CREATED AUTHOR AUTHOR'S ORGANIZ ATION 02/26/2024 [facility] [employer] ([place]) DATE CREATED AUTHOR AUTHOR'S ORGANIZ ATION 2024 [facility] DATE CREATED AUTHOR AUTHOR'S ORGANIZ ATION 02/24/2025 [facility] DATE CREATED AUTHOR AUTHOR'S ORGANIZ ATION 03/28/2025 [facility] Goals (unrecognized section and content) Goals may be documented in a n alternate section Care Team (unrecognized sect ion and content) Team Status: Active Member Role Status Dates Mak Ramos Family Provider Active Mak Ramos [employer]PRODUCTS EXTRACTOR, BYPRODUCTS EXTRACTOR-C Primary Care Provider Active Team Status: Inactive Member Role Status Dates Mak Ramos [employer]PR[employer] EXTRACTOR, BYPRODUCTS EXTRACTOR-C Primary Care Provider, Referring Provider Active Dr. Agustni Hunt DO Attending Provider Active Team Status: Inactive Member Role Status Dates Mak Ramos [employer]PRODUCTS EXTRACTOR, BYPRODUCTS EXTRACTOR-C Primary Care Provider Active Dr. Agustin Hunt DO Attending Provider, Referring Provider Active Steel Layer Relationship Specialty Start Date End Date Mak Ramos CNP [address] [place] [address] [id number] PCP - General Family Medicine 12/11/14 Team Status: Inactive Member Role Status Dates Mak Ramos BYPRODUCTS EXTRACTOR, BYPRODUCTS EXTRACTOR-C Primary Care Provider Active Dr. Vinicio Haro MD Attending Provider, [facility] Active Steel Layer Relationship Specialty Start Date End Date Mak Ramos CNP [address] [place] [address] [phone] PCP - General Family Medicine 12/11/14 Steel Layer Relationship Specialty Start Date End Date Mak Ramos CNP [address] [place] [id number] PCP - General Family Medicine 12/11/14 Team Status: Inactive Member Role Status Dates Mak Ramos BYPRODUCTS EXTRACTOR, BYPRODUCTS EXTRACTOR-C Primary Care Provider Active Start: November 21, 2024 End: November 21, 2024 Mak Ramos BYPRODUCTS EXTRACTOR, BYPRODUCTS EXTRACTOR-C Referring Provider Ac tive Start: November 21, 2024 End: November 21, 2024 Dr. Chalino Jones MD Attending Provider Active Start: November 21, 2024 End: November 21, 2024 Team Status: Active Member Role/Relationship Status Dates Mak Ramos Family Provider Active Mak Ramos [employer]PRODUCTS EXTRACTOR, BYPRODUCTS EXTRACTOR-C Primary Care Provider Active Team Status: Inactive Member Role/Relationship Status Dates Mak Ramos BYPRODUCTS EXTRACTOR, BYPRODUCTS EXTRACTOR-C Primary Care Provider Active Start: November 21, 2024 End: November 21, 2024 Mak Ramos BYPRODUCTS EXTRACTOR, BYPRODUCTS EXTRACTOR-C Referring Provider Ac tive Start: November 21, 2024 End: November 21, 2024 Dr. Chalino Jones MD Attending Provider Active Start: November 21, 2024 End: November 21, 2024 Team Status: Inactive Member Role/Relationship Status Dates Mak Ramos BYPRODUCTS EXTRACTOR, BYPRODUCTS EXTRACTOR-C Primary Care Provider Active Start: January 25, 2025 End: January 25, 2025 Mak Ramos BYPRODUCTS EXTRACTOR, BYPRODUCTS EXTRACTOR-C Referring Provider Ac tive Start: January 25, 2025 End: January 25, 2025 JETHRO Kay Attending Provider Active Start: January 25, 2025 End: January 25, 2025 Care Team (unrecognized sect ion and content) Care Team Personnel Name: MAK RAMOS APRN, CNP Position: P4 Advanced Practice Nurse Member Role: Primary Care Physician Address: Address: [address] [place] [address]- Care Team Related Persons Name: NOEMI SHERIFF Care Team Personnel Name: MAK RAMOS APRN RAILWAY HEAD TENDER Position: P4 Advanced Practice Nurse Member Role: Primary Care Physician Address: Address: [address] [place] [address]- [place] Care Team Related Persons Name: NOEMI SHERIFF Source Comments (unrecognize d section and content) In the event this informatio n is protected by the Federal Confidentiality of Alcohol and Drug Abuse Patient Records regulations: The Federal rules restrict any use of the information to criminally investigate or prosecute any alcohol or drug abuse patient.[facility] CenterIn the event this information is protected by the Federal Confidentiality of Alcohol and Drug Abuse Patient Records regulations: The Federal rules restrict any use of the information to criminally investigate or prosecute any alcohol or drug abuse patient.[facility] CenterIn the event this information is protected by the Federal Confidentiality of Alcohol and Drug Abuse Patient Records regulations: The Federal rules restrict any use of the information to criminally investigate or prosecute any alcohol or drug abuse patient.[facility] Reason for Visit (unrecogniz ed section and [...] BE BASED ON THE PRIMARY CLINICAL RECORDS. [facility] provides no warranty or guarantee of the accuracy or completeness of information in this document.
[2025-03-29 17:32] LABS: CRP < 3.00 mg/L (0.0-3.0)
[2025-04-01 15:08] LABS: ANTINUCLEAR ANTIBODIES DIRECT Negative (Negative)
[2025-04-01 16:09] LABS: Angiotensin Convert Enzyme 30 U/L (14-82)
== END | disposition home or self-care (01) ==
LOC: RAD 16:37
PROVIDERS: PCP Nurse Practitioner Family; Referring Provider Internal Medicine Pulmonary Disease; Visit Provider Internal Medicine Pulmonary Disease
DX: R09.02 Hypoxemia (principal)
CPT/HCPCS: 36415; 71046; 82164; 83880; 85652; 86038; 86140; 86431

== ENCOUNTER → 2025-05-02 | Outpatient (CLI) | payer BC, SELFPAY ==
--- NOTE | 2025-05-02 07:32 | ECHOD_ITS ---
Reason For Study ECHO/Echo Complete
== END | disposition home or self-care (01) ==
LOC: CVS 07:28
PROVIDERS: PCP Nurse Practitioner Family; Referring Provider Internal Medicine Pulmonary Disease; Visit Provider Internal Medicine Pulmonary Disease
DX: G47.33 Obstructive sleep apnea (adult) (pediatric) (principal)
CPT/HCPCS: 93306